=== PATIENT | male | born 1970 | race Caucasian/White ===

== ENCOUNTER 2020-06-30 18:41 | Outpatient (REF) | payer BC, SELFPAY ==
--- NOTE | 2020-06-30 | MR_ITS ---
EXAMINATION: MR KNEE WITHOUT CONTRAST, RIGHT CLINICAL INFORMATION: Right knee pain COMPARISON: Radiographs 05/15/2020 TECHNIQUE: MRI of the knee without contrast was performed using routine sequences on a high-field scanner. FINDINGS: MENISCI: Medial Meniscus: Undersurface tearing of the posterior horn with an oblique component extending to the meniscal periphery. Lateral Meniscus: Minimal inner margin fraying of the meniscal body. LIGAMENTS: Cruciate: Intact Collateral: Intact. Medial gastrocnemius tendinopathy. EXTENSOR MECHANISM: Intact ARTICULAR CARTILAGE/BONE: Patellofemoral Compartment: Mild cartilage thinning and surface irregularity of the central trochlea and medial patellar facet Medial Compartment: Prominent osteophyte of the posterior tibia projecting posterolaterally. Lateral Compartment: Normal. JOINT FLUID AND BURSAE: Moderate joint effusion. Trace Ryan's cyst. IMPRESSION: Undersurface tearing of the posterior horn of the medial meniscus. Minimal inner margin fraying of the lateral meniscus body. Mild patellofemoral and medial compartment osteoarthritis with a moderate joint effusion.
== END 2020-06-30 18:42 | disposition home or self-care (01) ==
LOC: HO.MRI 18:41
PROVIDERS: PCP Internal Medicine; Visit Provider Orthopaedic Surgery
DX: M23.8X1 Other internal derangements of right knee (principal)
CPT/HCPCS: 73721

== ENCOUNTER → 2020-07-14 10:15 | Outpatient (BNVA) | payer BC, SELFPAY | PROVIDERS: PCP Internal Medicine; Referring Provider Internal Medicine; Visit Provider Orthopaedic Surgery | DX: Z76.89 Persons encountering health services in other specified circumstances (principal) ==

== ENCOUNTER 2020-07-20 06:53 | Day surgery (SDC) | payer BC, SELFPAY ==
--- NOTE | 2020-07-19 13:29 | P.CONAN_ITS ---
Documented by User: Mihaela Sue 07/19/20 13:30 HPI - Anesthesia Eval Consult details Narrative: 49yo M for Knee Arthroscopy [facility] Past Medical History Medical History No significant past medical history Surgical History Surgical History H/O lateral meniscus repair of left knee H/O lateral meniscus repair of right knee H/O lumbar discectomy History of arthroscopy of both shoulders History of laparoscopic cholecystectomy Social History Social History Smoking Status: Never smoker Second Hand Smoke Exposure: No Use of substances other than those prescribed or required for medical reasons: No Advance Directives: No Advance Directives Information Provided: No (unknown) Advance Directives on File: No Current occupational status: employed Current occupation: [employer] Allergies Allergy/AdvReac Type Severity Reaction Status Date / Time No Known Allergies Allergy Verified 06/30/20 07:11 [No Known Allergies*] Exam Exam Date and Time: July 19, 2020 1329 Assessment and Plan Assessment Anesthesia Assessment: Chart Reviewed Documented by User: Shiraz Justin MD 07/20/20 09:28 [facility] Past Medical History Medical History No significant past medical history Surgical History Surgical History H/O lateral meniscus repair of left knee H/O lateral meniscus repair of right knee H/O lumbar discectomy History of arthroscopy of both shoulders History of laparoscopic cholecystectomy Social History Social History Smoking Status: Never smoker Second Hand Smoke Exposure: No Use of substances other than those prescribed or required for medical reasons: No Advance Directives: No Advance Directives Information Provided: No (unknown) Advance Directives on File: No Current occupational status: employed 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[facility] Allergies Allergy/AdvReac Type Severity Reaction Status Date / Time No Known Allergies Allergy Verified 06/30/20 07:11 [No Known Allergies*] Exam Airway Mallampati Class: III TM Dist: >3cm Neck ROM: Full Loose/Missing/Broken Teeth: No Heart: rrr Lungs: nl Other: ao Assessment and Plan Assessment Anesthesia Assessment: Anesthesia Plan Discussed and Chart Reviewed Final Anesthetic Review NPO: Yes ASA Class: II Final Preanesthetic Review: No Changes in Pt Med Stat, Meds/Allgs Chart Reviewed, Consent Obtained/Reviewed and Anes Risks/Benef Reviewed Patient Risk: Intermediate Procedure Risk: Low Anesthetic Plan Anesthetic Plan: GA Disposition: Standard PACU
[2020-07-20] VITALS (13 sets, daily range): BP systolic 112–139; BP diastolic 68–82; PULSE 76–87; RESP 16–24; TEMP 36.1–36.7; O2SAT 94–98; BMI 36.5
[2020-07-20] MEDS: Lactated Ringers 1,000 ML 100 ML IVCONT (07:27)
--- NOTE | 2020-07-20 07:41 | MHC.SHP ---
Pre-Procedural Eval Section A The patient is an INPATIENT: No Changes since office visit: No Cold of Flu in the past 2 weeks, No New Medical Problems, No Changes in Medication and No Patient answered all questions The History & Physical has been completed within 30 days and I have reviewed it.: Yes Section B Chief Complaint: Tear of Medial Meniscus Allergies: Allergies Allergy/AdvReac Type Severity Reaction Status Date / Time No Known Allergies Allergy Verified 06/30/20 07:11 [No Known Allergies*] Plan Patient has been examined and remains a candidate for the planned procedure
[2020-07-20] MEDS: HYDROmorphone HCl 0.5 MG/0.5 ML SYRINGE 0.25 MG IVPUSH ×3 (10:29→10:47)
--- NOTE | 2020-07-20 10:29 | PM.PRCOR ---
Brief Operative Note Date of procedure: 07/20/20 Pre-op diagnosis: medial meniscal tear right knee Post-op diagnosis: same ( with chondral injury anterior compartment right knee) Procedure: arthroscopic surgery right knee Anesthesia: GLMA Surgeon: María Michaels Estimated blood loss (mL): 0 Pathology: none sent Condition: stable Disposition: PACU
[2020-07-20] MEDS: Acetaminophen 325 MG TABLET 650 MG PO (11:10)
[2020-07-20] MEDS: oxyCODONE HCl Immed Release 5 MG TABLET PO (11:10)
--- NOTE | 2020-07-20 15:39 | OP_ITS ---
SURGEON: María Michaels MD PREOPERATIVE DIAGNOSIS: Medial meniscal tear, right knee. POSTOPERATIVE DIAGNOSIS: PROCEDURE PERFORMED: ESTIMATED BLOOD LOSS: COMPLICATIONS: ANESTHESIA: ASSISTANTS: SPECIMENS: POSTOPERATIVE DIAGNOSES: 1. Medial meniscal tear, right knee, complex. 2. Grade 3 injury, patella, right knee. PROCEDURES PERFORMED: 1. Partial medial meniscectomy, right knee. 2. Debridement of anterior compartment, right knee. CLINICAL NOTE: This gentleman has had ongoing problem pain and discomfort involving his knee. He had failed nonoperative management. Subsequent investigations confirmed complex tear of posterior horn of medial meniscus and therefore after explaining the risks, benefits, and alternatives and answering all his questions, it was mutually agreed upon to carry out the following procedure. MOTION: Full range of motion. STABILITY: Cruciate and collateral ligaments intact. DESCRIPTION OF PROCEDURE: PREPARATION: GA, standard technique, tourniquet to 300 mmHg for 12 minutes. SURGICAL TIME-OUT: The patient was identified, procedure confirmed, site confirmed. Medical analogy and history were reviewed. Preoperative antibiotics were given. Standard DVT prophylaxis was in place. All other items were discussed and agreed upon. INCISION: Superolateral, inferolateral, inferomedial, and stab incisions. SYNOVIUM: Normal. SYNOVIAL FLUID: Clear. MEDIAL COMPARTMENT: There was complex tear of the posterior horn of medial meniscus. This was resected using a combination of handheld cutters and power shaver to stable meniscus. There was some grade 3 injury with loose articular cartilage on the weightbearing surface of the medial femoral condyle. This was debrided as well. The tibial articular surface had grade 2 softening. INTERCONDYLAR NOTCH: ACL visualized, palpated intact. PCL palpated intact. LATERAL COMPARTMENT: Lateral meniscus, tibial and femoral articular surfaces, popliteus tendon all stable and intact. ANTERIOR COMPARTMENT: Medial and lateral gutters clear. Suprapatellar pouch clear. Patella demonstrated grade 3 injury of the midzone as well as the medial facet, which was debrided using power shaver. There was grade 2 softening of the femoral sulcus. CLOSURE: 30 mL of 0.75% Marcaine with epinephrine mixed 50:50 with normal saline was injected into the knee. Steri-Strips and sterile dressing then applied. RECOMMENDATIONS: 1. Restore motion strength. 2. Resume activity as tolerated. 3. Discharge today with no prescription as he just had tramadol ordered yesterday. 4. Follow up in the office in 10 days' time. MD ZOE Jerry/TASHA / [phone]
== END 2020-07-20 23:59 | disposition home or self-care (01) ==
PROVIDERS: PCP Internal Medicine; Visit Provider Orthopaedic Surgery
PROC: (CPT 29870; principal; 2020-07-20 08:30)
DX: S83.231A Complex tear of medial meniscus, current injury, right knee, initial encounter (principal); M22.41 Chondromalacia patellae, right knee; M25.461 Effusion, right knee
CPT/HCPCS: 29881; J0171; J1170; J2250; J2405; J3010

== ENCOUNTER → 2020-08-08 12:53 | Outpatient (BNVA) | payer BC, SELFPAY | PROVIDERS: PCP Internal Medicine; Referring Provider Internal Medicine; Visit Provider Physician Assistant | DX: Z76.89 Persons encountering health services in other specified circumstances (principal) ==

== ENCOUNTER 2020-08-21 06:00 | Emergency (ER) | payer BC, SELFPAY ==
[2020-08-21 06:02] VITALS: BP 154/96; PULSE 100; RESP 16; TEMP 36.6; O2SAT 96; BMI 36.5
--- NOTE | 2020-08-21 06:17 | ED.MEDCLEAR ---
HPI - Medical Clearance General Chief complaint: Medical Clearance Stated complaint: HBP Time Seen by Provider: 08/21/20 06:15 History of Present Illness HPI Narrative: patient is a 49-year-old male presents today no after noticing his blood pressure being high. Patient has no history of diabetes, hypertension, mi, family history of [place]. No significant past medical history in the past. No fever no chills. No coughing or congestion or upper respiratory symptoms. Patient was working had blood pressure checked noted to be elevated sent to the emergency department for further evaluation. Related Information Previous Rx's Medication Instructions Recorded acetaminophen 300 mg-codeine 30 mg 1 tab PO Q12H PRN 7 Days #21 tab 08/08/20 tablet celecoxib 200 mg capsule 200 mg PO BID 30 Days #60 cap 08/08/20 Allergies Allergy/AdvReac Type Severity Reaction Status Date / Time No Known Allergies Allergy Verified 08/13/20 17:19 [No Known Allergies*] Review of Systems Review of Systems: Constitutional: No Weight loss, No Fever, No Chills, No Night Sweats, No Fatigue, No Malaise ENT/Mouth: No Hearing loss, No Ear Pain, No Nasal Congestion, No Sinus Pain, No Hoarseness, No sore throat, No Rhinorrhea, No Swallowing Difficulty Eyes: No Eye Pain, No Swelling, No Redness, No Foreign Body, No Discharge, No Vision Changes Cardiovascular: No Chest Pain, No SOB, No Dyspnea on Exertion, No Orthopnea, No Edema, No Palpitations Respiratory: No Cough, No Sputum, No Wheezing, No Smoke Exposure, No Dyspnea Gastrointestinal: No Nausea, No Vomiting, No Diarrhea, No Constipation, No abdominal Pain, No Hematochezia, No Melena Genitourinary: no irregular bleeding, No Dysuria, No Urinary Frequency, No Hematuria, No Urinary Incontinence, No Urgency, No Flank Pain, No Urinary Flow Changes, No Hesitancy Musculoskeletal: No joint pain, No Myalgias, No Joint Swelling Skin: No Skin Lesions, No rash Neuro: No Weakness, No Numbness, No Paresthesias, No Loss of Consciousness, No Dizziness, No Headache Psych: No Anxiety/Panic, No Depression, No SI/HI/AH/VH, No Social Issues, Heme/Lymph: No Bruising, No Bleeding,No Lymphadenopathy Endocrine: No Polyuria, No Polydipsia, No Temperature Intolerance [facility] Past Medical History Attestation statement: The following information was validated with the patient. 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 Oriented X3. No acute distress. Eyes: Pupils equal, round and reactive to light. ENT: Pharynx normal. Neck: Normal inspection. Neck supple. No lymph nodes noted. No crepitus CVS: Normal heart rate and rhythm. Pulses normal. Normal S1 and S2 Respiratory: No respiratory distress. Breath sounds normal. No Wheezing. No rales Abdomen: Soft and nontender. No rigidity. No distention. good BS x4 Skin: Skin warm and dry. Normal skin color. Normal skin turgor. Extremities: No lower extremity edema. Neurovascular intact to all extremities. No Lacerations. No Rash Neuro: Oriented X 3. No motor deficit. No sensory deficit. Moving all extermities. No slurred speech MDM - Medical Clearance MDM Narrative Medical decision making narrative: patient's blood pressure on recheck was 150/90. Discussed with patient the need to have blood pressure recheck on an outpatient basis. Patient in no distress. Neurologically intact. Asymptomatic. Will discharge patient home close follow-up outpatient basis. Discharge Plan Discharge Clinical Impression: Hypertension Patient Disposition: Home, Self-Care Instructions: Hypertension (ED) Prescriptions: No Action celecoxib [Celebrex] 200 mg capsule 200 mg PO BID 30 Days Qty: 60 RF: 0 acetaminophen-codeine 300-30 mg tablet 1 tab PO Q12H PRN (Reason: pain) 7 Days Qty: 21 RF: 0 Referrals: Randolph Herring MD [Primary Care Provider] - 2 days Stand Alone Forms: Work/School Release
[2020-08-21 06:23] LABS: Glucose, Whole Blood 317 mg/dL (60-115)
--- NOTE | 2020-08-21 06:30 | ECG_ITS ---
Test Reason : HYPERTENSION Blood Pressure : / mmHG Vent. Rate : 098 BPM Atrial Rate : 098 BPM P-R Int : 136 ms QRS Dur : 074 ms QT Int : 352 ms P-R-T Axes : 061 -03 080 degrees QTc Int : 449 ms Normal sinus rhythm Normal ECG When compared with ECG of 21-AUG-2020 06:38, No significant change was found Referred By: Kellie Kong Electronically Signed By:MERT SPARKS
--- NOTE | 2020-08-21 06:30 | ED.MEDCLEAR ---
HPI - Medical Clearance General Chief complaint: Medical Clearance Stated complaint: HBP Time Seen by Provider: 08/21/20 06:15 Related Information Previous Rx's Medication Instructions Recorded acetaminophen 300 mg-codeine 30 mg 1 tab PO Q12H PRN 7 Days #21 tab 08/08/20 tablet celecoxib 200 mg capsule 200 mg PO BID 30 Days #60 cap 08/08/20 Allergies Allergy/AdvReac Type Severity Reaction Status Date / Time No Known Allergies Allergy Verified 08/13/20 17:19 [No Known Allergies*] [facility] Past Medical History Medical History No significant past medical history Surgical History H/O lateral meniscus repair of left knee H/O lateral meniscus repair of right knee H/O lumbar discectomy History of arthroscopy of both shoulders History of laparoscopic cholecystectomy Social History Social History Smoking Status: Never smoker Second Hand Smoke Exposure: No Advance Directives: No Advance Directives Information Provided: No Current occupational status: employed 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 It was over 300. Will check electrolytes. We will monitor carefully. Patient stated may be having some dizziness. Will get an EKG as well. The dizziness can be explained by having the high sugar. Will check beta hydroxybutyrate to rule out the possibility of diabetic ketoacidosis. Will monitor carefully. Lab Data Labs: Lab Results 08/21/20 Range/Units 06:18 POC Glucose 317 H (60-115) mg/dL Discharge Plan Discharge Clinical Impression: Hypertension, Diabetes Patient Disposition: Home, Self-Care Instructions: Type 2 Diabetes in Adults: New Diagnosis (ED), Hypertension (ED), Diabetic Hyperglycemia (ED) Prescriptions: No Action celecoxib [Celebrex] 200 mg capsule 200 mg PO BID 30 Days Qty: 60 RF: 0 acetaminophen-codeine 300-30 mg tablet 1 tab PO Q12H PRN (Reason: pain) 7 Days Qty: 21 RF: 0 Referrals: Randolph Herring MD [Primary Care Provider] - 2 days Stand Alone Forms: Work/School Release
--- NOTE | 2020-08-21 06:42 | ED.MEDCLEAR ---
HPI - Medical Clearance General Chief complaint: Medical Clearance Stated complaint: HBP Time Seen by Provider: 08/21/20 06:15 Related Information Previous Rx's Medication Instructions Recorded acetaminophen 300 mg-codeine 30 mg 1 tab PO Q12H PRN 7 Days #21 tab 08/08/20 tablet celecoxib 200 mg capsule 200 mg PO BID 30 Days #60 cap 08/08/20 Allergies Allergy/AdvReac Type Severity Reaction Status Date / Time No Known Allergies Allergy Verified 08/13/20 17:19 [No Known Allergies*] [facility] Past Medical History Medical History No significant past medical history Surgical History H/O lateral meniscus repair of left knee H/O lateral meniscus repair of right knee H/O lumbar discectomy History of arthroscopy of both shoulders History of laparoscopic cholecystectomy Social History Social History Smoking Status: Never smoker Second Hand Smoke Exposure: No Advance Directives: No Advance Directives Information Provided: No Current occupational status: employed 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 Discharge Plan Discharge Clinical Impression: Hypertension, Diabetes Patient Disposition: Home, Self-Care Instructions: Type 2 Diabetes in Adults: New Diagnosis (ED), Hypertension (ED), Diabetic Hyperglycemia (ED) Prescriptions: No Action celecoxib [Celebrex] 200 mg capsule 200 mg PO BID 30 Days Qty: 60 RF: 0 acetaminophen-codeine 300-30 mg tablet 1 tab PO Q12H PRN (Reason: pain) 7 Days Qty: 21 RF: 0 Referrals: Randolph Herring MD [Primary Care Provider] - 2 days Stand Alone Forms: Work/School Release
[2020-08-21] MEDS: 0.9 % Sodium Chloride 1,000 ML 999 ML IVCONT (06:45)
[2020-08-21 06:51] LABS: MANUAL DIFF FLAG NO
[2020-08-21 06:52] LABS: Basophils Percent Auto 0.4 % (0-2); Eosinophils Absolute Auto 0.1 X10*3/uL (0.0-0.4); Eosinophils Percent Auto 1.1 % (0-4); Hematocrit 47.3 % (42-52); Imm Gran Abs Auto 0.03 X10*3/uL (0.00-0.03); Imm Gran Pct Auto 0.4 % (0.0-0.4); Lymphocytes Absolute Auto 1.2 X10*3/uL (1.2-4.9); Lymphocytes Percent Auto 16.4 % (20-40); Mean Corpuscular HGB Conc 33.8 g/dl (31.0-36.0); Mean Corpuscular Hemoglobin 29.6 pg (27.0-33.0); Mean Corpuscular Volume 87.6 fL (80-98); Mean Platelet Volume 9.2 fL (9.4-12.4); Monocytes Absolute Auto 0.8 X10*3/uL (0.1-1.2); Monocytes Percent Auto 10.5 % (2-11); Neutrophils Absolute Auto 5.2 X10*3/uL (2.0-8.3); Neutrophils Percent Auto 71.2 % (45-73); Platelet Count 295 X10*3/uL (160-400); Red Cell Distribution Width 12.4 % (11.0-16.0); White Blood Count 7.3 X10*3/uL (4.8-10.8)
[2020-08-21 07:34] VITALS: BP 147/97; PULSE 84; RESP 16; O2SAT 100
[2020-08-21 07:34] LABS: Anion Gap 17 (12-20); Blood Urea Nitrogen 13 mg/dL (9-16); Calcium 9.6 mg/dL (8.4-10.2); Carbon Dioxide 24 mmol/L (22-29); Chloride 99 mmol/L (96-108); Creatinine Clr Calc Pharmacy 86.6; Estimated Glomerular Filt Rate > 60; Glucose Random 300 mg/dL (60-115); Potassium 3.7 mmol/l (3.3-5.1); Sodium 136 mmol/L (135-145)
--- NOTE | 2020-08-21 07:36 | PC.NURSE ---
report taken from catherine cota pt lying in stretcher, resting w nad. awaiting lab results of blood work. iv fluids infusing. wctm.
[2020-08-27 03:52] LABS: Beta-Hydroxybutyrate 0.11 mmol/L
== END 2020-08-21 08:07 | disposition home or self-care (01) ==
LOC: HO.ED 06:21
PROVIDERS: Emergency Provider Emergency Medicine Emergency Medical Services; PCP Internal Medicine
DX: E11.65 Type 2 diabetes mellitus with hyperglycemia (principal); I10 Essential (primary) hypertension
CPT/HCPCS: 36415; 80048; 82010; 82947; 85025; 93005; 96360; 99284

== ENCOUNTER 2020-08-28 12:54 | Outpatient (REF) | payer BC, SELFPAY ==
[2020-08-28 14:38] LABS: Basophils Percent Auto 0.3 % (0-2); Eosinophils Percent Auto 0.7 % (0-4); Hematocrit 44.7 % (42-52); Hemoglobin 14.8 g/dl (14.0-18.0); Imm Gran Abs Auto 0.03 X10*3/uL (0.00-0.03); Imm Gran Pct Auto 0.5 % (0.0-0.4); Lymphocytes Absolute Auto 1.6 X10*3/uL (1.2-4.9); Lymphocytes Percent Auto 26.2 % (20-40); Mean Corpuscular HGB Conc 33.1 g/dl (31.0-36.0); Mean Corpuscular Hemoglobin 29.1 pg (27.0-33.0); Mean Corpuscular Volume 87.8 fL (80-98); Mean Platelet Volume 9.6 fL (9.4-12.4); Monocytes Absolute Auto 0.6 X10*3/uL (0.1-1.2); Monocytes Percent Auto 10.2 % (2-11); Neutrophils Absolute Auto 3.8 X10*3/uL (2.0-8.3); Neutrophils Percent Auto 62.1 % (45-73); Platelet Count 279 X10*3/uL (160-400); Red Blood Count 5.09 X10*6/uL (4.60-5.80); Red Cell Distribution Width 12.6 % (11.0-16.0); White Blood Count 6.1 X10*3/uL (4.8-10.8)
[2020-08-28 14:39] LABS: MANUAL DIFF FLAG NO
[2020-08-28 15:08] LABS: Estimated Average Glucose 151 mg/dL; Hemoglobin A1c % 6.9 %
[2020-08-28 15:17] LABS: Alanine Aminotransferase 99 U/L (0-40); Albumin Level 4.4 g/dL (3.5-5.0); Alkaline Phosphatase 92 U/L (39-117); Anion Gap 15 (12-20); Aspartate Amino Transferase 68 U/L (5-37); Bilirubin Total 0.5 mg/dL (0.0-1.0); Blood Urea Nitrogen 12 mg/dL (9-16); Calcium 8.4 mg/dL (8.4-10.2); Carbon Dioxide 24 mmol/L (22-29); Chloride 105 mmol/L (96-108); Estimated Glomerular Filt Rate > 60; Glucose Random 135 mg/dL (60-115); Sodium 140 mmol/L (135-145)
[2020-08-28 15:27] LABS: Erythrocyte Sedimentation Rate 57 MM/HR (0-15)
== END 2020-08-28 12:55 | disposition home or self-care (01) ==
LOC: HO.LAB 12:54
PROVIDERS: Visit Provider Internal Medicine
DX: R73.9 Hyperglycemia, unspecified (principal); M25.561 Pain in right knee; M25.461 Effusion, right knee; L81.9 Disorder of pigmentation, unspecified; I10 Essential (primary) hypertension
CPT/HCPCS: 36415; 80053; 83036; 85025; 85652

== ENCOUNTER 2020-09-22 10:06 | Emergency (ER) | payer BC, SELFPAY ==
[2020-09-22 10:15] VITALS: BP 147/96; PULSE 100; RESP 18; TEMP 37.3; O2SAT 95; BMI 36.5
--- NOTE | 2020-09-22 10:55 | US_ITS ---
EXAMINATION: US VENOUS ULTRASOUND WITH DOPPLER LOWER EXTREMITY, LEFT CLINICAL INFORMATION: Swelling, redness, COVID +. Assess for DVT. COMPARISON: Bilateral leg venous ultrasound with Doppler 03/28/2012 TECHNIQUE: Ultrasound of the deep veins is performed from the hip to the calf with compression sonography and color and pulse Doppler assessment. Spectral analysis with color-flow imaging is performed. FINDINGS: There is normal venous compression and respiratory variation and augmented flow. The visualized common femoral vein, superficial femoral vein, profunda femoral vein, popliteal vein, and the trifurcation region shows no evidence of deep venous thrombosis. No popliteal fossa cyst. Additional imaging in area of soft tissue redness medial calf shows no fluid collection/abscess. US/US venous duplex LE LT IMPRESSION: 1. No DVT demonstrated in the left lower extremity. 2. No soft tissue fluid collection/abscess. No popliteal fossa cyst demonstrated.
--- NOTE | 2020-09-22 11:00 | ED.EXTPRO ---
HPI - Extremity Problem General Chief complaint: Extremity Problem Stated complaint: leg pain - covid + Time Seen by Provider: 09/22/20 10:46 Source: patient Mode of arrival: ambulatory Limitations: no limitations History of Present Illness HPI Narrative: 49-year-old male with a past medical history of hypertension here with left leg pain, swelling, redness. Patient tells me he has been sick with COVID for the last 3-4 days with fevers and cough. He noticed last night that the posterior left knee was painful. This morning when he woke up he noticed it was swollen and red. He has had fevers which he thought was secondary to his COVID infection. No shortness of breath or chest pain. MD Complaint: extremity pain and extremity swelling Onset (ago): hour(s) Pain Consistency: constant Location: left Quality: aching Radiation: none Relieving factors: immobilization Exacerbating factors: palpation Associated symptoms: denies other symptoms Context: recent illness Related Data Home Medications Medication Instructions Recorded Confirmed celecoxib 200 mg capsule 200 mg PO BID PRN cap 08/26/20 Previous Rx's Medication Instructions Recorded tramadol 50 mg tablet 50 mg PO TID PRN 30 Days #90 tab 09/13/20 doxycycline monohydrate 100 mg PO BID #21 cap 09/22/20 Allergies Allergy/AdvReac Type Severity Reaction Status Date / Time No Known Allergies Allergy Verified 08/13/20 17:19 [No Known Allergies*] Review of Systems Review of Systems: Yes all other systems are reviewed and are negative Constitutional: Constitutional: Reports no additional constitutional complaints, Denies body ache(s), Denies chills, Denies fever(s), Denies headache(s) and Denies weakness Eyes: Eyes: Reports no additional eye complaints and Denies change in vision ENT: Reports system reviewed and no additional complaints, except as documented, Denies dizziness, Denies headache(s), Denies nasal congestion, Denies nasal discharge and Denies neck pain Cardiovascular: Cardiovascular: Reports no additional cardiovascular complaints, Denies chest pain, Denies leg edema and Denies dyspnea Respiratory: Respiratory: Reports no additional respiratory complaints, Denies cough and Denies dyspnea Gastrointestinal: Gastrointestinal: Reports no additional gastrointestinal complaints, Denies abdominal pain, Denies diarrhea, Denies nausea and Denies vomiting Genitourinary: Genitourinary: Denies urinary incontinence Musculoskeletal: Musculoskeletal: Reports no additional musculoskeletal complaints, Denies back pain, Reports arthralgias, Reports joint swelling, Denies neck pain, Denies numbness and Denies tingling Integumentary/Breasts: Skin/Breast: Reports system reviewed and no additional complaints, except as docu and Reports rash Neurologic: Reports system reviewed and no additional complaints, except as documented, Denies Abnormal speech present, Denies dizziness, Denies headache(s), Denies numbness, Denies tingling and Denies weakness PMFSH Past Medical History Attestation statement: The following information was validated with the patient. Source: old records reviewed and nursing notes reviewed Medical History Benign essential hypertension Hyperglycemia Obesity (BMI 30-39.9) Surgical History H/O lateral meniscus repair of left knee H/O lateral meniscus repair of right knee H/O lumbar discectomy History of arthroscopy of both shoulders History of laparoscopic cholecystectomy Family History Family History Other Family history non-contributory Social History Social History Alcohol intake: never Smoking Status: Never smoker Second Hand Smoke Exposure: No Use of substances other than those prescribed or required for medical reasons: No Advance Directives: No Advance Directives Information Provided: No Current occupational status: employed 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[employer] [facility] Physical Exam Vital Signs: Vital Signs: Last Vital Signs Temp 98.5 F 09/22/20 14:28 Pulse 88 09/22/20 14:28 Resp 18 09/22/20 14:28 BP 151/82 H 09/22/20 14:28 Pulse Ox 96 09/22/20 14:28 Body Mass Index 36.5 Const: General: cooperative, healthy appearing, comfortable and no acute distress Orientation/consciousness: patient oriented x3 Limitations: no limitations HENMT: Head: Yes normal to inspection Ears: hearing grossly normal bilaterally General nose exam: Normal external nose present Face and sinus: Yes normal facial exam Mouth: Normal oral and palatal mucosa present Throat: Yes posterior oropharynx normal Eyes: General: appearance normal, both eyes and all related structures Pupils: Equal, round and reactive pupils present Neck: Neck: Yes normal visual inspection Chest: Chest palpation & inspection: normal inspection of the chest Resp: Effort & Inspection: normal respiratory effort Auscultation: clear to auscultation bilaterally Cardio: Rate: regular rate Rhythm: regular rhythm Peripheral pulses: Peripheral pulses 2+ throughout GI: Inspection: Yes normal to inspection Palpation (GI): Soft to palpation and nontender Auscultation: normal bowel sounds Back/Spine/Pelvis: Thoracic/Lumbar Spine: thoracic and lumbar spine normal to inspection Skin: General skin exam: no rashes or lesions noted Neuro: General: patient oriented x3, no focal motor deficits and normal sensation to monofilament Cranial nerves: Yes Equal, round and reactive pupils present Cognition (Neuro): normal cognition Speech: No Abnormal speech present Gait exam (Neuro): Normal gait present Motor exam (neuro): 5/5 motor strength present throughout Extrem: Other: To the posterior left knee there is redness, swelling, tenderness. The patient is able to flex and extend the knee although does have some pain with this. He is able. Neurovascularly intact distally. General: Yes normal to inspection Course Course Course Narrative: 49-year-old male here with left posterior knee swelling, pain, redness times 24 hours. Diagnosed with COVID-19 infection a few days ago and has had fevers and cough with this. Will check labs, US to r/o DVT. Labs show mild leukocytosis. This is from his known viral infection of COVID-19. Low-grade fever here secondary to viral infection. Elevated INR and PT secondary to viral infection. Ultrasound is negative for DVT. Exam is more consistent with a cellulitis. Low concern for septic joint with full range of motion of the affected knee. Blood cultures and lactic acid sent. At this time concern for infection, cellulitis. Patient given a dose of antibiotics. Discharged home with 10 day course of doxycycline. Area was marked the skin marker. Reviewed worrisome signs and symptoms and when to return to the emergency department. Comfortable discharge home. MDM - Extremity (Nontraumatic) Medical Records Attestation: I reviewed the patient's medical records. Lab Data Attestation: I reviewed the patient's lab results. Result diagrams: 09/22/20 12:21 09/22/20 12:22 Labs: Lab Results 09/22/20 09/22/20 09/22/20 Range/Units 12:21 12:21 12:22 WBC 18.0 H (4.8-10.8) X10*3/uL RBC 4.93 (4.60-5.80) X10*6/uL Hgb 14.7 (14.0-18.0) g/dl Hct 43.3 (42-52) % MCV 87.8 (80-98) fL MCH 29.8 (27.0-33.0) pg MCHC 33.9 (31.0-36.0) g/dl RDW 12.5 (11.0-16.0) % Plt Count 297 (160-400) X10*3/uL MPV 9.1 L (9.4-12.4) fL Immature Gran % (Auto) 0.4 (0.0-0.4) % Neut % (Auto) 84.1 H (45-73) % Lymph % (Auto) 7.4 L (20-40) % [place] % (Auto) 7.4 (2-11) % Eos % (Auto) 0.4 (0-4) % Baso % (Auto) 0.3 (0-2) % Lymph # (Auto) 1.3 (1.2-4.9) X10*3/uL [place] # (Auto) 1.3 H (0.1-1.2) X10*3/uL Eos # (Auto) 0.1 (0.0-0.4) X10*3/uL Baso # (Auto) 0.1 (0.0-0.2) X10*3/uL Abs Immat Gran (auto) 0.08 H (0.00-0.03) X10*3/uL Absolute Neuts (auto) 15.1 H (2.0-8.3) X10*3/uL Absolute Nucleated RBC 0.000 (0.0-0.012) X10*3/uL Nucleated RBC % (auto) 0.0 (0.0-0.2) /100WBC PT 14.6 H (10.8-13.0) SEC INR 1.2 H (0.9-1.1) Sodium 137 (135-145) mmol/L Potassium 4.2 (3.3-5.1) mmol/l Chloride 103 (96-108) mmol/L Carbon Dioxide 25 (22-29) mmol/L Anion Gap 13 (12-20) BUN 12 (9-16) mg/dL Creatinine 0.98 (0.5-1.4) mg/dL Estim Creat Clear Calc 107.8 Estimated GFR > 60 Random Glucose 154 H (60-115) mg/dL Lactic Acid (0.5-2.0) mmol/L Calcium 9.1 D (8.4-10.2) mg/dL Total Bilirubin 0.9 (0.0-1.0) mg/dL Direct Bilirubin 0.4 (0.0-0.5) mg/dL AST 15 D (5-37) U/L ALT 29 (0-40) U/L Alkaline Phosphatase 89 (39-117) U/L Total Protein 7.7 (6.5-8.0) g/dL Albumin 4.2 (3.5-5.0) g/dL 09/22/20 Range/Units 14:20 WBC (4.8-10.8) X10*3/uL RBC (4.60-5.80) X10*6/uL Hgb (14.0-18.0) g/dl Hct (42-52) % MCV (80-98) fL MCH (27.0-33.0) pg MCHC (31.0-36.0) g/dl RDW (11.0-16.0) % Plt Count (160-400) X10*3/uL MPV (9.4-12.4) fL Immature Gran % (Auto) (0.0-0.4) % Neut % (Auto) (45-73) % Lymph % (Auto) (20-40) % [place] % (Auto) (2-11) % Eos % (Auto) (0-4) % Baso % (Auto) (0-2) % Lymph # (Auto) (1.2-4.9) X10*3/uL [place] # (Auto) (0.1-1.2) X10*3/uL Eos # (Auto) (0.0-0.4) X10*3/uL Baso # (Auto) (0.0-0.2) X10*3/uL Abs Immat Gran (auto) (0.00-0.03) X10*3/uL Absolute Neuts (auto) (2.0-8.3) X10*3/uL Absolute Nucleated RBC (0.0-0.012) X10*3/uL Nucleated RBC % (auto) (0.0-0.2) /100WBC PT (10.8-13.0) SEC INR (0.9-1.1) Sodium (135-145) mmol/L Potassium (3.3-5.1) mmol/l Chloride (96-108) mmol/L Carbon Dioxide (22-29) mmol/L Anion Gap (12-20) BUN (9-16) mg/dL Creatinine (0.5-1.4) mg/dL Estim Creat Clear Calc Estimated GFR Random Glucose (60-115) mg/dL Lactic Acid 1.8 (0.5-2.0) mmol/L Calcium (8.4-10.2) mg/dL Total Bilirubin (0.0-1.0) mg/dL Direct Bilirubin (0.0-0.5) mg/dL AST (5-37) U/L ALT (0-40) U/L Alkaline Phosphatase (39-117) U/L Total Protein (6.5-8.0) g/dL Albumin (3.5-5.0) g/dL Imaging Data Venous US: Attestation: I personally reviewed and interpreted this imaging study as follows: Radiologist's impression: EXAMINATION: US VENOUS ULTRASOUND WITH DOPPLER LOWER EXTREMITY, LEFT CLINICAL INFORMATION: Swelling, redness, COVID +. Assess for DVT. COMPARISON: Bilateral leg venous ultrasound with Doppler 03/28/2012 TECHNIQUE: Ultrasound of the deep veins is performed from the hip to the calf with compression sonography and color and pulse Doppler assessment. Spectral analysis with color-flow imaging is performed. FINDINGS: There is normal venous compression and respiratory variation and augmented flow. The visualized common femoral vein, superficial femoral vein, profunda femoral vein, popliteal vein, and the trifurcation region shows no evidence of deep venous thrombosis. No popliteal fossa cyst. Additional imaging in area of soft tissue redness medial calf shows no fluid collection/abscess. US/US venous duplex LE LT IMPRESSION: 1. No DVT demonstrated in the left lower extremity. 2. No soft tissue fluid collection/abscess. No popliteal fossa cyst demonstrated. Discharge Plan Discharge Clinical Impression: Cellulitis Qualifiers: Site of cellulitis: extremity Site of cellulitis of extremity: lower extremity Laterality: left Qualified Code(s): L03.116 - Cellulitis of left lower limb Patient Disposition: Home, Self-Care Instructions: Cellulitis (ED) Additional Instructions: We have marked the area with a skin marker. Look at this site every day. If you notice redness spreading outside the lines, difficulty bending or extending the knee you need to return to the emergency department Start your antibiotics tonight Prescriptions: New doxycycline monohydrate 100 mg capsule 100 mg PO BID Qty: 21 RF: 0 No Action tramadol 50 mg tablet 50 mg PO TID PRN (Reason: pain) 30 Days Qty: 90 RF: 0 celecoxib [Celebrex] 200 mg capsule 200 mg PO BID PRN (Reason: pain) RF: 0 Referrals: Randolph Herring MD [Primary Care Provider] - 2 days Interventions: ED Discharge Assessment Last Done: 09/22/20 14:29 Discharge Date/Time: 09/22/20 14:39
[2020-09-22 12:15] VITALS: BP 156/86; PULSE 87; RESP 18; TEMP 36.7; O2SAT 96
--- NOTE | 2020-09-22 12:18 | PC.NURSE ---
patient a&ox3, c/o left leg pain posterior knee area, area is red/warm to touch, patient states while he is laying down he has no pain but when he attempts to ambulate the pain is 8/10, vitals stable, labs being drawn pt awaits ultrasound, will continue to monitor.
[2020-09-22 12:30] LABS: Basophils Absolute Auto 0.1 X10*3/uL (0.0-0.2); Basophils Percent Auto 0.3 % (0-2); Eosinophils Absolute Auto 0.1 X10*3/uL (0.0-0.4); Eosinophils Percent Auto 0.4 % (0-4); Hematocrit 43.3 % (42-52); Hemoglobin 14.7 g/dl (14.0-18.0); Imm Gran Abs Auto 0.08 X10*3/uL (0.00-0.03); Imm Gran Pct Auto 0.4 % (0.0-0.4); Lymphocytes Absolute Auto 1.3 X10*3/uL (1.2-4.9); Lymphocytes Percent Auto 7.4 % (20-40); MANUAL DIFF FLAG NO; Mean Corpuscular HGB Conc 33.9 g/dl (31.0-36.0); Mean Corpuscular Hemoglobin 29.8 pg (27.0-33.0); Mean Corpuscular Volume 87.8 fL (80-98); Mean Platelet Volume 9.1 fL (9.4-12.4); Monocytes Absolute Auto 1.3 X10*3/uL (0.1-1.2); Monocytes Percent Auto 7.4 % (2-11); Neutrophils Absolute Auto 15.1 X10*3/uL (2.0-8.3); Neutrophils Percent Auto 84.1 % (45-73); Platelet Count 297 X10*3/uL (160-400); Red Blood Count 4.93 X10*6/uL (4.60-5.80); Red Cell Distribution Width 12.5 % (11.0-16.0)
[2020-09-22 12:38] LABS: INTERNATIONAL NORM RATIO 1.2 (0.9-1.1); Prothrombin Time 14.6 SEC (10.8-13.0)
[2020-09-22 13:11] LABS: Alanine Aminotransferase 29 U/L (0-40); Albumin Level 4.2 g/dL (3.5-5.0); Alkaline Phosphatase 89 U/L (39-117); Anion Gap 13 (12-20); Aspartate Amino Transferase 15 U/L (5-37); Bilirubin Direct 0.4 mg/dL (0.0-0.5); Bilirubin Total 0.9 mg/dL (0.0-1.0); Blood Urea Nitrogen 12 mg/dL (9-16); Calcium 9.1 mg/dL (8.4-10.2); Carbon Dioxide 25 mmol/L (22-29); Chloride 103 mmol/L (96-108); Creatinine Clr Calc Pharmacy 107.8; Estimated Glomerular Filt Rate > 60; Glucose Random 154 mg/dL (60-115); Potassium 4.2 mmol/l (3.3-5.1); Sodium 137 mmol/L (135-145); Total Protein 7.7 g/dL (6.5-8.0)
--- NOTE | 2020-09-22 14:24 | PC.NURSE ---
patient medicated per order, additional labs drawn, pt leg outlined and discharge instructions have been given
[2020-09-22 14:28] VITALS: BP 151/82; PULSE 88; RESP 18; TEMP 36.9; O2SAT 96
[2020-09-22 14:47] LABS: Lactic Acid 1.8 mmol/L (0.5-2.0)
== END 2020-09-22 14:39 | disposition home or self-care (01) ==
PROVIDERS: Nurse Practitioner Family; Emergency Provider Emergency Medicine; PCP Internal Medicine
DX: L03.116 Cellulitis of left lower limb (principal); M79.605 Pain in left leg; R60.0 Localized edema; R50.9 Fever, unspecified
CPT/HCPCS: 36415; 80048; 80076; 83605; 85025; 85610; 87040; 93971; 99284

== ENCOUNTER 2021-03-11 16:09 | Emergency (ER) | payer BC, SELFPAY ==
--- NOTE | ~2021-03-11 | CT_ITS ---
EXAMINATION: CT ABDOMEN AND PELVIS WITHOUT CONTRAST CLINICAL INFORMATION: Right flank pain COMPARISON: 09/14/2013 TECHNIQUE: Multidetector volumetric imaging was performed from the superior aspect of the liver through the pubic symphysis. Sagittal and coronal reformatted images were obtained on the technologist's workstation. This CT examination was performed using dose optimization techniques as appropriate, variously including the following: *Automated exposure control *Adjustment of mA and/or kV according to patient size (this includes techniques or standardized protocols for targeted exams where dose is matched to indication/reason for exam; i.e. extremities or head) *Use of iterative reconstruction technique DLP: 837 mGy-cm FINDINGS: LUNG BASES: The visualized lung bases are unremarkable. LIVER, GALLBLADDER, AND BILIARY TREE: The liver is normal in size, shape, and attenuation. No focal hepatic lesion or biliary ductal dilatation is present. Status post cholecystectomy. PANCREAS: Unremarkable. SPLEEN: Unremarkable. ADRENAL GLANDS: Unremarkable. KIDNEYS AND URETERS: 5 mm left mid renal calculus. No right renal calculus. No hydronephrosis or solid mass. No hydroureter BLADDER: No calculus or mass. GASTROINTESTINAL TRACT: Stomach and small bowel are nondilated. Normal appendix. No evidence of colitis or diverticulitis. ABDOMINAL WALL: Fat-containing bilateral inguinal hernias. Fat-containing umbilical hernia. LYMPH NODES: Normal. VASCULAR: No aneurysm. PELVIC VISCERA: The prostate and seminal vesicles are unremarkable. OSSEOUS STRUCTURES: Degenerative changes of the lumbar spine. CT/CT abdomen pelvis wo con IMPRESSION: 5 mm nonobstructing left mid renal calculus. No acute CT findings.
[2021-03-11 16:20] VITALS: BP 148/90; PULSE 80; RESP 16; TEMP 36.7; O2SAT 99; BMI 34.2
[2021-03-11 17:02] LABS: MANUAL DIFF FLAG NO
[2021-03-11 17:05] LABS: Basophils Percent Auto 0.3 % (0-2); Eosinophils Percent Auto 0.1 % (0-4); Hematocrit 44.8 % (42-52); Hemoglobin 15.8 g/dl (14.0-18.0); Imm Gran Abs Auto 0.07 X10*3/uL (0.00-0.03); Imm Gran Pct Auto 0.4 % (0.0-0.4); Lymphocytes Absolute Auto 2.6 X10*3/uL (1.2-4.9); Lymphocytes Percent Auto 16.1 % (20-40); Mean Corpuscular HGB Conc 35.3 g/dl (31.0-36.0); Mean Corpuscular Hemoglobin 29.6 pg (27.0-33.0); Mean Corpuscular Volume 84.1 fL (80-98); Mean Platelet Volume 9.1 fL (9.4-12.4); Monocytes Percent Auto 5.9 % (2-11); Neutrophils Absolute Auto 12.3 X10*3/uL (2.0-8.3); Neutrophils Percent Auto 77.2 % (45-73); Platelet Count 376 X10*3/uL (160-400); Red Blood Count 5.33 X10*6/uL (4.60-5.80)
[2021-03-11 17:06] LABS: Glucose Urine UA NEG (NEG); Leukocyte Esterase Urine NEG (NEG); Nitrite Urine NEG (NEG); Specific Gravity - Urine 1.015 (1.005-1.025); Urine Blood 2+ (NEG); Urine Ketones NEG (NEG); Urine Protein NEG (NEG-TRACE)
[2021-03-11 17:07] LABS: Appearance Urine HAZY; Color Urine YELLOW
[2021-03-11 17:14] LABS: Amorphous Sediment Urine 2+ /LPF; WBC Urine 0-2 /HPF (0-4)
[2021-03-11 17:30] LABS: Anion Gap 13 (12-20); Blood Urea Nitrogen 9 mg/dL (9-16); Calcium 10.3 mg/dL (8.4-10.2); Carbon Dioxide 22 mmol/L (22-29); Chloride 110 mmol/L (96-108); Creatinine Clr Calc Pharmacy 102.2; Estimated Glomerular Filt Rate > 60; Glucose Random 113 mg/dL (60-115); Potassium 3.7 mmol/L (3.3-5.1); Sodium 141 mmol/L (135-145)
[2021-03-11 17:52] VITALS: BP 139/88; PULSE 72; RESP 21; O2SAT 99
--- NOTE | 2021-03-11 17:55 | ED_ITS ---
HPI - Dizziness General Chief Complaint: Dizziness Stated Complaint: dizzy, abdominal pain Time Seen by Provider: 03/11/21 17:55 Source: patient Mode of arrival: ambulatory Limitations: no limitations History of Present Illness HPI Narrative: patient with history of hypertension otherwise no significant medical history been feeling down for last 3 days with diffuse abdominal pain with diarrhea and nausea metallic taste no fever or chills says does not feel good multiple complaints with dizziness weakness body aches already been vaccinated with COVID no other family members sick Related Data Previous Rx's Medication Instructions Recorded oxycodone 5 mg tablet 5 mg PO Q8H PRN 5 Days #15 tab 01/12/21 tizanidine 4 mg tablet 4 mg PO TID PRN 10 Days #30 tab 01/12/21 tramadol 50 mg tablet 50 mg PO QID PRN 30 Days #120 tab 03/01/21 ciprofloxacin HCl [Cipro] 500 mg PO BID #14 tab 03/11/21 dicyclomine 20 mg PO QID PRN #20 tab 03/11/21 metronidazole [Flagyl] 500 mg PO TID #21 tab 03/11/21 Allergies Allergy/AdvReac Type Severity Reaction Status Date / Time No Known Allergies Allergy Verified 01/13/21 19:39 [No Known Allergies*] Review of Systems Review of Systems: Yes all other systems are reviewed and are negative PMFSH Past Medical History Medical History Benign essential hypertension Colon cancer screening Cyst of perianal area Degenerative joint disease of right knee Hyperglycemia Lumbar sprain Obesity (BMI 30-39.9) Surgical History H/O lateral meniscus repair of left knee H/O lateral meniscus repair of right knee H/O lumbar discectomy History of arthroscopy of both shoulders History of laparoscopic cholecystectomy History of meniscectomy of right knee (~07/20/20) History of right knee surgery Family History Family History Other Family history non-contributory Social History Social History Alcohol intake: current Alcohol intake frequency: a few times a month Patient Tobacco Use Status: Never used Tobacco Second Hand Smoke Exposure: No Use of substances other than those prescribed or required for medical reasons: No Advance Directives: No Advance Directives Information Provided: No Current occupational status: employed 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 Oriented X3. No acute distress. Eyes: PERRLA, No Nystagmus ENT: Pharynx normal. Oral Mucosa moist Neck: Normal inspection. Neck supple. CVS: Normal heart rate and rhythm. Pulses normal. Respiratory: No respiratory distress. Equal air entry bilateral, no wheezing/rales/rhonchi Abdomen: Soft and mild upper abdominal tenderness, Bowel sounds are present, no mass palpable, no CVA tenderness Skin: Skin warm and dry. Normal skin color. Normal skin turgor. Extremities: No lower extremity edema. No calf tenderness Neuro: Oriented X 3. No motor deficit. No sensory deficit. MDM - Dizziness MDM Narrative Medical decision making narrative: patient with diarrhea with diffuse abdominal pain CT scan negative for any acute pathology except for nonobstructive left kidney stone patient has leukocytosis had [employer] food few days ago may be the cause of infection possible colitis will discharge him home on Levaquin and Flagyl Lab Data Attestation: I reviewed the patient's lab results. Result diagrams: 03/11/21 16:55 03/11/21 16:55 Labs: Lab Results 03/11/21 03/11/21 03/11/21 Range/Units 16:55 16:55 16:55 WBC 16.0 H (4.8-10.8) X10*3/uL RBC 5.33 (4.60-5.80) X10*6/uL Hgb 15.8 (14.0-18.0) g/dl Hct 44.8 (42-52) % MCV 84.1 (80-98) fL MCH 29.6 (27.0-33.0) pg MCHC 35.3 (31.0-36.0) g/dl RDW 12.0 (11.0-16.0) % Plt Count 376 D (160-400) X10*3/uL MPV 9.1 L (9.4-12.4) fL Immature Gran % (Auto) 0.4 (0.0-0.4) % Neut % (Auto) 77.2 H (45-73) % Lymph % (Auto) 16.1 L (20-40) % [place] % (Auto) 5.9 (2-11) % Eos % (Auto) 0.1 (0-4) % Baso % (Auto) 0.3 (0-2) % Lymph # (Auto) 2.6 (1.2-4.9) X10*3/uL [place] # (Auto) 1.0 (0.1-1.2) X10*3/uL Eos # (Auto) 0.0 (0.0-0.4) X10*3/uL Baso # (Auto) 0.0 (0.0-0.2) X10*3/uL Abs Immat Gran (auto) 0.07 H (0.00-0.03) X10*3/uL Absolute Neuts (auto) 12.3 H (2.0-8.3) X10*3/uL Absolute Nucleated RBC 0.000 (0.0-0.012) X10*3/uL Nucleated RBC % (auto) 0.0 (0.0-0.2) /100WBC Sodium 141 (135-145) mmol/L Potassium 3.7 (3.3-5.1) mmol/L Chloride 110 H (96-108) mmol/L Carbon Dioxide 22 (22-29) mmol/L Anion Gap 13 (12-20) BUN 9 (9-16) mg/dL Creatinine 0.99 (0.5-1.4) mg/dL Estim Creat Clear Calc 102.2 Estimated GFR > 60 Random Glucose 113 (60-115) mg/dL Calcium 10.3 H D (8.4-10.2) mg/dL Total Bilirubin 0.4 (0.0-1.0) mg/dL Direct Bilirubin 0.2 (0.0-0.5) mg/dL AST 17 (5-37) U/L ALT 21 (0-40) U/L Alkaline Phosphatase 95 (39-117) U/L Total Protein 8.0 (6.5-8.0) g/dL Albumin 4.5 (3.5-5.0) g/dL Lipase 75 (8-78) U/L Urine Color YELLOW Urine Appearance HAZY Urine pH 7.0 (5.0-8.0) Ur Specific [place] 1.015 (1.005-1.025) Urine Protein NEG (NEG-TRACE) MG/DL Urine Glucose (UA) NEG (NEG) MG/DL Urine Ketones NEG (NEG) MG/DL Urine Blood 2+ H (NEG) Urine Nitrite NEG (NEG) Ur Leukocyte Esterase NEG (NEG) Urine RBC 5-9 H (0) /HPF Urine WBC 0-2 (0-4) /HPF Ur Squamous Epith Cells NONE /LPF Amorphous Sediment 2+ /LPF Urine Bacteria NONE /LPF Discharge Plan Discharge Clinical Impression: Gastroenteritis Patient Disposition: Home, Self-Care Instructions: Gastroenteritis (ED) Additional Instructions: drink plenty of fluids take antibiotic as advised for possible infectious colitis report to your PCP /ED if high fevers/ increased abdominal pain Prescriptions: New ciprofloxacin HCl [Cipro] 500 mg tablet 500 mg PO BID Qty: 14 RF: 0 metronidazole [Flagyl] 500 mg tablet 500 mg PO TID Qty: 21 RF: 0 dicyclomine 20 mg tablet 20 mg PO QID PRN (Reason: abdominal pain) Qty: 20 RF: 0 No Action tramadol 50 mg tablet 50 mg PO QID PRN (Reason: pain) 30 Days Qty: 120 RF: 0 tizanidine 4 mg tablet 4 mg PO TID PRN (Reason: muscle spasms) 10 Days Qty: 30 RF: 1 oxycodone 5 mg tablet 5 mg PO Q8H PRN (Reason: pain) 5 Days Qty: 15 RF: 0 Stand Alone Forms: Work/School Release Interventions: ED Discharge Assessment Last Done: 03/11/21 21:40 Discharge Date/Time: 03/11/21 21:42
[2021-03-11 18:39] LABS: Alanine Aminotransferase 21 U/L (0-40); Albumin Level 4.5 g/dL (3.5-5.0); Alkaline Phosphatase 95 U/L (39-117); Aspartate Amino Transferase 17 U/L (5-37); Bilirubin Direct 0.2 mg/dL (0.0-0.5); Bilirubin Total 0.4 mg/dL (0.0-1.0); Lipase 75 U/L (8-78)
[2021-03-11] MEDS: 0.9 % Sodium Chloride 1,000 ML 999 ML IVCONT (18:42)
[2021-03-11] MEDS: ondansetron HCL 4 MG/2 ML VIAL IVPUSH (18:46)
[2021-03-11] MEDS: Famotidine/PF 20 MG/2 ML VIAL IVPUSH (19:55)
[2021-03-11] MEDS: Magnesium Hydrox/Alum Hydrox 30 ML ORAL.SUSP PO (19:55)
[2021-03-11 20:36] VITALS: BP 141/77; PULSE 64; RESP 14; TEMP 36.6; O2SAT 98
[2021-03-11] MEDS: metroNIDAZOLE 500 MG TABLET PO (20:54)
[2021-03-11] MEDS: Dicyclomine HCl 10 MG CAPSULE 20 MG PO (20:54)
[2021-03-11] MEDS: levoFLOXacin 500 MG TABLET PO (20:54)
== END 2021-03-11 21:42 | disposition home or self-care (01) ==
PROVIDERS: Emergency Provider Internal Medicine; PCP Internal Medicine
DX: K52.9 Noninfective gastroenteritis and colitis, unspecified (principal); R42 Dizziness and giddiness; I10 Essential (primary) hypertension
CPT/HCPCS: 36415; 74176; 80048; 80076; 81001; 83690; 85025; 96361; 96374; 96375; 99284; J2405

== ENCOUNTER 2021-06-06 07:04 | Outpatient (REF) | payer BC, SELFPAY | END 2021-06-06 07:05 | disposition home or self-care (01) | LOC: HO.HOSX 07:04 | PROVIDERS: Visit Provider Physician Assistant | DX: Z13.89 Encounter for screening for other disorder (principal) ==

== ENCOUNTER → 2021-06-15 14:49 | Outpatient (BNVA) | payer OTHER, SELFPAY | PROVIDERS: PCP Internal Medicine; Visit Provider Internal Medicine | DX: Z13.89 Encounter for screening for other disorder (principal) | CPT/HCPCS: 99202 ==

== ENCOUNTER → 2021-06-18 08:15 | Outpatient (BNVA) | payer OTHER, SELFPAY | PROVIDERS: PCP Internal Medicine; Visit Provider Internal Medicine | DX: Z13.89 Encounter for screening for other disorder (principal) | CPT/HCPCS: 99213 ==

== ENCOUNTER 2021-06-22 07:25 | Outpatient (REF) | payer OTHER, SELFPAY | END 2021-06-22 07:26 | disposition home or self-care (01) | LOC: HO.HOSX 07:25 | PROVIDERS: Visit Provider Physician Assistant | DX: Z13.89 Encounter for screening for other disorder (principal) ==

== ENCOUNTER → 2021-06-26 13:04 | Outpatient (BNVA) | payer OTHER, SELFPAY | PROVIDERS: PCP Internal Medicine; Visit Provider Internal Medicine | DX: Z13.89 Encounter for screening for other disorder (principal) | CPT/HCPCS: 99213 ==

== ENCOUNTER → 2021-07-02 10:28 | Outpatient (BNVA) | payer OTHER, SELFPAY | PROVIDERS: PCP Internal Medicine; Visit Provider Internal Medicine | DX: Z13.89 Encounter for screening for other disorder (principal) | CPT/HCPCS: 99213 ==

== ENCOUNTER 2021-07-03 09:00 | Outpatient (RCR) | payer OTHER, SELFPAY ==
--- NOTE | 2021-06-21 10:41 | MHC.PT.EP ---
[facility] [place] Office [employer] Office [place] Office [address] [place] [address] [phone] F: [phone] F: [phone] F: [phone] F: [phone] Physical Therapy Plan of Care Date of Evaluation: Date of Surgery: Diagnosis: low back pain Assessment: The patient arrived reporting low back pain. He had reduced ROM, strength, and he had reduced functional mobility such as inability to bend, squat, twist, carry load without pain. He is a good candidate for skilled PT in to address these impairments. I will do body mechanics training for work related lifting to help reduce future injury. Today he responded well to extension based exercises using the Casi approach. Frequency and Duration: The patient will be seen 2x/week x 4 weeks. Short Term Goals: 1.Pt to able to demonstrate proper sitting posture with the use of a lumbar roll to decrease aggravating factors. 2.Pt to be able to demonstrate proper posture for common leisure activities such as phone/tablet use. 3.For the patient to demonstrate proper upright sitting posture with use of the lumbar roll to improve compliance and carryover. Geography Faculty Member Goals: 4 weeks - 1.The patient to demonstrate proper lifting mechanics for household chore activities to show improved functional mobility. 2.The patient to report no leg or hip pain in order to show centralization of pain and reduction of lumbar derangement 3. Pt to be able to demonstrate self management of lumbar pain by demonstration of HEP. Treatment Plan: Modalities to reduce pain, spasms and effusion. Manual therapy to restore motion and function. Therapeutic exercise to improve strength and flexibility. Neuromuscular re-education for posture and balance. Therapeutic activities to return to functional activities of daily living. Electronically signed by: Joya Wiley PT DPT Please sign and return to therapist. Thank you for your referral.
== END 2021-07-12 13:00 | disposition home or self-care (01) ==
LOC: HO.PT 09:00
PROVIDERS: PCP Internal Medicine; Visit Provider Internal Medicine
DX: M54.50 Low back pain, unspecified (principal)
CPT/HCPCS: 97110; 97112; 97140; 97162

== ENCOUNTER → 2021-07-06 07:59 | Outpatient (BNVA) | payer OTHER, SELFPAY | PROVIDERS: PCP Internal Medicine; Visit Provider Internal Medicine | DX: Z13.89 Encounter for screening for other disorder (principal) | CPT/HCPCS: 36415; 82565; 84520; 99213 ==

== ENCOUNTER 2021-07-09 08:10 | Outpatient (REF) | payer OTHER, SELFPAY ==
--- NOTE | ~2021-07-09 | MR_ITS ---
EXAMINATION: MR LUMBAR SPINE WITHOUT AND WITH CONTRAST CLINICAL INFORMATION: Low back pain radiating into the lower extremities. COMPARISON: Lumbar spine radiographs 11/28/2017. TECHNIQUE: Multiplanar MR imaging of the lumbar spine was performed without and with contrast. A total of 10 mL Gadavist was utilized for this examination. FINDINGS: Alignment is normal. Vertebral body heights are preserved. No acute bone marrow signal changes. There is disc desiccation at multiple levels without substantial loss of intervertebral disc height. The tip of the conus medullaris is located at the level of L1. No mass effect on the conus. Visualized distal cord signal intensity is normal. At L1-L2 the annular contour is normal. No canal or neuroforaminal compromise. At L2-L3 there is an asymmetrically bulging disc to the right. No canal stenosis. No mass effect on the traversing or foraminal nerve roots. At L3-L4 there is a slightly bulging disc. No canal stenosis. No mass effect on the traversing or foraminal nerve roots. At L4-L5 there is a shallow right far lateral protrusion superimposed upon a slightly bulging disc causing mild mass effect on the extraforaminal segment of the right L4 nerve root. Bilateral facet degenerative change. No canal stenosis. At L5-S1 the annular contour is normal. Bilateral facet degenerative change. No canal stenosis. No mass effect on the traversing or foraminal nerve roots. Limited visualization of the retroperitoneal anatomy reveals no abnormal finding. Psoas and paraspinal muscle groups are symmetric. MR/MR lumbar spine wo/w con IMPRESSION: There is a shallow right far lateral protrusion at L4-L5 that causes mild mass effect on the extraforaminal segment of the right L4 nerve root. Otherwise no substantial mass effect the traversing or foraminal nerve roots within the lumbar spine. No canal stenosis.
== END 2021-07-09 08:11 | disposition home or self-care (01) ==
LOC: HO.MRI 08:10
PROVIDERS: Visit Provider Internal Medicine
DX: M54.50 Low back pain, unspecified (principal)
CPT/HCPCS: 72158; A9585

== ENCOUNTER → 2021-07-11 10:11 | Outpatient (BNVA) | payer OTHER, SELFPAY | PROVIDERS: PCP Internal Medicine; Visit Provider Physician Assistant Medical | DX: Z13.89 Encounter for screening for other disorder (principal) | CPT/HCPCS: 99213 ==

== ENCOUNTER → 2021-07-13 09:32 | Outpatient (BNVA) | payer OTHER, SELFPAY | PROVIDERS: PCP Internal Medicine; Visit Provider Internal Medicine | DX: Z13.89 Encounter for screening for other disorder (principal) | CPT/HCPCS: 99213 ==

== ENCOUNTER → 2021-07-16 08:41 | Outpatient (BNVA) | payer OTHER, SELFPAY | PROVIDERS: PCP Internal Medicine; Visit Provider Internal Medicine | DX: Z13.89 Encounter for screening for other disorder (principal) | CPT/HCPCS: 99213 ==

== ENCOUNTER → 2021-07-30 08:24 | Outpatient (BNVA) | payer OTHER, SELFPAY | PROVIDERS: PCP Internal Medicine; Visit Provider Internal Medicine | DX: Z13.79 Encounter for other screening for genetic and chromosomal anomalies (principal) | CPT/HCPCS: 99213 ==

== ENCOUNTER 2022-03-26 18:21 | Outpatient (REF) | payer BC, SELFPAY ==
[2022-03-31 14:28] LABS: Codeine, Ur NEGATIVE; Hydrocodone, Ur NEGATIVE; Hydromorphone, Ur NEGATIVE; Morphine, Ur NEGATIVE; Norhydrocodone, Ur NEGATIVE; Noroxycodone, Ur NEGATIVE; Oxycodone, Ur NEGATIVE; Oxymorphone, Ur NEGATIVE
== END 2022-03-26 18:22 | disposition home or self-care (01) ==
LOC: HO.LNP 18:21
PROVIDERS: Visit Provider Internal Medicine
DX: M51.36 Other intervertebral disc degeneration, lumbar region (principal); M17.11 Unilateral primary osteoarthritis, right knee; Z51.89 Encounter for other specified aftercare; Z51.81 Encounter for therapeutic drug level monitoring
CPT/HCPCS: 80364; 80365

== ENCOUNTER 2022-06-05 21:52 | Emergency (ER) | payer BC, SELFPAY ==
--- NOTE | 2022-06-05 22:11 | ED.UPPEXIN ---
HPI - Extremity Injury (Upper) General Stated Complaint: left shoulder work injury Time Seen by Provider: 06/05/22 22:07 History of Present Illness HPI narrative: 51-year-old male presents today with having left shoulder pain. Worse with movement. 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 Complaining of pain worse with elevating the arm greater than 45 degrees. Related Data Home Medications Medication Instructions Recorded Confirmed amoxicillin 500 mg capsule 500 mg PO TID 05/30/22 Previous Rx's Medication Instructions Recorded tramadol 50 mg tablet See Rx Instructions .Route 05/22/22 .COMPLEX pain 30 days #180 tabs peg 3350-electrolytes 236 240 ml PO Q10M 1 day #4,000 mL 05/30/22 gram-22.74 gram-6.74 gram-5.86 gram solution (Golytely) Allergies Allergy/AdvReac Type Severity Reaction Status Date / Time No Known Allergies Allergy Verified 05/30/22 09:24 [No Known Allergies*] Review of Systems Review of Systems: No fever no chills no chest pain or shortness of breath Yes all other systems are reviewed and are negative PMFSH Past Medical History Attestation statement: The following information was validated with the patient. Medical History Benign essential hypertension Cyst of perianal area Degenerative joint disease of right knee Hyperglycemia Left knee pain Lumbar degenerative disc disease Obesity (BMI 30-39.9) Surgical History H/O lateral meniscus repair of left knee H/O lateral meniscus repair of right knee H/O lumbar discectomy History of arthroscopy of both shoulders History of laparoscopic cholecystectomy History of meniscectomy of right knee (~07/20/20) History of right knee surgery Family History Family History Maternal Grandfather Bone cancer Other Family history non-contributory Social History Social History Housing: House Alcohol intake: current Alcohol intake frequency: holidays/special occasions only Patient Tobacco Use Status: Former Tobacco user e-Cigarette/Vaping Use: Never Used Second Hand Smoke Exposure: Yes Advance Directives: No Advance Directives Information Provided: No service: No Current occupational status: employed 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 Oriented X3. No acute distress. Eyes: Pupils equal, round and reactive to light. ENT: Pharynx normal. Neck: Normal inspection. Neck supple. No lymph nodes noted. No crepitus CVS: Normal heart rate and rhythm. Pulses normal. Normal S1 and S2 Respiratory: No respiratory distress. Breath sounds normal. No Wheezing. No rales Abdomen: Soft and nontender. No rigidity. No distention. good BS x4 Skin: Skin warm and dry. Normal skin color. Normal skin turgor. Extremities: No lower extremity edema. Neurovascular intact to all extremities. No Lacerations. No Rash. Pain on movement of the left shoulder. Pain on movement of the shoulder greater than 45 degrees. Pain on internal rotation of the shoulder. Neuro: Oriented X 3. No motor deficit. No sensory deficit. Moving all extermities. No slurred speech MDM - Extremity Injury (Upper) MDM Narrative Medical decision making narrative: Positive shoulder pain worse with abduction of the shoulder greater than 45 degrees worse with internal rotation. More distally neurovascularly intact. Pulse 2 +at radial movement of the fingers intact. Will have patient follow-up with were connection. Currently in stable condition. Discharge Plan Discharge Clinical Impression: Shoulder sprain Patient Disposition: Home, Self-Care Instructions: Shoulder Sprain (ED) Prescriptions: No Action tramadol 50 mg tablet See Rx Instructions .ROUTE .COMPLEX 30 Days Qty: 180 0RF Rx Instructions: 1 to 2 tablets 3 times a day as needed for increased pain over the lower back; amoxicillin 500 mg capsule 500 mg PO TID peg 3350-electrolytes [Golytely] 236-22.74-6.74 -5.86 gram recon soln 240 ml PO Q10M 1 Days Qty: 4000 0RF Rx Instructions: until fecal effluent is clear; do not exceed a total volume of 2,000 mL Referrals: [facility] [Provider Group] - 06/06/22 Stand Alone Forms: Work/School Release
[2022-06-05 22:29] VITALS: BP 159/94; PULSE 91; RESP 16; TEMP 36.1; O2SAT 96; BMI 37.2
--- NOTE | 2022-06-05 22:51 | PC.NURSE ---
PT EVALUATED BY PROVIDER. PLAN IS FOR DC HOME. PT AWAKE, ALERT AND ORIENTED X 3. SKIN WARM AND DRY. RESP UNLABORED. DENIES N/V C/O LEFT SHOULDER PAIN, WORSE WITH MOVEMENT. 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 +[facility]
== END 2022-06-05 22:58 | disposition home or self-care (01) ==
PROVIDERS: Emergency Provider Emergency Medicine Emergency Medical Services; PCP Internal Medicine
DX: S43.402A Unspecified sprain of left shoulder joint, initial encounter (principal); X50.0XXA Overexertion from strenuous movement or load, initial encounter; I10 Essential (primary) hypertension; Y93.F2 Activity, caregiving, lifting; Y92.230 Patient room in hospital as the place of occurrence of the external cause; Y99.0 Civilian activity done for income or pay; Z87.891 Personal history of nicotine dependence
CPT/HCPCS: 99282

== ENCOUNTER → 2022-06-06 11:06 | Outpatient (BNVA) | payer OTHER, SELFPAY | PROVIDERS: PCP Internal Medicine; Visit Provider Physician Assistant | DX: Z13.89 Encounter for screening for other disorder (principal) | CPT/HCPCS: 99203 ==

== ENCOUNTER 2022-06-08 13:53 | Emergency (ER) | payer OTHER, SELFPAY ==
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
[2022-06-08] MEDS: Morphine Sulfate 4 MG/ML CARTRIDGE IM (14:02)
[2022-06-08] MEDS: Ondansetron ODT 4 MG TAB.RAPDIS TRANSLINGU (14:02)
[2022-06-08] MEDS: Tetracaine HCl/PF 0.5% Oph Sol 4 ML DROPS 2 DROP EYE-BOTH (14:02)
[2022-06-08 14:03] VITALS: BP 185/111; PULSE 89; RESP 20; TEMP 36.8; O2SAT 95; BMI 43.4
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
[2022-06-08] MEDS: Fluorescein Sodium STRIP 1 STRIP EYE-BOTH (14:16)
[2022-06-08] MEDS: oxyCODONE HCl Immed Release 5 MG TABLET PO ×2 (14:22→16:07)
[2022-06-08] MEDS: Erythromycin Base 0.5% Oph Oin 1 GM TUBE 1 CM EYE-LEFT (14:22)
[2022-06-08] MEDS: Post Exposure Medication Kit 1 KIT PO (14:24)
--- NOTE | 2022-06-08 14:25 | PC.NURSE ---
patient was medicated per order
--- NOTE | 2022-06-08 14:43 | PC.NURSE ---
pt in ct scan
[2022-06-08 15:33] LABS: MANUAL DIFF FLAG NO
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
[2022-06-08 15:36] LABS: Basophils Absolute Auto 0.1 X10*3/uL (0.0-0.2); Basophils Percent Auto 0.5 % (0-2); Eosinophils Absolute Auto 0.1 X10*3/uL (0.0-0.4); Hematocrit 44.4 % (42.0-52.0); Hemoglobin 15.2 g/dl (14.0-18.0); Imm Gran Abs Auto 0.05 X10*3/uL (0.00-0.03); Imm Gran Pct Auto 0.4 % (0.0-0.4); Lymphocytes Absolute Auto 2.1 X10*3/uL (1.2-4.9); Lymphocytes Percent Auto 16.8 % (20-40); Mean Corpuscular HGB Conc 34.2 g/dl (31.0-36.0); Mean Corpuscular Hemoglobin 29.2 pg (27.0-33.0); Mean Corpuscular Volume 85.2 fL (80.0-98.0); Mean Platelet Volume 9.2 fL (9.4-12.4); Monocytes Absolute Auto 0.9 X10*3/uL (0.1-1.2); Neutrophils Absolute Auto 9.3 x10*3/uL (2.0-8.3); Neutrophils Percent Auto 74.3 % (45-73); Platelet Count 332 X10*3/uL (160-400); Red Blood Count 5.21 X10*6/uL (4.60-5.80); Red Cell Distribution Width 11.9 % (11.0-16.0); White Blood Count 12.5 X10*3/uL (4.8-10.8)
[2022-06-08 15:57] LABS: Alanine Aminotransferase 33 U/L (0-40); Albumin Level 4.3 g/dL (3.5-5.0); Alkaline Phosphatase 99 U/L (39-117); Anion Gap 18 (12-20); Aspartate Amino Transferase 21 U/L (5-37); Bilirubin Direct 0.2 mg/dL (0.0-0.5); Bilirubin Total 0.4 mg/dL (0.0-1.0); Blood Urea Nitrogen 14 mg/dL (9-16); Calcium 9.9 mg/dL (8.4-10.2); Carbon Dioxide 22 mmol/L (22-29); Chloride 103 mmol/L (96-108); Estimated Glomerular Filt Rate > 60; Glucose Random 179 mg/dL (60-115); Lipase 61 U/L (8-78); Potassium 4.3 mmol/L (3.3-5.1); Sodium 139 mmol/L (135-145); Total Protein 7.8 g/dL (6.5-8.0)
[2022-06-08 16:00] VITALS: BP 185/108; PULSE 89; RESP 20; TEMP 36.7; O2SAT 96
[2022-06-10 04:45] LABS: HBS Num1 0.12 mIU/mL (0-7.99); HBc Num1 0.09 S/CO (0.00-0.79); HBsAGNum1 0.21 S/CO (0.00-0.99); HIV AB/AG Nonreactive (Nonreactive); HIV Num 1 0.09 S/CO (0.00-0.99); Hepatitis B Core Antibody Nonreactive (Nonreactive); Hepatitis B Surface Antigen Negative (Negative); ~HepC Num1 0.13 S/CO (0.00-0.79); ~Hepatitis B Surface Antibody NONREACTIVE (Nonreactive); ~Hepatitis C Antibody Nonreactive (Nonreactive)
== END 2022-06-08 17:03 | disposition home or self-care (01) ==
PROVIDERS: Physician Assistant Medical; Emergency Provider Emergency Medicine
DX: S09.90XA Unspecified injury of head, initial encounter (principal); S01.112A Laceration without foreign body of left eyelid and periocular area, initial encounter; S01.511A Laceration without foreign body of lip, initial encounter; S05.02XA Injury of conjunctiva and corneal abrasion without foreign body, left eye, initial encounter; S43.402A Unspecified sprain of left shoulder joint, initial encounter; S73.102A Unspecified sprain of left hip, initial encounter; S83.92XA Sprain of unspecified site of left knee, initial encounter; S13.9XXA Sprain of joints and ligaments of unspecified parts of neck, initial encounter; Y04.2XXA Assault by strike against or bumped into by another person, initial encounter; Y93.F9 Activity, other caregiving; Y92.230 Patient room in hospital as the place of occurrence of the external cause; Y99.0 Civilian activity done for income or pay; Z77.21 Contact with and (suspected) exposure to potentially hazardous body fluids
CPT/HCPCS: 36415; 70450; 70486; 72125; 73030; 73502; 73564; 80048; 80076; 83690; 85025; 86704; 86706; 86803; 87340; 87389; 96372; 99284; J2270

== ENCOUNTER → 2022-06-10 12:36 | Outpatient (BNVA) | payer OTHER, SELFPAY | PROVIDERS: Visit Provider Physician Assistant Medical | DX: Z13.89 Encounter for screening for other disorder (principal) | CPT/HCPCS: 99203 ==

== ENCOUNTER → 2022-06-13 13:10 | Outpatient (BNVA) | payer OTHER, SELFPAY | PROVIDERS: Visit Provider Internal Medicine | DX: Z13.89 Encounter for screening for other disorder (principal) | CPT/HCPCS: 99213 ==

== ENCOUNTER → 2022-06-20 13:00 | Outpatient (BNVA) | payer OTHER, SELFPAY | PROVIDERS: Visit Provider Internal Medicine | DX: Z13.89 Encounter for screening for other disorder (principal) | CPT/HCPCS: 99213 ==

== ENCOUNTER 2022-07-01 12:00 | Outpatient (RCR) | payer OTHER, SELFPAY ==
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
--- NOTE | 2022-08-13 08:54 | MHC.PT.DC ---
[facility] [place] Office [place] Office [place] Office [address] [phone] F: [phone] F: [phone] F: [phone] F: [phone] Physical Therapy Discharge Report Diagnosis: L shoulder contusion Date of Surgery: NA Date of Evaluation: 06/18/22 Date of Discharge: 08/13/22 Treatments to Date: 3 Cancellations to Date: 0 No Shows to Date: Discharge Status: Patient Elected to Stop Physician Discontinued Tx Discharge Summary: Isaiah was put on hold due to persistent pain. He was suppose to return to PT after a MRI however he has not attended PT in over a month. He is therefore being d/c from PT. Electronically signed by: Deneen Cooper, PT DPT Please sign and return to therapist. Thank you for your referral.
== END 2022-08-13 08:54 | disposition home or self-care (01) ==
LOC: HO.PT 12:00
PROVIDERS: Visit Provider Internal Medicine
DX: S40.012D Contusion of left shoulder, subsequent encounter (principal)
CPT/HCPCS: 97014; 97110; 97112; 97140; 97161

== ENCOUNTER → 2022-07-01 13:18 | Outpatient (BNVA) | payer OTHER, SELFPAY | PROVIDERS: Visit Provider Internal Medicine | DX: Z13.89 Encounter for screening for other disorder (principal) | CPT/HCPCS: 99213 ==

== ENCOUNTER 2022-07-02 07:28 | Outpatient (REF) | payer BC, SELFPAY ==
[2022-07-02 07:44] LABS: MANUAL DIFF FLAG NO
[2022-07-02 07:50] LABS: Basophils Absolute Auto 0.1 X10*3/uL (0.0-0.2); Basophils Percent Auto 0.6 % (0-2); Eosinophils Absolute Auto 0.2 X10*3/uL (0.0-0.4); Eosinophils Percent Auto 1.7 % (0-4); Hematocrit 42.8 % (42.0-52.0); Imm Gran Abs Auto 0.04 X10*3/uL (0.00-0.03); Imm Gran Pct Auto 0.3 % (0.0-0.4); Lymphocytes Absolute Auto 3.2 X10*3/uL (1.2-4.9); Mean Corpuscular Hemoglobin 30.2 pg (27.0-33.0); Mean Corpuscular Volume 86.1 fL (80.0-98.0); Mean Platelet Volume 9.5 fL (9.4-12.4); Monocytes Absolute Auto 0.9 X10*3/uL (0.1-1.2); Monocytes Percent Auto 7.7 % (2-11); Neutrophils Absolute Auto 7.8 x10*3/uL (2.0-8.3); Neutrophils Percent Auto 63.7 % (45-73); Platelet Count 323 X10*3/uL (160-400); Red Blood Count 4.97 X10*6/uL (4.60-5.80); Red Cell Distribution Width 11.9 % (11.0-16.0); White Blood Count 12.3 X10*3/uL (4.8-10.8)
[2022-07-02 08:14] LABS: Alanine Aminotransferase 38 U/L (0-40); Albumin Level 4.4 g/dL (3.5-5.0); Alkaline Phosphatase 105 U/L (39-117); Anion Gap 15 (12-20); Aspartate Amino Transferase 19 U/L (5-37); Bilirubin Total 0.4 mg/dL (0.0-1.0); Blood Urea Nitrogen 12 mg/dL (9-16); Calcium 9.4 mg/dL (8.4-10.2); Carbon Dioxide 25 mmol/L (22-29); Chloride 102 mmol/L (96-108); Cholesterol 157 mg/dL; Estimated Glomerular Filt Rate > 60; Glucose Fasting 271 mg/dL (60-99); HDL Cholesterol 38 mg/dL; LDL Cholesterol Calculated 81 mg/dl; Potassium 4.1 mmol/L (3.3-5.1); Sodium 138 mmol/L (135-145); Total Protein 7.7 g/dL (6.5-8.0); Triglycerides 190 mg/dL
[2022-07-02 08:35] LABS: Prostate Specific Antigen 0.46 ng/mL (<0.05-4.0); TSH reflex Free T4 3.68 uIU/mL (0.32-4.0)
[2022-07-02 08:45] LABS: Folate 8.9 ng/mL (> or = 4.0); Vitamin B12 540 pg/mL (200-900)
== END 2022-07-02 07:29 | disposition home or self-care (01) ==
LOC: HO.LAB 07:28
PROVIDERS: Nurse Practitioner; PCP Internal Medicine; Visit Provider Nurse Practitioner Family
DX: Z01.818 Encounter for other preprocedural examination (principal); I10 Essential (primary) hypertension; Z13.29 Encounter for screening for other suspected endocrine disorder; Z12.5 Encounter for screening for malignant neoplasm of prostate
CPT/HCPCS: 36415; 80053; 80061; 82306; 82607; 82746; 84153; 84443; 85025

== ENCOUNTER 2022-07-12 12:14 | Outpatient (REF) | payer OTHER, SELFPAY ==
--- NOTE | ~2022-07-12 | MR_ITS ---
EXAMINATION: MRI LEFT SHOULDER WITHOUT CONTRAST CLINICAL INFORMATION: Left shoulder pain COMPARISON: None. TECHNIQUE: MRI of the shoulder without contrast is performed on a 1.5 Michelle high-field scanner. FINDINGS: ROTATOR CUFF: Intact. Fatty replacement of the teres minor muscle is a nonspecific finding. BICEPS: Normal. CORACOACROMIAL ARCH: The undersurface of the acromion is post acromioplasty with no subacromial spur. Resection of the distal clavicle. LABRUM/CAPSULE: Normal. GLENOHUMERAL JOINT/MARROW: No joint effusion or focal articular cartilage defect. ADDITIONAL FINDINGS: None. MR/MR shoulder LT wo con IMPRESSION: No rotator cuff tear. Postsurgical changes of subacromial decompression as described.
== END 2022-07-12 12:15 | disposition home or self-care (01) ==
LOC: HO.MRI 12:14
PROVIDERS: Visit Provider Internal Medicine
DX: M25.512 Pain in left shoulder (principal); R20.2 Paresthesia of skin
CPT/HCPCS: 73221

== ENCOUNTER → 2022-07-18 13:21 | Outpatient (BNVA) | payer OTHER, SELFPAY | PROVIDERS: PCP Internal Medicine; Visit Provider Internal Medicine | DX: Z13.89 Encounter for screening for other disorder (principal) | CPT/HCPCS: 99213 ==

== ENCOUNTER → 2022-07-25 12:50 | Outpatient (BNVA) | payer OTHER, SELFPAY | PROVIDERS: PCP Internal Medicine; Visit Provider Internal Medicine | DX: Z13.89 Encounter for screening for other disorder (principal) | CPT/HCPCS: 99213 ==

== ENCOUNTER → 2022-08-23 08:36 | Outpatient (BNVA) | payer BC, SELFPAY | PROVIDERS: PCP Internal Medicine; Visit Provider Physician Assistant | DX: M75.22 Bicipital tendinitis, left shoulder (principal) | CPT/HCPCS: 20610; J1040 ==

== ENCOUNTER 2022-09-16 14:12 | Outpatient (REF) | payer BC, SELFPAY ==
[2022-09-16 15:00] LABS: Influenza A PCR NEGATIVE (Negative); Influenza B PCR NEGATIVE (Negative); Resp Syncy Virus RNA Qual PCR NEGATIVE (Negative); SARS COV2 PCR INHOUSE NEGATIVE (Negative)
== END 2022-09-16 14:13 | disposition home or self-care (01) ==
LOC: HO.LAB 14:12
PROVIDERS: PCP Internal Medicine; Visit Provider Physician Assistant Medical
DX: Z20.822 Contact with and (suspected) exposure to COVID-19 (principal); R68.89 Other general symptoms and signs
CPT/HCPCS: 0241U

== ENCOUNTER 2022-11-08 08:34 | Day surgery (SDC) | payer BC, SELFPAY ==
[2022-11-08 09:06] VITALS: BMI 37.0
--- NOTE | 2022-11-08 09:12 | HO.ANESPROP2 ---
HPI - Anesthesia Eval Consult details Narrative: 52 yr old obese hypertensive patient for colon screen PMFSH Active Problems Active Problems: All Active Problems (Updated 08/23/22 @ 08:59 by Viviana Adams) Biceps tendinitis of left shoulder (Acute) Diabetes mellitus (Acute) Low vitamin D level (Acute) Pre-op examination (Acute) Screening for hypothyroidism (Acute) Screening for prostate cancer (Acute) Encounter for patient compliance monitoring in drug treatment program (Acute) Arthropathy of lumbar facet joint (Acute) Trochanteric bursitis, left hip (Acute) Otitis externa (Acute) Frontal sinusitis (Acute) Lumbar degenerative disc disease (Acute) Left knee pain (Acute) Lumbar sprain (Acute) Cyst of perianal area (Acute) Degenerative joint disease of right knee (Acute) Colon cancer screening (Acute) Annual physical exam (Acute) Obesity (BMI 30-39.9) (Acute) Hyperglycemia (Acute) Benign essential hypertension (Acute) Locking of right knee (Acute) Tear of medial meniscus of right knee (Acute) Past Medical History Medical History Benign essential hypertension Cyst of perianal area Degenerative joint disease of right knee Diabetes mellitus Left knee pain Lumbar degenerative disc disease Obesity (BMI 30-39.9) Family History Family History Maternal Grandfather Bone cancer Other Family history non-contributory Family history of problems with anesthesia: No Surgical History Surgical History H/O lateral meniscus repair of left knee H/O lateral meniscus repair of right knee H/O lumbar discectomy History of arthroscopy of both shoulders History of laparoscopic cholecystectomy History of meniscectomy of right knee (~07/20/20) History of right knee surgery History of Problems with Anesthesia: No Social History Social History Housing: House Alcohol intake: never Patient Tobacco Use Status: Former Tobacco user Years Smoked: 5 e-Cigarette/Vaping Use: Never Used Second Hand Smoke Exposure: Yes Use of substances other than those prescribed or required for medical reasons: No Are you DNR?: No Advance Directives: No Advance Directives Information Provided: Yes service: No Current occupational status: employed 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 - [employer] Current occupational exposures/hazards: No Cognitive needs: No Hearing needs: No Vision needs: No Meds Allergies Allergy/AdvReac Type Severity Reaction Status Date / Time No Known Allergies Allergy Verified 10/30/22 10:29 [No Known Allergies*] Exam Exam Date and Time: November 08, 2022 0912 Height,Weight and Vital Signs: Height 5 ft 7 in Weight 107.501 kg Airway Mallampati Class: III TM Dist: >3cm Neck ROM: Full Heart: rrr Lungs: cta Assessment and Plan Assessment Anesthesia Assessment: Anesthesia Plan Discussed and Chart Reviewed Final Anesthetic Review Family History of Problems with Anesthesia: No History of Problems with Anesthesia: No NPO: Yes ASA Class: II Final Preanesthetic Review: No Changes in Pt Med Stat, Meds/Allgs Chart Reviewed, Consent Obtained/Reviewed and Anes Risks/Benef Reviewed Patient Risk: Low Procedure Risk: Low Anesthetic Plan Anesthetic Plan: MAC: Disposition: Standard PACU
[2022-11-08 09:23] VITALS: BP 134/84; PULSE 75; RESP 14; TEMP 35.9; O2SAT 96
--- NOTE | 2022-11-08 09:36 | MHC.SHP ---
Pre-Procedural Eval Section A Date of Service: 11/08/22 The patient is an INPATIENT: No The History & Physical has been completed within 30 days and I have reviewed it.: No Section B Chief Complaint: Encounter for screening for malignant neoplasm of Details of Present Illness: screening Relevant Family History (Specify if Yes): No Relevant Social History: Tobacco Use (former smoker) Present Medications: see Short Stay Collaborative assessment Medical History: Significant History (Benign essential hypertension Cyst of perianal area Degenerative joint disease of right knee Hyperglycemia Left knee pain Lumbar degenerative disc disease Obesity (BMI 30-39.9)) History of Previous Operations: Relevant previous surgery/procedure and date(s) (H/O lateral meniscus repair of left knee H/O lateral meniscus repair of right knee H/O lumbar discectomy History of arthroscopy of both shoulders History of laparoscopic cholecystectomy History of meniscectomy of right knee (~07/20/20) History of right knee surgery) Allergies: Allergies Allergy/AdvReac Type Severity Reaction Status Date / Time No Known Allergies Allergy Verified 10/30/22 10:29 [No Known Allergies*] Review of Systems Sugical H&P ROS: Negative: Constitution, Cardiovascular, Respiratory and Gastrointestinal Exam Surgical H&P Exam: Normal: Heart, Normal: Lungs, Normal: Extremities and Normal: Abdomen Plan Diagnosis/Plan: Unchanged I have reviewed the history and physical and performed a pertinent physical examination on my patient. No changes have occurred unless specified. Time Spent With Patient Time: Total time managing care of this patient today ____ minutes.
--- NOTE | 2022-11-08 09:42 | P.BOP_ITS ---
Brief Operative Note Date of Service: 11/08/22 Pre-op diagnosis: Colon cancer screening Post-op diagnosis: other (Colon polyp, diverticulosis, hemorrhoids) Procedure: COLONOSCOPY TILL CECUM WITH SNARE POLYPECTOMY Surgeon: Roby Xavier MD Anesthesia: MAC Was an Powder Worker Tnt used for this Procedure?: Yes Powder Worker Tnt: Yasmani Valles Estimated blood loss (mL): 0 Pathology: other (A. Rectal polyp) Condition: stable Disposition: PACU
--- NOTE | 2022-11-08 09:43 | W.PM.OPN ---
Operative Note Operative Note Date of Service: 11/08/22 Narrative: Pre-op diagnosis: Colon cancer screening Post-op diagnosis:?other (Colon polyp, diverticulosis, hemorrhoids) Surgeon: Roby Xavier MD Anesthesia:?MAC COLONOSCOPY TILL CECUM WITH SNARE POLYPECTOMY Consent: Indications for the procedure and potential complications of bleeding, perforation, reaction to medications and missed diagnosis were discussed with the patient and informed consent was obtained. Instrument: Olympus PCF H 190 L variable stiffness pediatric colonoscope Monitoring: Vital signs and clinical assessment, intermittent blood pressure monitoring, continuous EKG monitoring, Pulse oximetry and Carbon Dioxide monitoring were done throughout the procedure. Colon withdrawl time was 15 minutes. Procedure: The patient was placed in the left lateral decubitis position and pre-procedure medications were administered. After a digital rectal examination of the ano-rectum, the video colonoscope was inserted into the rectum and advanced through the colon to the cecum. The colonoscope was slowly withdrawn in a retrograde panoramic fashion and the colon mucosa was carefully examined including a retroflexed view of the rectum. Findings and interventions are described below. Procedure Difficulty: Without difficulty Findings: Terminal Ileum: Not evaluated Cecum: Normal Ascending Colon: Normal Transverse Colon: Normal Descending Colon: Normal Sigmoid Colon: Moderate diverticulosis Rectum: A 15 to 18 mm sessile polyp at 5 - 6 cms - removed with a hot snare Ano-rectum: Normal Colon preparation: Good after copious irrigation Impression and Post Procedure Diagnosis: Colonoscopy Findings: One medium sized polyp removed Moderate diverticulosis seen in the sigmoid colon Plan: Await pathology results Patient has an appointment on 11/22/22 in the GI Clinic with Lisa Kirby NP. Repeat Colonoscopy interval based on path results - in 3 years if polyps are adenomatous and 10 years if polyps are hyperplastic. Above findings were reviewed with the patient and colon polyps and diverticulosis handouts were given in the discharge area
[2022-11-08 10:23] VITALS: BP 121/76; PULSE 83; RESP 18; TEMP 36.2; O2SAT 98
[2022-11-08 10:38] VITALS: BP 138/88; PULSE 69; RESP 18; TEMP 37.1; O2SAT 97
== END 2022-11-08 10:57 | disposition home or self-care (01) ==
PROVIDERS: PCP Internal Medicine; Visit Provider Internal Medicine Gastroenterology
PROC: 0DJD8ZZ Inspection of Lower Intestinal Tract, Via Natural or Artificial Opening Endoscopic (ICD-10-PCS; CPT 45378; principal; 2022-11-08 10:10)
DX: Z12.11 Encounter for screening for malignant neoplasm of colon (principal); D12.8 Benign neoplasm of rectum; K57.30 Diverticulosis of large intestine without perforation or abscess without bleeding; K64.8 Other hemorrhoids; I10 Essential (primary) hypertension; E66.9 Obesity, unspecified; R73.9 Hyperglycemia, unspecified; Z68.38 Body mass index [BMI] 38.0-38.9, adult; Z90.49 Acquired absence of other specified parts of digestive tract; Z87.891 Personal history of nicotine dependence
CPT/HCPCS: 45385; 88305

== ENCOUNTER → 2022-12-13 15:08 | Outpatient (BNVA) | payer BC, SELFPAY | PROVIDERS: PCP Internal Medicine; Visit Provider Nurse Practitioner | DX: Z13.89 Encounter for screening for other disorder (principal) ==

== ENCOUNTER 2023-02-13 08:18 | Outpatient (REF) | payer BC, SELFPAY ==
[2023-02-13 08:31] LABS: MANUAL DIFF FLAG NO
[2023-02-13 09:54] LABS: Basophils Absolute Auto 0.1 X10*3/uL (0.0-0.2); Basophils Percent Auto 0.7 % (0-2); Eosinophils Absolute Auto 0.2 X10*3/uL (0.0-0.4); Eosinophils Percent Auto 1.5 % (0-4); Hematocrit 44.8 % (42.0-52.0); Imm Gran Abs Auto 0.03 X10*3/uL (0.00-0.03); Imm Gran Pct Auto 0.3 % (0.0-0.4); Lymphocytes Absolute Auto 3.2 X10*3/uL (1.2-4.9); Lymphocytes Percent Auto 28.1 % (20-40); Mean Corpuscular HGB Conc 33.5 g/dl (31.0-36.0); Mean Corpuscular Hemoglobin 29.4 pg (27.0-33.0); Mean Corpuscular Volume 87.8 fL (80.0-98.0); Mean Platelet Volume 9.8 fL (9.4-12.4); Monocytes Absolute Auto 0.8 X10*3/uL (0.1-1.2); Monocytes Percent Auto 7.4 % (2-11); Platelet Count 395 X10*3/uL (160-400); Red Cell Distribution Width 12.6 % (11.0-16.0); White Blood Count 11.3 X10*3/uL (4.8-10.8)
[2023-02-13 10:09] LABS: Estimated Average Glucose 157 mg/dL; Hemoglobin A1c % 7.1 %
[2023-02-13 10:53] LABS: Alanine Aminotransferase 25 U/L (0-40); Albumin Level 4.3 g/dL (3.5-5.0); Alkaline Phosphatase 82 U/L (39-117); Anion Gap 13 (12-20); Aspartate Amino Transferase 16 U/L (5-37); Bilirubin Total 0.8 mg/dL (0.0-1.0); Blood Urea Nitrogen 10 mg/dL (9-16); Calcium 9.9 mg/dL (8.4-10.2); Carbon Dioxide 26 mmol/L (22-29); Chloride 107 mmol/L (96-108); Cholesterol 141 mg/dL; Estimated Glomerular Filt Rate > 60; Glucose Fasting 149 mg/dL (60-99); HDL Cholesterol 36 mg/dL; LDL Cholesterol Calculated 80 mg/dl; Potassium 4.5 mmol/L (3.3-5.1); Sodium 141 mmol/L (135-145); Total Protein 7.6 g/dL (6.5-8.0); Triglycerides 127 mg/dL
[2023-02-13 10:54] LABS: TSH reflex Free T4 4.16 uIU/mL (0.32-4.0); Vitamin D 25-OH Total 27.5 ng/mL (>30)
[2023-02-13 12:33] LABS: Free T4 (Free Thyroxine) 1.02 ng/dL (0.71-1.85)
== END 2023-02-13 08:19 | disposition home or self-care (01) ==
LOC: HO.LAB 08:18
PROVIDERS: PCP Internal Medicine; Visit Provider Internal Medicine
DX: E78.00 Pure hypercholesterolemia, unspecified (principal); I10 Essential (primary) hypertension; E11.9 Type 2 diabetes mellitus without complications; E55.9 Vitamin D deficiency, unspecified; R30.0 Dysuria
CPT/HCPCS: 36415; 80053; 80061; 82306; 83036; 84439; 84443; 85025

== ENCOUNTER 2023-04-10 10:13 | Outpatient (AMB) | payer BC, SELFPAY ==
[2023-04-10 10:18] VITALS: BP 112/78; PULSE 78; O2SAT 98; BMI 37.6
--- NOTE | 2023-04-10 10:18 | A.OFFPC_ITS ---
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 Required: No Accompanied by: Self / Same As Patient Allergies No Known Allergies [No Known Allergies*] Allergy (Verified 04/10/23 10:55) Medication List - Last Reconciled 04/10/23 by Randolph Herring MD acetaminophen (Tylenol Extra Strength) 1,000 mg (2 x 500 mg) PO QID PRN cholecalciferol (vitamin D3) 25 mcg PO DAILY lisinopril 5 mg PO DAILY tramadol 1 to 2 tablets 3 times a day as needed for increased pain over the lower back; 30 days Tobacco use date assessed: 04/10/23 Dental Screening Dental Screen Date: 04/10/23 Did you have a dental visit in the last 12 months?: Yes Did you have a dental problem in the last 6 months where you did not have access to dental care?: No Was dental information given to patient?: Patient has dentist HPI Annual Exam HPI Details Patient comes in today for his annual physical examination States that he feels okay Still has chronic left knee pain and low back pain but states that these have been adequately controlled on his current Rx; will need his Tramadol Rx refilled today He denies any headaches or dizziness Denies any chest pains, no SOB No nausea/vomiting, no abdominal pain No change in bowel habits noted Denies any acute urinary symptoms Was not able to get his previously ordered labs done yet - states that he will try to get them done MAXI; did have some labs done a couple of months ago Had his screening colonoscopy last done by Dr. Xavier in October 2022 - (+) tubular adenoma and he has been advised that he will need repeat colonoscopy in 3 years [facility] Medical History Benign essential hypertension Cyst of perianal area Degenerative joint disease of right knee Diabetes mellitus Left knee pain Lumbar degenerative disc disease Obesity (BMI 30-39.9) Vitamin D deficiency Surgical History H/O colonoscopy (~11/08/22) H/O lateral meniscus repair of left knee H/O lateral meniscus repair of right knee H/O lumbar discectomy History of arthroscopy of both shoulders History of laparoscopic cholecystectomy History of meniscectomy of right knee (~07/20/20) History of right knee surgery Family History Maternal Grandfather Bone cancer Other Family history non-contributory Social History Housing: House Alcohol intake: never Patient Tobacco Use Status: Former Tobacco user Years Smoked: 5 e-Cigarette/Vaping Use: Never Used Second Hand Smoke Exposure: Yes service: No Current occupational status: employed 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 1. Little interest or pleasure in doing things: not at all 2. Feeling down, depressed, or hopeless: not at all 3. Trouble falling or staying asleep, or sleeping too much: not at all 4. Feeling tired or having little energy: not at all 5. Poor appetite or overeating: not at all 6. Feeling bad about yourself - or that you are a failure or have let yourself or your family down: not at all 7. Trouble concentrating on things, such as reading the newspaper or watching television: not at all 8. Moving or speaking so slowly that other people could have noticed. Or the opposite - being so fidgety or restless that you have been moving around a lot more than usual: not at all 9. Thoughts that you would be better off or of hurting yourself in some way: not at all Total score: 0 Depression Screening Interpretation: Negative 82124 - PHQ-9 Billing: Yes Source: Developed by Drs. Yasmani Hair, Tere Bundy, Yves Dietz and colleagues, with an educational leonora from [employer]. Thrive Questionnaire Date Thrive assessed: 04/10/23 I am a: Patient What is your living situation today?: I have a steady place to live Within the past 12 months, did the food you bought not last and you didn't have the money to get more?: Never true Within the past 12 months, did you worry whether your food would run out before you got money to buy more?: Never true Do you have trouble paying for medicines?: No Do you have trouble getting transportation to medical appointments?: No Do you have trouble paying your heating and electricity bill?: No Do you have trouble taking care of your child, family member or friend?: No Do you have trouble with day-to-day activities such as bathing, preparing meals, shopping, managing finances, etc.?: No Are you currently unemployed and looking for a job?: No Are you interested in more education?: No Currently or been in a relationship where the following occur: no concerns reported AUDIT C Alcohol Use Questionnaire (AUDIT-C) 1. How often do you have a drink containing alcohol?: Never 3. How often do you have six or more drinks on one occasion?: Never Total Score: 0 Score Reviewed/Action Taken: Yes KIANNA-7 AMB Questionnaire KIANNA-7 Date KIANNA - 7 assessed: 04/10/23 Feeling nervous, anxious, or on edge: 0 = Not at all Not being able to stop or control worryin = Not at all Worrying too much about different things: 0 = Not at all Trouble relaxin = Not at all Being so restless that it is hard to sit still: 0 = Not at all Becoming easily annoyed or irritable: 0 = Not at all Feeling afraid as if something awful might happen: 0 = Not at all Total KIANNA-7 score (0-4 normal; 5-9 mild; 10-14 moderate; 15-21 severe): 0 Source: Developed by Drs. Yasmani Hair, Tere Bundy, Yves Dietz and colleagues, with an educational leonora from [employer]. Review of Systems Const Denies chills, Denies fatigue, Denies fever(s), Denies headache(s), Denies malaise and Denies weakness Eyes Denies blurry vision, Denies change in vision, Denies irritation and Denies itchy eyes ENT Denies dysphagia, Denies dizziness, Denies otalgia, Denies headache(s), Denies neck pain, Denies odynophagia and Denies sore throat Card Denies chest pain, Denies rapid heart rate, Denies irregular heart rhythm, Denies palpitations and Denies dyspnea Resp Denies chest congestion, Denies cough, Denies dyspnea and Denies wheezing GI Denies abdominal pain, Denies bloating, Denies constipation, Denies dysphagia, Denies heartburn, Denies diarrhea, Denies nausea, Denies odynophagia and Denies vomiting Denies hematuria, Denies difficulty urinating, Denies dysuria, Denies urinary frequency and Denies urinary urgency Musc Reports back pain (over the lower back - chronic), Reports arthralgias (left knee and hip - chronic), Denies joint swelling, Denies muscle weakness and Denies neck pain Skin/Breast Denies change in pigmentation, Denies lesions, Denies rash and Denies unusual bruising Neuro Denies dizziness, Denies headache(s), Denies paresthesias and Denies weakness Endo Denies fatigue and Denies palpitations Aller/Immun Denies itchy eyes and Denies wheezing Physical exam (Primary Care) Vital Signs: Last Vital Signs Pulse 78 04/10/23 10:18 BP 112/78 04/10/23 10:18 Pulse Ox 98 04/10/23 10:18 Oxygen Delivery Method Room Air 04/10/23 10:18 BMI result Body Mass Index 37.6 Tobacco/Smoking Status: Tobacco use Status Tobacco use date assessed 04/10/23 04/10/23 10:24 Patient Tobacco Use Status Former Tobacco user 04/10/23 10:24 e-Cigarette/Vaping Use Never Used 04/10/23 10:24 PHQ-9: PHQ-9 Score PHQ-9: Total score 0 04/13/23 20:42 Depression Screening Interpretation: Negative Thrive Assessment: Date of Thrive Assessment Date Thrive assessed 04/10/23 04/10/23 10:24 Currently or been in a relationship where the following occur: no concerns reported Const General: no acute distress and alert Orientation/consciousness: patient oriented x3 HENMT Head: Yes normocephalic and Yes atraumatic Ears: TM's normal bilaterally and EAC's normal General nose exam: No nasal discharge present Face and sinus: Yes normal facial exam and Yes sinuses nontender Teeth and gingiva: dentition normal Throat: Yes posterior oropharynx normal and Yes tonsils normal (no TP congestion noted) Eyes Eyelids: Yes eyelids normal Conjunctivae: conjunctivae normal Pupils: Equal, round and reactive pupils present EOM: EOMs intact bilaterally Neck Neck: Yes no lymphadenopathy and Yes supple Thyroid: Thyroid normal Resp Auscultation: clear to auscultation bilaterally, no rales and no wheezes Cardio Rate: regular rate Rhythm: regular rhythm Heart sounds: no murmurs GI Palpation (GI): Soft to palpation, nontender and No hepatosplenomegaly present Auscultation: normal bowel sounds General: Yes no CVA tenderness Back/Spine/Pelvis Back: no CVA tenderness Thoracic/Lumbar Spine: paraspinal muscle tenderness bilaterally in the upper lumbar, in the mid lumbar and in the lower lumbar and lumbar spinal tenderness Skin Lesions: no lesions Rashes: no rashes Neuro General: patient oriented x3, moves all extremities, no focal motor deficits and CN's II-XI intact bilaterally Cranial nerves: Yes Equal, round and reactive pupils present Cognition (Neuro): normal cognition Gait exam (Neuro): Normal gait present Extrem General: Yes no clubbing, cyanosis or edema Right lower extremity: knee Details: tenderness, normal ROM and crepitus; no swelling Left lower extremity: knee Details: tenderness and normal ROM; no swelling Results Reviewed Results Reviewed: Laboratory Tests 02/13/23 02/13/23 02/13/23 08:30 08:30 08:30 WBC 11.3 H Hgb 15.0 Hct 44.8 Plt Count 395 Sodium 141 Potassium 4.5 Creatinine 1.00 Estimated GFR > 60 Fasting Glucose 149 H Hemoglobin A1c % 7.1 Calcium 9.9 AST 16 ALT 25 Triglycerides 127 Cholesterol 141 LDL Cholesterol, Calc 80 HDL Cholesterol 36 25-OH Vitamin D Total 27.5 TSH 4.16 H Free T4 1.02 Assessment and Plan Assessment & Plan (1) Annual physical exam: Code(s): Z00.00 - Encounter for general adult medical examination without abnormal findings Plan: Check labs Also went over with patient briefly the results of his most recent labs done a couple of months ago, per request Patient just had his screening colonoscopy done earlier this year in October 2022 and will be due for repeat colonoscopy in 3 years (2025) (2) Diabetes mellitus: Code(s): E11.9 - Type 2 diabetes mellitus without complications Qualifiers: Diabetes mellitus complication status: with hyperglycemia Diabetes mellitus usp insulin use: without usp use Diabetes mellitus type: type 2 Qualified Code(s): E11.65 - Type 2 diabetes mellitus with hyperglycemia Plan: In-office HgbA1c done today is at 7.3%; was previously at 9.4% a few months ago - goal is <7.0% but ideally <6.5% if he does not want to be on any Rx for his diabetes Reinforced diabetic diet Patient was started on Metformin 500 mg BID at his last visit but he DID NOT TAKE the Rx and would like to continue trying diet modification for now As he has been able to lose a lot of weight and got his HgbA1c to drop at least 2% in the past few months, will continue with diet modification for now Will have him recheck labs in 3 months for follow-up (3) Benign essential hypertension: Code(s): I10 - Essential (primary) hypertension Plan: Reinforced low sodium diet - goal is systolic BP of 120 mm or less Continue Lisinopril 5 mg QD BP has improved a lot from his last visit with both Rx and his recent weight loss Patient instructed to continue monitoring his blood pressure regularly (4) Lumbar degenerative disc disease: Code(s): M51.36 - Other intervertebral disc degeneration, lumbar region Plan: Reinforced activity and weight-lifting restrictions Follow up with pain management as scheduled MRI of the lumbar spine done back in June 2021 revealed (+) multilevel disc degeneration/facet arthritis. There is a shallow right far lateral protrusion at L4-L5 that causes mild mass effect on the extraforaminal segment of the right L4 nerve root. Otherwise no substantial mass effect the traversing or foraminal nerve roots within the lumbar spine. No canal stenosis seen Continue Tramadol 50 mg 1 to 2 tablets TID PRN for pain - Rx refilled but reminded they are not due until later this week (5) Degenerative joint disease of right knee: Comment: S/P partial medial meniscectomy and debridement of anterior compartment on 07/20/2020 Code(s): M17.11 - Unilateral primary osteoarthritis, right knee Qualifiers: Osteoarthritis type: post-traumatic Qualified Code(s): M17.31 - Unilateral post-traumatic osteoarthritis, right knee Plan: Follow up with orthopedics as scheduled Continue Tramadol PRN Has reportedly been recommended to get arthroplasty but patient feels that he is still too young for the procedure and would like to hold off for now (6) Obesity (BMI 30-39.9): Code(s): E66.9 - Obesity, unspecified Plan: Reinforced diet/exercise as tolerated/lose weight Plan Follow up in 3 months Medications: Refilled tramadol 1 to 2 tablets 3 times a day as needed for increased pain over the lower back; 30 days 180 tabs 0RF pain M17.31 - Unilateral post-traumatic osteoarthritis, right knee Coding Level of Care Code Est Pt Prev Care 40-64y([id number]) Diagnoses Annual physical exam Z00.00 Diabetes mellitus E11.65 Diabetes mellitus complication status: with hyperglycemia Diabetes mellitus usp insulin use: without terminologist use Diabetes mellitus type: type 2 Benign essential hypertension I10 Lumbar degenerative disc disease M51.36 Degenerative joint disease of right knee M17.31 Osteoarthritis type: post-traumatic Obesity (BMI 30-39.9) E66.9
== END 2023-04-10 11:03 | disposition home or self-care (01) ==
PROVIDERS: PCP Internal Medicine; Visit Provider Internal Medicine
DX: Z00.00 Encounter for general adult medical examination without abnormal findings (principal); E11.65 Type 2 diabetes mellitus with hyperglycemia; I10 Essential (primary) hypertension; M51.36 Other intervertebral disc degeneration, lumbar region; M17.31 Unilateral post-traumatic osteoarthritis, right knee; E66.9 Obesity, unspecified
CPT/HCPCS: 99396

== ENCOUNTER → 2023-04-11 13:56 | Outpatient (BNVA) | payer OTHER, SELFPAY | PROVIDERS: PCP Internal Medicine; Visit Provider Physician Assistant | DX: Z13.89 Encounter for screening for other disorder (principal) | CPT/HCPCS: 99203 ==

== ENCOUNTER 2023-10-01 15:58 | Emergency (ER) | payer BC, SELFPAY ==
--- NOTE | ~2023-10-01 | CT_ITS ---
EXAMINATION: CT HEAD WITHOUT CONTRAST CLINICAL INFORMATION: Headache COMPARISON: None available. TECHNIQUE: Contiguous axial imaging was performed from the skull base to vertex without intravenous administration of contrast. This CT examination was performed using dose optimization techniques as appropriate, variously including the following: *Automated exposure control *Adjustment of mA and/or kV according to patient size (this includes techniques or standardized protocols for targeted exams where dose is matched to indication/reason for exam; i.e. extremities or head) *Use of iterative reconstruction technique DLP: 855 mGy-cm FINDINGS: There is no acute intra-axial, extra-axial bleed, masses or midline shift. There is no acute infarction evolution. There is no edema. The zheng to white matter differentiation is maintained normal. The lateral ventricles are symmetrical in size and configuration without enlargement. No abnormality seen in the posterior fossa. Bone windows reveal no calvarial abnormality. There is complete opacification of right maxillary and minimal mucoperiosteal thickening left maxillary sinus. Rest of the paranasal sinuses are well-aerated. The mastoid air cells are clear. CT/CT head/brain wo IV con IMPRESSION: 1. No acute intracranial process seen. 2. Chronic bilateral maxillary sinus inflammatory changes.
[2023-10-01 16:40] VITALS: BP 138/87; PULSE 77; RESP 16; TEMP 37.1; O2SAT 96; BMI 37.4
--- NOTE | 2023-10-01 16:41 | ED.GENADULT ---
HPI - General Adult General Chief complaint: Headache Stated complaint: pain in back of head, throbbing Time Seen by Provider: 10/01/23 17:15 Source: patient Mode of arrival: ambulatory Limitations: no limitations History of Present Illness HPI narrative: Patient diabetic otherwise healthy noticed burning and pain on the right side of the neck spreading to scalp area no fever patient does shave himself has history of cellulitis in the lower extremities in the past no fever no chills Related Data Previous Rx's Medication Instructions Recorded acetaminophen 500 mg tablet 1,000 mg (2 x 500 mg) PO QID PRN 06/08/22 (Tylenol Extra Strength) fever or pain #14 tabs cholecalciferol (vitamin D3) 25 25 mcg PO DAILY #90 tabs 10/14/22 mcg (1,000 unit) tablet tramadol 50 mg tablet See Rx Instructions .Route 07/28/23 .COMPLEX pain 30 days #180 tabs lisinopril 5 mg tablet 5 mg PO DAILY #90 tabs 08/04/23 cephalexin 500 mg capsule 500 mg PO QID 10 days #40 caps 10/01/23 doxycycline hyclate 100 mg tablet 100 mg PO BID #20 tabs 10/01/23 ibuprofen 600 mg tablet 600 mg PO Q6H PRN fever or pain 10/01/23 #30 tabs Allergies Allergy/AdvReac Type Severity Reaction Status Date / Time No Known Allergies Allergy Verified 10/01/23 16:42 [No Known Allergies*] Review of Systems Review of Systems: Yes all other systems are reviewed and are negative PMFSH Past Medical History Onset Date is defined in the Problem List Problems that require an onset date and time if occurred within 24 hrs of arrival to the ED Aortic Dissection and Rupture; Neurologic impairment; Cardiopulmonary Arrest; Endotracheal Intubation; Insertion or Replacement of Mechanical Circulatory Assist Device Medical History Vitamin D deficiency Diabetes mellitus Lumbar degenerative disc disease Left knee pain Cyst of perianal area Degenerative joint disease of right knee Obesity (BMI 30-39.9) Benign essential hypertension Surgical History H/O colonoscopy (~11/08/22) History of meniscectomy of right knee (~07/20/20) History of right knee surgery H/O lateral meniscus repair of right knee H/O lateral meniscus repair of left knee H/O lumbar discectomy History of arthroscopy of both shoulders History of laparoscopic cholecystectomy Family History Family History Maternal Grandfather Bone cancer Other Family history non-contributory Social History Social History Housing: House Alcohol intake: never Patient Tobacco Use Status: Former Tobacco user Years Smoked: 5 e-Cigarette/Vaping Use: Never Used Second Hand Smoke Exposure: Yes Advance Directives: No Advance Directives Information Provided: No service: No Current occupational status: employed 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 Oriented X3. No acute distress. ENT: Pharynx normal. Oral Mucosa moist EARS :normal Neck: Normal inspection. Neck supple. Erythema of the skin on the right side of the occipital area with local tenderness small pustule was seen no vesicles were seen CVS: Normal heart rate and rhythm. Pulses normal. Respiratory: No respiratory distress. Equal air entry bilateral, Abdomen: Soft and nontender. Bowel sounds are present, Skin: Cellulitic change right lower occipital area Neuro: Oriented X 3. Course Course Course Narrative: RME:?52 yo male here w/ intermittent right posterior headache x3 days. comes and goes, now the throbbing is lasting longer. has been taking ibuprofen at home without relief. no hx of migraines/ headaches. denies vision or hearing changes. perrla. exam nonfocal plan for basic labs, ct Full HPI, ROS and PE to be performed by the primary ED provider. Medical Decision Making Medical Decision Making MDM Narrative: Patient with small scalp cellulitic area right posterior scalp spreading to the other side nontoxic look no vesicles were seen, will discharge patient home on oral antibiotic doxycycline cephalexin CT scan of the head was ordered by triage provider which was negative Differential Diagnosis Differential Diagnoses: The differential diagnosis associated with the presentation includes Cellulitis/shingles Lab Data [facility] Lab Attestation statement: I reviewed the patient's lab results. 10/01/23 17:04 10/01/23 17:04 Labs: Lab Results 10/01/23 Range/Units 17:04 WBC 13.5 H (4.8-10.8) X10*3/uL RBC 4.99 (4.60-5.80) X10*6/uL Hgb 14.6 (14.0-18.0) g/dl Hct 43.4 (42.0-52.0) % MCV 87.0 (80.0-98.0) fL MCH 29.3 (27.0-33.0) pg MCHC 33.6 (31.0-36.0) g/dl RDW 11.8 (11.0-16.0) % Plt Count 316 (160-400) X10*3/uL MPV 9.2 L (9.4-12.4) fL Immature Gran % (Auto) 0.4 (0.0-0.4) % Neut % (Auto) 68.0 (45-73) % Lymph % (Auto) 21.3 (20-40) % Butler % (Auto) 7.5 (2-11) % Eos % (Auto) 2.1 (0-4) % Baso % (Auto) 0.7 (0-2) % Lymph # (Auto) 2.9 (1.2-4.9) X10*3/uL Butler # (Auto) 1.0 (0.1-1.2) X10*3/uL Eos # (Auto) 0.3 (0.0-0.4) X10*3/uL Baso # (Auto) 0.1 (0.0-0.2) X10*3/uL Abs Immat Gran (auto) 0.05 H (0.00-0.03) X10*3/uL Absolute Neuts (auto) 9.2 H (2.0-8.3) x10*3/uL Absolute Nucleated RBC 0.000 (0.0-0.012) X10*3/uL Nucleated RBC % (auto) 0.0 (0.0-0.2) /100WBC Sodium 137 (135-145) mmol/L Potassium 4.4 (3.3-5.1) mmol/L Chloride 102 (96-108) mmol/L Carbon Dioxide 26 (22-29) mmol/L Anion Gap 13 (12-20) BUN 11 (9-16) mg/dL Creatinine 1.06 (0.5-1.4) mg/dL Estim Creat Clear Calc 94.6 Estimated GFR > 60 Random Glucose 207 H (60-115) mg/dL Calcium 9.7 (8.4-10.2) mg/dL Magnesium 1.9 (1.6-2.6) mg/dL Independent Interpretation I performed an independent interpretation of an: CT Scan Radiology Impression Discussion of test interpretation with radiology: I have reviewed the radiologist's reading. Discharge Plan Discharge Clinical Impression: Cellulitis of head or scalp Patient Disposition: Home, Self-Care Instructions: Cellulitis (ED) Additional Instructions: Take antibiotic as prescribed Ibuprofen for pain Follow with PCP if not better Report to ER if you notice any blisters like lesion Prescriptions: New cephalexin 500 mg capsule 500 mg PO QID 10 Days Qty: 40 0RF ibuprofen 600 mg tablet 600 mg PO Q6H PRN (Reason: fever or pain) Qty: 30 0RF doxycycline hyclate 100 mg tablet 100 mg PO BID Qty: 20 0RF No Action cholecalciferol (vitamin D3) 25 mcg (1,000 unit) tablet 25 mcg PO DAILY Qty: 90 3RF tramadol 50 mg tablet See Rx Instructions .ROUTE .COMPLEX 30 Days Qty: 180 0RF Rx Instructions: 1 to 2 tablets 3 times a day as needed for increased pain over the lower back; lisinopril 5 mg tablet 5 mg PO DAILY Qty: 90 1RF acetaminophen [Tylenol Extra Strength] 500 mg tablet 1,000 mg PO QID PRN (Reason: fever or pain) Qty: 14 0RF Stand Alone Forms: Work/School Release
[2023-10-01 17:08] LABS: MANUAL DIFF FLAG NO
[2023-10-01 17:12] LABS: Basophils Absolute Auto 0.1 X10*3/uL (0.0-0.2); Basophils Percent Auto 0.7 % (0-2); Eosinophils Absolute Auto 0.3 X10*3/uL (0.0-0.4); Eosinophils Percent Auto 2.1 % (0-4); Hematocrit 43.4 % (42.0-52.0); Hemoglobin 14.6 g/dl (14.0-18.0); Imm Gran Abs Auto 0.05 X10*3/uL (0.00-0.03); Imm Gran Pct Auto 0.4 % (0.0-0.4); Lymphocytes Absolute Auto 2.9 X10*3/uL (1.2-4.9); Lymphocytes Percent Auto 21.3 % (20-40); Mean Corpuscular HGB Conc 33.6 g/dl (31.0-36.0); Mean Corpuscular Hemoglobin 29.3 pg (27.0-33.0); Mean Platelet Volume 9.2 fL (9.4-12.4); Monocytes Percent Auto 7.5 % (2-11); Neutrophils Absolute Auto 9.2 x10*3/uL (2.0-8.3); Platelet Count 316 X10*3/uL (160-400); Red Blood Count 4.99 X10*6/uL (4.60-5.80); Red Cell Distribution Width 11.8 % (11.0-16.0); White Blood Count 13.5 X10*3/uL (4.8-10.8)
[2023-10-01 17:22] LABS: Anion Gap 13 (12-20); Blood Urea Nitrogen 11 mg/dL (9-16); Calcium 9.7 mg/dL (8.4-10.2); Carbon Dioxide 26 mmol/L (22-29); Chloride 102 mmol/L (96-108); Creatinine Clr Calc Pharmacy 94.6; Estimated Glomerular Filt Rate > 60; Glucose Random 207 mg/dL (60-115); Magnesium 1.9 mg/dL (1.6-2.6); Potassium 4.4 mmol/L (3.3-5.1); Sodium 137 mmol/L (135-145)
[2023-10-01] MEDS: Ibuprofen 600 MG TABLET PO (17:56)
[2023-10-01] MEDS: cephALEXin 500 MG CAPSULE PO (17:57)
[2023-10-01] MEDS: Doxycycline Monohydrate 100 MG CAPSULE PO (17:57)
== END 2023-10-01 18:05 | disposition home or self-care (01) ==
PROVIDERS: Physician Assistant Medical; Emergency Provider Internal Medicine; PCP Internal Medicine
DX: L03.811 Cellulitis of head [any part, except face] (principal); E11.9 Type 2 diabetes mellitus without complications; I10 Essential (primary) hypertension; Z79.899 Other long term (current) drug therapy
CPT/HCPCS: 36415; 70450; 80048; 83735; 85025; 99283; 99284

== ENCOUNTER 2023-12-15 15:31 | Outpatient (AMB) | payer BC, SELFPAY ==
--- NOTE | 2023-12-15 15:33 | MHC.PC.OV ---
Vital Signs 12/15/23 15:40 Height 5 ft 7 in Weight 248 lb BMI 38.8 BP 110/78 Blood Pressure Location Lt brachial Position Sitting Pulse 64 Pulse Source Pulse Oximeter Pulse Oximetry (%) 97 Oxygen Delivery Method Room Air Intake Visit Reasons: pain in both hands Intake Note: Dr. Herring pt here for bilateral hand pain and a rash/dark halle around the left side of the neck. Station Installer Required: No Accompanied by: Self / Same As Patient Allergies No Known Allergies [No Known Allergies*] Allergy (Verified 12/15/23 15:54) Medication List - Last Reconciled 12/15/23 by Anshu George PA-C acetaminophen (Tylenol Extra Strength) 1,000 mg (2 x 500 mg) PO QID PRN cephalexin 500 mg PO QID 10 days cholecalciferol (vitamin D3) 25 mcg PO DAILY doxycycline hyclate 100 mg PO BID ibuprofen 600 mg PO Q6H PRN lisinopril 5 mg PO DAILY tramadol 1 to 2 tablets 3 times a day as needed for increased pain over the lower back; 30 days Tobacco use date assessed: 12/15/23 Dental Screening Dental Screen Date: 12/15/23 Did you have a dental visit in the last 12 months?: Yes Did you have a dental problem in the last 6 months where you did not have access to dental care?: No Was dental information given to patient?: Patient has dentist HPI pain in both hands HPI Details Patient is a 53 year male here today for problem visit. This is the 1st time meeting this 53-year-old male with a past medical history significant for obesity, hypertension, type 2 diabetes. He reports over the last several weeks having bilateral hand swelling worse in the mornings. He reports throughout the day his hand swelling and pain gets better. Has been using osteo Bi-Flex which has been helpful. He also does report having left thumb catching and believes this could be trigger thumb. He does report having a family history of arthritis in hands. He otherwise denies any particular numbness or tingling in his palms. He has an occupation that he does not overuse his hands. Type 2 diabetes: Patient does understand his fasting blood sugar was elevated in his A1c is in diabetic range. He is not interested in starting antihyperglycemic medication at this time and will like to work extensively on lifestyle and dietary modifications. [facility] Medical History Vitamin D deficiency Diabetes mellitus Lumbar degenerative disc disease Left knee pain Cyst of perianal area Degenerative joint disease of right knee Obesity (BMI 30-39.9) Benign essential hypertension Surgical History H/O colonoscopy (~11/08/22) History of meniscectomy of right knee (~07/20/20) History of right knee surgery H/O lateral meniscus repair of right knee H/O lateral meniscus repair of left knee H/O lumbar discectomy History of arthroscopy of both shoulders History of laparoscopic cholecystectomy Family History Maternal Grandfather Bone cancer Other Family history non-contributory Social History Housing: House Alcohol intake: never Patient Tobacco Use Status: Former Tobacco user Years Smoked: 5 e-Cigarette/Vaping Use: Never Used Second Hand Smoke Exposure: Yes service: No Current occupational status: employed Current [place] [employer] [place] - [employer] Current occupational exposures/hazards: No Cognitive needs: No Hearing needs: No Vision needs: No Questionnaire PHQ-9 Over the last 2 weeks, how often have you been bothered by any of the following problems? 1. Little interest or pleasure in doing things: not at all 2. Feeling down, depressed, or hopeless: not at all 3. Trouble falling or staying asleep, or sleeping too much: not at all 4. Feeling tired or having little energy: not at all 5. Poor appetite or overeating: not at all 6. Feeling bad about yourself - or that you are a failure or have let yourself or your family down: not at all 7. Trouble concentrating on things, such as reading the newspaper or watching television: not at all 8. Moving or speaking so slowly that other people could have noticed. Or the opposite - being so fidgety or restless that you have been moving around a lot more than usual: not at all 9. Thoughts that you would be better off or of hurting yourself in some way: not at all Total score: 0 Depression Screening Interpretation: Negative Depression Screening Done: Yes 46876 - PHQ-9 Billing: Yes Source: Developed by Drs. Yasmani Hair, Tere Bundy, Yves Dietz and colleagues, with an educational leonora from [employer]. Thrive Questionnaire Date Thrive assessed: 12/15/23 I am a: Patient What is your living situation today?: I have a steady place to live Within the past 12 months, did the food you bought not last and you didn't have the money to get more?: Never true Within the past 12 months, did you worry whether your food would run out before you got money to buy more?: Never true Do you have trouble paying for medicines?: No Do you have trouble getting transportation to medical appointments?: No Do you have trouble paying your heating and electricity bill?: No Do you have trouble taking care of your child, family member or friend?: No Do you have trouble with day-to-day activities such as bathing, preparing meals, shopping, managing finances, etc.?: No Are you currently unemployed and looking for a job?: No Are you interested in more education?: No Please select the resources that you would like help with: None Currently or been in a relationship where the following occur: no concerns reported THRIVE Score: 0 AUDIT C Alcohol Use Questionnaire (AUDIT-C) 1. How often do you have a drink containing alcohol?: Never 3. How often do you have six or more drinks on one occasion?: Never Total Score: 0 Score Reviewed/Action Taken: Yes KIANNA-7 AMB Questionnaire KIANNA-7 Date KIANNA - 7 assessed: 12/15/23 Feeling nervous, anxious, or on edge: 0 = Not at all Not being able to stop or control worryin = Not at all Worrying too much about different things: 0 = Not at all Trouble relaxin = Not at all Being so restless that it is hard to sit still: 0 = Not at all Becoming easily annoyed or irritable: 0 = Not at all Feeling afraid as if something awful might happen: 0 = Not at all Total KIANNA-7 score (0-4 normal; 5-9 mild; 10-14 moderate; 15-21 severe): 0 Source: Developed by Tere Coyne B.W. Gregor, Yves Dietz and colleagues, with an educational leonora from [employer]. KIANNA-7 Assessment Billing KIANNA-7 Assessment Tool: KIANNA-7 Assessment 25564 Review of Systems Const Denies headache(s) Eyes Denies loss of vision ENT Denies vertigo, Denies dizziness, Denies headache(s) and Denies sore throat Card Denies chest pain, Denies leg edema and Denies lightheadedness Resp Denies cough, Denies hemoptysis and Denies wheezing GI Denies abdominal pain, Denies melena, Denies constipation, Denies diarrhea and Denies vomiting Denies dysuria, Denies urinary frequency and Denies urinary urgency Musc Denies arthralgias, Denies joint swelling, Denies numbness and Denies tingling Neuro Denies Abnormal speech present, Denies behavioral changes, Denies vertigo, Denies dizziness, Denies headache(s), Denies loss of vision, Denies memory loss, Denies numbness and Denies tingling Psych Denies anxiety, Denies behavioral changes, Denies depression, Denies memory loss and Denies panic attacks Francisco/Lymph Denies easy bleeding and Denies easy bruising Aller/Immun Denies wheezing Physical exam (Primary Care) Vital Signs: Last Vital Signs Pulse 64 12/15/23 15:40 BP 110/78 12/15/23 15:40 Pulse Ox 97 12/15/23 15:40 Oxygen Delivery Method Room Air 12/15/23 15:40 BMI result Body Mass Index 38.8 Tobacco/Smoking Status: Tobacco use Status Tobacco use date assessed 12/15/23 12/15/23 15:44 Patient Tobacco Use Status Former Tobacco user 12/15/23 15:33 e-Cigarette/Vaping Use Never Used 12/15/23 15:33 PHQ-9: PHQ-9 Score PHQ-9: Total score 0 12/15/23 16:14 Depression Screening Interpretation: Negative Thrive Assessment: Date of Thrive Assessment Date Thrive assessed 12/15/23 12/15/23 15:44 Currently or been in a relationship where the following occur: no concerns reported Const General: healthy appearing, no acute distress, alert and awake Nutritional Appearance: well nourished Orientation/consciousness: oriented to person, oriented to place and oriented to time HENMT Ears: TM's normal bilaterally General nose exam: Normal nasal mucous membranes and turbinates present Eyes Conjunctivae: conjunctivae normal Sclerae: sclerae normal Pupils: Equal, round and reactive pupils present Neck Neck: Yes no lymphadenopathy and Yes no JVD Thyroid: Thyroid normal Carotids: no bruits Resp Effort & Inspection: normal respiratory effort and not tachypneic Auscultation: no crackles, no rales, no rhonchi and no wheezes Cardio Rate: regular rate Rhythm: regular rhythm Heart sounds: no murmurs and normal S1 and S2 GI Palpation (GI): Soft to palpation, nontender, no hepatomegaly and no splenomegaly Auscultation: normal bowel sounds Skin General skin exam: no rashes or lesions noted and dry skin Neuro General: oriented to person, oriented to place and oriented to time Cranial nerves: Yes Equal, round and reactive pupils present Speech: No Abnormal speech present Gait exam (Neuro): Normal gait present Motor exam (neuro): no tremor noted Extrem Other: BILATERAL HANDS AND WRISTS: NEGATIVE PRAYERS TEST, NEGATIVE PHALEN'S TEST, 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 Right upper extremity: full ROM Left upper extremity: full ROM Right lower extremity: full ROM; no edema Left lower extremity: full ROM; no edema Psych Mental Status: mental status grossly normal Speech and movement: Normal speech and movement present Affect: normal affect Attitude: cooperative Thought process: Normal thought process present Results AMB Hemoglobin A1c AMB Hemoglobin A1c 7.9 % Last Edit by TAVO Lu on 12/15/23 16:16 Results Reviewed Results Reviewed: Laboratory Last Values Hgb A1c (Clinic) 7.9 % (4.0-6.0) H 12/15/23 16:15 Assessment and Plan Assessment & Plan (1) Bilateral hand pain: Code(s): M79.641 - Pain in right hand; M79.642 - Pain in left hand Plan: Differential diagnosis: Osteoarthritis versus inflammatory arthritis. will send for bilateral hand x-rays to evaluate for signs of inflammatory arthritis. Will send for baseline rheumatology testing. Will supply patient with meloxicam to use once a day as needed for hand pain. (2) Skin lesion of neck: Code(s): L98.9 - Disorder of the skin and subcutaneous tissue, unspecified Plan: Has a keratotic lesion over left posterior aspect of his neck. Appears to be a seborrheic keratosis and advised patient on watching for evolution of the skin lesion. Will consider dermatology referral. (3) Trigger thumb, left thumb: Code(s): M65.312 - Trigger thumb, left thumb Plan: Patient does report signs symptoms consistent with trigger thumb. Will refer to orthopedics for possible cortisone injection been (4) Diabetes mellitus: Code(s): E11.9 - Type 2 diabetes mellitus without complications Qualifiers: Diabetes mellitus type: type 2 Diabetes mellitus penitentiary insulin use: without penitentiary use Diabetes mellitus complication status: with hyperglycemia Qualified Code(s): E11.65 - Type 2 diabetes mellitus with hyperglycemia Plan: Patient's type 2 diabetes suboptimally controlled. Today's A1c is above 7. He is not interested in starting metformin at this time as he is concerned about side effects. He would like to work on lifestyle and dietary modifications. Advised to consider seeing a hand stone polisher as well. Goal A1c is to be below 7.0 Orders: Orders AMB Hemoglobin A1c 12/15/23 E11.9 - Type 2 diabetes mellitus without complications XR hand LT 2V 12/15/23 M79.641 - Pain in right hand, M79.642 - Pain in left hand Cyclic Citrullinated Peptide 12/15/23 M79.641 - Pain in right hand, M79.642 - Pain in left hand XR hand RT 2V 12/15/23 M79.641 - Pain in right hand, M79.642 - Pain in left hand KIRILL Reflex Titer and Pattern 12/15/23 M79.641 - Pain in right hand, M79.642 - Pain in left hand Rheumatoid Factor 12/15/23 M79.641 - Pain in right hand, M79.642 - Pain in left hand Erythrocyte Sedimentation Rate Today M79.641 - Pain in right hand, M79.642 - Pain in left hand CRP High Sensitivity Today M79.641 - Pain in right hand, M79.642 - Pain in left hand Referrals Orthopedics Referral M65.312 - Trigger thumb, left thumb Medications: New meloxicam 15 mg PO DAILY 30 days 30 tabs 0RF M79.641 - Pain in right hand, M79.642 - Pain in left hand Coding Level of Care Code Est Pt Level 4 (74298) Diagnoses Bilateral hand pain M79.641; M79.642 Skin lesion of neck L98.9 Trigger thumb, left thumb M65.312 Type 2 diabetes mellitus with hyperglycemia, without long-term current use of insulin E11.65 Diabetes mellitus type: type 2 Diabetes mellitus master technician insulin use: without penitentiary use Diabetes mellitus complication status: with hyperglycemia Additional Codes KIANNA-7 Assessment Billing - KIANNA-7 Assessment Tool: KIANNA-7 Assessment 08462 ([id number])
[2023-12-15 15:40] VITALS: BP 110/78; PULSE 64; O2SAT 97; BMI 38.8
== END 2023-12-15 16:31 | disposition home or self-care (01) ==
PROVIDERS: PCP Internal Medicine; Visit Provider Physician Assistant
DX: E11.9 Type 2 diabetes mellitus without complications (principal)
CPT/HCPCS: 83036; 99214

== ENCOUNTER 2024-01-08 12:29 | Outpatient (REF) | payer BC, SELFPAY ==
--- NOTE | ~2024-01-08 | XR_ITS ---
EXAMINATION: XR BILATERAL HANDS CLINICAL INFORMATION: Pain in right hand. Pain in left hand, trigger thumb. COMPARISON: Right wrist 11/02/2019. TECHNIQUE: 3 views of each hand. FINDINGS: LEFT HAND: Moderate degenerative changes in the first carpometacarpal joint with joint space narrowing and hypertrophic change. Radiopaque marker placed indicating area of concern as indicated by the patient along the radial aspect of the wrist. Moderate degenerative changes in the first metacarpophalangeal joint. No displaced fracture appreciated. RIGHT HAND: Moderate degenerative changes in the first carpometacarpal joint with joint space narrowing and hypertrophic change. Moderate degenerative changes in the first metacarpophalangeal joint. No displaced fracture appreciated. XR/XR hand LT 2V IMPRESSION: Moderate degenerative changes in the bilateral first carpometacarpal and metacarpophalangeal joints. No displaced fracture. Recommend follow up imaging in 10-14 days if fracture is suspected.
--- NOTE | ~2024-01-08 | XR_ITS ---
EXAMINATION: XR BILATERAL HANDS CLINICAL INFORMATION: Pain in right hand. Pain in left hand, trigger thumb. COMPARISON: Right wrist 11/02/2019. TECHNIQUE: 3 views of each hand. FINDINGS: LEFT HAND: Moderate degenerative changes in the first carpometacarpal joint with joint space narrowing and hypertrophic change. Radiopaque marker placed indicating area of concern as indicated by the patient along the radial aspect of the wrist. Moderate degenerative changes in the first metacarpophalangeal joint. No displaced fracture appreciated. RIGHT HAND: Moderate degenerative changes in the first carpometacarpal joint with joint space narrowing and hypertrophic change. Moderate degenerative changes in the first metacarpophalangeal joint. No displaced fracture appreciated. XR/XR hand RT 2V IMPRESSION: Moderate degenerative changes in the bilateral first carpometacarpal and metacarpophalangeal joints. No displaced fracture. Recommend follow up imaging in 10-14 days if fracture is suspected.
== END 2024-01-08 12:30 | disposition home or self-care (01) ==
LOC: HO.XRAY 12:29
PROVIDERS: PCP Internal Medicine; Visit Provider Physician Assistant
DX: M79.641 Pain in right hand (principal); M79.642 Pain in left hand
CPT/HCPCS: 73120

== ENCOUNTER 2024-01-09 12:15 | Outpatient (AMB) | payer BC, SELFPAY ==
--- NOTE | 2024-01-09 12:26 | MHC.OFFVIS ---
Vital Signs 01/09/24 12:34 Height 5 ft 7 in Weight 248 lb BMI 38.8 Handedness Ambidextrous Intake Visit Reasons: New prob- LT trigger thumb Intake Note: Isaiah is a 53 year old male who presents today for a evaluation of his left trigger thumb. X rays of both hands. No hx of previous treatment. Patient reports having trigger finger for a couple months. He states that its been getting worse at night. He finds relief when wearing his thumb brace. Patient is having pain in both of his hands and her feels some tightness. Pain is equal in both hands. Allergies No Known Allergies [No Known Allergies*] Allergy (Verified 01/09/24 12:37) HPI HPI New prob- LT trigger thumb : Details: 53 yo male presents to the office today for left thumb pain. He states the thumb has been locking and catching for about 4 months. He has pain at night and it is stiff in the morning with waking up. He does use a brace at night. He is also c/o left shoulder pain, he has had an injection in the past , 08/2022 with good relief. He has pain with reaching and repetitive motion. [facility] Medical History Vitamin D deficiency Diabetes mellitus Lumbar degenerative disc disease Left knee pain Cyst of perianal area Degenerative joint disease of right knee Obesity (BMI 30-39.9) Benign essential hypertension Surgical History H/O colonoscopy (~11/08/22) History of meniscectomy of right knee (~07/20/20) History of right knee surgery H/O lateral meniscus repair of right knee H/O lateral meniscus repair of left knee H/O lumbar discectomy History of arthroscopy of both shoulders History of laparoscopic cholecystectomy Family History Maternal Grandfather Bone cancer Other Family history non-contributory Social History Housing: House Alcohol intake: never Patient Tobacco Use Status: Former Tobacco user Years Smoked: 5 e-Cigarette/Vaping Use: Never Used Second Hand Smoke Exposure: Yes service: No Current occupational status: employed 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 NVI. Left shoulder normal to inspection. Tenderness over the bicipital groove and along deltoid region of the shoulder. FF to 175, ER to 90, IR to S1. 5/5 RTC strength, negative cordova, cross body abduction. NVI. Office Procedures Joint Injection/Drain Joint Injection/Drain Primary Site: left shoulder Prep: site was prepped using aseptic technique, ethochloride spray was applied and injection warnings given Injected: 80 mg of, DepoMedrol, with 8 mL of, 1% plain lidocaine and in the subcromial space Approach Used: posterolateral Procedure: The patient tolerated the procedure well and there was some relief with the local anesthesia Coding 24486 - Glenohumeral/Tronchanteric Bursa/Intraarticular Procedure code (CPT) selection complete Assessment & Plan Assessment & Plan (1) Trigger thumb, left thumb: Code(s): M65.312 - Trigger thumb, left thumb Category: Medical (2) Biceps tendinitis of left shoulder: Code(s): M75.22 - Bicipital tendinitis, left shoulder Category: Medical Plan We discussed options today, which include steroid injection. The patient did consent to move forward with the injection of the left shoulder, which was tolerated well.? He was given a rx for celebrex to the pharmacy . He will continue with the thumb spica brace for the thumb and if he decides on an injection, he will contact me, but does understand the injection will delay any plan for trigger release type surgery for 3 months.If symptoms persist over the next 6-8 weeks, they will contact our office, otherwise, prn Medications: New celecoxib (Celebrex) 200 mg PO BID 60 caps 3RF 30 days Coding Level of Care Code Est Pt Level 3 (58715) Diagnoses Trigger thumb, left thumb M65.312 Biceps tendinitis of left shoulder M75.22 CPT Codes Coding - Joint 7: 34644 - Glenohumeral/Tronchanteric Bursa/Intraarticular ([id number])
[2024-01-09 12:34] VITALS: BMI 38.8
== END 2024-01-09 13:26 | disposition home or self-care (01) ==
PROVIDERS: PCP Internal Medicine; Visit Provider Physician Assistant
DX: M65.312 Trigger thumb, left thumb (principal); M75.22 Bicipital tendinitis, left shoulder
CPT/HCPCS: 20610; 99214

== ENCOUNTER → 2024-01-09 12:15 | Outpatient (BNVA) | payer BC, SELFPAY | PROVIDERS: PCP Internal Medicine; Visit Provider Physician Assistant | DX: M75.22 Bicipital tendinitis, left shoulder (principal); M65.312 Trigger thumb, left thumb | CPT/HCPCS: 20610; J1010 ==

== ENCOUNTER 2024-02-12 18:29 | Emergency (ER) | payer BC, SELFPAY ==
--- NOTE | ~2024-02-12 | XR_ITS ---
EXAMINATION: XR HAND, LEFT CLINICAL INFORMATION: Traumatic thumb pain. COMPARISON: None available. TECHNIQUE: PA, lateral, and oblique views of the left hand. FINDINGS: No fracture. Alignment is anatomic. Joint spaces are maintained. No erosions or soft tissue calcifications. XR/XR hand LT 2V IMPRESSION: No fracture or dislocation.
[2024-02-12 19:23] VITALS: BP 131/86; PULSE 71; RESP 16; TEMP 36.1; O2SAT 96; BMI 36.5
--- NOTE | 2024-02-12 19:57 | ED.EXTPRO ---
HPI - Extremity Problem General Chief complaint: Extremity Injury, Upper Stated complaint: thumb pain work inj Related Data Previous Rx's ?Medication ?Instructions ?Recorded acetaminophen 500 mg tablet 1,000 mg (2 x 500 mg) PO QID PRN 06/08/22 (Tylenol Extra Strength) fever or pain #14 tabs ibuprofen 600 mg tablet 600 mg PO Q6H PRN fever or pain 10/01/23 #30 tabs cholecalciferol (vitamin D3) 25 25 mcg PO DAILY #90 tabs 11/30/23 mcg (1,000 unit) tablet lisinopril 5 mg tablet 5 mg PO DAILY #90 tabs 02/12/24 Allergies Allergy/AdvReac Type Severity Reaction Status Date / Time No Known Allergies Allergy Verified 03/06/24 12:52 [No Known Allergies*] [facility] Past Medical History Medical History Vitamin D deficiency Diabetes mellitus Lumbar degenerative disc disease Left knee pain Cyst of perianal area Degenerative joint disease of right knee Obesity (BMI 30-39.9) Benign essential hypertension Surgical History H/O colonoscopy (~11/08/22) History of meniscectomy of right knee (~07/20/20) History of right knee surgery H/O lateral meniscus repair of right knee H/O lateral meniscus repair of left knee H/O lumbar discectomy History of arthroscopy of both shoulders History of laparoscopic cholecystectomy Family History Family History Maternal Grandfather Bone cancer Other Family history non-contributory Social History Social History Housing: House Alcohol intake: never Patient Tobacco Use Status: Former Tobacco user Years Smoked: 5 e-Cigarette/Vaping Use: Never Used Second Hand Smoke Exposure: Yes service: No Current occupational status: employed 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 States he thinks it may be dislocated. Admits to pain, denies numbness, tingling, weakness, fever, chills Appearance: Alert.? Oriented X3.? No acute cardiopulmonary distress distress.? Head: Normocephalic, atraumatic, no step-offs or deformities CVS: Pulses normal.? Respiratory: No respiratory distress.? Abdomen: Soft and nontender.? Skin: ? Normal skin color. Extremities: Discomofrt with ROM of left thumb. 5/5 strength to bilateral upper and lower extremities Neuro: Oriented X 3.? No motor deficit.? No sensory deficit. Discharge Plan Discharge Clinical Impression: Eloped from emergency department Patient Disposition: Left W/O Completing Treatment Prescriptions: No Action cholecalciferol (vitamin D3) 25 mcg (1,000 unit) tablet 25 mcg PO DAILY Qty: 90 3RF lisinopril 5 mg tablet 5 mg PO DAILY Qty: 90 1RF acetaminophen [Tylenol Extra Strength] 500 mg tablet 1,000 mg PO QID PRN (Reason: fever or pain) Qty: 14 0RF ibuprofen 600 mg tablet 600 mg PO Q6H PRN (Reason: fever or pain) Qty: 30 0RF Discharge Date/Time: 02/13/24 00:23
== END 2024-02-13 00:23 | disposition left against medical advice (07) ==
PROVIDERS: Emergency Provider Emergency Medicine; PCP Internal Medicine
DX: S69.92XA Unspecified injury of left wrist, hand and finger(s), initial encounter (principal); X58.XXXA Exposure to other specified factors, initial encounter; Y93.9 Activity, unspecified; Y92.9 Unspecified place or not applicable; Y99.9 Unspecified external cause status
CPT/HCPCS: 73120; 99281; 99283

== ENCOUNTER 2024-02-13 09:51 | Outpatient (AMB) | payer BC, SELFPAY ==
[2024-02-13 10:12] VITALS: BP 120/70; PULSE 75; TEMP 36.3; O2SAT 97; BMI 36.2
--- NOTE | 2024-02-13 10:12 | MHC.OFFWIV ---
Intake Vital Signs 02/13/24 10:12 Height 5 ft 8 in Weight 238 lb BMI 36.2 BP 120/70 Blood Pressure Location Lt brachial Position Sitting Pulse 75 Pulse Source Pulse Oximeter Temp 97.4 F Temp Source Temporal Artery Scan Pulse Oximetry (%) 97 Oxygen Delivery Method Room Air Intake Visit Reasons: left thumb injury Intake Note: pt is here today for thumb injury started yesterday Patient Tobacco Use Status: Former Tobacco user Allergies No Known Allergies [No Known Allergies*] Allergy (Verified 02/13/24 10:16) Do you need a note to return to daycare/school/sports/work: Yes HPI HPI Comments History of Present Illness Details 53 y/o male patient who presents to walk in clinic with c/o left thumb injury from work. Pt was seen at [facility] room this morning, but left without being seen. Xray done in the ED and No fracture seen. Pt asking for work note for today. [facility] Medical History Vitamin D deficiency Diabetes mellitus Lumbar degenerative disc disease Left knee pain Cyst of perianal area Degenerative joint disease of right knee Obesity (BMI 30-39.9) Benign essential hypertension Surgical History H/O colonoscopy (~11/08/22) History of meniscectomy of right knee (~07/20/20) History of right knee surgery H/O lateral meniscus repair of right knee H/O lateral meniscus repair of left knee H/O lumbar discectomy History of arthroscopy of both shoulders History of laparoscopic cholecystectomy Family History Maternal Grandfather Bone cancer Other Family history non-contributory Social History Housing: House Alcohol intake: never Patient Tobacco Use Status: Former Tobacco user Years Smoked: 5 e-Cigarette/Vaping Use: Never Used Second Hand Smoke Exposure: Yes service: No Current occupational status: employed 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 - [employer] Current occupational exposures/hazards: No Cognitive needs: No Hearing needs: No Vision needs: No Review of Systems Const All systems reviewed & are unremarkable except as noted in HPI and below Physical Exam Vital Signs: Last Vital Signs Temp 97.4 F 02/13/24 10:12 Pulse 75 02/13/24 10:12 BP 120/70 02/13/24 10:12 Pulse Ox 97 02/13/24 10:12 Oxygen Delivery Method Room Air 02/13/24 10:12 BMI result Body Mass Index 36.2 Const General: comfortable Nutritional Appearance: obese Orientation/consciousness: patient oriented x3 Neuro General: patient oriented x3, gait normal and moves all extremities Extrem Left upper extremity: normal to inspection, full ROM and hand Details: normal to inspection, normal capillary refill, tenderness Location: of the dorsal hand and of the thumb Location: at the MCP joint and normal ROM of fingers Psych Speech and movement: Normal speech and movement present Assessment & Plan Assessment & Plan (1) Injury of thumb, left: Code(s): S69.92XA - Unspecified injury of left wrist, hand and finger(s), initial encounter Qualifiers: Encounter type: initial encounter Qualified Code(s): S69.92XA - Unspecified injury of left wrist, hand and finger(s), initial encounter Plan: - Xray negative for Fx - Continue taking Ibuprofen for pain relief. - IceHot Coding Level of Care Code Est Pt Level 3 (49520) Diagnoses Injury of left thumb, initial encounter S69.92XA Encounter type: initial encounter Time Spent (min) 15
== END 2024-02-13 12:45 | disposition home or self-care (01) ==
PROVIDERS: PCP Internal Medicine; Visit Provider Nurse Practitioner Family
DX: S69.92XA Unspecified injury of left wrist, hand and finger(s), initial encounter (principal); Z04.2 Encounter for examination and observation following work accident
CPT/HCPCS: 99213

== ENCOUNTER 2024-03-06 12:50 | Outpatient (AMB) | payer BC, SELFPAY ==
[2024-03-06 12:51] VITALS: BP 116/70; PULSE 77; TEMP 36.8; O2SAT 96; BMI 37.1
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
== END 2024-03-06 13:25 | disposition home or self-care (01) ==
PROVIDERS: PCP Internal Medicine; Visit Provider Physician Assistant
DX: S69.92XA Unspecified injury of left wrist, hand and finger(s), initial encounter (principal)
CPT/HCPCS: 99214

== ENCOUNTER 2024-03-06 13:14 | Outpatient (REF) | payer OTHER, BC, SELFPAY ==
--- NOTE | ~2024-03-06 | XR_ITS ---
EXAMINATION: XR FINGER, LEFT CLINICAL INFORMATION: Unspecified injury COMPARISON: Left hand x-ray 02/12/2024 and 01/08/2024 TECHNIQUE: Three views of the left thumb. FINDINGS: Bone alignment is normal. No acute fracture or dislocation. There is a well-corticated ossification projecting over the volar IP joint of the thumb. This may be related to old trauma. Joint spaces and soft tissues are otherwise normal. XR/XR finger LT min 2V IMPRESSION: No acute fracture or dislocation.
== END 2024-03-06 13:15 | disposition home or self-care (01) ==
LOC: HO.HMGCX 13:14
PROVIDERS: Visit Provider Physician Assistant
DX: S69.92XA Unspecified injury of left wrist, hand and finger(s), initial encounter (principal)
CPT/HCPCS: 73140

== ENCOUNTER 2024-03-19 20:06 | Emergency (ER) | payer BC, SELFPAY ==
--- NOTE | ~2024-03-19 | US_ITS ---
EXAMINATION: US SCROTUM CLINICAL INFORMATION: Left testicular pain.. COMPARISON: None available. TECHNIQUE: A sonogram of the scrotum was performed assessing zheng-scale appearance and color Doppler flow. Spectral Doppler analysis of the arterial and venous flow were performed in the testes bilaterally. FINDINGS: RIGHT: Right testicle measures 4.2 x 2.7 x 2.8 cm, volume 17 mL. No focal testicular parenchymal lesions are visualized. Spectral Doppler analysis of the arterial and venous flow is normal in the right testis. Right epididymal head is normal in size. 3 mm cyst at the head of the right epididymis. No right hydrocele or varicocele is seen. Right epididymal Doppler flow is normal. LEFT: Left testicle measures 4 x 2.4 x 2.6 cm, volume 13 mL. No focal testicular parenchymal lesions are visualized. Spectral Doppler analysis of the arterial and venous flow is normal in the left testis. Left epididymal head is normal in size. 2 mm cyst at the head of the left epididymis. No left hydrocele or varicocele is seen. Left epididymal Doppler flow is normal. US/US scrotum doppler IMPRESSION: Normal ultrasound of the scrotum.
--- NOTE | ~2024-03-19 | US_ITS ---
EXAMINATION: US SCROTUM CLINICAL INFORMATION: Left testicular pain.. COMPARISON: None available. TECHNIQUE: A sonogram of the scrotum was performed assessing zheng-scale appearance and color Doppler flow. Spectral Doppler analysis of the arterial and venous flow were performed in the testes bilaterally. FINDINGS: RIGHT: Right testicle measures 4.2 x 2.7 x 2.8 cm, volume 17 mL. No focal testicular parenchymal lesions are visualized. Spectral Doppler analysis of the arterial and venous flow is normal in the right testis. Right epididymal head is normal in size. 3 mm cyst at the head of the right epididymis. No right hydrocele or varicocele is seen. Right epididymal Doppler flow is normal. LEFT: Left testicle measures 4 x 2.4 x 2.6 cm, volume 13 mL. No focal testicular parenchymal lesions are visualized. Spectral Doppler analysis of the arterial and venous flow is normal in the left testis. Left epididymal head is normal in size. 2 mm cyst at the head of the left epididymis. No left hydrocele or varicocele is seen. Left epididymal Doppler flow is normal. US/US scrotum IMPRESSION: Normal ultrasound of the scrotum.
--- NOTE | ~2024-03-19 | CT_ITS ---
EXAMINATION: CT ABDOMEN AND PELVIS WITHOUT CONTRAST CLINICAL INFORMATION: left sided abd and flank pian. COMPARISON: 03/11/2021. TECHNIQUE: Multidetector volumetric imaging was performed from the superior aspect of the liver through the pubic symphysis without contrast per renal stone protocol. Sagittal and coronal reformatted images were obtained on the technologist workstation. This CT examination was performed using dose optimization techniques as appropriate, variously including the following: *Automated exposure control *Adjustment of mA and/or kV according to patient size (this includes techniques or standardized protocols for targeted exams where dose is matched to indication/reason for exam; i.e. extremities or head) *Use of iterative reconstruction technique DLP: 1010 mGy-cm. FINDINGS: LUNG BASES: The visualized lung bases are unremarkable. LIVER, GALLBLADDER, BILIARY TREE: The non-contrast liver is normal in size, shape, and attenuation. No focal hepatic lesion or biliary ductal dilatation is present. The gallbladder surgically absent PANCREAS: Unremarkable. SPLEEN: Unremarkable. ADRENAL GLANDS: Unremarkable. KIDNEYS AND URETERS: Mild left-sided hydronephrosis and hydroureter with perinephric stranding. The left ureter is dilated up to the level of a 4 mm calcification in the proximal left ureter at the level of L4. Contralateral right kidney unremarkable BLADDER: Decompressed GASTROINTESTINAL TRACT: Scattered colonic diverticulosis but no colonic wall thickening or pericolonic inflammatory change to suggest diverticulitis. Appendix unremarkable. ABDOMINAL WALL: Tiny fat-containing umbilical hernia LYMPHOVASCULAR STRUCTURES: No lymphadenopathy. The aorta is unremarkable.. PELVIC VISCERA: Unremarkable. OSSEUS STRUCTURES: Unremarkable. CT/CT abdomen pelvis wo IV con IMPRESSION: Left-sided hydronephrosis and hydroureter extending up to the level of a 4 mm calcification in the proximal left ureter at the level of L4.
[2024-03-19 20:10] VITALS: BP 157/91; PULSE 77; RESP 20; TEMP 36.4; O2SAT 94; BMI 35.7
--- NOTE | 2024-03-19 20:14 | ED.GENADULT ---
HPI - General Adult General Chief complaint: Back Pain/Injury Stated complaint: Lower L abd pain and back pain Time Seen by Provider: 03/19/24 23:32 Source: patient Mode of arrival: ambulatory Limitations: no limitations History of Present Illness ED Provider: DR. De La Garza HPI narrative: 53-year-old male came in for evaluation left flank pain started since early this morning and progressively getting worse throughout the day, pain is sharp localized to the left flank pain and radiates down to the left lower quadrant abdominal area going to the left groin and left testicle never had this pain before, patient noticed a dark urine. No fever, no chills. Related Data Previous Rx's ?Medication ?Instructions ?Recorded acetaminophen 500 mg tablet 1,000 mg (2 x 500 mg) PO QID PRN 06/08/22 (Tylenol Extra Strength) fever or pain #14 tabs ibuprofen 600 mg tablet 600 mg PO Q6H PRN fever or pain 10/01/23 #30 tabs cholecalciferol (vitamin D3) 25 25 mcg PO DAILY #90 tabs 11/30/23 mcg (1,000 unit) tablet lisinopril 5 mg tablet 5 mg PO DAILY #90 tabs 02/12/24 ibuprofen 800 mg tablet 800 mg PO Q8H PRN pain #14 tabs 03/20/24 levofloxacin 750 mg tablet 750 mg PO DAILY #7 tabs 03/20/24 oxycodone 5 mg tablet 5 mg PO Q8H PRN pain #5 tabs 03/20/24 prednisone 10 mg tablet 10 mg PO BID #10 tabs 03/20/24 tamsulosin 0.4 mg capsule (Flomax) 0.4 mg PO DAILY #6 caps 03/20/24 Allergies Allergy/AdvReac Type Severity Reaction Status Date / Time No Known Allergies Allergy Verified 03/19/24 20:15 [No Known Allergies*] Review of Systems Review of Systems: All other systems are reviewed and are negative Constitutional: Reports as per HPI and Reports no additional constitutional complaints Eyes: Reports as per HPI and Reports no additional eye complaints Reports system reviewed and no additional complaints, except as documented Cardiovascular: Reports as per HPI and Reports no additional cardiovascular complaints Respiratory: Reports as per HPI and Reports no additional respiratory complaints Gastrointestinal: Reports as per HPI and Reports no additional gastrointestinal complaints Genitourinary: Reports no additional female genitourinary complaints Musculoskeletal: Reports no additional musculoskeletal complaints Skin/Breast: Reports system reviewed and no additional complaints, except as docu Psychiatric: Reports no additional psychiatric complaints Endocrine: Reports no additional endocrine complaints Hematologic/Lymphatic: Reports no additional hematologic/lymphatic complaints Allergic/Immunologic: Reports no additional allergic/immunologic complaints Reports system reviewed and no additional complaints, except as documented and Reports Abnormal speech present [facility] Past Medical History Medical History Vitamin D deficiency Diabetes mellitus Lumbar degenerative disc disease Left knee pain Cyst of perianal area Degenerative joint disease of right knee Obesity (BMI 30-39.9) Benign essential hypertension Surgical History H/O colonoscopy (~11/08/22) History of meniscectomy of right knee (~07/20/20) History of right knee surgery H/O lateral meniscus repair of right knee H/O lateral meniscus repair of left knee H/O lumbar discectomy History of arthroscopy of both shoulders History of laparoscopic cholecystectomy Family History Family History Maternal Grandfather Bone cancer Other Family history non-contributory Social History Social History Housing: House Alcohol intake: never Patient Tobacco Use Status: Former Tobacco user Years Smoked: 5 Smoked in Last 30 Days: No e-Cigarette/Vaping Use: Never Used Second Hand Smoke Exposure: Yes Use of substances other than those prescribed or required for medical reasons: No Advance Directives: No Advance Directives Information Provided: Yes Do you have a plan to hurt others: No Plan service: No Current occupational status: employed 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 - [employer] Current occupational exposures/hazards: No Cognitive needs: No Hearing needs: No Vision needs: No Physical Exam ED Vital Signs: Vital Signs - 24 hr 03/19/24 20:10 03/19/24 23:23 03/20/24 00:40 Temperature 97.6 F 98.3 F Pulse Rate 77 68 90 Respiratory Rate 20 20 16 Blood Pressure 157/91 H 135/82 120/69 Pulse Oximetry 94 98 96 Oxygen Delivery Method Room Air Room Air Room Air 03/20/24 01:17 Temperature 98.3 F Pulse Rate 90 Respiratory Rate 16 Blood Pressure 120/69 Pulse Oximetry Oxygen Delivery Method BMI result Body Mass Index 35.7 Vital signs have been reviewed and appear to be correct. Blood pressure elevated. Heart rate normal. Respiratory rate normal. Temperature normal. Oxygen saturation normal. Appearance: Alert. Oriented X3. No acute distress. Head: Normal external exam. Normocephalic. Atraumatic. No Soler signs noted. No raccoon eyes noted Eyes: PERRLA. EOMI. Conjunctiva and sclera normal. Eyelids normal. ENT: TM's Normal. Pharynx normal. Uvula midline. Moist mucous membranes. No trismus noted. No drooling noted. No muffled voice noted. Neck: Normal inspection. Neck supple. FROM. No adenopathy. Thyroid Normal. No meningeal signs. No neck mass noted. CVS: Normal heart rate and rhythm. Heart sound normal. No murmurs noted. Pulses normal throughout. Respiratory: No respiratory distress. Painless inspiration. Breath sounds normal. No wheezes/rales/rhonchi noted. Chest nontender. No accessory muscle usage noted or decreased air movement noted. Abdomen: Soft and nontender. Bowel sounds normal in all 4 quadrants. No distention noted. No organomegaly noted. No visible injury noted. Back: Left CVA tenderness. Full range of motion noted. : No scrotal swelling or tenderness, cremasteric reflex is intact bilaterally. Skin: Skin warm and dry. Normal skin color. Normal skin turgor. No rashes/lesions/lacerations noted. Extremities: No lower extremity edema. Extremities exhibit normal range of motion. Extremities nontender. Neuro: Oriented X 3. Cranial nerve exam: II-XII are grossly intact No motor deficit. No sensory deficit. Reflexes normal. Course Course Course Narrative: This is an RME done by FABIÁN Echevarria: Additional HPI, ROS, PE not included below will be deferred to primary provider. 53 year old male hx of dm, obesity presents w/ left sided flank pain, lower quadrant pain and testicular pain that started at around noon and has been worsening since. No numbness, tingling, urinary/bowel incontinence/retention, saddle anesthesias. Plan- labs, ua, imaging Appearance: Alert.? Oriented X3.? No acute cardiopulmonary distress distress.? Head: Normocephalic, atraumatic, no step-offs or deformities Neck: Normal inspection.? Neck supple.? CVS: Pulses normal.? Respiratory: No respiratory distress.? Abdomen: Soft and nontender.? Skin: ? Normal skin color. Extremities: 5/5 strength to bilateral upper and lower extremities Back: No midline tenderness, no C-spine tenderness, full range of motion, + left sided flank pain Neuro: Oriented X 3.? No motor deficit.? No sensory deficit. Reevaluation(s) Reevaluation #1: Left flank pain due to 4 mm stone in the proximal left ureter with hydronephrosis and hydroureter. Feels better after morphine, Toradol, and IV fluid hydration. Normal exam, unremarkable scrotal ultrasound. No symptoms for UTI however UA reveals small leuko esterase and 6-10 WBCs will start the patient on prophylactic levofloxacin. Follow-up with Dr. Gallegos as an outpatient. Time: 00:59 Medications Administered Discontinued Medications Generic Name Dose Route Start Last Admin Trade Name Freq PRN Reason Stop Dose Admin Sodium Chloride 1,000 mls @ 999 mls/hr 03/19/24 23:32 03/20/24 00:16 Ns IV 03/20/24 00:32 999 mls/hr .Q1H1M ONE Administration Ketorolac Tromethamine 30 mg 03/19/24 23:32 03/20/24 00:16 Ketorolac Tromethamine 30 Mg/Ml Vial IVPUSH 03/19/24 23:33 30 mg ONCE ONE Administration Levofloxacin 750 mg 03/20/24 01:02 03/20/24 01:16 Levofloxacin 750 Mg Tablet PO 03/20/24 01:03 750 mg ONCE ONE Administration Morphine Sulfate 2 mg 03/19/24 23:32 03/20/24 00:16 Morphine Sulfate 2 Mg/Ml Cartridge IVPUSH 03/19/24 23:33 2 mg ONCE ONE Administration Protocol Medical Decision Making Differential Diagnosis Differential Diagnoses: The differential diagnosis associated with the presentation includes (Pyelonephritis, obstructing kidney stone, colitis, diverticulitis, pancreatitis, testicular torsion, electrolyte derangement, severe anemia, UTI.) Admission/Observation Consideration of admission/observation: Escalation of care including admission/observation considered Lab Data MDM Lab Attestation statement: I reviewed the patient's lab results. 03/19/24 20:19 03/19/24 20:19 Labs: Lab Results 03/19/24 03/20/24 Range/Units 20:19 00:31 WBC 13.2 H (4.8-10.8) X10*3/uL RBC 4.75 (4.60-5.80) X10*6/uL Hgb 14.2 (14.0-18.0) g/dl Hct 40.7 L (42.0-52.0) % MCV 85.7 (80.0-98.0) fL MCH 29.9 (27.0-33.0) pg MCHC 34.9 (31.0-36.0) g/dl RDW 11.9 (11.0-16.0) % Plt Count 339 (160-400) X10*3/uL MPV 9.1 L (9.4-12.4) fL Immature Gran % (Auto) 0.3 (0.0-0.4) % Neut % (Auto) 67.2 (45-73) % Lymph % (Auto) 21.8 (20-40) % [place] % (Auto) 8.1 (2-11) % Eos % (Auto) 2.1 (0-4) % Baso % (Auto) 0.5 (0-2) % Lymph # (Auto) 2.9 (1.2-4.9) X10*3/uL [place] # (Auto) 1.1 (0.1-1.2) X10*3/uL Eos # (Auto) 0.3 (0.0-0.4) X10*3/uL Baso # (Auto) 0.1 (0.0-0.2) X10*3/uL Abs Immat Gran (auto) 0.04 H (0.00-0.03) X10*3/uL Absolute Neuts (auto) 8.8 H (2.0-8.3) x10*3/uL Absolute Nucleated RBC 0.000 (0.0-0.012) X10*3/uL Nucleated RBC % (auto) 0.0 (0.0-0.2) /100WBC Sodium 145 (135-145) mmol/L Potassium 4.5 (3.3-5.1) mmol/L Chloride 111 H (96-108) mmol/L Carbon Dioxide 23 (22-29) mmol/L Anion Gap 16 (12-20) BUN 12 (9-16) mg/dL Creatinine 1.07 (0.5-1.4) mg/dL Estim Creat Clear Calc 93.4 Estimated GFR > 60 Random Glucose 169 H (60-115) mg/dL Calcium 10.1 (8.4-10.2) mg/dL Total Bilirubin 0.4 (0.0-1.0) mg/dL AST 22 (5-37) U/L ALT 27 (0-40) U/L Alkaline Phosphatase 82 (39-117) U/L Total Protein 7.8 (6.5-8.0) g/dL Albumin 4.3 (3.5-5.0) g/dL Lipase 24 (8-78) U/L Urine Color Dark Yellow Urine Appearance Turbid Urine pH >= 9.0 (5.0-9.0) Ur Specific [place] >= 1.030 H (1.005-1.025) Urine Protein 100 (2+) H (Neg-Trace) mg/dL Urine Glucose (UA) Negative (Negative) mg/dL Urine Ketones 40 (Negative) mg/dL Urine Blood Large (3+) H (Negative) Urine Nitrite Negative (Negative) Ur Leukocyte Esterase Small (1+) H (Negative) Urine RBC >20 H (0-2) /HPF Urine WBC 6-10 H (0-5) /HPF Ur Squamous Epith Cells 0-2 (0-2) /HPF Urine Bacteria None Seen (None Seen) Hyaline Casts 0-2 (0-2) /LPF Independent Interpretation I performed an independent interpretation of an: Ultrasound (Scrotal ultrasound: Normal ultrasound of the scrotum) and CT Scan (Abdomen pelvis:Left-sided hydronephrosis and hydroureter extending up to the level of a 4 mm calcification in the proximal left ureter at the level of L4.) Radiology Impression Discussion of test interpretation with radiology: I have reviewed the radiologist's reading. Discharge Plan Discharge Clinical Impression: Renal colic on left side, Calculus of left ureter, Acute UTI Patient Disposition: Home, Self-Care Instructions: Renal Colic (ED) Prescriptions: New ibuprofen 800 mg tablet 800 mg PO Q8H PRN (Reason: pain) Qty: 14 0RF oxycodone 5 mg tablet 5 mg PO Q8H PRN (Reason: pain) Qty: 5 0RF Rx Instructions: Partial Fill upon patient request. levofloxacin 750 mg tablet 750 mg PO DAILY Qty: 7 0RF prednisone 10 mg tablet 10 mg PO BID Qty: 10 0RF tamsulosin [Flomax] 0.4 mg capsule 0.4 mg PO DAILY Qty: 6 0RF No Action cholecalciferol (vitamin D3) 25 mcg (1,000 unit) tablet 25 mcg PO DAILY Qty: 90 3RF lisinopril 5 mg tablet 5 mg PO DAILY Qty: 90 1RF acetaminophen [Tylenol Extra Strength] 500 mg tablet 1,000 mg PO QID PRN (Reason: fever or pain) Qty: 14 0RF ibuprofen 600 mg tablet 600 mg PO Q6H PRN (Reason: fever or pain) Qty: 30 0RF Referrals: Randolph Herring MD [Primary Care Provider] - Anatoly Gallegos MD [Physician] - Print Language: Japanese
[2024-03-19 20:23] LABS: MANUAL DIFF FLAG NO
[2024-03-19 20:26] LABS: Basophils Absolute Auto 0.1 X10*3/uL (0.0-0.2); Basophils Percent Auto 0.5 % (0-2); Eosinophils Absolute Auto 0.3 X10*3/uL (0.0-0.4); Eosinophils Percent Auto 2.1 % (0-4); Hematocrit 40.7 % (42.0-52.0); Hemoglobin 14.2 g/dl (14.0-18.0); Imm Gran Abs Auto 0.04 X10*3/uL (0.00-0.03); Imm Gran Pct Auto 0.3 % (0.0-0.4); Lymphocytes Absolute Auto 2.9 X10*3/uL (1.2-4.9); Lymphocytes Percent Auto 21.8 % (20-40); Mean Corpuscular HGB Conc 34.9 g/dl (31.0-36.0); Mean Corpuscular Hemoglobin 29.9 pg (27.0-33.0); Mean Corpuscular Volume 85.7 fL (80.0-98.0); Mean Platelet Volume 9.1 fL (9.4-12.4); Monocytes Absolute Auto 1.1 X10*3/uL (0.1-1.2); Monocytes Percent Auto 8.1 % (2-11); Neutrophils Absolute Auto 8.8 x10*3/uL (2.0-8.3); Neutrophils Percent Auto 67.2 % (45-73); Platelet Count 339 X10*3/uL (160-400); Red Blood Count 4.75 X10*6/uL (4.60-5.80); Red Cell Distribution Width 11.9 % (11.0-16.0); White Blood Count 13.2 X10*3/uL (4.8-10.8)
[2024-03-19 20:39] LABS: Alanine Aminotransferase 27 U/L (0-40); Albumin Level 4.3 g/dL (3.5-5.0); Alkaline Phosphatase 82 U/L (39-117); Anion Gap 16 (12-20); Aspartate Amino Transferase 22 U/L (5-37); Bilirubin Total 0.4 mg/dL (0.0-1.0); Blood Urea Nitrogen 12 mg/dL (9-16); Calcium 10.1 mg/dL (8.4-10.2); Carbon Dioxide 23 mmol/L (22-29); Chloride 111 mmol/L (96-108); Creatinine Clr Calc Pharmacy 93.4; Estimated Glomerular Filt Rate > 60; Glucose Random 169 mg/dL (60-115); Potassium 4.5 mmol/L (3.3-5.1); Sodium 145 mmol/L (135-145); Total Protein 7.8 g/dL (6.5-8.0)
[2024-03-19 20:58] LABS: Lipase 24 U/L (8-78)
[2024-03-19 23:23] VITALS: BP 135/82; PULSE 68; RESP 20; O2SAT 98
[2024-03-20] MEDS: Morphine Sulfate 2 MG/ML CARTRIDGE IVPUSH (00:16)
[2024-03-20] MEDS: 0.9 % Sodium Chloride 1,000 ML 999 ML IV (00:16)
[2024-03-20] MEDS: Ketorolac Tromethamine 30 MG/ML VIAL IVPUSH (00:16)
[2024-03-20 00:40] VITALS: BP 120/69; PULSE 90; RESP 16; TEMP 36.8; O2SAT 96
[2024-03-20 00:43] LABS: Appearance Urine Turbid; Color Urine Dark Yellow; Glucose Urine UA Negative (Negative); Leukocyte Esterase Urine Small (1+) (Negative); Nitrite Urine Negative (Negative); PH >= 9.0 (5.0-9.0); Specific Gravity - Urine >= 1.030 (1.005-1.025); UMIC TRIGGER UACC YES; Urine Blood Large (3+) (Negative); Urine Ketones 40 mg/dL (Negative); Urine Protein 100 (2+) mg/dL (Neg-Trace)
[2024-03-20 00:45] LABS: Bacteria Urine None Seen (None Seen); Hyaline Casts Urine 0-2 /LPF (0-2); RBC Urine >20 /HPF (0-2); Squamous Epithelial Cell Urine 0-2 /HPF (0-2); UACC Culture Trigger YES
[2024-03-20] MEDS: levoFLOXacin 750 MG TABLET PO (01:16)
[2024-03-20 01:17] VITALS: BP 120/69; PULSE 90; RESP 16; TEMP 36.8
[2024-03-20 01:18] VITALS: BP 120/69; PULSE 90; RESP 16
[2024-03-20 02:10] VITALS: BP 120/69; PULSE 90; RESP 16; TEMP 36.8; O2SAT 96
== END 2024-03-20 02:11 | disposition home or self-care (01) ==
PROVIDERS: Physician Assistant; Emergency Provider Emergency Medicine; PCP Internal Medicine
DX: N13.2 Hydronephrosis with renal and ureteral calculous obstruction (principal); N39.0 Urinary tract infection, site not specified; M54.50 Low back pain, unspecified; N50.812 Left testicular pain
CPT/HCPCS: 36415; 74176; 76870; 80053; 81001; 83690; 85025; 87086; 93975; 96361; 96374; 96375; 99284; 99285; J1885; J2270

== ENCOUNTER 2024-04-20 16:14 | Outpatient (AMB) | payer BC, SELFPAY ==
[2024-04-20 16:27] VITALS: BP 138/86; PULSE 77; O2SAT 98; BMI 36.6
--- NOTE | 2024-04-20 16:27 | A.OFFPC_ITS ---
Vital Signs 04/20/24 16:27 Height 5 ft 7 in Weight 233 lb 8 oz BMI 36.6 BP 138/86 Blood Pressure Location Lt brachial Position Sitting Pulse 77 Pulse Source Pulse Oximeter Pulse Oximetry (%) 98 Oxygen Delivery Method Room Air Intake Visit Reasons: office visit right shoulder Intake Note: Patient is here for hospital discharge follow up. Patient was discharged from [facility] for Right shoulder pain stiffness septic arthritis on 04/16/24. 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 Accompanied by: Self / Same As Patient Allergies No Known Allergies [No Known Allergies*] Allergy (Verified 04/20/24 16:49) Medication List - Last Reconciled 04/21/24 by Randolph Herring MD acetaminophen (Tylenol Extra Strength) 1,000 mg (2 x 500 mg) PO QID PRN ceftriaxone 2 grams IV Q24H cholecalciferol (vitamin D3) 25 mcg PO DAILY lisinopril 5 mg PO DAILY tramadol 1 to 2 tablets 3 times a day as needed for increased pain over the lower back; Tobacco use date assessed: 12/15/23 Dental Screening Dental Screen Date: 12/15/23 HPI office visit right shoulder HPI Details Patient comes in today for his F follow up visit He reportedly presented to the ER at [facility] early last week while he was on vacation [place] [facility] with increasing right shoulder pain and fever He was [place] an [place] [id number] [place] admission Orthopedics was consulted and arthrocentesis was done in the ED, with purulent drainage obtained from the right shoulder The total neutrophil count was noted to be over 100,000 Patient was subsequently started on broad-spectrum antibiotics with ceftriaxone and vancomycin Blood cultures ultimately showed no growth Infectious disease was consulted and they recommended IV ceftriaxone 2 g for 4 weeks total and to follow-up with infectious disease a few weeks after his discharge from the hospital Patient was discharged from [facility] on 04/16/2024 and he has since been receiving IV ceftriaxone through his PICC line on the left arm He has so far received about 4 doses of the antibiotics already as of today Still has right shoulder pain but states that it has improved significantly from last week States that he currently feels okay and has not had any fever or chills lately He denies any headaches or dizziness Denies any chest pains, no shortness of breath No nausea/vomiting, no abdominal pain No change in bowel habits noted [facility] Medical History Vitamin D deficiency Diabetes mellitus Lumbar degenerative disc disease Left knee pain Cyst of perianal area Degenerative joint disease of right knee Obesity (BMI 30-39.9) Benign essential hypertension Surgical History H/O colonoscopy (~11/08/22) History of meniscectomy of right knee (~07/20/20) History of right knee surgery H/O lateral meniscus repair of right knee H/O lateral meniscus repair of left knee H/O lumbar discectomy History of arthroscopy of both shoulders History of laparoscopic cholecystectomy Family History Maternal Grandfather Bone cancer Other Family history non-contributory Social History Housing: House Alcohol intake: never Patient Tobacco Use Status: Former Tobacco user Years Smoked: 5 e-Cigarette/Vaping Use: Never Used Second Hand Smoke Exposure: Yes service: No Current occupational status: employed 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 Yasmani Hair, Tere Bundy, Yves Dietz and colleagues, with an educational leonora from [employer]. Review of Systems Const Denies chills, Denies fatigue, Denies fever(s) and Denies headache(s) ENT Denies dysphagia, Denies dizziness, Denies otalgia, Denies headache(s), Denies neck pain, Denies odynophagia, Denies sinus pain and Denies sore throat Card Denies chest pain, Denies palpitations and Denies dyspnea Resp Denies cough and Denies dyspnea GI Denies abdominal pain, Denies constipation, Denies dysphagia, Denies heartburn, Denies diarrhea, Denies nausea, Denies odynophagia and Denies vomiting Denies dysuria, Denies nocturia and Denies urinary frequency Musc Reports back pain (over the lower back), Reports arthralgias (both knees (chronic), worse in the right knee; right shoulder pain lately ) and Denies neck pain Skin/Breast Denies rash Neuro Denies dizziness and Denies headache(s) Endo Denies fatigue and Denies palpitations Physical exam (Primary Care) Vital Signs: Last Vital Signs Pulse 77 04/20/24 16:27 BP 138/86 04/20/24 16:27 Pulse Ox 98 04/20/24 16:27 Oxygen Delivery Method Room Air 04/20/24 16:27 BMI result Body Mass Index 36.6 Tobacco/Smoking Status: Tobacco use Status Tobacco use date assessed 12/15/23 04/20/24 16:31 Patient Tobacco Use Status Former Tobacco user 04/20/24 16:31 e-Cigarette/Vaping Use Never Used 04/20/24 16:31 Thrive Assessment: Date of Thrive Assessment Date Thrive assessed 12/15/23 04/20/24 16:31 Const General: no acute distress and alert HENMT Throat: Yes posterior oropharynx normal and Yes tonsils normal (no TP congestion noted) Neck Neck: Yes no lymphadenopathy and Yes supple Thyroid: Thyroid normal Resp Auscultation: clear to auscultation bilaterally, no rales and no wheezes Cardio Rate: regular rate Rhythm: regular rhythm Heart sounds: no murmurs GI Palpation (GI): Soft to palpation and nontender Auscultation: normal bowel sounds General: Yes no CVA tenderness Back/Spine/Pelvis Back: no CVA tenderness Thoracic/Lumbar Spine: paraspinal muscle tenderness bilaterally in the upper lumbar, in the mid lumbar and in the lower lumbar and lumbar spinal tenderness Skin Rashes: no rashes Extrem Other: (+) PICC line on the left arm presently General: Yes no clubbing, cyanosis or edema Right upper extremity: shoulder/upper arm Details: tenderness Location: of the A-C joint; no swelling Right lower extremity: knee Details: tenderness, normal ROM and crepitus; no swelling Left lower extremity: knee Details: tenderness and normal ROM; no swelling Results AMB Hemoglobin A1c AMB Hemoglobin A1c 6.8 % Last Edit by TAVO Lu on 04/20/24 16:59 Results Reviewed Results Reviewed: Laboratory Last Values Hgb A1c (Clinic) 6.8 % (4.0-6.0) H 04/20/24 16:45 Assessment and Plan Assessment & Plan (1) Septic arthritis of shoulder, right: Code(s): M00.9 - Pyogenic arthritis, unspecified Qualifiers: Septic arthritis organism: due to unspecified organism Qualified Code(s): M00.9 - Pyogenic arthritis, unspecified Plan: Continue IV Ceftriaxone 2 gm QD - per infectious disease, will need a total of 28 days of IV Abx Tx Will send patient for repeat x-rays of the right shoulder in 3 weeks for follow up Will also refer him to infectious disease for follow up and further recommendations (2) Diabetes mellitus: Code(s): E11.9 - Type 2 diabetes mellitus without complications Qualifiers: Diabetes mellitus type: type 2 Diabetes mellitus custodial insulin use: without superintendent 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 Diabetes mellitus complication status: with hyperglycemia Qualified Code(s): E11.65 - Type 2 diabetes mellitus with hyperglycemia Plan: In-office HgbA1c done today is at 6.8%; was previously at 7.1% a few months ago in December 2023 - goal is <7.0% but ideally <6.5% if he does not want to be on any Rx for his diabetes Reinforced diabetic diet Patient was previously started on Metformin 500 mg BID last year but he DID NOT TAKE the Rx and would like to continue trying diet modification for now Will recheck these when he returns in 3 months for his annual physical examination (3) Benign essential hypertension: Code(s): I10 - Essential (primary) hypertension Plan: Reinforced low sodium diet - goal is systolic BP of 120 mm or less Continue Lisinopril 5 mg QD Patient is reminded to continue monitoring his blood pressure regularly (4) Lumbar degenerative disc disease: Code(s): M51.36 - Other intervertebral disc degeneration, lumbar region Plan: Reinforced activity and weight-lifting restrictions Follow up with pain management as scheduled MRI of the lumbar spine done back in June 2021 revealed (+) multilevel disc degeneration/facet arthritis. There is a shallow right far lateral protrusion at L4-L5 that causes mild mass effect on the extraforaminal segment of the right L4 nerve root. Otherwise no substantial mass effect the traversing or foraminal nerve roots within the lumbar spine. No canal stenosis seen Continue Tramadol 50 mg 1 to 2 tablets TID PRN for pain - Rx refilled but reminded they are not due until next week (5) Degenerative joint disease of right knee: Comment: S/P partial medial meniscectomy and debridement of anterior compartment on 07/20/2020 Code(s): M17.11 - Unilateral primary osteoarthritis, right knee Qualifiers: Osteoarthritis type: post-traumatic Qualified Code(s): M17.31 - Unilateral post-traumatic osteoarthritis, right knee Plan: Follow up with orthopedics as scheduled Continue Tramadol PRN He has reportedly been recommended to get arthroplasty but patient feels that he is still too young for the procedure and would like to hold off for now (6) Obesity (BMI 30-39.9): Code(s): E66.9 - Obesity, unspecified Plan: Reinforced diet/exercise as tolerated/lose weight Plan To return as scheduled in July 2024 for his annual physical examination Orders: Orders AMB Hemoglobin A1c 04/20/24 E11.65 - Type 2 diabetes mellitus with hyperglycemia XR shoulder RT min 2V 05/11/24 M00.9 - Pyogenic arthritis, unspecified Referrals Infectious Disease Referral M00.9 - Pyogenic arthritis, unspecified Coding Level of Care Code TCM Mod MDM <= 7 Days Diagnoses Pyogenic arthritis of right shoulder region, due to unspecified organism M00.9 Septic arthritis organism: due to unspecified organism Type 2 diabetes mellitus with hyperglycemia, without long-term current use of insulin E11.65 Diabetes mellitus type: type 2 Diabetes mellitus custodial insulin use: without superintendent 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
== END 2024-04-20 17:07 | disposition home or self-care (01) ==
PROVIDERS: PCP Internal Medicine; Visit Provider Internal Medicine
DX: E11.65 Type 2 diabetes mellitus with hyperglycemia (principal)
CPT/HCPCS: 83036; 99214

== ENCOUNTER 2024-04-26 14:04 | Outpatient (AMB) | payer BC, SELFPAY ==
--- NOTE | 2024-04-26 14:33 | MHC.OFFVIS ---
Vital Signs 04/26/24 14:37 Height 5 ft 7 in Weight 234 lb BMI 36.6 Pulse 91 Pulse Source Pulse Oximeter Temp 98.5 F Temp Source Oral Pulse Oximetry (%) 99 Oxygen Delivery Method Room Air Intake Visit Reasons: reff deshaun/Pyogenic arthritis Allergies No Known Allergies [No Known Allergies*] Allergy (Verified 05/04/24 11:03) HPI HPI reff deshaun/Pyogenic arthritis: Details: He has had left shoulder discomfort He has seen Orthopedics in spring and is getting evaluation. He has no changes in discomfort and is not getting antibiotics at this time. [facility] Medical History Vitamin D deficiency Diabetes mellitus Lumbar degenerative disc disease Left knee pain Cyst of perianal area Degenerative joint disease of right knee Obesity (BMI 30-39.9) Benign essential hypertension Surgical History H/O colonoscopy (~11/08/22) History of meniscectomy of right knee (~07/20/20) History of right knee surgery H/O lateral meniscus repair of right knee H/O lateral meniscus repair of left knee H/O lumbar discectomy History of arthroscopy of both shoulders History of laparoscopic cholecystectomy Family History Maternal Grandfather Bone cancer Other Family history non-contributory Social History Housing: House Alcohol intake: never Patient Tobacco Use Status: Former Tobacco user Years Smoked: 5 e-Cigarette/Vaping Use: Never Used Second Hand Smoke Exposure: Yes service: No Current occupational status: employed 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 - [employer] Current occupational exposures/hazards: No Cognitive needs: No Hearing needs: No Vision needs: No Review of Systems Const All systems reviewed & are unremarkable except as noted in HPI and below Physical Exam Vital Signs: Last Vital Signs Temp 98.5 F 04/26/24 14:37 Pulse 91 04/26/24 14:37 Pulse Ox 99 04/26/24 14:37 Oxygen Delivery Method Room Air 04/26/24 14:37 BMI result Body Mass Index 36.6 Const General: cooperative HEENT Head: Yes normal to inspection Face and sinus: Yes normal facial exam Mouth: Normal oral and palatal mucosa present Teeth and gingiva: dentition normal Eyes General: appearance normal, both eyes and all related structures Pupils: Equal, round and reactive pupils present Resp Effort & Inspection: normal respiratory effort Cardio Rate: regular rate Rhythm: regular rhythm GI Palpation (GI): Soft to palpation and nontender General: Yes no CVA tenderness Back/Spine/Pelvis Back: no CVA tenderness Skin General skin exam: no rashes or lesions noted Neuro General: moves all extremities Cranial nerves: Yes Equal, round and reactive pupils present Extrem General: Yes normal to inspection Psych Appearance: grossly normal Assessment & Plan Assessment & Plan (1) Septic arthritis of shoulder, right: Comment: He doesnt have positive culture seen at this time and symptoms stable. Code(s): M00.9 - Pyogenic arthritis, unspecified Category: Medical Qualifiers: Septic arthritis organism: due to unspecified organism Qualified Code(s): M00.9 - Pyogenic arthritis, unspecified Plan Resee patient as needed ?residential antibiotics He feels stable today and not getting antibiotics. Coding Level of Care Code Est Pt Level 3 (78270) Diagnoses Pyogenic arthritis of right shoulder region, due to unspecified organism M00.9 Septic arthritis organism: due to unspecified organism
[2024-04-26 14:37] VITALS: PULSE 91; TEMP 36.9; O2SAT 99; BMI 36.6
== END 2024-04-26 15:51 | disposition home or self-care (01) ==
PROVIDERS: PCP Internal Medicine; Visit Provider Internal Medicine
DX: M00.9 Pyogenic arthritis, unspecified (principal)
CPT/HCPCS: 99213

== ENCOUNTER → 2024-04-26 14:04 | Outpatient (BNVA) | payer BC, SELFPAY | PROVIDERS: PCP Internal Medicine; Visit Provider Internal Medicine ==

== ENCOUNTER 2024-05-04 10:34 | Emergency (ER) | payer BC, SELFPAY ==
[2024-05-04] VITALS (10 sets, daily range): BP systolic 109–135; BP diastolic 58–83; PULSE 68–80; RESP 16–20; TEMP 36.7–37.2; O2SAT 96–99; BMI 34.2
--- NOTE | ~2024-05-04 | CT_ITS ---
EXAMINATION: CT ABDOMEN AND PELVIS WITH CONTRAST CLINICAL INFORMATION: Abdominal pain COMPARISON: CT abdomen and pelvis 03/19/2024 TECHNIQUE: Multidetector volumetric images were obtained from the superior aspect of the liver through the pubic symphysis following administration 85 mL of Omnipaque 350 intravenous contrast. Sagittal and coronal reformatted images were obtained on the technologist's workstation. Oral contrast: No This CT examination was performed using dose optimization techniques as appropriate, variously including the following: *Automated exposure control *Adjustment of mA and/or kV according to patient size (this includes techniques or standardized protocols for targeted exams where dose is matched to indication/reason for exam; i.e. extremities or head) *Use of iterative reconstruction technique DLP: 762 mGy-cm FINDINGS: LUNG BASES: Unremarkable. LIVER AND BILIARY TREE: Prominent central intrahepatic bile ducts without overt dilation. Otherwise unremarkable. GALLBLADDER: Status post cholecystectomy. PANCREAS: Unremarkable. SPLEEN: Borderline splenomegaly with spleen spanning 12.7 cm in craniocaudal dimension. ADRENAL GLANDS: Redemonstrated 1.3 cm left adrenal nodule, previously characterized as a lipid rich adenoma for which no dedicated follow-up imaging is required. KIDNEYS AND URETERS: Unremarkable. GASTROINTESTINAL TRACT: Unremarkable. Normal appendix. VASCULAR: Unremarkable LYMPH NODES: No lymphadenopathy. PERITONEUM: No ascites. BLADDER: Unremarkable. PELVIC VISCERA: Unremarkable. ABDOMINAL AND PELVIC WALL: Tiny fat-containing umbilical hernia. Small fat-containing bilateral inguinal hernias. OSSEOUS STRUCTURES: Unremarkable. CT/CT abdomen pelvis w IV con IMPRESSION: 1. No acute abnormality of the abdomen or pelvis. 2. Borderline splenomegaly. Electronically signed by: Ayo Shepherd MD 05/04/2024 04:53 PM EDT
--- NOTE | 2024-05-04 11:06 | ED_ITS ---
HPI - General Adult General Chief complaint: Abdominal Pain Stated complaint: Post-op infection? Time Seen by Provider: 05/04/24 14:56 Source: patient and RN notes reviewed Mode of arrival: ambulatory Limitations: no limitations History of Present Illness ED Provider: Nora Zuniga PA-C HPI narrative: This is a 53-year-old male, with a history of septic arthritis on IV ceftriaxone and diabetes, who presents to the emergency department with complaints of watery diarrhea x1 week associated nausea and abdominal pain. He states that his pain worsened yesterday. He states that he has been taking Toradol for his pain which has provided him with any relief. Patient states that he was seen at a hospital at [facility], and was diagnosed with septic arthritis in his right shoulder which he has been taking IV ceftriaxone for. He denies any fevers, chills, chest pain, shortness of breath, vomiting, urinary symptoms. He states that his diarrhea is watery and light brown in color. Denies any bloody or black stool. He states that he had a cholecystectomy, otherwise denies any other surgeries. MD complaint: Abdominal pain, diarrhea Onset (ago): week(s) Radiation: non-radiation Quality: aching Pain Consistency: constant Relieving factors: none Exacerbating factors: none Associated symptoms: denies other symptoms Treatments prior to arrival: none Related Data Home Medications ?Medication ?Instructions ?Recorded ?Confirmed ceftriaxone 2 gram intravenous 2 g IV Q24H 04/21/24 04/21/24 solution Previous Rx's ?Medication ?Instructions ?Recorded acetaminophen 500 mg tablet 1,000 mg (2 x 500 mg) PO QID PRN 06/08/22 (Tylenol Extra Strength) fever or pain #14 tabs cholecalciferol (vitamin D3) 25 25 mcg PO DAILY #90 tabs 11/30/23 mcg (1,000 unit) tablet lisinopril 5 mg tablet 5 mg PO DAILY #90 tabs 02/12/24 tramadol 50 mg tablet See Rx Instructions .Route 04/23/24 .COMPLEX pain #90 tabs Allergies Allergy/AdvReac Type Severity Reaction Status Date / Time No Known Allergies Allergy Verified 05/04/24 11:03 [No Known Allergies*] Review of Systems 2 Review of Systems: Yes all other systems are reviewed and are negative Constitutional: Constitutional: Reports as per [facility] Past Medical History Medical History Vitamin D deficiency Diabetes mellitus Lumbar degenerative disc disease Left knee pain Cyst of perianal area Degenerative joint disease of right knee Obesity (BMI 30-39.9) Benign essential hypertension Surgical History H/O colonoscopy (~11/08/22) History of meniscectomy of right knee (~07/20/20) History of right knee surgery H/O lateral meniscus repair of right knee H/O lateral meniscus repair of left knee H/O lumbar discectomy History of arthroscopy of both shoulders History of laparoscopic cholecystectomy Family History Family History Maternal Grandfather Bone cancer Other Family history non-contributory Social History Social History Housing: House Alcohol intake: never Patient Tobacco Use Status: Former Tobacco user Years Smoked: 5 Smoked in Last 30 Days: No e-Cigarette/Vaping Use: Never Used Second Hand Smoke Exposure: Yes Advance Directives: No service: No Current occupational status: employed 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 - [employer] Current occupational exposures/hazards: No Cognitive needs: No Hearing needs: No Vision needs: No Physical Exam ED Vital Signs: Vital Signs - 24 hr 05/04/24 10:58 05/04/24 14:30 05/04/24 15:13 Temperature 98.3 F 98.7 F 98.0 F Pulse Rate 70 69 80 Respiratory Rate 16 16 16 Blood Pressure 130/83 135/75 123/67 Pulse Oximetry 98 99 98 Oxygen Delivery Method Room Air Room Air Room Air 05/04/24 15:18 05/04/24 16:16 05/04/24 16:29 Temperature 98.9 F Pulse Rate 68 Respiratory Rate 20 16 20 Blood Pressure 129/83 Pulse Oximetry 98 Oxygen Delivery Method Room Air 05/04/24 17:25 05/04/24 18:33 05/04/24 20:20 Temperature 98.4 F 98.8 F Pulse Rate 73 75 Respiratory Rate 18 16 16 Blood Pressure 124/62 109/58 L Pulse Oximetry 98 96 Oxygen Delivery Method Room Air Room Air BMI result Body Mass Index 34.2 Const General: cooperative, comfortable and no acute distress Orientation/consciousness: patient oriented x3 Limitations: no limitations HENMT Head: Yes normal to inspection, Yes normocephalic and Yes atraumatic Ears: hearing grossly normal bilaterally General nose exam: Normal external nose present Face and sinus: Yes normal facial exam Mouth: Normal oral and palatal mucosa present, oropharynx normal and moist mucous membranes Throat: Yes posterior oropharynx normal Eyes General: appearance normal, both eyes and all related structures Eyelids: Yes eyelids normal Conjunctivae: conjunctivae normal Sclerae: sclerae normal Pupils: Equal, round and reactive pupils present EOM: EOMs intact bilaterally Neck Neck: Yes normal visual inspection, Yes full ROM and Yes no lymphadenopathy Lymphatic: no lymphadenopathy noted Chest Chest palpation & inspection: normal inspection of the chest Resp Effort & Inspection: normal respiratory effort and able to speak in complete sentences Auscultation: clear to auscultation bilaterally, no crackles, no rales, no rhonchi and no wheezes Cardio Rate: regular rate Rhythm: regular rhythm Heart sounds: S1 normal heart sound present and S2 normal heart sound present GI Other: Abdomen is soft, with diffuse tenderness throughout without any point tenderness. Inspection: Yes normal to inspection Skin General skin exam: no rashes or lesions noted Trauma: no lacerations or abrasions Wounds: no wounds Neuro General: patient oriented x3 and moves all extremities Cranial nerves: Yes Equal, round and reactive pupils present Extrem General: Yes normal to inspection Right upper extremity: normal to inspection Left upper extremity: normal to inspection Right lower extremity: normal to inspection Left lower extremity: normal to inspection Course Course Course Narrative: RME, this is a rapid medical exam performed by Isaac Walter please refer to primary provider for complete H&P- 53-year-old male presents for evaluation of generalized abdominal pain with watery diarrhea for the last week. Patient is currently being treated for septic shoulder with ceftriaxone 2 g IV Q 24 hours. He does report a remote history of C diff and believes this is the same. He also endorses general malaise. On exam, he is nontoxic appearing but appears quite uncomfortable. Vitals are stable. Plan for labs including stool studies. Reevaluation(s) Reevaluation #1: Labs returned, patient has slight leukocytosis at 13.6, liver transaminases within normal limits. Urine unremarkable, stool viruses negative. EKG normal sinus rhythm, troponin still pending. Time: 17:28 Reevaluation #2: Sign-out given to my colleague, Carrol Echevarria PA-C pending troponin; Time: 18:18 Reevaluation #3: Patient reports pain-free, troponin negative. Patient feels well enough to go home. Educated patient on diagnosis and treatment plan, answered all question, patient verbalizes understanding. At this time patient will be discharged home, advised to return with new or worsening symptoms. Educated on worrisome signs and symptoms and when to return. At this time I feel comfortable discharge home. Time: 20:47 Medications Administered Discontinued Medications Generic Name Dose Route Start Last Admin Trade Name Freq PRN Reason Stop Dose Admin Fentanyl 50 mcg 05/04/24 20:12 05/04/24 20:24 Fentanyl Citrate/Pf 100 Mcg/2 Ml Vial IVPUSH 05/04/24 20:13 50 mcg ONCE ONE Administration Protocol Hydromorphone HCl 1 mg 05/04/24 16:04 05/04/24 16:29 Hydromorphone Hcl 1 Mg/Ml Syringe IVPUSH 05/04/24 16:05 1 mg ONCE ONE Administration Protocol Sodium Chloride 1,000 mls @ 999 mls/hr 05/04/24 15:02 05/04/24 17:12 Ns IV 05/04/24 16:02 Infused .Q1H1M ONE Infusion Iohexol 100 ml 05/04/24 15:52 05/04/24 15:52 Iohexol 350 Mg/Ml 100 Ml Infus..Btl IV 05/04/24 15:53 85 ml ONCE ONE Administration Morphine Sulfate 4 mg 05/04/24 15:02 05/04/24 15:18 Morphine Sulfate 4 Mg/Ml Cartridge IVPUSH 05/04/24 15:03 4 mg ONCE ONE Administration Protocol Morphine Sulfate 4 mg 05/04/24 17:16 05/04/24 17:25 Morphine Sulfate 4 Mg/Ml Cartridge IVPUSH 05/04/24 17:17 4 mg ONCE ONE Administration Protocol Ondansetron HCl 4 mg 05/04/24 15:02 05/04/24 15:18 Ondansetron Hcl 4 Mg/2 Ml Vial IVPUSH 05/04/24 15:03 4 mg ONCE ONE Administration Medical Decision Making Medical Decision Making MDM Narrative: This is a 53-year-old male, with a history of diabetes, and septic arthritis of the right shoulder currently on IV ceftriaxone, who presents to the emergency department with complaints of abdominal pain, diarrhea, and nausea. On arrival, vital signs within normal limits. He is speaking in full sentences, under no acute distress. Generalized abdominal pain throughout, without any point tenderness. Plan: Labs, stool culture, UA, CT abdomen and pelvis, IV fluids, IV antiemetics, and IV pain Differential Diagnosis Differential Diagnoses: The differential diagnosis associated with the presentation includes Colitis, diverticulitis, diverticulosis, C diff, gastroenteritis, gastritis Admission/Observation Consideration of admission/observation: Escalation of care including admission/observation considered Lab Data MDM Lab Attestation statement: I reviewed the patient's lab results. Leukocytosis noted with a WBC of 13.6, with left shift, chemistry with hyperglycemia at 197, lactic acid 1.7, liver transaminases within normal limits. Urine does not appear to be infected. C diff negative. 05/04/24 11:22 05/04/24 11:22 Labs: Lab Results 05/04/24 05/04/24 Range/Units 11:22 15:00 WBC 13.6 H (4.8-10.8) X10*3/uL RBC 5.54 (4.60-5.80) X10*6/uL Hgb 16.2 (14.0-18.0) g/dl Hct 47.0 (42.0-52.0) % MCV 84.8 (80.0-98.0) fL MCH 29.2 (27.0-33.0) pg MCHC 34.5 (31.0-36.0) g/dl RDW 12.0 (11.0-16.0) % Plt Count 408 H (160-400) X10*3/uL MPV 9.3 L (9.4-12.4) fL Immature Gran % (Auto) 0.4 (0.0-0.4) % Neut % (Auto) 75.1 H (45-73) % Lymph % (Auto) 16.1 L (20-40) % [place] % (Auto) 7.0 (2-11) % Eos % (Auto) 0.9 (0-4) % Baso % (Auto) 0.5 (0-2) % Lymph # (Auto) 2.2 (1.2-4.9) X10*3/uL [place] # (Auto) 1.0 (0.1-1.2) X10*3/uL Eos # (Auto) 0.1 (0.0-0.4) X10*3/uL Baso # (Auto) 0.1 (0.0-0.2) X10*3/uL Abs Immat Gran (auto) 0.05 H (0.00-0.03) X10*3/uL Absolute Neuts (auto) 10.2 H (2.0-8.3) x10*3/uL Absolute Nucleated RBC 0.000 (0.0-0.012) X10*3/uL Nucleated RBC % (auto) 0.0 (0.0-0.2) /100WBC Sodium 138 (135-145) mmol/L Potassium 3.7 (3.3-5.1) mmol/L Chloride 108 (96-108) mmol/L Carbon Dioxide 15 L (22-29) mmol/L Anion Gap 19 (12-20) BUN 12 (9-16) mg/dL Creatinine 0.94 (0.5-1.4) mg/dL Estim Creat Clear Calc 103.9 Estimated GFR > 60 Random Glucose 197 H (60-115) mg/dL Lactic Acid 1.7 (0.5-2.0) mmol/L Calcium 10.5 H (8.4-10.2) mg/dL Total Bilirubin 0.9 (0.0-1.0) mg/dL AST 16 (5-37) U/L ALT 18 (0-40) U/L Alkaline Phosphatase 96 (39-117) U/L Troponin I High Sens < 2.7 (<3.5-35.0) ng/L Total Protein 8.3 H (6.5-8.0) g/dL Albumin 4.5 (3.5-5.0) g/dL Lipase 51 (8-78) U/L Urine Color Dark Yellow Urine Appearance Clear Urine pH 6.0 (5.0-9.0) Ur Specific [place] >= 1.030 H (1.005-1.025) Urine Protein 30 (1+) H (Neg-Trace) mg/dL Urine Glucose (UA) Negative (Negative) mg/dL Urine Ketones 40 (Negative) mg/dL Urine Blood Negative (Negative) Urine Nitrite Negative (Negative) Ur Leukocyte Esterase Negative (Negative) Urine RBC 0-2 (0-2) /HPF Urine WBC 0-5 (0-5) /HPF Ur Squamous Epith Cells 0-2 (0-2) /HPF Urine Bacteria None Seen (None Seen) Hyaline Casts 0-2 (0-2) /LPF Stl C. cayetanensis PCR Not Detected (Not Detect.) Stool Rotavirus A PCR Not Detected (Not Detect.) Stl Adenov F 40/41 PCR Not Detected (Not Detect.) Stool Astrovirus (PCR) Not Detected (Not Detect.) Stool Campylobacter PCR Not Detected (Not Detect.) Stool Cryptosporidium PCR Not Detected (Not Detect.) Stl Sh Tox Pr E STEC PCR Not Detected (Not Detect.) Stool E coli O157 PCR Not applicable (Not Detect.) Stl Enterotoxigenic E PCR Not Detected (Not Detect.) Stool EPEC (PCR) Not Detected (Not Detect.) Stool EAEC (PCR) Not Detected (Not Detect.) Stl E. histolytica PCR Not Detected (Not Detect.) Stool Giardia Lamblia PCR Not Detected (Not Detect.) Stl P. shigelloides PCR Not Detected (Not Detect.) Stool Salmonella PCR Not Detected (Not Detect.) Stool Sapovirus (PCR) Not Detected (Not Detect.) Stl Shigella/EIEC PCR Not Detected (Not Detect.) St Y.enterocolitica PCR Not Detected (Not Detect.) Stool Vibrio (PCR) Not Detected (Not Detect.) Stl Vibrio cholerae PCR Not Detected (Not Detect.) Stl Norovirus GI/GII PCR Not Detected (Not Detect.) C. difficile Tox B Gene NEGATIVE (Negative) Independent Interpretation I performed an independent interpretation of an: EKG Interpretation: EKG normal sinus rhythm at a ventricular rate of 68 beats per minute, MI interval 140, no ST elevation or depression. Radiology Impression Discussion of test interpretation with radiology: I have reviewed the radiologist's reading. Radiologist Impression: FINDINGS: LUNG BASES: Unremarkable. LIVER AND BILIARY TREE: Prominent central intrahepatic bile ducts without overt dilation. Otherwise unremarkable. GALLBLADDER: Status post cholecystectomy. PANCREAS: Unremarkable. SPLEEN: Borderline splenomegaly with spleen spanning 12.7 cm in craniocaudal dimension. ADRENAL GLANDS: Redemonstrated 1.3 cm left adrenal nodule, previously characterized as a lipid rich adenoma for which no dedicated follow-up imaging is required. KIDNEYS AND URETERS: Unremarkable. GASTROINTESTINAL TRACT: Unremarkable. Normal appendix. VASCULAR: Unremarkable LYMPH NODES: No lymphadenopathy. PERITONEUM: No ascites. BLADDER: Unremarkable. PELVIC VISCERA: Unremarkable. ABDOMINAL AND PELVIC WALL: Tiny fat-containing umbilical hernia. Small fat- containing bilateral inguinal hernias. OSSEOUS STRUCTURES: Unremarkable. IMPRESSION: 1. No acute abnormality of the abdomen or pelvis. 2. Borderline splenomegaly. Electronically signed by: Ayo Shepherd MD 05/04/2024 04:53 PM EDT RP Discharge Plan Discharge Clinical Impression: Abdominal pain, Nausea & vomiting Patient Disposition: Home, Self-Care Instructions: Abdominal Pain (ED) Additional Instructions: Your workup today was reassuring. Your CT scan was normal today. Please drink plenty of fluids get plenty of rest. You tested negative for C diff. If any new or worsening symptoms occur including but not limited to chest pain, shortness breast, worsening abdominal pain, vomiting, please return for re- evaluation. Prescriptions: No Action cholecalciferol (vitamin D3) 25 mcg (1,000 unit) tablet 25 mcg PO DAILY Qty: 90 3RF lisinopril 5 mg tablet 5 mg PO DAILY Qty: 90 1RF tramadol 50 mg tablet See Rx Instructions .ROUTE .COMPLEX Qty: 90 0RF Rx Instructions: 1 to 2 tablets 3 times a day as needed for increased pain over the lower back; acetaminophen [Tylenol Extra Strength] 500 mg tablet 1,000 mg PO QID PRN (Reason: fever or pain) Qty: 14 0RF ceftriaxone 2 gram recon soln 2 g IV Q24H Rx Instructions: via PICC line on left arm x 28 days Referrals: Randolph Herring MD [Primary Care Provider] - 2 days Print Language: Singaporean
[2024-05-04 11:27] LABS: MANUAL DIFF FLAG NO
[2024-05-04 11:34] LABS: Basophils Absolute Auto 0.1 X10*3/uL (0.0-0.2); Basophils Percent Auto 0.5 % (0-2); Eosinophils Absolute Auto 0.1 X10*3/uL (0.0-0.4); Eosinophils Percent Auto 0.9 % (0-4); Hemoglobin 16.2 g/dl (14.0-18.0); Imm Gran Abs Auto 0.05 X10*3/uL (0.00-0.03); Imm Gran Pct Auto 0.4 % (0.0-0.4); Lymphocytes Absolute Auto 2.2 X10*3/uL (1.2-4.9); Lymphocytes Percent Auto 16.1 % (20-40); Mean Corpuscular HGB Conc 34.5 g/dl (31.0-36.0); Mean Corpuscular Hemoglobin 29.2 pg (27.0-33.0); Mean Corpuscular Volume 84.8 fL (80.0-98.0); Mean Platelet Volume 9.3 fL (9.4-12.4); Neutrophils Absolute Auto 10.2 x10*3/uL (2.0-8.3); Neutrophils Percent Auto 75.1 % (45-73); Platelet Count 408 X10*3/uL (160-400); Red Blood Count 5.54 X10*6/uL (4.60-5.80); White Blood Count 13.6 X10*3/uL (4.8-10.8)
[2024-05-04 11:40] LABS: Lactic Acid 1.7 mmol/L (0.5-2.0)
[2024-05-04 11:46] LABS: Alanine Aminotransferase 18 U/L (0-40); Albumin Level 4.5 g/dL (3.5-5.0); Alkaline Phosphatase 96 U/L (39-117); Anion Gap 19 (12-20); Aspartate Amino Transferase 16 U/L (5-37); Bilirubin Total 0.9 mg/dL (0.0-1.0); Blood Urea Nitrogen 12 mg/dL (9-16); Calcium 10.5 mg/dL (8.4-10.2); Carbon Dioxide 15 mmol/L (22-29); Chloride 108 mmol/L (96-108); Creatinine Clr Calc Pharmacy 103.9; Estimated Glomerular Filt Rate > 60; Glucose Random 197 mg/dL (60-115); Lipase 51 U/L (8-78); Potassium 3.7 mmol/L (3.3-5.1); Sodium 138 mmol/L (135-145); Total Protein 8.3 g/dL (6.5-8.0)
[2024-05-04 12:54] LABS: CDiff Gene PCR NEGATIVE (Negative)
[2024-05-04 15:07] LABS: Appearance Urine Clear; Color Urine Dark Yellow; Glucose Urine UA Negative (Negative); Leukocyte Esterase Urine Negative (Negative); Nitrite Urine Negative (Negative); Specific Gravity - Urine >= 1.030 (1.005-1.025); UMIC TRIGGER UACC YES; Urine Blood Negative (Negative); Urine Ketones 40 mg/dL (Negative); Urine Protein 30 (1+) mg/dL (Neg-Trace)
[2024-05-04 15:12] LABS: Bacteria Urine None Seen (None Seen); Hyaline Casts Urine 0-2 /LPF (0-2); RBC Urine 0-2 /HPF (0-2); Squamous Epithelial Cell Urine 0-2 /HPF (0-2); WBC Urine 0-5 /HPF (0-5)
[2024-05-04] MEDS: ondansetron HCL 4 MG/2 ML VIAL IVPUSH (15:18)
[2024-05-04] MEDS: Morphine Sulfate 4 MG/ML CARTRIDGE IVPUSH ×2 (15:18→17:25)
[2024-05-04] MEDS: 0.9 % Sodium Chloride 1,000 ML 999 ML IV (15:18)
--- NOTE | 2024-05-04 15:24 | MHC.EDTECH ---
This pct assumed care of Patient at 1500 ,vitals taken and 2nd sets of blood culture drawn and sent to lab,Patient daughter at bedside .
--- NOTE | 2024-05-04 15:46 | PC.NURSE ---
Pt presents to ED from home, reports generalized ABD pain, nausea and watery-diarrhea for past couple of days. Has PICC line in left arm, daily ABX for right shoulder sepsis. Pain is generalized, 6/10, pt appears uncomfortable. Alert and oriented, breathing even and unlabored, skin clammy.
[2024-05-04] MEDS: iohexoL 350 MG/ML 100 ML INFUS..BTL IV (15:52)
[2024-05-04 16:14] LABS: Adenovirus F 40/41 Not Detected (Not Detect.); Astrovirus Not Detected (Not Detect.); Campylobacter Not Detected (Not Detect.); Cryptosporidium Not Detected (Not Detect.); Cyclospora cayetanensis Not Detected (Not Detect.); E. coli EAEC Not Detected (Not Detect.); E. coli EPEC Not Detected (Not Detect.); E. coli ETEC Not Detected (Not Detect.); E. coli STEC Not Detected (Not Detect.); Entamoeba histolytica Not Detected (Not Detect.); Giardia lamblia Not Detected (Not Detect.); Norovirus GI/GII Not Detected (Not Detect.); Plesiomonas shigelloides Not Detected (Not Detect.); Rotavirus A Not Detected (Not Detect.); Salmonella Not Detected (Not Detect.); Sapovirus Not Detected (Not Detect.); Shigella sp./EIEC Not Detected (Not Detect.); Vibrio Not Detected (Not Detect.); Vibrio Cholerae Not Detected (Not Detect.); Yersinia enterocolitica Not Detected (Not Detect.)
[2024-05-04] MEDS: HYDROmorphone HCl 1 MG/ML SYRINGE IVPUSH (16:29)
--- NOTE | 2024-05-04 17:06 | ECG_ITS ---
Test Reason : ABD PAIN Blood Pressure : / mmHG Vent. Rate : 068 BPM Atrial Rate : 068 BPM P-R Int : 140 ms QRS Dur : 074 ms QT Int : 396 ms P-R-T Axes : 030 -12 025 degrees QTc Int : 421 ms Normal sinus rhythm Normal ECG When compared with ECG of 21-AUG-2020 06:39, Nonspecific T wave abnormality no longer evident in Lateral leads Referred By: Nora Zuniga Electronically Signed By:PORTIA CORBIN
[2024-05-04 18:52] LABS: Troponin-I High Sensitivity < 2.7 ng/L (<3.5-35.0)
[2024-05-04] MEDS: fentaNYL citrate/PF 100 MCG/2 ML VIAL 50 MCG IVPUSH (20:24)
== END 2024-05-04 20:57 | disposition home or self-care (01) ==
PROVIDERS: Physician Assistant; Physician Assistant Medical; Emergency Provider Emergency Medicine; PCP Internal Medicine
DX: R10.9 Unspecified abdominal pain (principal); R11.2 Nausea with vomiting, unspecified; R19.7 Diarrhea, unspecified; R10.2 Pelvic and perineal pain; Z11.52 Encounter for screening for COVID-19; Z87.891 Personal history of nicotine dependence; Z79.899 Other long term (current) drug therapy
CPT/HCPCS: 36415; 74177; 80053; 81001; 83605; 83690; 84484; 85025; 87040; 87493; 87507; 93005; 96361; 96374; 96375; 96376; 99285; J1170; J2270; J2405; J3010; Q9967

== ENCOUNTER 2024-05-19 07:49 | Outpatient (AMB) | payer BC, SELFPAY ==
--- NOTE | 2024-05-19 08:06 | MHC.PC.OV ---
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 Allergies No Known Allergies [No Known Allergies*] Allergy (Verified 05/19/24 08:07) Medication List - Last Reconciled 05/19/24 by Melissa Mcnulty PA-C acetaminophen (Tylenol Extra Strength) 1,000 mg (2 x 500 mg) PO QID PRN ceftriaxone 2 grams IV Q24H cholecalciferol (vitamin D3) 25 mcg PO DAILY lisinopril 5 mg PO DAILY tramadol 1 to 2 tablets 3 times a day as needed for increased pain over the lower back; Tobacco use date assessed: 12/15/23 Dental Screening Dental Screen Date: 12/15/23 HPI Clearance to return to work HPI Details 53-year-old male with past medical history of hypertension, degenerative disc disease, diabetes mellitus, and history of septic arthritis of right shoulder last seen by Dr. Herring coming in for were clearance.? In review of the notes, patient was seen in [facility] 05/14/2024 for complaints of diarrhea.? Workup is reassuring and patient was discharged home with conservative measures. Today he tells us his shoulder is feeling much better and he is no longer having pain but does have some issues with range of motion. His PICC line was removed last Friday by his home nurse without complication. He did have an appointment with Orthopedics a he missed on the 14 of May and tells us today he does not want to go to orthopedics. He is also refusing physical therapy. [facility] Medical History Vitamin D deficiency Diabetes mellitus Lumbar degenerative disc disease Left knee pain Cyst of perianal area Degenerative joint disease of right knee Obesity (BMI 30-39.9) Benign essential hypertension Surgical History H/O colonoscopy (~11/08/22) History of meniscectomy of right knee (~07/20/20) History of right knee surgery H/O lateral meniscus repair of right knee H/O lateral meniscus repair of left knee H/O lumbar discectomy History of arthroscopy of both shoulders History of laparoscopic cholecystectomy Family History Maternal Grandfather Bone cancer Other Family history non-contributory Social History Housing: House Alcohol intake: never Patient Tobacco Use Status: Former Tobacco user Years Smoked: 5 e-Cigarette/Vaping Use: Never Used Second Hand Smoke Exposure: Yes service: No Current occupational status: employed 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 How often do you have a drink containing alcohol?: Never 3. How often do you have six or more drinks on one occasion?: Never Total Score: 0 Score Reviewed/Action Taken: Yes KIANNA-7 AMB Questionnaire KIANNA-7 Date KIANNA - 7 assessed: 12/15/23 Source: Developed by Drs. Yasmani Hair, Tere Bundy, Yves Dietz and colleagues, with an educational leonora from [employer]. Review of Systems Const Denies body aches, Denies chills, Denies fever(s) and Denies poor appetite Eyes Reports no additional complaints ENT Reports no additional complaints Card Denies chest pain and Denies dyspnea Resp Denies dyspnea GI Reports no additional complaints Reports no additional complaints Musc Details: Bilateral knee pain chronic Reports as per HPI and Denies abnormal gait Skin/Breast Details: 3 sutures sites intact from removal of PICC line Neuro Denies abnormal gait Psych Reports no additional complaints Physical exam (Primary Care) Tobacco/Smoking Status: Tobacco use Status Tobacco use date assessed 12/15/23 05/10/24 07:54 Patient Tobacco Use Status Former Tobacco user 05/10/24 07:54 e-Cigarette/Vaping Use Never Used 05/10/24 07:54 Thrive Assessment: Date of Thrive Assessment Date Thrive assessed 12/15/23 05/10/24 07:54 Const General: cooperative, healthy appearing, comfortable and no acute distress Orientation/consciousness: patient oriented x3 HENMT Head: Yes normocephalic Ears: hearing grossly normal bilaterally General nose exam: Normal external nose present Eyes General: appearance normal, both eyes and all related structures Conjunctivae: conjunctivae normal Neck Neck: Yes full ROM and Yes no lymphadenopathy Resp Effort & Inspection: normal respiratory effort Auscultation: clear to auscultation bilaterally, no crackles, no rales, no rhonchi and no wheezes Cardio Rate: regular rate Rhythm: regular rhythm Skin Other: 3 intact suture sites without overlying erythema, warmth, or pain Neuro General: patient oriented x3 Gait exam (Neuro): Normal gait present Extrem Other: No pain to palpation of right upper extremity. Strength, sensation, and pulses intact in bilateral upper extremities General: Yes normal to inspection and No edema Psych Affect: normal affect Attitude: cooperative Insight: Good insight present (Psych) Judgement: Good judgement present (Psych) Assessment and Plan Assessment & Plan (1) Septic arthritis of shoulder, right: Comment: He doesnt have positive culture seen at this time and symptoms stable. Code(s): M00.9 - Pyogenic arthritis, unspecified Qualifiers: Septic arthritis organism: due to unspecified organism Qualified Code(s): M00.9 - Pyogenic arthritis, unspecified Plan: Patient is scheduled to follow up on last time with Infectious Disease today. His symptoms have greatly improved however he does still mention weakness and limited range of motion in the right shoulder. Recommended physical therapy which patient has refused. Also recommend patient follow up with Orthopedics which he also refuses. He did have 3 intact sutures which were removed today without complication. No evidence of infection on exam but did advise patient to monitor the suture sites for redness, warmth, or pain. Patient is okay to return to work but did advise patient not to lift over 50 lb until his shoulder regained strength and range of motion to avoid further injury. He assured me that he does not lift as a part of his job and we will start slow with exercise. Plan This note was constructed using voice recognition software. While every effort has been made to ensure accuracy and termite control representative, still areas may have been included sometimes these areas may affect the content or meeting of the given symptoms. Total time spent caring for the patient today was 20 minutes. This includes time spent before the visit reviewing the chart, time spent during the visit, and time spent after the visit and documentation. Coding Level of Care Code Est Pt Level 4 (80514) Diagnoses Pyogenic arthritis of right shoulder region, due to unspecified organism M00.9 Septic arthritis organism: due to unspecified organism
[2024-05-19 08:07] VITALS: BP 146/90; PULSE 70; O2SAT 98; BMI 34.5
== END 2024-05-19 08:57 | disposition home or self-care (01) ==
PROVIDERS: PCP Internal Medicine
DX: M00.9 Pyogenic arthritis, unspecified (principal)
CPT/HCPCS: 99214

== ENCOUNTER 2024-07-20 16:04 | Outpatient (AMB) | payer BC, SELFPAY ==
[2024-07-20 16:07] VITALS: BP 130/82; PULSE 83; O2SAT 97; BMI 36.4
--- NOTE | 2024-07-20 16:07 | A.OFFPC_ITS ---
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 Accompanied by: Self / Same As Patient Allergies No Known Allergies [No Known Allergies*] Allergy (Verified 07/20/24 16:39) Medication List - Last Reconciled 07/20/24 by Randolph Herring MD acetaminophen (Tylenol Extra Strength) 1,000 mg (2 x 500 mg) PO QID PRN cholecalciferol (vitamin D3) 25 mcg PO DAILY lisinopril 5 mg PO DAILY tramadol 1 to 2 tablets 3 times a day as needed for increased pain over the lower back; 21 days Tobacco use date assessed: 07/20/24 Dental Screening Dental Screen Date: 07/20/24 Did you have a dental visit in the last 12 months?: No Did you have a dental problem in the last 6 months where you did not have access to dental care?: No Was dental information given to patient?: No HPI annual exam HPI Details Patient comes in today for his annual physical examination States that he feels okay He denies any headaches or dizziness Denies any chest pains, no shortness of breath No nausea/vomiting, no abdominal pain No change in bowel habits noted He denies any acute urinary symptoms States that he continues to experience recurrent low back pain and chronic knee pain - notes that his current medications help keep his pain manageable States that his shoulder infection appears to have completely cleared up now as he no longer has any significant symptoms in his shoulder Notes that his range of motion in the shoulder seems to have completely recovered He is up-to-date with his colon cancer screening and will need repeat colonoscopy in 2025 He would also like to get his flu shot today [facility] Medical History Vitamin D deficiency Diabetes mellitus Lumbar degenerative disc disease Left knee pain Cyst of perianal area Degenerative joint disease of right knee Obesity (BMI 30-39.9) Benign essential hypertension Surgical History H/O colonoscopy (~11/08/22) History of meniscectomy of right knee (~07/20/20) History of right knee surgery H/O lateral meniscus repair of right knee H/O lateral meniscus repair of left knee H/O lumbar discectomy History of arthroscopy of both shoulders History of laparoscopic cholecystectomy Family History Maternal Grandfather Bone cancer Other Family history non-contributory Social History Housing: House Alcohol intake: never Patient Tobacco Use Status: Former Tobacco user Years Smoked: 5 e-Cigarette/Vaping Use: Never Used Second Hand Smoke Exposure: Yes service: No Current occupational status: employed 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 1. Little interest or pleasure in doing things: not at all 2. Feeling down, depressed, or hopeless: not at all 3. Trouble falling or staying asleep, or sleeping too much: not at all 4. Feeling tired or having little energy: not at all 5. Poor appetite or overeating: not at all 6. Feeling bad about yourself - or that you are a failure or have let yourself or your family down: not at all 7. Trouble concentrating on things, such as reading the newspaper or watching television: not at all 8. Moving or speaking so slowly that other people could have noticed. Or the opposite - being so fidgety or restless that you have been moving around a lot more than usual: not at all 9. Thoughts that you would be better off or of hurting yourself in some way: not at all Total score: 0 Depression Screening Interpretation: Negative Depression Screening Done: Yes 58936 - PHQ-9 Billing: Yes Source: Developed by Drs. Yasmani Hair, Tere Bundy, Yves Dietz and colleagues, with an educational leonora from [email or web address]. Thrive Questionnaire Date Thrive assessed: 07/20/24 I am a: Patient What is your living situation today?: I have a steady place to live Within the past 12 months, did the food you bought not last and you didn't have the money to get more?: Never true Within the past 12 months, did you worry whether your food would run out before you got money to buy more?: Never true Do you have trouble paying for medicines?: No Do you have trouble getting transportation to medical appointments?: No Do you have trouble paying your heating and electricity bill?: No Do you have trouble taking care of your child, family member or friend?: No Do you have trouble with day-to-day activities such as bathing, preparing meals, shopping, managing finances, etc.?: No Are you currently unemployed and looking for a job?: No Are you interested in more education?: No Please select the resources that you would like help with: None Currently or been in a relationship where the following occur: No concerns reported THRIVE Score: 0 AUDIT C Alcohol Use Questionnaire (AUDIT-C) 1. How often do you have a drink containing alcohol?: Never 3. How often do you have six or more drinks on one occasion?: Never Total Score: 0 Score Reviewed/Action Taken: Yes KIANNA-7 AMB Questionnaire KIANNA-7 Date KIANNA - 7 assessed: 07/20/24 Feeling nervous, anxious, or on edge: 0 = Not at all Not being able to stop or control worryin = Not at all Worrying too much about different things: 0 = Not at all Trouble relaxin = Not at all Being so restless that it is hard to sit still: 0 = Not at all Becoming easily annoyed or irritable: 0 = Not at all Feeling afraid as if something awful might happen: 0 = Not at all Total KIANNA-7 score (0-4 normal; 5-9 mild; 10-14 moderate; 15-21 severe): 0 Source: Developed by Drs. Yasmani Hair, Tere Bundy, Yves Dietz and colleagues, with an educational leonora from [email or web address]. Review of Systems Const Denies chills, Denies fatigue, Denies fever(s), Denies headache(s), Denies malaise and Denies weakness Eyes Denies blurry vision, Denies change in vision, Denies irritation and Denies itchy eyes ENT Denies dysphagia, Denies dizziness, Denies otalgia, Denies headache(s), Denies nasal congestion, Denies neck pain, Denies odynophagia and Denies sore throat Card Denies chest pain, Denies rapid heart rate, Denies irregular heart rhythm, Denies palpitations and Denies dyspnea Resp Denies chest congestion, Denies cough and Denies dyspnea GI Denies abdominal pain, Denies bloating, Denies constipation, Denies dysphagia, Denies heartburn, Denies diarrhea, Denies nausea, Denies odynophagia and Denies vomiting Denies hematuria, Denies difficulty urinating, Denies dysuria, Denies urinary frequency and Denies urinary urgency Musc Reports back pain (over the lower back - chronic), Reports arthralgias (over both knees - chronic), Denies joint swelling, Denies muscle weakness and Denies neck pain Skin/Breast Denies change in pigmentation, Denies lesions, Denies rash and Denies unusual bruising Neuro Denies dizziness, Denies headache(s), Denies paresthesias and Denies weakness Psych Denies anxiety and Denies depression Endo Denies fatigue and Denies palpitations Aller/Immun Denies itchy eyes Physical exam (Primary Care) Vital Signs: Last Vital Signs Pulse 83 07/20/24 16:07 BP 130/82 07/20/24 16:07 Pulse Ox 97 07/20/24 16:07 Oxygen Delivery Method Room Air 07/20/24 16:07 BMI result Body Mass Index 36.4 Tobacco/Smoking Status: Tobacco use Status Tobacco use date assessed 07/20/24 07/20/24 16:15 Patient Tobacco Use Status Former Tobacco user 07/20/24 16:15 e-Cigarette/Vaping Use Never Used 07/20/24 16:15 PHQ-9: PHQ-9 Score PHQ-9: Total score 0 07/20/24 16:37 Depression Screening Interpretation: Negative Thrive Assessment: Date of Thrive Assessment Date Thrive assessed 07/20/24 07/20/24 16:15 Currently or been in a relationship where the following occur: No concerns reported Const General: no acute distress, alert and awake Orientation/consciousness: patient oriented x3 HENMT Head: Yes normocephalic and Yes atraumatic Ears: external ears normal, TM's normal bilaterally and EAC's normal General nose exam: No nasal discharge present Face and sinus: Yes normal facial exam and Yes sinuses nontender Teeth and gingiva: dentition normal Throat: Yes posterior oropharynx normal and Yes tonsils normal (no TP congestion) Eyes Eyelids: Yes eyelids normal Conjunctivae: conjunctivae normal Pupils: Equal, round and reactive pupils present EOM: EOMs intact bilaterally Neck Neck: Yes no lymphadenopathy and Yes supple Thyroid: Thyroid normal Resp Auscultation: clear to auscultation bilaterally, no rales and no wheezes Cardio Rate: regular rate Rhythm: regular rhythm Heart sounds: no murmurs GI Palpation (GI): Soft to palpation, nontender and No hepatosplenomegaly present Auscultation: normal bowel sounds General: Yes no CVA tenderness Back/Spine/Pelvis Back: no CVA tenderness Thoracic/Lumbar Spine: lumbar spinal tenderness Skin Lesions: no lesions Rashes: no rashes Neuro General: patient oriented x3, moves all extremities, no focal motor deficits and CN's II-XI intact bilaterally Cranial nerves: Yes Equal, round and reactive pupils present Cognition (Neuro): normal cognition Gait exam (Neuro): Normal gait present Extrem General: Yes no clubbing, cyanosis or edema Right lower extremity: knee Details: tenderness; no swelling Left lower extremity: knee Details: tenderness; no swelling Office Procedures Flu Questionnaire Does the patient have a severe egg allergy?: No Does the patient have severe life threatening allergies?: No Does the patient have a fever or illness today?: No Has the patient ever had Guillain-Independence Syndrome?: No Has the patient ever had any past reaction to a flu shot?: No Immunizations Fluarix Triv [id number] (PF) 45 mcg (15 mcg x 3)/0.5 mL IM syringe Performing Provider: Randolph Herring MD [facility] Administered by: OLEG Temple on 07/20/24 16:18 Dose Route Admin Location Dispensed Lot Number Expiration Date [facility] It Application Administrator 0.5 mL IM Left Deltoid 0.5 mL [id number] 03/14/25 [id number] [employer] VIS Given Date VIS Provided VIS Publication Date 07/20/24 Single Vaccine 21 Eligibility Eligibility Date Funding Source Not [facility] Eligible 07/20/24 Private Coding Level of Care Code Est Pt Prev Care 40-64y(44060) Diagnoses Annual physical exam Z00.00 Benign essential hypertension I10 Type 2 diabetes mellitus with hyperglycemia, without long-term current use of insulin E11.65 Diabetes mellitus type: type 2 Diabetes mellitus manager long term care insulin use: without manager long term care use Diabetes mellitus complication status: with hyperglycemia Degeneration of intervertebral disc of lumbar region with discogenic back pain M51.360 Disc-related pain type: discogenic back pain only Post-traumatic osteoarthritis of right knee M17.31 Osteoarthritis type: post-traumatic Vitamin D deficiency E55.9 Obesity (BMI 30-39.9) E66.9 Additional Codes PHQ-9 - 51406 - PHQ-9 Billing: Yes ([id number]) Assessment & Plan Assessment & Plan (1) Annual physical exam: Code(s): Z00.00 - Encounter for general adult medical examination without abnormal findings Category: Medical Plan: Check labs He is up-to-date with his colon cancer screening and will be due for repeat colonoscopy in 2025 (2) Benign essential hypertension: Code(s): I10 - Essential (primary) hypertension Category: Medical Plan: Reinforced low sodium diet - goal is systolic BP of 120 mm or less Continue Lisinopril 5 mg QD Patient is reminded to continue monitoring his blood pressure regularly (3) Diabetes mellitus: Code(s): E11.9 - Type 2 diabetes mellitus without complications Category: Medical Qualifiers: Diabetes mellitus type: type 2 Diabetes mellitus manager long term care insulin use: without manager long term care use Diabetes mellitus complication status: with hyperglycemia Qualified Code(s): E11.65 - Type 2 diabetes mellitus with hyperglycemia Plan: His in-office HgbA1c was at 6.8% when it was most recently checked a few months ago in April 2024; was previously at 7.1% back in December 2023 - goal is <7.0% but ideally <6.5% if he does not want to be on any Rx for his diabetes Reinforced diabetic diet Patient was previously started on Metformin 500 mg BID last year but he DID NOT TAKE the Rx and would like to continue trying diet modification for now Will recheck his FBS and HgbA1c with his routine labs MAXI for follow up (4) Lumbar degenerative disc disease: Code(s): M51.36 - Other intervertebral disc degeneration, lumbar region Category: Medical Qualifiers: Disc-related pain type: discogenic back pain only Qualified Code(s): M51.360 - Other intervertebral disc degeneration, lumbar region with discogenic back pain only Plan: Reinforced activity and weight-lifting restrictions MRI of the lumbar spine done back in June 2021 revealed (+) multilevel disc degeneration/facet arthritis. There is a shallow right far lateral protrusion at L4-L5 that causes mild mass effect on the extraforaminal segment of the right L4 nerve root. Otherwise no substantial mass effect the traversing or foraminal nerve roots within the lumbar spine. No canal stenosis seen Continue Tramadol 50 mg 1 to 2 tablets TID PRN for pain Follow up with pain management as scheduled (5) Degenerative joint disease of right knee: Comment: S/P partial medial meniscectomy and debridement of anterior compartment on 07/20/2020 Code(s): M17.11 - Unilateral primary osteoarthritis, right knee Category: Medical Qualifiers: Osteoarthritis type: post-traumatic Qualified Code(s): M17.31 - Unilateral post-traumatic osteoarthritis, right knee Plan: Continue Tramadol PRN He has reportedly been recommended to get arthroplasty but patient feels that he is still too young for the procedure and would like to hold off for now Follow up with orthopedics as scheduled (6) Vitamin D deficiency: Code(s): E55.9 - Vitamin D deficiency, unspecified Category: Medical Plan: Continue Vitamin D3 1000 units QD Will recheck his Vitamin D level for follow up (7) Obesity (BMI 30-39.9): Code(s): E66.9 - Obesity, unspecified Category: Medical Plan: Reinforced diet/exercise as tolerated/lose weight Plan As requested, flu vaccine given to the patient today Follow up in 4 months Orders: Orders Influenza [id number] Immunization 07/20/24 Z23 - Encounter for immunization Complete Blood Count Auto Diff 07/20/24 D64.9 - Anemia, unspecified, Z00.00 - Encounter for general adult medical examination without abnormal findings UA CC w/rflx Micro + Cult 07/20/24 R30.0 - Dysuria, Z00.00 - Encounter for general adult medical examination without abnormal findings Prostate Specific Antigen Scr 07/20/24 Z00.00 - Encounter for general adult medical examination without abnormal findings Comprehensive [place]. Panel Fast 07/20/24 E78.00 - Pure hypercholesterolemia, unspecified, Z00.00 - Encounter for general adult medical examination without abnormal findings TSH reflex Free T4 07/20/24 E78.00 - Pure hypercholesterolemia, unspecified, Z00.00 - Encounter for general adult medical examination without abnormal findings Vitamin D 25-OH Total 07/20/24 E55.9 - Vitamin D deficiency, unspecified, Z00.00 - Encounter for general adult medical examination without abnormal findings Lipid Panel 07/20/24 E78.00 - Pure hypercholesterolemia, unspecified, Z00.00 - Encounter for general adult medical examination without abnormal findings Hemoglobin A1c 07/20/24 R73.9 - Hyperglycemia, unspecified, Z00.00 - Encounter for general adult medical examination without abnormal findings
== END 2024-07-20 16:44 | disposition home or self-care (01) ==
LOC: HO.HMCH 16:05
PROVIDERS: PCP Internal Medicine; Visit Provider Internal Medicine
DX: Z00.00 Encounter for general adult medical examination without abnormal findings (principal); I10 Essential (primary) hypertension; E11.65 Type 2 diabetes mellitus with hyperglycemia; M51.360 Other intervertebral disc degeneration, lumbar region with discogenic back pain only; E66.9 Obesity, unspecified; Z68.36 Body mass index [BMI] 36.0-36.9, adult; M17.31 Unilateral post-traumatic osteoarthritis, right knee; E55.9 Vitamin D deficiency, unspecified

== ENCOUNTER → 2024-07-20 16:04 | Outpatient (BNVA) | payer BC, SELFPAY | PROVIDERS: PCP Internal Medicine; Visit Provider Internal Medicine | DX: Z00.00 Encounter for general adult medical examination without abnormal findings (principal); Z23 Encounter for immunization; I10 Essential (primary) hypertension; E11.65 Type 2 diabetes mellitus with hyperglycemia; M51.360 Other intervertebral disc degeneration, lumbar region with discogenic back pain only; M17.31 Unilateral post-traumatic osteoarthritis, right knee; T14.90XS Injury, unspecified, sequela; E55.9 Vitamin D deficiency, unspecified; E66.9 Obesity, unspecified; Z68.36 Body mass index [BMI] 36.0-36.9, adult; Z79.84 Long term (current) use of oral hypoglycemic drugs; Z79.891 Long term (current) use of opiate analgesic | CPT/HCPCS: 90471; 90656; 96127 ==

== ENCOUNTER 2024-09-28 13:49 | Outpatient (AMB) | payer BC, SELFPAY ==
--- NOTE | 2024-09-28 14:16 | MHC.OFFWIV ---
Intake Vital Signs 09/28/24 14:17 Height 5 ft 8 in Weight 245 lb BMI 37.2 BP 120/74 Blood Pressure Location Rt brachial Position Sitting Pulse 97 Pulse Source Pulse Oximeter Pulse Oximetry (%) 97 Oxygen Delivery Method Room Air Intake Visit Reasons: EP-cough, sob Intake Note: Pt is here today for a walk in visit. Pt c/o cough, sob congestion for over a week now. Patient Tobacco Use Status: Former Tobacco user Allergies No Known Allergies [No Known Allergies*] Allergy (Verified 09/28/24 14:19) HPI HPI Comments History of Present Illness Details This is a 53-year-old male with a past medical history of hypertension presenting for evaluation of cough, shortness for breath and sinus congestion that he has had for over 1 week. Patient denies having any fevers, chills, ear pain or sore throat. Patient has been taking Mucinex only without relief of his symptoms. [facility] Medical History Vitamin D deficiency Diabetes mellitus Lumbar degenerative disc disease Left knee pain Cyst of perianal area Degenerative joint disease of right knee Obesity (BMI 30-39.9) Benign essential hypertension Surgical History H/O colonoscopy (~11/08/22) History of meniscectomy of right knee (~07/20/20) History of right knee surgery H/O lateral meniscus repair of right knee H/O lateral meniscus repair of left knee H/O lumbar discectomy History of arthroscopy of both shoulders History of laparoscopic cholecystectomy Family History Maternal Grandfather Bone cancer Other Family history non-contributory Social History Housing: House Alcohol intake: never Patient Tobacco Use Status: Former Tobacco user Years Smoked: 5 e-Cigarette/Vaping Use: Never Used Second Hand Smoke Exposure: Yes service: No Current occupational status: employed Current [place] [employer] [place] - [employer] Current occupational exposures/hazards: No Cognitive needs: No Hearing needs: No Vision needs: No Review of Systems Const All systems reviewed & are unremarkable except as noted in HPI and below Denies chills, Reports fatigue and Denies fever(s) Eyes Reports no additional complaints ENT Reports no additional complaints, Denies otalgia, Denies facial pain, Reports sinus pain, Reports sinus pressure and Denies sore throat Card Reports no additional complaints Resp Reports no additional complaints GI Reports no additional complaints Reports no additional complaints Musc Reports no additional complaints Skin/Breast Reports system reviewed and no additional complaints, except as documented Neuro Reports no additional complaints Psych Reports no additional complaints Endo Reports no additional complaints and Reports fatigue Francisco/Lymph Reports no additional complaints Aller/Immun Reports no additional complaints Physical Exam Vital Signs: Last Vital Signs Pulse 97 09/28/24 14:17 BP 120/74 09/28/24 14:17 Pulse Ox 97 09/28/24 14:17 Oxygen Delivery Method Room Air 09/28/24 14:17 BMI result Body Mass Index 37.2 Const General: cooperative, healthy appearing, comfortable, no acute distress, well developed, alert, awake and Physically active; No acute distress Orientation/consciousness: patient oriented x3 Limitations: no limitations HEENT Head: Yes normal to inspection Ears: hearing grossly normal bilaterally, external ears normal, TM's normal bilaterally and EAC's normal General nose exam: Normal external nose present Face and sinus: Yes normal facial exam and Yes sinuses nontender Mouth: Normal oral and palatal mucosa present and moist mucous membranes Throat: Yes posterior oropharynx normal (There is no edema or exudates of the posterior oropharynx) and Yes postnasal drainage Eyes General: appearance normal, both eyes and all related structures Neck Lymphatic: no lymphadenopathy noted Resp Effort & Inspection: normal respiratory effort, able to speak in complete sentences, abnormal respiratory pattern, audible wheezes, Actively coughing and no respiratory distress Auscultation: wheezes expiratory wheezes (bilaterally) Cardio Rate: regular rate Rhythm: regular rhythm Skin General skin exam: no rashes or lesions noted Neuro General: patient oriented x3 Psych Appearance: grossly normal Mental Status: mental status grossly normal Insight: Good insight present (Psych) Judgement: Good judgement present (Psych) Results Reviewed Results Reviewed: CXR no acute findings. Assessment & Plan Assessment & Plan (1) Acute upper respiratory infection: Comment: No acute findings noted on chest x-ray. Given this patient's wheezing and consistent cough, patient will be prescribed prednisone and codeine cough syrup. SARS panel is ordered and pending. Code(s): J06.9 - Acute upper respiratory infection, unspecified Plan: Prednisone 40 mg x 4 days; codeine/promethazine cough syrup 5 mL q.6 hours p.r.n. cough. Orders: Orders SARS-CoV2/FLU/RSV Today J06.9 - Acute upper respiratory infection, unspecified XR chest 2V Today R05.9 - Cough, unspecified Medications: New prednisone 40 mg (2 x 20 mg) PO DAILY 8 tabs 0RF promethazine-codeine 6.25-10 mg/5 mL 5 mL PO Q6H PRN 118 mL 0RF cough Coding Level of Care Code Est Pt Level 4 (18301) Diagnoses Acute upper respiratory infection J06.9 Time Spent (min) 30
[2024-09-28 14:17] VITALS: BP 120/74; PULSE 97; O2SAT 97; BMI 37.2
--- OUTSIDE RECORDS SUMMARY | 2024-09-28 16:12 | XMS_ITS | Clinical Summary ---
Author Organization Unknown Care Team Providers Care Cleaner Housekeeping Name Role Phone NEFTALI OAKES, JENNIFER Unavailable Unavailable KIM GRIMALDO, FRANNIE Unavailable Unavailable ARABELLA GARCIA, CIERA Unavailable Unavailable Payers Payer Name Policy Type Policy Number Effective Date Expira tion Date [facility] [id number] Problems Condition Name Condition Details Condition Category Status Onset Date Resolution Date Last Treatment Date Treating Clinician Comments ARTHRITIS DUE TO OTHER BACTERIA, RIGHT SHOULDER Active 09-15 00:00: 00 ESSENTIAL (PRIMARY) HYPERTENSION Active 09-15 00:00: 00 PREDIABETES Active 09-15 00:00: 00 SOLITARY PULMONARY NODULE Active 09-15 00:00: 00 Allergies, Adverse Reactions, Alerts Allergy Name Allergy Type Status Severity Reaction(s) Onset Date Inactive Date Treating Clinician Comments NKA Propensity to adverse reactions Active 2024-04 16:19:0 1 Medications Ordered Medication Name Filled Medication Name Start Date Stop Date Current Medication? Ordering Clinician Indication Dosage Frequency Signature (SIG) Comments Components buprenorphi ne 4 mg-naloxone 1 mg sublingual film 03-17 00:00: 00 Yes [id number] Per instruc tions 1 FILM EVERY DAY NEEDED FOR 32 DAYS Per instructio ns 1 FILM EVERY DAY NEEDED FOR 32 DAYS (route: sublingual ) Med Classific ation: Chemical Dependenc y, Agents to Treat buprenorphi ne 8 mg-naloxone 2 mg sublingual film 03-17 00:00: 00 Yes [id number] Per instruc tions TWICE A DAY Per instructio ns TWICE A DAY (route: sublingual ) Med Classific ation: Chemical Dependenc y, Agents to Treat acetaminoph en 500 mg tablet 04-17 00:00: 00 Yes [id number] 2 tablet EVERY 6 HOURS 2 tablet EVERY 6 HOURS (route: oral) Med Classific ation: Analgesic , Anti-infl ammatory or Antipyret ic ceftriaxone 2 gram solution for injection 04-17 00:00: 00 05-12 23:59 :00 No [id number] 2 g DAILY 2 g DAILY (route: injection) Med Classific ation: Anti-Infe ctive Agents lisinopril 5 mg tablet 04-17 00:00: 00 Yes [id number] 1 tablet DAILY 1 tablet DAILY (route: oral) Med Classific ation: Cardiovas cular Therapy Agents Vitamin D3 125 mcg (5,000 unit) tablet 04-17 00:00: 00 Yes [id number] 1 tablet DAILY 1 tablet DAILY (route: oral) Med Classific ation: Electroly te Balance-N utritiona l Products Voltaren Arthritis Pain 1 % topical gel 04-17 00:00: 00 Yes [id number] 1 inch 4 TIMES DAILY 1 inch 4 TIMES DAILY (route: topical) Med Classific ation: Dermatolo gical Immunizations Ordered Immunization Name Filled Immunization Name Date Status Comments Refusal Reason INFLUENZA, TIV (INACTIVATED) 2023-08-22 00:00:00 COVID-19, COVID-19 2023-05-29 00:00:00 Vital Signs Vital Name Observation Time Observation Value Commen ts Temperature 2024-05-12 19:13:00.000 97 [degF] Temperature 2024-05-07 15:32:00.000 97.6 [degF] Temperature 2024-04-30 11:14:00.000 98.4 [degF] Temperature 2024-04-23 12:38:00.000 97.5 [degF] Temperature 2024-04-20 13:44:00.000 97.9 [degF] Temperature 2024-04-17 12:26:00.000 97.2 [degF] BMI (%) 2024-04-17 12:26:00.000 35 kg/m2 Height 2024-04-17 12:26:00.000 68 [in_us] Pulse 2024-05-12 19:13:00.000 74 /min Pulse 2024-05-07 15:32:00.000 70 /min Pulse 2024-04-30 11:14:00.000 65 /min Pulse 2024-04-23 12:38:00.000 72 /min Pulse 2024-04-20 13:44:00.000 77 /min Pulse 2024-04-17 12:26:00.000 70 /min O2 Saturation (%) 2024-05-12 19:13:00.000 97 % O2 Saturation (%) 2024-05-07 15:32:00.000 97 % O2 Saturation (%) 2024-04-30 11:14:00.000 97 % O2 Saturation (%) 2024-04-23 12:38:00.000 97 % O2 Saturation (%) 2024-04-20 13:44:00.000 98 % O2 Saturation (%) 2024-04-17 12:26:00.000 98 % Respirations 2024-05-12 19:13:00.000 18 /min Respirations 2024-05-07 15:32:00.000 18 /min Respirations 2024-04-30 11:14:00.000 18 /min Respirations 2024-04-23 12:38:00.000 20 /min Respirations 2024-04-20 13:44:00.000 18 /min Respirations 2024-04-17 12:26:00.000 20 /min Weight (lbs) 2024-04-17 12:26:00.000 232 [lb_av] Systolic Blood Pressure 2024-05-12 19:13:00.000 118 mm [Hg] Systolic Blood Pressure 2024-05-07 15:32:00.000 152 mm [Hg] Systolic Blood Pressure 2024-04-30 11:14:00.000 144 mm [Hg] Systolic Blood Pressure 2024-04-23 12:38:00.000 122 mm [Hg] Systolic Blood Pressure 2024-04-20 13:44:00.000 138 mm [Hg] Systolic Blood Pressure 2024-04-17 12:26:00.000 140 mm [Hg] Diastolic Blood Pressure 2024-05-12 19:13:00.000 74 mm [Hg] Diastolic Blood Pressure 2024-05-07 15:32:00.000 74 mm [Hg] Diastolic Blood Pressure 2024-04-30 11:14:00.000 80 mm [Hg] Diastolic Blood Pressure 2024-04-23 12:38:00.000 70 mm [Hg] Diastolic Blood Pressure 2024-04-20 13:44:00.000 64 mm [Hg] Diastolic Blood Pressure 2024-04-17 12:26:00.000 84 mm [Hg] Plan of Treatment Planned Activity Planned Date Details Comments Future Scheduled Test SKILLED NU RSE TO EVALUATE PATIENT, IDENTIFY PRIMARY AND CO-MORBID CONDITIONS CODED PER CODING GUIDELINES, AND DEVELOP PATIENT SPECIFIC PLAN OF CARE THAT INCLUDES PATIENT GOAL FOR HOME HEALTH. [code = SKILLED NURSE TO EVALUATE PATIENT, IDENTIFY PRIMARY AND CO-MORBID CONDITIONS CODED PER CODING GUIDELINES, AND DEVELOP PATIENT SPECIFIC PLAN OF CARE THAT INCLUDES PATIENT GOAL FOR HOME HEALTH.] Future Scheduled Test SKILLED NU RSE TO REVIEW PATIENT MEDICATIONS. INSTRUCT PATIENT/CAREGIVER ON MONITORING OF EFFECTIVENESS, ADVERSE DRUG REACTIONS, SIDE EFFECTS OF ALL MEDICATIONS (PRESCRIPTION/-OTC), AND HOW AND WHEN TO REPORT PROBLEMS. [code = SKILLED NURSE TO REVIEW PATIENT MEDICATIONS. INSTRUCT PATIENT/CAREGIVER ON MONITORING OF EFFECTIVENESS, ADVERSE DRUG REACTIONS, SIDE EFFECTS OF ALL MEDICATIONS (PRESCRIPTION/-OTC), AND HOW AND WHEN TO REPORT PROBLEMS.] Future Scheduled Test SKILLED NU RSE FOR ADMINISTRATION AND TEACHING OF PRESCRIBED INJECTION THERAPY FOR CEFTRIAXONE 2G IVP [code = SKILLED NURSE FOR ADMINISTRATION AND TEACHING OF PRESCRIBED INJECTION THERAPY FOR CEFTRIAXONE 2G IVP] Future Scheduled Test SKILLED NU RSE FOR O/A AND TEACHING OF ENDOCRINE SYSTEM TO IDENTIFY CHANGES ASSOCIATED WITH EXACERBATION OF PRE-DM (DIET CONTROLED) FOR EARLY INTERVENTION OF COMPLICATIONS. [code = SKILLED NURSE FOR O/A AND TEACHING OF ENDOCRINE SYSTEM TO IDENTIFY CHANGES ASSOCIATED WITH EXACERBATION OF PRE-DM (DIET CONTROLED) FOR EARLY INTERVENTION OF COMPLICATIONS.] Future Scheduled Test SKILLED NU RSE TO PROVIDE TEACHING ON SIGNS AND SYMPTOMS AND MANAGEMENT OF HYPERTENSION. [code = SKILLED NURSE TO PROVIDE TEACHING ON SIGNS AND SYMPTOMS AND MANAGEMENT OF HYPERTENSION.] Future Scheduled Test SKILLED NU RSE FOR O/A AND SKILLED TEACHING RELATED TO ALTERED SKIN INTEGRITY, CLOSED SURGICAL WOUND R SHOULDER [code = SKILLED NURSE FOR O/A AND SKILLED TEACHING RELATED TO ALTERED SKIN INTEGRITY, CLOSED SURGICAL WOUND R SHOULDER ] Future Scheduled Test SKILLED NU RSE FOR O/A AND TEACHING ON IV SITE CARE, INFUSION PROCEDURE, SIGNS AND SYMPTOMS OF INFECTION/COMPLICATIONS. SKILLED NURSE TO OBTAIN IV ACCESS TO CENTRAL LINE VIA PICC TO L ARM. SKILLED NURSE OR TRAINED PATIENT/CAREGIVER TO ADMINISTER IV THERAPY OF CEFTRIAXONE OVER 6-10 MINUTES, SALINE 10 ML FLUSH EVERY 34 HOURS. SKILLED NURSE TO CHANGE DRESSING USING STERILE TECHNIQUE WEEKLY AND PRN FOR SOILED OR LOOSE DRESSING. [code = SKILLED NURSE FOR O/A AND TEACHING ON IV SITE CARE, INFUSION PROCEDURE, SIGNS AND SYMPTOMS OF INFECTION/COMPLICATIONS. SKILLED NURSE TO OBTAIN IV ACCESS TO CENTRAL LINE VIA PICC TO L ARM. SKILLED NURSE OR TRAINED PATIENT/CAREGIVER TO ADMINISTER IV THERAPY OF CEFTRIAXONE OVER 6-10 MINUTES, SALINE 10 ML FLUSH EVERY 34 HOURS. SKILLED NURSE TO CHANGE DRESSING USING STERILE TECHNIQUE WEEKLY AND PRN FOR SOILED OR LOOSE DRESSING.] Future Scheduled Test SKILLED NU RSE TO OBTAIN BLOOD SPECIMEN VIA CENTRAL LINE FOR LABS ORDERED C REACTIVE PROTIEN, CBC WITH DIFF, CMP, SED RATE WEEKLY. OBTAIN LAB RESULTS AND REPORT TO PHYSICIAN. [code = SKILLED NURSE TO OBTAIN BLOOD SPECIMEN VIA CENTRAL LINE FOR LABS ORDERED C REACTIVE PROTIEN, CBC WITH DIFF, CMP, SED RATE WEEKLY. OBTAIN LAB RESULTS AND REPORT TO PHYSICIAN.] Future Scheduled Test VIRTUAL SIT FREQUENCY: 1-6 PER WEEK X 3 WEEKS AND 6 PRN VIRTUAL VISITS MAY BE PERFORMED UTILIZING TELECOMMUNICATIONS SYSTEM TO OPTIMIZE SKILLED SERVICES FURNISHED ON THE PLAN OF CARE. SKILLED NURSE TO ESTABLISH SUPPORT MEASURES TO MINIMIZE RISK OF REHOSPITALIZATION, AND INSTRUCT PATIENT/CAREGIVER ON METHODS TO REDUCE AVOIDABLE HOSPITALIZATION. [code = VIRTUAL VISIT FREQUENCY: 1-6 PER WEEK X 3 WEEKS AND 6 PRN VIRTUAL VISITS MAY BE PERFORMED UTILIZING TELECOMMUNICATIONS SYSTEM TO OPTIMIZE SKILLED SERVICES FURNISHED ON THE PLAN OF CARE. SKILLED NURSE TO ESTABLISH SUPPORT MEASURES TO MINIMIZE RISK OF REHOSPITALIZATION, AND INSTRUCT PATIENT/CAREGIVER ON METHODS TO REDUCE AVOIDABLE HOSPITALIZATION.] Future Scheduled Test PATIENT JOYNER S A RISK OF HOSPITALIZATION AND ED USE. SKILLED NURSE TO ESTABLISH SUPPORT MEASURES TO MINIMIZE RISK OF HOSPITALIZATION AND ED USE, AND INSTRUCT PATIENT/CAREGIVER ON METHODS TO REDUCE AVOIDABLE HOSPITALIZATION AND ED USE. [code = PATIENT HAS A RISK OF HOSPITALIZATION AND ED USE. SKILLED NURSE TO ESTABLISH SUPPORT MEASURES TO MINIMIZE RISK OF HOSPITALIZATION AND ED USE, AND INSTRUCT PATIENT/CAREGIVER ON METHODS TO REDUCE AVOIDABLE HOSPITALIZATION AND ED USE.] Future Scheduled Test SKILLED NU RSE TO PROVIDE INSTRUCTION TO PATIENT/CAREGIVER RELATED TO DISCHARGE PLANNING. [code = SKILLED NURSE TO PROVIDE INSTRUCTION TO PATIENT/CAREGIVER RELATED TO DISCHARGE PLANNING.] Future Scheduled Test SKILLED NU RSE TO PERFORM HOME SAFETY AND FALL ASSESSMENT AND PROVIDE INSTRUCTION TO IMPLEMENT HOME SAFETY AND FALL PREVENTION STRATEGIES. [code = SKILLED NURSE TO PERFORM HOME SAFETY AND FALL ASSESSMENT AND PROVIDE INSTRUCTION TO IMPLEMENT HOME SAFETY AND FALL PREVENTION STRATEGIES.] Future Scheduled Test SKILLED NU RSE FOR OBSERVATION AND ASSESSMENT OF PATIENTS PAIN LEVEL AND EFFECTIVENESS OF PAIN MANAGEMENT REGIMEN. SKILLED NURSE TO INSTRUCT PATIENT/CAREGIVER REGARDING PHARMACOLOGIC AND NON-PHARMACOLOGIC PAIN CONTROL MEASURES. SKILLED NURSE TO REPORT TO PHYSICIAN IF PAIN IS UNCONTROLLED WITH CURRENT PAIN MANAGEMENT REGIMEN. [code = SKILLED NURSE FOR OBSERVATION AND ASSESSMENT OF PATIENTS PAIN LEVEL AND EFFECTIVENESS OF PAIN MANAGEMENT REGIMEN. SKILLED NURSE TO INSTRUCT PATIENT/CAREGIVER REGARDING PHARMACOLOGIC AND NON-PHARMACOLOGIC PAIN CONTROL MEASURES. SKILLED NURSE TO REPORT TO PHYSICIAN IF PAIN IS UNCONTROLLED WITH CURRENT PAIN MANAGEMENT REGIMEN.] Future Scheduled Test SKILLED NU RSE TO ASSESS PATIENT'S SKIN INTEGRITY AND INSTRUCT PATIENT/CAREGIVER ON MEASURES TO PREVENT PRESSURE ULCERS. [code = SKILLED NURSE TO ASSESS PATIENT'S SKIN INTEGRITY AND INSTRUCT PATIENT/CAREGIVER ON MEASURES TO PREVENT PRESSURE ULCERS.] Future Scheduled Test SN TO INST RUCT PATIENT/CAREGIVER ON SEPSIS MANAGEMENT UTILIZING THE SEPSIS SPECIALTY PROGRAM. [code = SN TO INSTRUCT PATIENT/CAREGIVER ON SEPSIS MANAGEMENT UTILIZING THE SEPSIS SPECIALTY PROGRAM.] Goal Patient Goal - T O HEAL AND GET BACK TO WORK Goal Provider Goal - A PLAN OF CARE WILL BE ESTABLISHED THAT MEETS PATIENT'S LONG TERM NEEDS AND INCLUDES PATIENT GOAL FOR HOME HEALTH. Goal Provider Goal - PATIENT/CAREGIVER WILL VERBALIZE UNDERSTANDING OF EDUCATION PROVIDED ON MEDICATIONS BY THE END OF THE CERTIFICATION PERIOD. Goal Provider Goal - PATIENT WILL RECEIVE CEFTRIAXONE 2G IVP Q 24 ORDERED. PATIENT/CAREGIVER WILL VERBALIZE/DEMONSTRATE KNOWLEDGE OF INJECTION THERAPY BY THE END OF THE CERTIFICATION PERIOD. Goal Provider Goal - PATIENT/CAREGIVER WILL VERBALIZE SIGNS AND SYMPTOMS OF EXACERBATION OF PRE-DM (DIET CONTROLED) TO REPORT TO NURSE/PHYSICIAN THROUGHOUT THE CERTIFICATION PERIOD. Goal Provider Goal - PATIENT/CAREGIVER WILL VERBALIZE SIGNS AND SYMPTOMS OF HYPERTENSION AND WILL BE ABLE TO DEMONSTRATE ABILITY TO MANAGE EXACERBATION BY END OF THE EPISODE. Goal Provider Goal - PATIENT/CAREGIVER WILL VERBALIZE/DEMONSTRATE UNDERSTANDING OF TEACHING RELATED TO ALTERED SKIN INTEGRITY BY END OF CERTIFICATION PERIOD. Goal Provider Goal - PATIENT WILL VERBALIZE/DEMONSTRATE TOLERANCE TO CENTRAL LINE ACCESS PROCEDURE, IV MEDICATION ADMINISTRATION, AND DRESSING CHANGES ORDERED THROUGH CERTIFICATION PERIOD. Goal Provider Goal - SKILLED NURSE TO PERFORM LAB PROCEDURE AND REPORT RESULTS TO PHYSICIAN. Goal Provider Goal - PATIENT/CAREGIVER WILL UTILIZE VIRTUAL VISITS TO ACHIEVE GOALS OUTLINED ON THE PLAN OF CARE. PATIENT WILL HAVE SUPPORT MEASURES ESTABLISHED TO PREVENT HOSPITALIZATION AND PATIENT/CAREGIVER WILL VERBALIZE/DEMONSTRATE METHODS TO REDUCE AVOIDABLE HOSPITALIZATION THROUGHOUT THE CERTIFICATION PERIOD. Goal Provider Goal - PATIENT WILL HAVE SUPPORT MEASURES ESTABLISHED TO PREVENT HOSPITALIZATION AND ED USE AND PATIENT/CAREGIVER WILL VERBALIZE/DEMONSTRATE METHODS TO REDUCE AVOIDABLE HOSPITALIZATION AND ED USE BY END OF EPISODE. Goal Provider Goal - PATIENT/CAREGIVER WILL VERBALIZE UNDERSTANDING OF DISCHARGE PLANNING INSTRUCTIONS BY DATE OF DISCHARGE. Goal Provider Goal - PATIENT/CAREGIVER WILL VERBALIZE/DEMONSTRATE EFFECTIVE HOME SAFETY AND FALL PREVENTION STRATEGIES THROUGHOUT CERTIFICATION PERIOD. Goal Provider Goal - PATIENT/CAREGIVER WILL DEMONSTRATE UNDERSTANDING OF PHARMACOLOGIC AND NONPHARMACOLOGIC PAIN CONTROL MEASURES AND PATIENT WILL HAVE IMPROVEMENT IN PAIN INTERFERING WITH ACTIVITY EVIDENCED BY PAIN CONTROLLED AT LEVEL OF 7 OR LESS BY END OF CERTIFICATION PERIOD. Goal Provider Goal - PATIENT/CAREGIVER WILL VERBALIZE UNDERSTANDING OF PRESSURE ULCER PREVENTION BY END OF THE EPISODE. Goal Provider Goal - PATIENT/CAREGIVER WILL DEMONSTRATE MANAGEMENT OF SEPSIS A RESULT OF PARTICIPATION IN SEPSIS SPECIALTY PROGRAM. Reason for Visit INDEPENDENT IN THE COMMUNITY Encounters Start Date/Time End Date/Time Encounter Type Admission Type Attending [facility] Care Department Encounter ID Discharge Date Discharge Status Discharge Condition Discharge Reason Percent Goals Met 2024-04-17 00:00:00 2024-05-12 00:00:00 Outpatient NEW ADMISSION CIERA [facility]LL [facility] [id number] 2024-05-12 00:00:00 DISCHARGE TO HOME OR SELF CARE INDEPENDEN T IN THE COMMUNITY GOALS MET ( ONLY) 84.00
--- OUTSIDE RECORDS SUMMARY | 2024-09-28 16:12 | XMS_ITS | Patient Health Record ---
Author Organization [facility] Address [address] [place] [address] Care Team Providers Care Encoding Clerk Name Role Phone Karlee Herring MDh Primary Care Provider Yasmani Golden Unavailable [phone] REASON FOR REFERRAL No Information MEDICATIONS Medication SIG (Take, Route, Fr equency, Duration) Notes Start Date End Date Status traMADol HCl 50 MG 1 tablet as needed O rally 1 PO TID Active tiZANidine HCl Not-T aking Metaxalone 400 MG 1 tablet Orally PRN Active Naproxen 500 MG 1 tablet with food o r milk Orally Once a day prn Active SOCIAL HISTORY Tobacco Use: Social History Observation Description Date Details (start date - stop date) Never Smoker NA - NA Sex Assigned At : Social History Observation Description Sex Assigned At Unknown Tobacco Use/Smoking Question Answer Notes Patient is a nonsmoker Alcohol Screen Question Answer Notes Did you have a drink contain ing alcohol in the past year? Yes How often did you have a dri nk containing alcohol in the past year? Never (0 point) How many drinks did you have on a typical day when you were drinking in the past year? 1 or 2 drinks (0 point) How often did you have 6 or more drinks on one occasion in the past year? Never (0 point) Points 0 Interpretation Negative PROBLEMS Problem Type ICD Code Onset Dates Problem Status W/U Status Risk SNOMED Code Notes Problem Encounter for screening for malignant neoplasm of colon (Z12.11) Active confirmed [id number] Problem Preprocedural examination (Z01.818) Active confirmed [id number] PLAN OF TREATMENT Future Test Test Name Order Date COLONOSCOPY 03/09/2020 Insurance Providers Payer Name Payer Address Payer Phone Subscriber Number Group Number Insured Name Patient Relationship to Insured Coverage Start Date Coverage End Date [facility] [place] [employer] [place] [address] [place] [address] [id number] XANDER WEBER Self - patient is the insured MEDICAL (GENERAL) HISTORY Medical History History ICD Code Denies [place],DM,CVA,Lung disease,renal dise ase Chronic back pain Surgical History Surgery Date(Month/Year) Lower back Bilateral knees Bilateral shoulders [facility]Y
== END 2024-09-28 15:27 | disposition home or self-care (01) ==
PROVIDERS: PCP Internal Medicine; Visit Provider Physician Assistant
DX: J06.9 Acute upper respiratory infection, unspecified (principal)

== ENCOUNTER 2024-09-28 13:49 | Outpatient (REF) | payer BC, SELFPAY ==
--- NOTE | ~2024-09-28 | XR_ITS ---
EXAMINATION: XR CHEST CLINICAL INFORMATION: R05.9 - Cough, unspecified COMPARISON: None available. TECHNIQUE: 2 views of the chest were obtained. FINDINGS: No significant abnormality is noted involving the heart, lungs, mediastinum, bony thorax or soft tissues. XR/XR chest 2V IMPRESSION: Unremarkable chest examination. Electronically signed by: Willem Lin MD 09/28/2024 03:05 PM [facility]
--- OUTSIDE RECORDS SUMMARY | 2024-09-28 17:14 | XMS_ITS | Clinical Summary ---
Author Organization Unknown Care Team Providers Care Operating Table Assembler Name Role Phone NEFTALI OAKES, JENNIFER Unavailable Unavailable KIM GRIMALDO, FRANNIE Unavailable Unavailable ARABELLA GARCIA, CIERA Unavailable Unavailable Payers Payer Name Policy Type Policy Number Effective Date Expira tion Date [facility] [id number] Problems Condition Name Condition Details Condition Category [...] mg sublingual film 03-17 00:00: 00 Yes [id number] Per instruc tions 1 FILM EVERY DAY NEEDED FOR 32 DAYS Per instructio ns 1 FILM EVERY DAY NEEDED FOR 32 DAYS (route: sublingual ) Med Classific ation: Chemical Dependenc y, Agents to Treat buprenorphi ne 8 mg-naloxone 2 mg sublingual film 03-17 00:00: 00 Yes [id number] Per instruc tions TWICE A DAY Per instructio ns TWICE A DAY (route: sublingual ) Med Classific ation: Chemical Dependenc y, Agents to Treat acetaminoph en 500 mg tablet 04-17 00:00: 00 Yes [id number] 2 tablet EVERY 6 HOURS 2 tablet EVERY 6 HOURS (route: oral) Med Classific ation: Analgesic , Anti-infl ammatory or Antipyret ic ceftriaxone 2 gram solution for injection 04-17 00:00: 00 05-12 23:59 :00 No [id number] 2 g DAILY 2 g DAILY (route: injection) Med Classific ation: Anti-Infe ctive Agents lisinopril 5 mg tablet 04-17 00:00: 00 Yes [id number] 1 tablet DAILY 1 tablet DAILY (route: oral) Med Classific ation: Cardiovas cular Therapy Agents Vitamin D3 125 mcg (5,000 unit) tablet 04-17 00:00: 00 Yes [id number] 1 tablet DAILY 1 tablet DAILY (route: oral) Med Classific ation: Electroly te Balance-N utritiona l Products Voltaren Arthritis Pain 1 % topical gel 04-17 00:00: 00 Yes [id number] 1 inch 4 TIMES DAILY 1 inch [...] CARE WILL BE ESTABLISHED THAT MEETS PATIENT'S NURSING HOME NEEDS AND INCLUDES PATIENT GOAL FOR HOME [...] End Date/Time Encounter Type Admission Type Attending [facility] Care Department Encounter ID Discharge Date Discharge Status Discharge Condition Discharge Reason Percent Goals Met 2024-04-17 00:00:00 2024-05-12 00:00:00 Outpatient NEW ADMISSION [facility] [id number] 2024-05-12 00:00:00 DISCHARGE TO HOME OR SELF CARE INDEPENDEN T IN THE COMMUNITY GOALS MET ( ONLY) 84.00
--- OUTSIDE RECORDS SUMMARY | 2024-09-28 17:14 | XMS_ITS | Clinical Summary ---
Author Organization Unknown Care Team Providers Care Sand Miller Name Role Phone NEFTALI OAKES, JENNIFER Unavailable Unavailable KIM GRIMALDO, FRANNIE Unavailable Unavailable ARABELLA GARCIA, CIERA Unavailable Unavailable Payers Payer Name Policy Type Policy Number Effective Date Expira tion Date [facility] [id number] Problems Condition Name Condition Details Condition Category [...] mg sublingual film 03-17 00:00: 00 Yes [id number] Per instruc tions 1 FILM EVERY DAY NEEDED FOR 32 DAYS Per instructio ns 1 FILM EVERY DAY NEEDED FOR 32 DAYS (route: sublingual ) Med Classific ation: Chemical Dependenc y, Agents to Treat buprenorphi ne 8 mg-naloxone 2 mg sublingual film 03-17 00:00: 00 Yes [id number] Per instruc tions TWICE A DAY Per instructio ns TWICE A DAY (route: sublingual ) Med Classific ation: Chemical Dependenc y, Agents to Treat acetaminoph en 500 mg tablet 04-17 00:00: 00 Yes [id number] 2 tablet EVERY 6 HOURS 2 tablet EVERY 6 HOURS (route: oral) Med Classific ation: Analgesic , Anti-infl ammatory or Antipyret ic ceftriaxone 2 gram solution for injection 04-17 00:00: 00 05-12 23:59 :00 No [id number] 2 g DAILY 2 g DAILY (route: injection) Med Classific ation: Anti-Infe ctive Agents lisinopril 5 mg tablet 04-17 00:00: 00 Yes [id number] 1 tablet DAILY 1 tablet DAILY (route: oral) Med Classific ation: Cardiovas cular Therapy Agents Vitamin D3 125 mcg (5,000 unit) tablet 04-17 00:00: 00 Yes [id number] 1 tablet DAILY 1 tablet DAILY (route: oral) Med Classific ation: Electroly te Balance-N utritiona l Products Voltaren Arthritis Pain 1 % topical gel 04-17 00:00: 00 Yes [id number] 1 inch 4 TIMES DAILY 1 inch [...] CARE WILL BE ESTABLISHED THAT MEETS PATIENT'S [facility] NEEDS AND INCLUDES PATIENT GOAL FOR HOME [...] Date/Time Encounter Type Admission Type Attending [facility] Care Department Encounter ID Discharge Date Discharge Status Discharge Condition Discharge Reason Percent Goals Met 2024-04-17 00:00:00 2024-05-12 00:00:00 Outpatient NEW ADMISSION CIERA BELL [facility] [id number] 2024-05-12 00:00:00 DISCHARGE TO HOME OR SELF CARE INDEPENDEN T IN THE COMMUNITY GOALS MET ( ONLY) 84.00
[2024-09-28 17:57] LABS: Influenza A PCR NEGATIVE (Negative); Influenza B PCR NEGATIVE (Negative); Resp Syncy Virus RNA Qual PCR NEGATIVE (Negative); SARS COV2 PCR INHOUSE NEGATIVE (Negative)
== END 2024-09-28 13:50 | disposition home or self-care (01) ==
LOC: HO.HMGCX 13:49
PROVIDERS: PCP Internal Medicine; Visit Provider Physician Assistant
DX: R05.9 Cough, unspecified (principal); J06.9 Acute upper respiratory infection, unspecified
CPT/HCPCS: 0241U; 71046

== ENCOUNTER → 2024-09-28 14:50 | Outpatient (BNV) | payer BC, SELFPAY | PROVIDERS: PCP Internal Medicine; Visit Provider Radiology Diagnostic Radiology | DX: R05.9 Cough, unspecified (principal) | CPT/HCPCS: 71046 ==

== ENCOUNTER 2024-09-30 09:49 | Outpatient (REF) | payer BC, SELFPAY ==
[2024-09-30 13:52] LABS: Influenza A PCR NEGATIVE (Negative); Influenza B PCR NEGATIVE (Negative); Resp Syncy Virus RNA Qual PCR NEGATIVE (Negative); SARS COV2 PCR INHOUSE NEGATIVE (Negative)
== END 2024-09-30 09:50 | disposition home or self-care (01) ==
LOC: HO.LAB 09:49
PROVIDERS: Physician Assistant; PCP Internal Medicine
DX: J06.9 Acute upper respiratory infection, unspecified (principal); R09.89 Other specified symptoms and signs involving the circulatory and respiratory systems
CPT/HCPCS: 0241U; 94640

== ENCOUNTER 2024-09-30 09:49 | Outpatient (AMB) | payer BC, SELFPAY ==
--- NOTE | 2024-09-30 11:13 | AM.OFFWIN_ITS ---
Intake Vital Signs 09/30/24 11:15 Weight 243 lb BP 108/78 Blood Pressure Location Rt brachial Position Sitting Pulse 104 H Pulse Source Pulse Oximeter Temp 98.3 F Temp Source Oral Pulse Oximetry (%) 97 Oxygen Delivery Method Room Air Intake Visit Reasons: EP-chest congestion, cough, dizziness Intake Note: Patient here for cough, chest congestion and dizziness after coughing which has been present for about 1 week. Patient Tobacco Use Status: Former Tobacco user Allergies No Known Allergies [No Known Allergies*] Allergy (Verified 09/30/24 11:16) Do you need a note to return to daycare/school/sports/work: Yes HPI HPI Comments History of Present Illness Details Patient is a 53-year-old male complaining of productive cough with yellow mucus, chest congestion and dizziness with coughing which has been present for 10 days. -Denies fevers -Denies Sinus pain and ear pain -Little bit of Shortness of breath and w heezing -He denies a history of asthma or COPD. - has flu right now. -He has taken the following medications to try to make himself feel better; Mucinex, tylenol and codeine cough syrup with some relief. -He did not test at home for COVID. -eating and drinking okay -evaluated in this clinic 2 days ago, gi suhas pred 40x5d and cough syrup, CXR negative for acute findings, flu/covid/rsv negative. [facility] Medical History Vitamin D deficiency Diabetes mellitus Lumbar degenerative disc disease Left knee pain Cyst of perianal area Degenerative joint disease of right knee Obesity (BMI 30-39.9) Benign essential hypertension Surgical History H/O colonoscopy (~11/08/22) History of meniscectomy of right knee (~07/20/20) History of right knee surgery H/O lateral meniscus repair of right knee H/O lateral meniscus repair of left knee H/O lumbar discectomy History of arthroscopy of both shoulders History of laparoscopic cholecystectomy Family History Maternal Grandfather Bone cancer Other Family history non-contributory Social History Housing: House Alcohol intake: never Patient Tobacco Use Status: Former Tobacco user Years Smoked: 5 e-Cigarette/Vaping Use: Never Used Second Hand Smoke Exposure: Yes service: No Current occupational status: employed Current occupation: [employer] [place] [employer] - [employer] Current occupational exposures/hazards: No Cognitive needs: No Hearing needs: No Vision needs: No Review of Systems Const All systems reviewed & are unremarkable except as noted in HPI and below Physical Exam Vital Signs: Last Vital Signs Temp 98.3 F 09/30/24 11:15 Pulse 104 H 09/30/24 11:15 BP 108/78 09/30/24 11:15 Pulse Ox 97 09/30/24 11:15 Oxygen Delivery Method Room Air 09/30/24 11:15 Const General: cooperative, healthy appearing, comfortable and no acute distress Orientation/consciousness: patient oriented x3 Limitations: no limitations HEENT Head: Yes normal to inspection Ears: hearing grossly normal bilaterally, external ears normal and TM's normal bilaterally General nose exam: Normal external nose present, Normal nares present and No nasal discharge present Face and sinus: Yes normal facial exam and Yes sinuses nontender Mouth: Normal oral and palatal mucosa present and moist mucous membranes Throat: Yes tonsils normal, Yes uvula midline and Yes posterior oropharynx abnormal (Erythema) Eyes General: appearance normal, both eyes and all related structures Neck Neck: Yes normal visual inspection Resp Effort & Inspection: normal respiratory effort, able to speak in complete sentences, Actively coughing, no respiratory distress, not tachypneic, no tripod positioning and no use of accessory muscles Auscultation: clear to auscultation bilaterally Cardio Rate: regular rate Rhythm: regular rhythm Heart sounds: normal S1 and S2 Skin General skin exam: no rashes or lesions noted Neuro General: patient oriented x3 Extrem General: Yes normal to inspection and Yes no clubbing, cyanosis or edema Office Procedures Nebulizer Treatment Nebulizer Treatment [id number]/MDI RX initial, or Nebulizer Subsequent Treatment Office Meds ipratropium 0.5 mg-albuterol 3 mg (2.5 mg base)/3 mL nebulization soln Performing Provider: Frances Lo PA-C Performing Location: [employer] [facility] Administered by: Frances Lo PA-C on 09/30/24 12:04 Dose Route Admin Location Dispensed Lot Number Expiration Date NDC 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 No indication to repeat the chest x-ray, however I did repeat a flu COVID and RSV testing as his is flu positive so he likely is as well. Patient is recommended to continue the prednisone burst he was prescribed him use here, as well as the codeine cough syrup. If he experiences worsening of symptoms, he should go to the emergency department. Work note given for the next 2 days. Orders: Orders SARS-CoV2/FLU/RSV Today R09.89 - Other specified symptoms and signs involving the circulatory and respiratory systems AMB Nebulizer Treatment Today J06.9 - Acute upper respiratory infection, unspecified Medications: New ipratropium-albuterol 0.5 mg-3 mg(2.5 mg base)/3 mL 3 mL inhalation ONCE 3 mL 0RF coughing J06.9 - Acute upper respiratory infection, unspecified albuterol sulfate 90 mcg/actuation 2 puffs inhalation Q6H PRN 8.5 grams 0RF shortness of breath or wheezing or cough Coding Level of Care Code Est Pt Level 4 (85800) Diagnoses Acute upper respiratory infection J06.9 CPT Codes Nebulizer Treatment - Nebulizer Treatment, initial or subsequent: 94631- Nebulizer/MDI RX initial, or Nebulizer Subsequent Treatment ([id number])
[2024-09-30 11:15] VITALS: BP 108/78; PULSE 104; TEMP 36.8; O2SAT 97
--- OUTSIDE RECORDS SUMMARY | 2024-09-30 11:18 | XMS_ITS | Clinical Summary ---
Author Organization Unknown Care Team Providers Care Melter Clerk Name Role Phone NEFTALI OAKES, JENNIFER Unavailable Unavailable KIM GRIMALDO, FRANNIE Unavailable Unavailable ARABELLA GARCIA, CIERA Unavailable Unavailable Payers Payer Name Policy Type Policy Number Effective Date Expira tion Date [facility] [id number] Problems Condition Name Condition Details Condition Category [...] mg sublingual film 03-17 00:00: 00 Yes [id number] Per instruc tions 1 FILM EVERY DAY NEEDED FOR 32 DAYS Per instructio ns 1 FILM EVERY DAY NEEDED FOR 32 DAYS (route: sublingual ) Med Classific ation: Chemical Dependenc y, Agents to Treat buprenorphi ne 8 mg-naloxone 2 mg sublingual film 03-17 00:00: 00 Yes [id number] Per instruc tions TWICE A DAY Per instructio ns TWICE A DAY (route: sublingual ) Med Classific ation: Chemical Dependenc y, Agents to Treat acetaminoph en 500 mg tablet 04-17 00:00: 00 Yes [id number] 2 tablet EVERY 6 HOURS 2 tablet EVERY 6 HOURS (route: oral) Med Classific ation: Analgesic , Anti-infl ammatory or Antipyret ic ceftriaxone 2 gram solution for injection 04-17 00:00: 00 05-12 23:59 :00 No [id number] 2 g DAILY 2 g DAILY (route: injection) Med Classific ation: Anti-Infe ctive Agents lisinopril 5 mg tablet 04-17 00:00: 00 Yes [id number] 1 tablet DAILY 1 tablet DAILY (route: oral) Med Classific ation: Cardiovas cular Therapy Agents Vitamin D3 125 mcg (5,000 unit) tablet 04-17 00:00: 00 Yes [id number] 1 tablet DAILY 1 tablet DAILY (route: oral) Med Classific ation: Electroly te Balance-N utritiona l Products Voltaren Arthritis Pain 1 % topical gel 04-17 00:00: 00 Yes [id number] 1 inch 4 TIMES DAILY 1 inch [...] End Date/Time Encounter Type Admission Type Attending [facility] Care Department Encounter ID Discharge Date Discharge Status Discharge Condition Discharge Reason Percent Goals Met 2024-04-17 00:00:00 2024-05-12 00:00:00 Outpatient NEW ADMISSION CIERA BELL [facility] [id number] 2024-05-12 00:00:00 DISCHARGE TO HOME OR SELF CARE INDEPENDEN T IN THE COMMUNITY GOALS MET ( ONLY) 84.00
== END 2024-09-30 12:09 | disposition home or self-care (01) ==
PROVIDERS: PCP Internal Medicine; Visit Provider Physician Assistant
DX: J06.9 Acute upper respiratory infection, unspecified (principal)

== ENCOUNTER 2024-11-25 15:18 | Outpatient (AMB) | payer BC, SELFPAY ==
--- NOTE | 2024-11-25 15:25 | MHC.PC.OV ---
Vital Signs 11/25/24 15:26 Height 5 ft 8 in Weight 243 lb 6 oz BMI 37.0 BP 125/80 Blood Pressure Location Lt brachial Position Sitting Pulse 82 Pulse Source Pulse Oximeter Pulse Oximetry (%) 95 Oxygen Delivery Method Room Air Intake Visit Reasons: 4mth f/u Room Service Food Service Attendant Required: No Accompanied by: Self / Same As Patient Allergies No Known Allergies [No Known Allergies*] Allergy (Verified 11/25/24 15:26) Tobacco use date assessed: 11/25/24 Dental Screening Dental Screen Date: 11/25/24 Did you have a dental visit in the last 12 months?: No Did you have a dental problem in the last 6 months where you did not have access to dental care?: No Was dental information given to patient?: Patient has dentist HPI 4mth f/u HPI Details The patient was not able to get blood work done, a1c 10.8, requested to be started on mounjaro for weight loss, the patient is also a diabetic. [facility] Medical History Vitamin D deficiency Diabetes mellitus Lumbar degenerative disc disease Left knee pain Cyst of perianal area Degenerative joint disease of right knee Obesity (BMI 30-39.9) Benign essential hypertension Surgical History H/O colonoscopy (~11/08/22) History of meniscectomy of right knee (~07/20/20) History of right knee surgery H/O lateral meniscus repair of right knee H/O lateral meniscus repair of left knee H/O lumbar discectomy History of arthroscopy of both shoulders History of laparoscopic cholecystectomy Family History Maternal Grandfather Bone cancer Other Family history non-contributory Social History Housing: House Alcohol intake: never Patient Tobacco Use Status: Former Tobacco user Years Smoked: 5 e-Cigarette/Vaping Use: Never Used Second Hand Smoke Exposure: Yes service: No Current occupational status: employed 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 1. Little interest or pleasure in doing things: not at all 2. Feeling down, depressed, or hopeless: not at all 3. Trouble falling or staying asleep, or sleeping too much: not at all 4. Feeling tired or having little energy: not at all 5. Poor appetite or overeating: not at all 6. Feeling bad about yourself - or that you are a failure or have let yourself or your family down: not at all 7. Trouble concentrating on things, such as reading the newspaper or watching television: not at all 8. Moving or speaking so slowly that other people could have noticed. Or the opposite - being so fidgety or restless that you have been moving around a lot more than usual: not at all 9. Thoughts that you would be better off or of hurting yourself in some way: not at all Total score: 0 Depression Screening Interpretation: Negative Depression Screening Done: Yes 30452 - PHQ-9 Billing: Yes Source: Developed by Drs. Yasmani Hair, Tere Bundy, Yves Dietz and colleagues, with an educational leonora from [employer]. Thrive Questionnaire Date Thrive assessed: 11/25/24 I am a: Patient What is your living situation today?: I have a steady place to live Within the past 12 months, did the food you bought not last and you didn't have the money to get more?: Never true Within the past 12 months, did you worry whether your food would run out before you got money to buy more?: Never true Do you have trouble paying for medicines?: No Do you have trouble getting transportation to medical appointments?: No Do you have trouble paying your heating and electricity bill?: No Do you have trouble taking care of your child, family member or friend?: No Do you have trouble with day-to-day activities such as bathing, preparing meals, shopping, managing finances, etc.?: No Are you currently unemployed and looking for a job?: No Are you interested in more education?: No Please select the resources that you would like help with: None Currently or been in a relationship where the following occur: No concerns reported THRIVE Score: 0 AUDIT C Alcohol Use Questionnaire (AUDIT-C) 1. How often do you have a drink containing alcohol?: Never 3. How often do you have six or more drinks on one occasion?: Never Total Score: 0 Score Reviewed/Action Taken: Yes KIANNA-7 AMB Questionnaire KIANNA-7 Date KIANNA - 7 assessed: 11/25/24 Feeling nervous, anxious, or on edge: 0 = Not at all Not being able to stop or control worryin = Not at all Worrying too much about different things: 0 = Not at all Trouble relaxin = Not at all Being so restless that it is hard to sit still: 0 = Not at all Becoming easily annoyed or irritable: 0 = Not at all Feeling afraid as if something awful might happen: 0 = Not at all Total KIANNA-7 score (0-4 normal; 5-9 mild; 10-14 moderate; 15-21 severe): 0 Source: Developed by Drs. Yasmani Hair, Tere Bundy, Yves Dietz and colleagues, with an educational leonora from [employer]. Physical exam (Primary Care) Vital Signs: Last Vital Signs Pulse 82 11/25/24 15:26 BP 125/80 11/25/24 15:26 Pulse Ox 95 11/25/24 15:26 Oxygen Delivery Method Room Air 11/25/24 15:26 BMI result Body Mass Index 37.0 Tobacco/Smoking Status: Tobacco use Status Tobacco use date assessed 11/25/24 11/25/24 15:30 Patient Tobacco Use Status Former Tobacco user 11/25/24 15:30 e-Cigarette/Vaping Use Never Used 11/25/24 15:30 PHQ-9: PHQ-9 Score PHQ-9: Total score 0 11/25/24 16:09 Depression Screening Interpretation: Negative Thrive Assessment: Date of Thrive Assessment Date Thrive assessed 11/25/24 11/25/24 15:30 Currently or been in a relationship where the following occur: No concerns reported Results AMB Hemoglobin A1c AMB Hemoglobin A1c 10.8 % Last Edit by OLEG Temple on 11/25/24 16:11 Coding Additional Codes PHQ-9 - 57256 - PHQ-9 Billing: Yes ([id number]) Assessment & Plan Assessment & Plan Orders: Orders Complete Blood Count Auto Diff 3 Months E11.65 - Type 2 diabetes mellitus with hyperglycemia, E55.9 - Vitamin D deficiency, unspecified, E66.9 - Obesity, unspecified, I10 - Essential (primary) hypertension, R79.89 - Other specified abnormal findings of blood chemistry Comprehensive [place]. Panel Fast 3 Months E11.65 - Type 2 diabetes mellitus with hyperglycemia, E55.9 - Vitamin D deficiency, unspecified, E66.9 - Obesity, unspecified, I10 - Essential (primary) hypertension, R79.89 - Other specified abnormal findings of blood chemistry Lipid Panel 3 Months E11.65 - Type 2 diabetes mellitus with hyperglycemia, E55.9 - Vitamin D deficiency, unspecified, E66.9 - Obesity, unspecified, I10 - Essential (primary) hypertension, R79.89 - Other specified abnormal findings of blood chemistry Hemoglobin A1c 3 Months E11.65 - Type 2 diabetes mellitus with hyperglycemia, E55.9 - Vitamin D deficiency, unspecified, E66.9 - Obesity, unspecified, I10 - Essential (primary) hypertension, R79.89 - Other specified abnormal findings of blood chemistry Vitamin D 25-OH Total 3 Months E11.65 - Type 2 diabetes mellitus with hyperglycemia, E55.9 - Vitamin D deficiency, unspecified, E66.9 - Obesity, unspecified, I10 - Essential (primary) hypertension, R79.89 - Other specified abnormal findings of blood chemistry UA CC w/rflx Micro + Cult 3 Months E11.65 - Type 2 diabetes mellitus with hyperglycemia, E55.9 - Vitamin D deficiency, unspecified, E66.9 - Obesity, unspecified, I10 - Essential (primary) hypertension, R79.89 - Other specified abnormal findings of blood chemistry TSH reflex Free T4 3 Months E11.65 - Type 2 diabetes mellitus with hyperglycemia, E55.9 - Vitamin D deficiency, unspecified, E66.9 - Obesity, unspecified, I10 - Essential (primary) hypertension, R79.89 - Other specified abnormal findings of blood chemistry Glucose Fasting 3 Months E11.65 - Type 2 diabetes mellitus with hyperglycemia, E55.9 - Vitamin D deficiency, unspecified, E66.9 - Obesity, unspecified, I10 - Essential (primary) hypertension, R79.89 - Other specified abnormal findings of blood chemistry Medications: New tirzepatide (Mounjaro) for 4 weeks 2.5 mg (0.5 mL) subcut QWEEK 2 mL 3RF E11.65 - Type 2 diabetes mellitus with hyperglycemia
[2024-11-25 15:26] VITALS: BP 125/80; PULSE 82; O2SAT 95; BMI 37.0
== END 2024-11-25 16:14 | disposition home or self-care (01) ==
LOC: HO.HMCH 15:19
PROVIDERS: PCP Internal Medicine
DX: Z13.9 Encounter for screening, unspecified (principal)

== ENCOUNTER → 2024-11-25 15:18 | Outpatient (BNVA) | payer BC, SELFPAY | PROVIDERS: PCP Internal Medicine | DX: E55.9 Vitamin D deficiency, unspecified (principal); E11.65 Type 2 diabetes mellitus with hyperglycemia; M51.360 Other intervertebral disc degeneration, lumbar region with discogenic back pain only; M17.31 Unilateral post-traumatic osteoarthritis, right knee; I10 Essential (primary) hypertension; M25.562 Pain in left knee; E66.9 Obesity, unspecified; Z68.37 Body mass index [BMI] 37.0-37.9, adult; Z79.899 Other long term (current) drug therapy | CPT/HCPCS: 83036; 96127 ==

== ENCOUNTER 2024-11-26 15:50 | Emergency (ER) | payer BC, SELFPAY ==
--- NOTE | ~2024-11-26 | XR_ITS ---
EXAMINATION: XR WRIST, RIGHT CLINICAL INFORMATION: pain and swelling COMPARISON: None available. TECHNIQUE: PA, lateral, and oblique views of the right wrist. FINDINGS: The bones and soft tissues are normal. No fracture. Alignment is anatomic with normal joint spaces. No erosions or abnormal soft tissue calcifications. XR/XR wrist RT 2V IMPRESSION: Normal right wrist. Electronically signed by: Michael Walker MD 11/26/2024 04:54 PM EDT
[2024-11-26 16:19] VITALS: BP 119/78; PULSE 88; RESP 18; TEMP 36.7; O2SAT 94; BMI 37.0
--- NOTE | 2024-11-26 16:19 | ED.GENADULT ---
HPI - General Adult General Chief complaint: General Medical Stated complaint: Right hand swollen Time Seen by Provider: 11/26/24 21:36 Source: patient, RN notes reviewed and old records reviewed Mode of arrival: ambulatory History of Present Illness ED Provider: Didi Stallings PA-C HPI narrative: 54-year-old female with a past medical history of diabetes, obesity, HTN, septic arthritis, presenting to the ED complaining of atraumatic right hand pain and swelling since yesterday. Reports pain with ROM. Takes tramadol at home without relief. Denies known injury, trauma, fall, fever, chills, numbness, tingling, weakness, history of gout. Related Data Previous Rx's ?Medication ?Instructions ?Recorded acetaminophen 500 mg tablet 1,000 mg (2 x 500 mg) PO QID PRN 06/08/22 (Tylenol Extra Strength) fever or pain #14 tabs cholecalciferol (vitamin D3) 25 25 mcg PO DAILY #90 tabs 11/30/23 mcg (1,000 unit) tablet lisinopril 5 mg tablet 5 mg PO DAILY #90 tabs 05/20/24 prednisone 20 mg tablet 40 mg (2 x 20 mg) PO DAILY #8 tabs 09/28/24 promethazine 6.25 mg-codeine 10 5 ml PO Q6H PRN cough #118 mL 09/28/24 mg/5 mL syrup albuterol sulfate 90 mcg/actuation 2 puff inhalation Q6H PRN 09/30/24 aerosol inhaler shortness of breath or wheezing or cough #8.5 grams azithromycin 250 mg tablet See Rx Instructions PO .COMPLEX #6 09/30/24 tabs tramadol 50 mg tablet See Rx Instructions .Route 11/16/24 .COMPLEX pain 21 days #135 tabs tirzepatide 2.5 mg/0.5 mL 2.5 mg (0.5 mL) subcut QWEEK #2 mL 11/25/24 subcutaneous pen injector (Mounjaro) acetaminophen 500 mg tablet 500 mg PO Q6H PRN fever or pain 11/26/24 (Tylenol Extra Strength) #14 tabs diclofenac sodium 1 % topical gel 4 g topical QID #100 grams 11/26/24 (Arthritis Pain (diclofenac)) naproxen 500 mg tablet 500 mg PO BID PRN pain 10 days #20 11/26/24 tabs prednisone 20 mg tablet 40 mg (2 x 20 mg) PO DAILY 5 days 11/26/24 #10 tabs Allergies Allergy/AdvReac Type Severity Reaction Status Date / Time No Known Allergies Allergy Verified 11/26/24 16:22 [No Known Allergies*] Review of Systems Review of Systems: Yes all other systems are reviewed and are negative Constitutional: Constitutional: Reports as per [facility] Past Medical History Attestation statement: The following information was validated with the patient. Source: old records reviewed Medical History Vitamin D deficiency Diabetes mellitus Lumbar degenerative disc disease Left knee pain Cyst of perianal area Degenerative joint disease of right knee Obesity (BMI 30-39.9) Benign essential hypertension Surgical History H/O colonoscopy (~11/08/22) History of meniscectomy of right knee (~07/20/20) History of right knee surgery H/O lateral meniscus repair of right knee H/O lateral meniscus repair of left knee H/O lumbar discectomy History of arthroscopy of both shoulders History of laparoscopic cholecystectomy Family History Family History Maternal Grandfather Bone cancer Other Family history non-contributory Social History Social History Housing: House Unable to assess alcohol history related to: Unknown Alcohol intake: never Patient Tobacco Use Status: Former Tobacco user Years Smoked: 5 e-Cigarette/Vaping Use: Never Used Second Hand Smoke Exposure: Yes Use of substances other than those prescribed or required for medical reasons: Unknown Advance Directives: No Advance Directives Information Provided: No Do you have a plan to hurt others: No Plan service: No Current occupational status: employed 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 - [employer] Current occupational exposures/hazards: No Cognitive needs: No Hearing needs: No Vision needs: No Physical Exam ED Vital Signs: Vital Signs - 24 hr 11/26/24 16:19 11/26/24 21:57 11/26/24 22:32 Temperature 98.1 F 0 F L Pulse Rate 88 73 73 Respiratory Rate 18 16 16 Blood Pressure 119/78 140/80 H 140/80 H Pulse Oximetry 94 97 97 Oxygen Delivery Method Room Air Room Air Room Air BMI result Body Mass Index 37.0 Const General: cooperative, healthy appearing and no acute distress Orientation/consciousness: patient oriented x3 Limitations: no limitations HENMT Head: Yes normal to inspection and Yes atraumatic Ears: hearing grossly normal bilaterally General nose exam: Normal external nose present Face and sinus: Yes normal facial exam Eyes General: appearance normal, both eyes and all related structures EOM: EOMs intact bilaterally Neck Neck: Yes normal visual inspection and Yes no meningeal signs Resp Effort & Inspection: normal respiratory effort and no respiratory distress Cardio Rate: regular rate Skin Rashes: no rashes Wounds: no wounds Neuro General: patient oriented x3, tone normal and no meningeal signs Cranial nerves: Yes CN's II-XII intact bilaterally Gait exam (Neuro): Normal gait present Extrem Other: Right hand with mild swelling to volar aspect greatest at 2nd and 3rd MCPs and wrist. No erythema or warmth. No streaking. No fluctuance/induration. ROM intact with discomfort. [id number] opposition intact. No snuffbox tenderness. No pain with axial loading. Neurovascularly intact. Course Course Course Narrative: This is a rapid medical exam performed by Erica Haskins NP: Additional HPI, ROS, PE not included below will be deferred to primary provider. Patient is a 54-year-old male with history of septic arthritis, DM, HTN presenting with complaint of atraumatic right wrist pain for the past few days. Decreased ROM. Denies fevers. States feels similar to septic shoulder. Plan: labs, xray -2137--leukocytosis 12.4. ESR 31. CRP 3.77 -POC 265, no anion gap XR wrist RT 2V IMPRESSION: Normal right wrist. -uric acid level WNL > will treat patient for suspected arthritic flare/ ?possible gout Results discussed with patient including worrisome signs and symptoms and strict return precautions, and when to return to the emergency department. They verbalized understanding and feel safe for discharge at this time. Medications Administered Discontinued Medications Generic Name Dose Route Start Last Admin Trade Name Freq PRN Reason Stop Dose Admin Ibuprofen 600 mg 11/26/24 21:38 11/26/24 21:55 Ibuprofen 600 Mg Tablet PO 11/26/24 21:39 600 mg ONCE ONE Administration Morphine Sulfate 15 mg 11/26/24 21:48 11/26/24 21:56 Morphine Sulfate Immed Release 15 Mg Tablet PO 11/26/24 21:49 15 mg ONCE ONE Administration Prednisone 40 mg 11/26/24 21:48 11/26/24 21:55 Prednisone 20 Mg Tablet PO 11/26/24 21:49 40 mg ONCE ONE Administration Medical Decision Making Medical Decision Making [facility] Narrative: 54-year-old female with a past medical history of diabetes, obesity, HTN, septic arthritis, presenting to the ED complaining of atraumatic right hand pain and swelling since yesterday. On exam vital signs stable, NAD, nontoxic appearing, concern for osteoarthritis vs ? Gout vs fracture. Low suspicion for septic joint at this time or tenosynovitis or abscess or DVT Plan: Labs, x-ray, pain control Please refer to course for remaining clinical decision making, interpretation of labs/imaging results, and discussions with consultants and/or family members. Differential Diagnosis Differential Diagnoses: The differential diagnosis associated with the presentation includes As above Admission/Observation Consideration of admission/observation: Escalation of care including admission/observation considered Lab Data [facility] Lab Attestation statement: I reviewed the patient's lab results. 11/26/24 19:28 11/26/24 19:28 Labs: Lab Results 11/26/24 Range/Units 19:28 WBC 12.4 H (4.8-10.8) X10*3/uL RBC 4.72 (4.60-5.80) X10*6/uL Hgb 14.2 (14.0-18.0) g/dl Hct 40.3 L (42.0-52.0) % MCV 85.4 (80.0-98.0) fL MCH 30.1 (27.0-33.0) pg MCHC 35.2 (31.0-36.0) g/dl RDW 12.4 (11.0-16.0) % Plt Count 335 (160-400) X10*3/uL MPV 9.0 L (9.4-12.4) fL Immature Gran % (Auto) 0.4 (0.0-0.4) % Neut % (Auto) 70.4 (45-73) % Lymph % (Auto) 18.0 L (20-40) % [place] % (Auto) 7.7 (2-11) % Eos % (Auto) 3.0 (0-4) % Baso % (Auto) 0.5 (0-2) % Lymph # (Auto) 2.2 (1.2-4.9) X10*3/uL [place] # (Auto) 1.0 (0.1-1.2) X10*3/uL Eos # (Auto) 0.4 (0.0-0.4) X10*3/uL Baso # (Auto) 0.1 (0.0-0.2) X10*3/uL Abs Immat Gran (auto) 0.05 H (0.00-0.03) X10*3/uL Absolute Neuts (auto) 8.7 H (2.0-8.3) x10*3/uL Absolute Nucleated RBC 0.000 (0.0-0.012) X10*3/uL Nucleated RBC % (auto) 0.0 (0.0-0.2) /100WBC ESR 31 H (0-15) MM/HR Sodium 135 (135-145) mmol/L Potassium 4.4 (3.3-5.1) mmol/L Chloride 103 (96-108) mmol/L Carbon Dioxide 24 (22-29) mmol/L Anion Gap 12 (12-20) BUN 11 (9-16) mg/dL Creatinine 0.83 (0.5-1.4) mg/dL Estim Creat Clear Calc 121.1 Estimated GFR > 60 Random Glucose 265 H (60-115) mg/dL Uric Acid 4.0 (3.4-7.0) mg/dL Calcium 9.1 D (8.4-10.2) mg/dL Total Bilirubin 0.4 (0.0-1.0) mg/dL AST 21 (5-37) U/L ALT 31 (0-40) U/L Alkaline Phosphatase 95 (39-117) U/L C-Reactive Protein 3.77 H (< or = 0.50) mg/dL Total Protein 7.6 (6.5-8.0) g/dL Albumin 3.9 (3.5-5.0) g/dL Independent Interpretation I performed an independent interpretation of an: Plain X-Ray Radiology Impression Discussion of test interpretation with radiology: I have reviewed the radiologist's reading. External Record Review External record reviewed: Inpatient record, Office record, Outpatient record, Prior outpatient labs, Prior outpatient radiology, Primary care record and Outside ED record Tests considered The following testing was considered but not selected: As above Prescription Management I considered prescription management with: Pain Medication Chronic Conditions Patient?s care impacted by: Diabetes and Other Social Determinants Patient?s care significantly limited by Social Determinants of Health including: Other Social Determinant of Health Discharge Plan Discharge Clinical Impression: Hand pain, right Patient Disposition: Home, Self-Care Instructions: Arthralgia (ED) Additional Instructions: Your blood work and x-ray are reassuring Prednisone as a steroid which will help with swelling and pain, please take as prescribed until completion In addition take naproxen, Tylenol, and use diclofenac topical gel as prescribed You were given a dose of morphine in the ED, continue to take tramadol Follow up with her doctor as well as Orthopedics as needed If area turns red, pain is unbearable, you have fever, you are unable to move her hand return to the ED Prescriptions: New prednisone 20 mg tablet 40 mg PO DAILY 5 Days Qty: 10 0RF acetaminophen [Tylenol Extra Strength] 500 mg tablet 500 mg PO Q6H PRN (Reason: fever or pain) Qty: 14 0RF naproxen 500 mg tablet 500 mg PO BID PRN (Reason: pain) 10 Days Qty: 20 0RF diclofenac sodium [Arthritis Pain (diclofenac)] 1 % gel 4 g topical QID Qty: 100 0RF Rx Instructions: apply to single knee, ankle, foot; for foot includes sole/toes/top of foot No Action cholecalciferol (vitamin D3) 25 mcg (1,000 unit) tablet 25 mcg PO DAILY Qty: 90 3RF lisinopril 5 mg tablet 5 mg PO DAILY Qty: 90 1RF azithromycin 250 mg tablet See Rx Instructions PO .COMPLEX Qty: 6 0RF Rx Instructions: For 250 mg dose pack: take 500 mg today (day 1), then 250 mg for 4 days (days 2-5) PO tramadol 50 mg tablet See Rx Instructions .ROUTE .COMPLEX 21 Days Qty: 135 0RF Rx Instructions: 1 to 2 tablets 3 times a day as needed for increased pain over the lower back; acetaminophen [Tylenol Extra Strength] 500 mg tablet 1,000 mg PO QID PRN (Reason: fever or pain) Qty: 14 0RF prednisone 20 mg tablet 40 mg PO DAILY Qty: 8 0RF promethazine-codeine 6.25-10 mg/5 mL syrup 5 ml PO Q6H PRN (Reason: cough) Qty: 118 0RF albuterol sulfate 90 mcg/actuation HFA aerosol inhaler 2 puff inhalation Q6H PRN (Reason: shortness of breath or wheezing or cough) Qty: 8.5 0RF Mounjaro 2.5 mg/0.5 mL pen injector 2.5 mg subcut QWEEK Qty: 2 3RF Rx Instructions: for 4 weeks Referrals: [facility] [Provider Group] - 5 days Randolph Herring MD [Primary Care Provider] - 2 days Stand Alone Forms: Work/School Release Interventions: ED Discharge Assessment Last Done: 11/26/24 22:32 Discharge Date/Time: 11/26/24 22:32 Print Language: Spanish
[2024-11-26 19:39] LABS: MANUAL DIFF FLAG NO
[2024-11-26 19:41] LABS: Basophils Absolute Auto 0.1 X10*3/uL (0.0-0.2); Basophils Percent Auto 0.5 % (0-2); Eosinophils Absolute Auto 0.4 X10*3/uL (0.0-0.4); Hematocrit 40.3 % (42.0-52.0); Hemoglobin 14.2 g/dl (14.0-18.0); Imm Gran Abs Auto 0.05 X10*3/uL (0.00-0.03); Imm Gran Pct Auto 0.4 % (0.0-0.4); Lymphocytes Absolute Auto 2.2 X10*3/uL (1.2-4.9); Mean Corpuscular HGB Conc 35.2 g/dl (31.0-36.0); Mean Corpuscular Hemoglobin 30.1 pg (27.0-33.0); Mean Corpuscular Volume 85.4 fL (80.0-98.0); Monocytes Percent Auto 7.7 % (2-11); Neutrophils Absolute Auto 8.7 x10*3/uL (2.0-8.3); Neutrophils Percent Auto 70.4 % (45-73); Platelet Count 335 X10*3/uL (160-400); Red Blood Count 4.72 X10*6/uL (4.60-5.80); Red Cell Distribution Width 12.4 % (11.0-16.0); White Blood Count 12.4 X10*3/uL (4.8-10.8)
[2024-11-26 19:57] LABS: Alanine Aminotransferase 31 U/L (0-40); Albumin Level 3.9 g/dL (3.5-5.0); Alkaline Phosphatase 95 U/L (39-117); Anion Gap 12 (12-20); Aspartate Amino Transferase 21 U/L (5-37); Bilirubin Total 0.4 mg/dL (0.0-1.0); Blood Urea Nitrogen 11 mg/dL (9-16); C Reactive Protein 3.77 mg/dL (< or = 0.50); Calcium 9.1 mg/dL (8.4-10.2); Carbon Dioxide 24 mmol/L (22-29); Chloride 103 mmol/L (96-108); Creatinine Clr Calc Pharmacy 121.1; Estimated Glomerular Filt Rate > 60; Glucose Random 265 mg/dL (60-115); Potassium 4.4 mmol/L (3.3-5.1); Sodium 135 mmol/L (135-145); Total Protein 7.6 g/dL (6.5-8.0)
[2024-11-26 20:19] LABS: Erythrocyte Sedimentation Rate 31 MM/HR (0-15)
[2024-11-26] MEDS: Ibuprofen 600 MG TABLET PO (21:55)
[2024-11-26] MEDS: predniSONE 20 MG TABLET 40 MG PO (21:55)
[2024-11-26] MEDS: Morphine Sulfate Immed Release 15 MG TABLET PO (21:56)
[2024-11-26 21:57] VITALS: BP 140/80; PULSE 73; RESP 16; O2SAT 97
[2024-11-26 22:32] VITALS: BP 140/80; PULSE 73; RESP 16; TEMP -17.7; TEMP 0; O2SAT 97
== END 2024-11-26 22:32 | disposition home or self-care (01) ==
PROVIDERS: Physician Assistant; Registered Nurse Emergency; Emergency Provider Emergency Medicine; PCP Internal Medicine
DX: M79.641 Pain in right hand (principal); M25.531 Pain in right wrist; M79.89 Other specified soft tissue disorders; Z79.899 Other long term (current) drug therapy; Z87.891 Personal history of nicotine dependence
CPT/HCPCS: 36415; 73100; 80053; 84550; 85025; 85652; 86140; 99283; 99284

== ENCOUNTER → 2024-11-26 16:20 | Outpatient (BNV) | payer BC, SELFPAY | PROVIDERS: PCP Internal Medicine; Visit Provider Radiology Diagnostic Radiology | DX: M25.531 Pain in right wrist (principal); R22.31 Localized swelling, mass and lump, right upper limb | CPT/HCPCS: 73100 ==

== ENCOUNTER 2025-02-01 22:52 | Emergency (ER) | payer BC, SELFPAY ==
--- NOTE | ~2025-02-01 | XR_ITS ---
CLINICAL HISTORY: pain, unknown injury 4 view left knee Comparison: CR/SR - XR KNEE LT 4V - 06/08/22 14:52 EDT Findings: Osteopenia. No acute fracture. Mild tricompartmental joint space narrowing. Probable small joint effusion. No radiopaque foreign body. Anterior soft tissue swelling. IMPRESSION: No acute fracture. This document has been electronically signed by: Vignesh Lopez MD on 02/01/2025 23:39:01
--- NOTE | ~2025-02-01 | US_ITS ---
CLINICAL HISTORY: r o dvt Venous duplex ultrasound left lower extremity Comparison: None Findings: The visualized deep veins are fully compressible with normal Doppler color flow and spectral tracings. Left popliteal fossa fluid collection measuring 1.7 x 0.5 x 1.4 cm, consistent with Ryan's cyst. Incidental left groin nodes mildly prominent measuring 0.9 cm in 3 cm, with normal morphology. IMPRESSION: Negative for left lower extremity deep vein thrombosis. Small Ryan's cyst. This document has been electronically signed by: Vignesh Lopez MD on 02/01/2025 23:59:09
[2025-02-01 22:54] VITALS: BP 131/83; PULSE 102; RESP 18; TEMP 37.2; O2SAT 99; BMI 34.5
[2025-02-01 23:55] LABS: Basophils Absolute Auto 0.1 X10*3/uL (0.0-0.2); Basophils Percent Auto 0.6 % (0-2); Eosinophils Absolute Auto 0.3 X10*3/uL (0.0-0.4); Hematocrit 42.5 % (42.0-52.0); Hemoglobin 14.3 g/dl (14.0-18.0); Imm Gran Abs Auto 0.04 X10*3/uL (0.00-0.03); Imm Gran Pct Auto 0.3 % (0.0-0.4); Lymphocytes Percent Auto 13.9 % (20-40); MANUAL DIFF FLAG NO; Mean Corpuscular HGB Conc 33.6 g/dl (31.0-36.0); Mean Corpuscular Hemoglobin 29.2 pg (27.0-33.0); Mean Corpuscular Volume 86.9 fL (80.0-98.0); Mean Platelet Volume 9.3 fL (9.4-12.4); Monocytes Absolute Auto 1.5 X10*3/uL (0.1-1.2); Monocytes Percent Auto 10.2 % (2-11); Neutrophils Absolute Auto 10.4 x10*3/uL (2.0-8.3); Platelet Count 314 X10*3/uL (160-400); Red Blood Count 4.89 X10*6/uL (4.60-5.80); White Blood Count 14.2 X10*3/uL (4.8-10.8)
[2025-02-02 00:09] LABS: Lactic Acid 1.2 mmol/L (0.5-2.0)
[2025-02-02 00:10] LABS: Alanine Aminotransferase 34 U/L (0-40); Albumin Level 4.2 g/dL (3.5-5.0); Alkaline Phosphatase 99 U/L (39-117); Anion Gap 16 (12-20); Aspartate Amino Transferase 23 U/L (5-37); Blood Urea Nitrogen 12 mg/dL (9-16); Calcium 9.4 mg/dL (8.4-10.2); Carbon Dioxide 25 mmol/L (22-29); Chloride 99 mmol/L (96-108); Creatinine Clr Calc Pharmacy 91.2; Estimated Glomerular Filt Rate > 60; Glucose Random 148 mg/dL (60-115); Potassium 4.5 mmol/L (3.3-5.1); Sodium 135 mmol/L (135-145); Total Protein 7.5 g/dL (6.5-8.0)
--- NOTE | 2025-02-02 01:21 | ED.GENADULT ---
HPI - General Adult General Chief complaint: Extremity Injury, Lower Stated complaint: Left Knee Injury, Swollen Time Seen by Provider: 02/02/25 00:41 Source: patient Mode of arrival: ambulatory Limitations: no limitations History of Present Illness ED Provider: Cynthia Manning NP HPI narrative: Patient is a 54-year-old male who presents emergency department for evaluation of left knee pain. He admits onset pain upon awakening this morning. Said he does state that yesterday he went for a jog/run she does not typically do on frequent occasion. He is complaining of pain diffusely throughout the knee but also swelling to the posterior knee. Denies any redness, warmth, fevers, chills, rashes or lesions. Denies overt precipitating injury. Denies prior history of pain to this knee. No chest pain, shortness of breath, history of VTE/malignancy, lower extremity swelling numbness or tingling Related Data Previous Rx's ?Medication ?Instructions ?Recorded acetaminophen 500 mg tablet 1,000 mg (2 x 500 mg) PO QID PRN 06/08/22 (Tylenol Extra Strength) fever or pain #14 tabs lisinopril 5 mg tablet 5 mg PO DAILY #90 tabs 05/20/24 prednisone 20 mg tablet 40 mg (2 x 20 mg) PO DAILY #8 tabs 09/28/24 promethazine 6.25 mg-codeine 10 5 ml PO Q6H PRN cough #118 mL 09/28/24 mg/5 mL syrup albuterol sulfate 90 mcg/actuation 2 puff inhalation Q6H PRN 09/30/24 aerosol inhaler shortness of breath or wheezing or cough #8.5 grams azithromycin 250 mg tablet See Rx Instructions PO .COMPLEX #6 09/30/24 tabs acetaminophen 500 mg tablet 500 mg PO Q6H PRN fever or pain 11/26/24 (Tylenol Extra Strength) #14 tabs diclofenac sodium 1 % topical gel 4 g topical QID #100 grams 11/26/24 (Arthritis Pain (diclofenac)) naproxen 500 mg tablet 500 mg PO BID PRN pain 10 days #20 11/26/24 tabs prednisone 20 mg tablet 40 mg (2 x 20 mg) PO DAILY 5 days 11/26/24 #10 tabs cholecalciferol (vitamin D3) 25 25 mcg PO DAILY #90 tabs 01/03/25 mcg (1,000 unit) tablet tramadol 50 mg tablet See Rx Instructions .Route 01/28/25 .COMPLEX pain 30 days #180 tabs tirzepatide 5 mg/0.5 mL 5 mg (0.5 mL) subcut QWEEK 4 weeks 01/31/25 subcutaneous pen injector #2 mL naproxen 500 mg tablet 500 mg PO BID PRN pain #14 tabs 02/02/25 Allergies Allergy/AdvReac Type Severity Reaction Status Date / Time No Known Allergies Allergy Verified 02/01/25 22:58 [No Known Allergies*] Review of Systems Review of Systems: Yes all other systems are reviewed and are negative [facility] Past Medical History Attestation statement: The following information was validated with the patient. Source: old records reviewed Medical History Vitamin D deficiency Diabetes mellitus Lumbar degenerative disc disease Left knee pain Cyst of perianal area Degenerative joint disease of right knee Obesity (BMI 30-39.9) Benign essential hypertension Surgical History H/O colonoscopy (~11/08/22) History of meniscectomy of right knee (~07/20/20) History of right knee surgery H/O lateral meniscus repair of right knee H/O lateral meniscus repair of left knee H/O lumbar discectomy History of arthroscopy of both shoulders History of laparoscopic cholecystectomy Family History Family History Maternal Grandfather Bone cancer Other Family history non-contributory Social History Social History Housing: House Unable to assess alcohol history related to: Unknown Alcohol intake: never Patient Tobacco Use Status: Former Tobacco user Years Smoked: 5 e-Cigarette/Vaping Use: Never Used Second Hand Smoke Exposure: Yes Advance Directives: No Do you have a plan to hurt others: No Plan service: No Current occupational status: employed 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 No acute distress.?Normal affect. CVS: Heart sounds normal. Normal heart rate and rhythm.? Pulses normal.?? Respiratory: No respiratory distress.? Lung sounds clear to auscultation bilaterally?? Skin: Skin warm and dry.? Normal skin color.? Extremities: Small effusion to the left knee no overt swelling anteriorly, localized swelling to the posterior knee with tenderness upon palpation. No calf tenderness. No erythema or warmth. No rashes or lesions. 2+ DP/PT pulse. No laxity. No obvious deformity. Neuro: Moves all extremities spontaneously. Sensation intact bilaterally. . Ambulates with antalgic gait. Medical Decision Making Medical Decision Making [facility] Narrative: Patient is a 54-year-old male presents emergency department for evaluation of left knee pain and swelling as per HPI. Onset day following extensive exercise activity that he would not typically performed. Extremities neurovascularly intact distally. There is no signs of septic joint at the time my evaluation lack of redness warmth, no signs of systemic toxicity he is afebrile. There are no rashes or lesions. No overt trauma to suggest acute fracture dislocation. An XR was obtained prior to my assumption of care and show some mild arthritic changes otherwise no acute osseous abnormality. Venous duplex ultrasound of the pain a mother's no evidence of DVT does have a popliteal cyst. His calf is nontender on examination, no evidence of compartment syndrome, do not suspect rupture or leakage of the cyst. We reviewed conservative treatment including rest, ice, elastic bandage for compression, elevation, NSAID use in addition to his tramadol prescribed for chronic arthritic pains. Outpatient follow-up with PCP/Orthopedics. Provided with crutches. Reviewed worrisome signs and symptoms that would warrant re-evaluation emergency department. All questions answered. Differential Diagnosis Differential Diagnoses: The differential diagnosis associated with the presentation includes (See narrative above) Admission/Observation Consideration of admission/observation: Escalation of care including admission/observation considered Lab Data [facility] Lab Attestation statement: I reviewed the patient's lab results. CBC reveals a mild leukocytosis unfortunately 1200 may be inflammatory in nature, no anemia or thrombocytopenia. No electrolyte no AARON. LFTs unremarkable. 02/01/25 23:47 02/01/25 23:47 Labs: Lab Results 02/01/25 Range/Units 23:47 WBC 14.2 H (4.8-10.8) X10*3/uL RBC 4.89 (4.60-5.80) X10*6/uL Hgb 14.3 (14.0-18.0) g/dl Hct 42.5 (42.0-52.0) % MCV 86.9 (80.0-98.0) fL MCH 29.2 (27.0-33.0) pg MCHC 33.6 (31.0-36.0) g/dl RDW 12.0 (11.0-16.0) % Plt Count 314 (160-400) X10*3/uL MPV 9.3 L (9.4-12.4) fL Immature Gran % (Auto) 0.3 (0.0-0.4) % Neut % (Auto) 73.0 (45-73) % Lymph % (Auto) 13.9 L (20-40) % Guthrie % (Auto) 10.2 (2-11) % Eos % (Auto) 2.0 (0-4) % Baso % (Auto) 0.6 (0-2) % Lymph # (Auto) 2.0 (1.2-4.9) X10*3/uL Guthrie # (Auto) 1.5 H (0.1-1.2) X10*3/uL Eos # (Auto) 0.3 (0.0-0.4) X10*3/uL Baso # (Auto) 0.1 (0.0-0.2) X10*3/uL Abs Immat Gran (auto) 0.04 H (0.00-0.03) X10*3/uL Absolute Neuts (auto) 10.4 H (2.0-8.3) x10*3/uL Absolute Nucleated RBC 0.000 (0.0-0.012) X10*3/uL Nucleated RBC % (auto) 0.0 (0.0-0.2) /100WBC Sodium 135 (135-145) mmol/L Potassium 4.5 (3.3-5.1) mmol/L Chloride 99 (96-108) mmol/L Carbon Dioxide 25 (22-29) mmol/L Anion Gap 16 (12-20) BUN 12 (9-16) mg/dL Creatinine 1.03 (0.5-1.4) mg/dL Estim Creat Clear Calc 91.2 Estimated GFR > 60 Random Glucose 148 H (60-115) mg/dL Lactic Acid 1.2 (0.5-2.0) mmol/L Calcium 9.4 (8.4-10.2) mg/dL Total Bilirubin 1.0 (0.0-1.0) mg/dL AST 23 (5-37) U/L ALT 34 (0-40) U/L Alkaline Phosphatase 99 (39-117) U/L Total Protein 7.5 (6.5-8.0) g/dL Albumin 4.2 (3.5-5.0) g/dL Independent Interpretation I performed an independent interpretation of an: Plain X-Ray (See narrative above) Radiology Impression Discussion of test interpretation with radiology: I have reviewed the radiologist's reading. Radiologist Impression: 4 view left knee Comparison: CR/SR - XR KNEE LT 4V - 06/08/22 14:52 EDT Findings: Osteopenia. No acute fracture. Mild tricompartmental joint space narrowing. Probable small joint effusion. No radiopaque foreign body. Anterior soft tissue swelling. IMPRESSION: No acute fracture. Venous duplex ultrasound left lower extremity Comparison: None Findings: The visualized deep veins are fully compressible with normal Doppler color flow and spectral tracings. Left popliteal fossa fluid collection measuring 1.7 x 0.5 x 1.4 cm, consistent with Ryan's cyst. Incidental left groin nodes mildly prominent measuring 0.9 cm in 3 cm, with normal morphology. IMPRESSION: Negative for left lower extremity deep vein thrombosis. Small Ryan's cyst. External Record Review External record reviewed: Outpatient record Chronic Conditions Patient?s care impacted by: Other (see PMFSH section) Discharge Plan Discharge Clinical Impression: Acute knee pain, Popliteal cyst Patient Disposition: Home, Self-Care Instructions: Crutch Instructions (ED), Ryan Cyst (ED), Knee Pain (ED) Additional Instructions: As discussed, imaging today reveals mild arthritic changes in the left knee, fracture dislocation. Ultrasound reveals no evidence of DVT, there is however evidence of a Ryan cyst. Given the onset of pain after running yesterday, it is possible that pain is due to a sprain/strain, in the popliteal cyst was as incidental. However as discussed, popliteal cyst can be very painful as well. For this, it is recommended that you rest over the next few days, apply ice for 10-15 minutes 3-4 times daily, use elastic bandage for compression, elevate the leg above the level of your chest when possible, use crutches as provided to offload the week, a prescription for naproxen has been sent to your pharmacy to use in addition to your tramadol. Do not take additional OTC NSAIDs such as ibuprofen/Advil/Motrin, Aleve or aspirin while taking this medication. You may follow-up with PCP/orthopedist with persistent symptoms. Return with any new or worsening symptoms or concerns. Prescriptions: New naproxen 500 mg tablet 500 mg PO BID PRN (Reason: pain) Qty: 14 0RF No Action lisinopril 5 mg tablet 5 mg PO DAILY Qty: 90 1RF azithromycin 250 mg tablet See Rx Instructions PO .COMPLEX Qty: 6 0RF Rx Instructions: For 250 mg dose pack: take 500 mg today (day 1), then 250 mg for 4 days (days 2-5) PO cholecalciferol (vitamin D3) 25 mcg (1,000 unit) tablet 25 mcg PO DAILY Qty: 90 3RF tramadol 50 mg tablet See Rx Instructions .ROUTE .COMPLEX 30 Days Qty: 180 0RF Rx Instructions: 1 to 2 tablets 3 times a day as needed for increased pain over the lower back; tirzepatide 5 mg/0.5 mL pen injector 5 mg subcut QWEEK 28 Days Qty: 2 1RF acetaminophen [Tylenol Extra Strength] 500 mg tablet 1,000 mg PO QID PRN (Reason: fever or pain) Qty: 14 0RF prednisone 20 mg tablet 40 mg PO DAILY 5 Days Qty: 10 0RF acetaminophen [Tylenol Extra Strength] 500 mg tablet 500 mg PO Q6H PRN (Reason: fever or pain) Qty: 14 0RF naproxen 500 mg tablet 500 mg PO BID PRN (Reason: pain) 10 Days Qty: 20 0RF diclofenac sodium [Arthritis Pain (diclofenac)] 1 % gel 4 g topical QID Qty: 100 0RF Rx Instructions: apply to single knee, ankle, foot; for foot includes sole/toes/top of foot prednisone 20 mg tablet 40 mg PO DAILY Qty: 8 0RF promethazine-codeine 6.25-10 mg/5 mL syrup 5 ml PO Q6H PRN (Reason: cough) Qty: 118 0RF albuterol sulfate 90 mcg/actuation HFA aerosol inhaler 2 puff inhalation Q6H PRN (Reason: shortness of breath or wheezing or cough) Qty: 8.5 0RF Referrals: Randolph Herring MD [Primary Care Provider] - Print Language: [place]
--- NOTE | 2025-02-02 02:05 | PC.NURSE ---
provider into assess pt, louise wrapped applied to left knee, education on crutches, reviewed discharge instructions with pt. pt verbalized understanding, no sign of distress upon discharge.
[2025-02-02 02:07] VITALS: BP 121/73; PULSE 96; RESP 20; TEMP 37.1; O2SAT 95
== END 2025-02-02 02:29 | disposition home or self-care (01) ==
PROVIDERS: Emergency Provider Emergency Medicine; PCP Internal Medicine
DX: M25.562 Pain in left knee (principal); M71.22 Synovial cyst of popliteal space [Baker], left knee; M25.462 Effusion, left knee; M79.89 Other specified soft tissue disorders; E11.8 Type 2 diabetes mellitus with unspecified complications; I10 Essential (primary) hypertension; Z79.899 Other long term (current) drug therapy; Z79.4 Long term (current) use of insulin
CPT/HCPCS: 36415; 73564; 80053; 83605; 85025; 93971; 99284

== ENCOUNTER → 2025-02-01 23:05 | Outpatient (BNV) | payer BC, SELFPAY | PROVIDERS: Visit Provider Radiology Diagnostic Radiology | DX: M71.22 Synovial cyst of popliteal space [Baker], left knee (principal); M25.562 Pain in left knee | CPT/HCPCS: 73564; 93971 ==

== ENCOUNTER 2025-03-15 06:39 | Outpatient (REF) | payer BC, SELFPAY ==
--- NOTE | ~2025-03-15 | XR_ITS ---
EXAMINATION: XR KNEE, LEFT CLINICAL INFORMATION: M25.562 - Pain in left knee COMPARISON: None available. TECHNIQUE: AP standing bilateral knee sunrise view of the left knee. FINDINGS: There is mild medial joint space narrowing. Small marginal osteophyte is present on the medial patella. There is no soft tissue calcification. XR/XR knee LT 2V IMPRESSION: Mild nonspecific medial joint space narrowing. Electronically signed by: Aaron Feliz MD 03/15/2025 03:36 PM EDT
== END 2025-03-15 06:40 | disposition home or self-care (01) ==
LOC: HO.HOSX 06:39
PROVIDERS: Visit Provider Physician Assistant
DX: M25.562 Pain in left knee (principal); Z13.1 Encounter for screening for diabetes mellitus
CPT/HCPCS: 73560; 83036

== ENCOUNTER 2025-03-15 10:32 | Outpatient (AMB) | payer BC, SELFPAY ==
--- NOTE | 2025-03-15 10:55 | MHC.OFFVIS ---
Intake Visit Reasons: ER- Acute LT knee pain, Popliteal cyst Intake Note: Isaiah is a 54 year old male who presents for an ER follow up of left knee pain and swelling. Patient was seen [place] [facility] [place]25 due to waking up with an onset of pain. He mentioned at his viist that the day before he went on a jog/run. X-rays where taken which revealed a ryan cyst, he was referred to orthopedics. Patient reports having this happen twice in the past 2 months. He has no pain or discomfort as of right knee however he is questioning if there is a tear in his knee. He mentions that he has been working out and had lost over 50 pounds. Allergies No Known Allergies (No Known Allergies*) Allergy (Verified 03/15/25 10:56) Medication List - Last Reconciled 03/15/25 by Flora Peng PA-C cholecalciferol (vitamin D3) 25 mcg PO DAILY lisinopril 5 mg PO DAILY tirzepatide 5 mg (0.5 mL) subcut QWEEK 4 weeks tramadol 1 to 2 tablets 3 times a day as needed for increased pain over the lower back; 30 days HPI HPI ER- Acute LT knee pain, Popliteal cyst: Details: 54-year-old gentleman presents to the office today for pain in the left knee that has been ongoing for several months. 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 He also has discomfort with activities such as twisting or pivoting. He develops a sharp shooting pain along the medial aspect of the knee. [facility] Medical History Vitamin D deficiency Diabetes mellitus Lumbar degenerative disc disease Left knee pain Cyst of perianal area Degenerative joint disease of right knee Obesity (BMI 30-39.9) Benign essential hypertension Surgical History H/O colonoscopy (~11/08/22) History of meniscectomy of right knee (~07/20/20) History of right knee surgery H/O lateral meniscus repair of right knee H/O lateral meniscus repair of left knee H/O lumbar discectomy History of arthroscopy of both shoulders History of laparoscopic cholecystectomy Family History Maternal Grandfather Bone cancer Other Family history non-contributory Social History Housing: House Unable to assess alcohol history related to: Unknown Alcohol intake: never Patient Tobacco Use Status: Former Tobacco user Years Smoked: 5 e-Cigarette/Vaping Use: Never Used Second Hand Smoke Exposure: Yes service: No Current occupational status: employed 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 - [employer] Current occupational exposures/hazards: No Cognitive needs: No Hearing needs: No Vision needs: No Review of Systems Const All systems reviewed & are unremarkable except as noted in HPI and below Physical Exam Const General: cooperative and no acute distress Orientation/consciousness: patient oriented x3 Resp Effort & Inspection: normal respiratory effort and able to speak in complete sentences Cardio Peripheral pulses: Peripheral pulses 2+ throughout Neuro General: patient oriented x3 Extrem Other: Left knee is normal to inspection he does have significant tenderness on the medial joint line with a positive Cain's. Range of motion is full with crepitus. Calf is supple and nontender neurovascularly intact. Results Reviewed Results Reviewed: X-rays of the left knee obtained in the office today and reviewed by me show well-preserved joint space with mild medial compartment narrowing. Assessment & Plan Assessment & Plan (1) Internal derangement of left knee: Code(s): M23.92 - Unspecified internal derangement of left knee Category: Medical Plan: We discussed options today and because the patient continues to have limitations with daily activities along with mechanical symptoms an MRI of the left knee has been ordered to further evaluate the integrity of the meniscus. The patient continues to remain active with exercises at home and is also taking anti-inflammatories for discomfort. Once the MRI is obtained I will contact him to discuss the results. Orders: Orders XR knee LT 2V Today M25.562 - Pain in left knee MR knee LT wo con Today M17.12 - Unilateral primary osteoarthritis, left knee Coding Level of Care Code Est Pt Level 3 (65714) Complex EM visit Add On G2211 Diagnoses Internal derangement of left knee M23.92
== END 2025-03-15 11:53 | disposition home or self-care (01) ==
LOC: HO.HOS 10:33
PROVIDERS: PCP Internal Medicine; Visit Provider Physician Assistant
DX: M23.92 Unspecified internal derangement of left knee (principal)
CPT/HCPCS: 99213

== ENCOUNTER → 2025-03-15 10:34 | Outpatient (BNV) | payer BC, SELFPAY | PROVIDERS: Visit Provider Radiology Diagnostic Radiology | DX: M25.562 Pain in left knee (principal) | CPT/HCPCS: 73560 ==

== ENCOUNTER 2025-03-15 16:01 | Outpatient (AMB) | payer BC, SELFPAY ==
[2025-03-15 16:08] VITALS: BP 110/80; PULSE 83; O2SAT 97; BMI 32.9
--- NOTE | 2025-03-15 16:08 | A.OFFPC_ITS ---
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 Required: No Accompanied by: Self / Same As Patient Allergies No Known Allergies (No Known Allergies*) Allergy (Verified 03/15/25 16:55) Medication List - Last Reconciled 03/15/25 by Randolph Herring MD cholecalciferol (vitamin D3) 25 mcg PO DAILY lisinopril 5 mg PO DAILY tirzepatide 5 mg (0.5 mL) subcut QWEEK 4 weeks tramadol 1 to 2 tablets 3 times a day as needed for increased pain over the lower back; 30 days Tobacco use date assessed: 03/15/25 Dental Screening Dental Screen Date: 03/15/25 Did you have a dental visit in the last 12 months?: No Did you have a dental problem in the last 6 months where you did not have access to dental care?: No Was dental information given to patient?: No HPI DM HPI Details aic today 6.0 labs not done yet - no chol since 2022 lost weight since unjaro (x 2 months now)- 243 in Sep 2024 (+) bakers cyst in knee - saw ortho this AM - being sent for MRI [facility] Medical History Vitamin D deficiency Diabetes mellitus Lumbar degenerative disc disease Left knee pain Cyst of perianal area Degenerative joint disease of right knee Obesity (BMI 30-39.9) Benign essential hypertension Surgical History H/O colonoscopy (~11/08/22) History of meniscectomy of right knee (~07/20/20) History of right knee surgery H/O lateral meniscus repair of right knee H/O lateral meniscus repair of left knee H/O lumbar discectomy History of arthroscopy of both shoulders History of laparoscopic cholecystectomy Family History Maternal Grandfather Bone cancer Other Family history non-contributory Social History (Reviewed 03/15/25 @ 16:09 by REINIER Temple Housing: House Unable to assess alcohol history related to: Unknown Alcohol intake: never Patient Tobacco Use Status: Former Tobacco user Years Smoked: 5 e-Cigarette/Vaping Use: Never Used Second Hand Smoke Exposure: Yes service: No Current occupational status: employed 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 1. Little interest or pleasure in doing things: not at all 2. Feeling down, depressed, or hopeless: not at all 3. Trouble falling or staying asleep, or sleeping too much: not at all 4. Feeling tired or having little energy: not at all 5. Poor appetite or overeating: not at all 6. Feeling bad about yourself - or that you are a failure or have let yourself or your family down: not at all 7. Trouble concentrating on things, such as reading the newspaper or watching television: not at all 8. Moving or speaking so slowly that other people could have noticed. Or the opposite - being so fidgety or restless that you have been moving around a lot more than usual: not at all 9. Thoughts that you would be better off or of hurting yourself in some way: not at all Total score: 0 Source: Developed by Drs. Yasmani Hair, Tere Bundy, Yves Dietz and colleagues, with an educational leonora from [employer]. Thrive Questionnaire Date Thrive assessed: 03/15/25 I am a: Patient What is your living situation today?: I have a steady place to live Within the past 12 months, did the food you bought not last and you didn't have the money to get more?: Never true Within the past 12 months, did you worry whether your food would run out before you got money to buy more?: Never true Do you have trouble paying for medicines?: No Do you have trouble getting transportation to medical appointments?: No Do you have trouble paying your heating and electricity bill?: No Do you have trouble taking care of your child, family member or friend?: No Do you have trouble with day-to-day activities such as bathing, preparing meals, shopping, managing finances, etc.?: No Are you currently unemployed and looking for a job?: No Are you interested in more education?: No Please select the resources that you would like help with: None Currently or been in a relationship where the following occur: No concerns reported THRIVE Score: 0 AUDIT C Alcohol Use Questionnaire (AUDIT-C) 1. How often do you have a drink containing alcohol?: Monthly or less 2. How many drinks containing alcohol do you have on a typical day when you are drinking?: 1 or 2 3. How often do you have six or more drinks on one occasion?: Never Total Score: 1 KIANNA-7 AMB Questionnaire KIANNA-7 Date KIANNA - 7 assessed: 03/15/25 Feeling nervous, anxious, or on edge: 0 = Not at all Not being able to stop or control worryin = Not at all Worrying too much about different things: 0 = Not at all Trouble relaxin = Not at all Being so restless that it is hard to sit still: 0 = Not at all Becoming easily annoyed or irritable: 0 = Not at all Feeling afraid as if something awful might happen: 0 = Not at all Total KIANNA-7 score (0-4 normal; 5-9 mild; 10-14 moderate; 15-21 severe): 0 Source: Developed by Drs. Yasmani Hair, Tere Bundy, Yves Dietz and colleagues, with an educational leonora from [employer]. Physical exam (Primary Care) Vital Signs: Last Vital Signs Pulse 83 03/15/25 16:08 BP 110/80 03/15/25 16:08 Pulse Ox 97 03/15/25 16:08 Oxygen Delivery Method Room Air 03/15/25 16:08 BMI result Body Mass Index 32.9 Tobacco/Smoking Status: Tobacco use Status Tobacco use date assessed 03/15/25 03/15/25 16:09 Patient Tobacco Use Status Former Tobacco user 03/15/25 16:09 e-Cigarette/Vaping Use Never Used 03/15/25 16:09 PHQ-9: PHQ-9 Score PHQ-9: Total score 0 03/15/25 16:32 Thrive Assessment: Date of Thrive Assessment Date Thrive assessed 03/15/25 03/15/25 16:09 Currently or been in a relationship where the following occur: No concerns reported Results AMB Hemoglobin A1c AMB Hemoglobin A1c 6.0 % Last Edit by OLEG Temple on 03/15/25 16 :33 Results Reviewed Results Reviewed: Laboratory Last Values Hgb A1c (Clinic) 6.0 % (4.0-6.0) 03/15/25 16:09 Coding Level of Care Code Est Pt Level 4 (70891) Assessment & Plan Assessment & Plan Orders: Orders AMB Hemoglobin A1c Today Z13.9 - Encounter for screening, unspecified
== END 2025-03-15 17:00 | disposition home or self-care (01) ==
LOC: HO.HMCH 16:02
PROVIDERS: PCP Internal Medicine; Visit Provider Internal Medicine
DX: Z13.9 Encounter for screening, unspecified (principal)

== ENCOUNTER 2025-03-21 22:48 | Emergency (ER) | payer BC, SELFPAY ==
--- NOTE | ~2025-03-21 | XR_ITS ---
CLINICAL HISTORY: pain reduced ROM 3 view left wrist Comparison: None provided Findings: Bones intact. No dislocations. No significant loss of joint space, osteophyte, or erosions. No radiopaque foreign body. Mildly diffuse soft tissue swelling. IMPRESSION: 1. No acute findings This document has been electronically signed by: Vignesh Lopez MD on 03/22/2025 01:04:54
[2025-03-21 22:49] VITALS: BP 138/83; PULSE 94; RESP 16; TEMP 37.1; O2SAT 97; BMI 34.3
--- NOTE | 2025-03-21 23:19 | MHC.EDTECH ---
labs drawn, pt unable to give urine sample at this time, pt given urine cup.
[2025-03-21 23:23] LABS: MANUAL DIFF FLAG NO
[2025-03-21 23:24] LABS: Hematocrit 37.2 % (42.0-52.0); Hemoglobin 12.7 g/dl (14.0-18.0); Imm Gran Abs Auto 0.03 X10*3/uL (0.00-0.03); Imm Gran Pct Auto 0.2 % (0.0-0.4); Lymphocytes Absolute Auto 2.5 X10*3/uL (1.2-4.9); Mean Corpuscular HGB Conc 34.1 g/dl (31.0-36.0); Mean Corpuscular Hemoglobin 29.1 pg (27.0-33.0); Mean Corpuscular Volume 85.1 fL (80.0-98.0); NRBC Abs Auto 0.000 X10*3/uL (0.0-0.012); NRBC Pct Auto 0.0 /100WBC (0.0-0.2); Platelet Count 305 X10*3/uL (160-400); Red Blood Count 4.37 X10*6/uL (4.60-5.80); White Blood Count 12.3 X10*3/uL (4.8-10.8)
[2025-03-21 23:38] LABS: Alanine Aminotransferase 16 U/L (0-40); Albumin Level 4.0 g/dL (3.5-5.0); Alkaline Phosphatase 62 U/L (39-117); Anion Gap 12 (12-20); Aspartate Amino Transferase 20 U/L (5-37); Blood Urea Nitrogen 12 mg/dL (9-16); Calcium 8.9 mg/dL (8.4-10.2); Carbon Dioxide 24 mmol/L (22-29); Chloride 106 mmol/L (96-108); Creatinine Clr Calc Pharmacy 86.8; Estimated Glomerular Filt Rate > 60; Potassium 3.9 mmol/L (3.3-5.1); Sodium 138 mmol/L (135-145); Total Protein 6.9 g/dL (6.5-8.0)
[2025-03-21 23:40] LABS: Appearance Urine Clear; Glucose Urine UA Negative (Negative); PH 6.5 (5.0-9.0); Specific Gravity - Urine 1.015 (1.005-1.025); UMIC TRIGGER UACC YES
[2025-03-21 23:53] LABS: Uric Acid 5.3 mg/dL (3.4-7.0)
== END 2025-03-22 02:15 | disposition left against medical advice (07) ==
PROVIDERS: Emergency Provider Emergency Medicine; PCP Internal Medicine
DX: M79.642 Pain in left hand (principal); R50.9 Fever, unspecified; Z53.21 Procedure and treatment not carried out due to patient leaving prior to being seen by health care provider
CPT/HCPCS: 36415; 73110; 80053; 81001; 84550; 85025; 86140; 99281; 99282

== ENCOUNTER → 2025-03-21 23:00 | Outpatient (BNV) | payer BC, SELFPAY | PROVIDERS: Emergency Provider Emergency Medicine; PCP Internal Medicine; Visit Provider Radiology Diagnostic Radiology | DX: M25.532 Pain in left wrist (principal) | CPT/HCPCS: 73110 ==

== ENCOUNTER 2025-03-28 16:27 | Outpatient (REF) | payer BC, SELFPAY ==
--- NOTE | ~2025-03-28 | MR_ITS ---
EXAM: MRI LOWER EXTREMITY JOINT, KNEE, left TECHNIQUE: Multiplanar multisequence MR imaging performed through the left knee without contrast. INDICATION: M17.12 - Unilateral primary osteoarthritis, left knee. Difficulty bending PRIOR: None FINDINGS: Menisci: Lateral Meniscus: There is no evidence of a tear or abnormality. Medial Meniscus: There is intermediate signal in the posterior horn that does not clearly extend to an articular surface. The body is mildly extruded. ACL/PCL: ACL and PCL are intact. Extensor mechanism: There is physiologic volume of joint fluid. There is moderate edema like signal in the superior lateral fat pad of Hoffa. There is no lateralization of the tibial tubercle. There is no patella iveth. MCL/LCL: MCL intact. LCL complex is intact. There is trace edema like signal around IT band adjacent to the lateral femoral condyle. Articular cartilage: Patellofemoral Compartment: There is a 12 mm irregular partial and full-thickness articular cartilage defect with minimal reactive marrow signal in the mid to lower trochlear groove. Lateral Compartment: Articular cartilage is intact. Medial Compartment: Shallow irregular partial thickness articular cartilage loss is present in the central weightbearing region of the medial femoral condyle. Tibial cartilage is intact. Bones/Marrow: There are no marrow replacing lesions. Soft tissues: There is trace fluid in a Ryan's cyst. MR/MR knee LT wo con IMPRESSION: There is an irregular partial and full-thickness articular cartilage defect 12 mm superior to inferior in the central trochlear groove. 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 There is edema like signal in the superior lateral fat pad of Hoffa which can indicate underlying patellar tendon-lateral femoral condyle friction syndrome. No clear anatomic/mechanical etiology was demonstrated. Possible IT band friction syndrome: There is trace edema like signal between the lateral femoral condyle and IT band. Electronically signed by: Aaron Feliz MD 03/28/2025 05:48 PM EDT
== END 2025-03-28 16:28 | disposition home or self-care (01) ==
LOC: HO.MRI 16:27
PROVIDERS: PCP Internal Medicine; Visit Provider Physician Assistant
DX: M17.12 Unilateral primary osteoarthritis, left knee (principal)
CPT/HCPCS: 73721

== ENCOUNTER → 2025-03-28 16:35 | Outpatient (BNV) | payer BC, SELFPAY | PROVIDERS: PCP Internal Medicine; Visit Provider Radiology Diagnostic Radiology | DX: M94.262 Chondromalacia, left knee (principal) | CPT/HCPCS: 73721 ==

== ENCOUNTER 2025-05-12 12:44 | Outpatient (AMB) | payer BC, SELFPAY ==
--- NOTE | 2025-05-12 13:00 | MHC.OFFVIS ---
Vital Signs 05/12/25 13:04 Height 5 ft 7 in Weight 219 lb BMI 34.3 Intake Visit Reasons: OV-MRI Follow up Intake Note: Isaiah is a 54 year old male who presents today for an MRI follow up of his left knee. Patient report having flares every once in a while. States no change in symptoms since his last visit. Allergies No Known Allergies (No Known Allergies*) Allergy (Verified 05/12/25 13:05) HPI HPI OV-MRI Follow up: Details: 54-year-old gentleman returns to the office today for a follow-up left knee pain status post MRI. He states he continues to have some occasional discomfort in the knee where it catches and feels like it is going to give out. [facility] Medical History Vitamin D deficiency Diabetes mellitus Lumbar degenerative disc disease Left knee pain Cyst of perianal area Degenerative joint disease of right knee Obesity (BMI 30-39.9) Benign essential hypertension Surgical History H/O colonoscopy (~11/08/22) History of meniscectomy of right knee (~07/20/20) History of right knee surgery H/O lateral meniscus repair of right knee H/O lateral meniscus repair of left knee H/O lumbar discectomy History of arthroscopy of both shoulders History of laparoscopic cholecystectomy Family History Maternal Grandfather Bone cancer Other Family history non-contributory Social History Housing: House Unable to assess alcohol history related to: Unknown Alcohol intake: never Patient Tobacco Use Status: Former Tobacco user Years Smoked: 5 e-Cigarette/Vaping Use: Never Used Second Hand Smoke Exposure: Yes service: No Current occupational status: employed 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 - [employer] Current occupational exposures/hazards: No Cognitive needs: No Hearing needs: No Vision needs: No Review of Systems Const All systems reviewed & are unremarkable except as noted in HPI and below Physical Exam Vital Signs: BMI result Body Mass Index 34.3 Const General: cooperative and no acute distress Orientation/consciousness: patient oriented x3 Resp Effort & Inspection: normal respiratory effort and able to speak in complete sentences Cardio Peripheral pulses: Peripheral pulses 2+ throughout Neuro General: patient oriented x3 Extrem Other: Left knee is normal to inspection he does have mild tenderness on the medial joint line. Range of motion is full with crepitus. Calf is supple and nontender neurovascularly intact. Results Reviewed Results Reviewed: MR knee LT wo con IMPRESSION: There is an irregular partial and full-thickness articular cartilage defect 12 mm superior to inferior in the central trochlear groove. 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 There is edema like signal in the superior lateral fat pad of Hoffa which can indicate underlying patellar tendon-lateral femoral condyle friction syndrome. No clear anatomic/mechanical etiology was demonstrated. Possible IT band friction syndrome: There is trace edema like signal between the lateral femoral condyle and IT band. Assessment & Plan Assessment & Plan (1) Arthritis of knee, left: Code(s): M17.12 - Unilateral primary osteoarthritis, left knee Category: Medical Plan: MRI was reviewed with the patient and I discussed the extent of the findings which include some arthritic changes and inflammation around the knee. I did recommend a course of physical therapy and a steroid injection to help with his inflammation which she would like to hold off on at this time. I encouraged him to modify activities that cause discomfort to avoid flare-ups. He will use anti-inflammatories as needed. He will see me back if he decides to proceed with an injection otherwise follow up as needed. Coding Level of Care Code Est Pt Level 3 (28441) Complex EM visit Add On G2211 Diagnoses Arthritis of knee, left M17.12
[2025-05-12 13:04] VITALS: BMI 34.3
== END 2025-05-12 13:23 | disposition home or self-care (01) ==
LOC: HO.HOS 12:45
PROVIDERS: PCP Internal Medicine; Visit Provider Physician Assistant
DX: M17.12 Unilateral primary osteoarthritis, left knee (principal)
CPT/HCPCS: 99213

== ENCOUNTER 2025-06-17 15:14 | Inpatient (IN) | payer BC, SELFPAY ==
--- NOTE | ~2025-06-17 | CT_ITS ---
CLINICAL HISTORY: palmar collection, leukocytosis, ?deep space infec CT right hand contrast Comparison: X-ray same date Findings: No acute fracture or dislocation identified. Anterior subcutaneous edema noted. No fluid collection or other soft tissue abnormality. No radiopaque foreign body noted. Impression: Nonspecific subcutaneous edema No acute bony abnormality This document has been electronically signed by: Gil Allen MD on 06/17/2025 19:11:00
--- NOTE | ~2025-06-17 | XR_ITS ---
EXAMINATION: XR HAND, RIGHT CLINICAL INFORMATION: pain and swelling COMPARISON: None available. TECHNIQUE: PA, lateral, and oblique views of the right hand. FINDINGS: The bones and soft tissues are normal. No fracture. Alignment is anatomic. Joint spaces are maintained. No erosions or soft tissue calcifications. XR/XR hand RT min 3V IMPRESSION: Unremarkable right hand. Electronically signed by: Aaron Feliz MD 06/17/2025 04:00 PM EDT
[2025-06-17 15:36] VITALS: BP 163/89; PULSE 98; RESP 16; TEMP 36.2; O2SAT 98; BMI 32.1
--- NOTE | 2025-06-17 15:40 | ED.EXTPRO ---
HPI - Extremity Problem General Chief complaint: Extremity Injury, Upper Stated complaint: right hand injury Time Seen by Provider: 06/17/25 17:38 History of Present Illness ED Provider: Roland Plata MD HPI Narrative: 54-year-old male with a history of osteoarthritis, obesity and prediabetes on Mounjaro, right hand pain progressively worsening with swelling mostly in the palmar aspect proximal to 3rd and 4th digits. Denies digital swelling. Denies any fall or injury or breaks in the skin. Denies any history of prior gout. Some wrist pain but it is mostly focused in the hand. No redness streaking up the arm, rash or other skin changes. No paresthesias or motor deficits. Related Data Home Medications ?Medication ?Instructions ?Recorded ?Confirmed tirzepatide 7.5 mg/0.5 mL 7.5 mg subcut MO 06/17/25 06/17/25 subcutaneous pen injector (Mounjaro) tramadol 50 mg tablet 50 - 100 mg PO TID PRN pain 06/17/25 06/17/25 Previous Rx's ?Medication ?Instructions ?Recorded cholecalciferol (vitamin D3) 25 25 mcg PO DAILY #90 tabs 01/03/25 mcg (1,000 unit) tablet lisinopril 5 mg tablet 5 mg PO DAILY #90 tabs 03/30/25 Allergies Allergy/AdvReac Type Severity Reaction Status Date / Time No Known Allergies (No Known Allergy Verified 06/17/25 15:37 Allergies*) [facility] Past Medical History Medical History Septic arthritis of shoulder Vitamin D deficiency Diabetes mellitus Lumbar degenerative disc disease Left knee pain Cyst of perianal area Degenerative joint disease of right knee Obesity (BMI 30-39.9) Benign essential hypertension Surgical History H/O colonoscopy (~11/08/22) History of meniscectomy of right knee (~07/20/20) History of right knee surgery H/O lateral meniscus repair of right knee H/O lateral meniscus repair of left knee H/O lumbar discectomy History of arthroscopy of both shoulders History of laparoscopic cholecystectomy Family History Family History Maternal Grandfather Bone cancer Other Family history non-contributory Social History Social History Household Members: Spouse and Children Housing: House Do you presently have visiting nurse or other home services: No Alcohol intake: never Patient Tobacco Use Status: Former Tobacco user Years Smoked: 5 Smoked in Last 30 Days: No e-Cigarette/Vaping Use: Never Used Second Hand Smoke Exposure: Yes Use of substances other than those prescribed or required for medical reasons: No Currently Displaying Signs/Symptoms of Drug Intoxication Withdrawal: No Have you been hit, kicked, punched, or otherwise hurt by someone within the past year? 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 Very uncomfortable appearing from pain HEAD/NECK: No visual trauma. EYES: Normal to inspection. No conjunctival erythema. No discharge. ENMT: Hearing grossly normal. External nose normal. RESPIRATORY: Respiratory effort normal. CARDIOVASCULAR: Additional details (Grossly well perfused). SKIN: No jaundice. No rash or streaking MSK: Right hand diffusely moderately swollen perhaps mildly erythematous. Tender diffusely most tender in the mid palm region proximal 2/3 and 4th digit but palpation anywhere causes pain. No obvious indurated skin, breaks in the skin. Severe pain with flexion and extension particularly of digits 3 and 4. No sausage digit. Well-perfused with brisk cap refill to all digits. No obvious focal joint tenderness or swelling of the hand or digits or wrist. Ranging the wrist does not elicit significant tenderness. The compartments of the hand and the forearm are soft NEUROLOGICAL: Alert. Moving all extremities x4. Additional details (No gross motor deficits. Normal tone. ). PSYCHIATRIC: Alert. Appearance appropriate for situation. Vital Signs: Vital Signs: Last Vital Signs Temp 97.7 F 06/18/25 08:00 Pulse 97 06/18/25 08:00 Resp 18 06/18/25 08:00 BP 136/77 06/18/25 08:44 Pulse Ox 96 06/18/25 08:00 O2 Del Method Room Air 06/18/25 08:00 BMI result Body Mass Index 32.1 Course Course Course Narrative: This is a rapid medical exam performed by Erica Haskins NP: Additional HPI, ROS, PE not included below will be deferred to primary provider. Patient is a 54-year-old male presenting to the emergency department with complaint of atraumatic right hand pain and swelling since this morning. States it is severe and throbbing. Plan: X-ray, labs Medications Administered Generic Name Dose Route Start Last Admin Trade Name Freq PRN Reason Stop Dose Admin Enoxaparin Sodium 40 mg 06/18/25 12:00 06/18/25 13:05 Enoxaparin Sodium 40 Mg/0.4 Ml Syringe SUBCUT 40 mg Q24H HILDA Administration Hydromorphone HCl 0.5 mg 06/17/25 20:46 06/17/25 22:57 Hydromorphone Hcl 0.5 Mg/0.5 Ml Syringe IVPUSH 0.5 mg Q4H PRN Administration Pain, Severe (Pain Scale 7-10) Protocol Vancomycin HCl 1,000 mg/ 270 mls @ 270 mls/hr 06/18/25 08:00 06/18/25 08:42 Sodium Chloride IV Infused Q12H HILDA Infusion Ketorolac Tromethamine 15 mg 06/18/25 02:00 06/18/25 05:16 Ketorolac Tromethamine 15 Mg/Ml Vial IVPUSH 06/19/25 01:59 15 mg Q6H PRN Administration Pain, Moderate(Pain Scale 4-6) Lisinopril 5 mg 06/17/25 20:30 06/18/25 08:44 Lisinopril 5 Mg Tablet PO 5 mg DAILY HILDA Administration Protocol Sodium Chloride 3 ml 06/18/25 00:00 06/18/25 07:31 0.9 % Sodium Chloride Flush 3 Ml Syringe IVFLUSH 3 ml QSHIFT HILDA Administration Tramadol HCl 50 mg 06/17/25 20:45 06/18/25 08:47 Tramadol Hcl 50 Mg Tablet PO 50 mg Q6H PRN Administration Pain, Moderate(Pain Scale 4-6) Vitamin D 25 mcg 06/18/25 09:00 06/18/25 08:44 Cholecalciferol (Vitamin D3) 25 Mcg Tablet PO 25 mcg DAILY HILDA Administration Discontinued Medications Generic Name Dose Route Start Last Admin Trade Name Slickq PRN Reason Stop Dose Admin Acetaminophen 975 mg 06/17/25 17:44 06/17/25 17:56 Acetaminophen 325 Mg Tablet PO 06/17/25 17:45 975 mg ONCE ONE Administration Ceftriaxone Sodium 2 gm 06/17/25 17:45 06/17/25 18:12 Ceftriaxone Sodium 2 Gm Vial IVPUSH 06/17/25 17:46 2 gm ONCE ONE Administration Dexamethasone Sodium Phosphate 10 mg 06/17/25 20:01 06/17/25 21:30 Dexamethasone Sod Phosphate 10 Mg/Ml Vial IVPUSH 06/17/25 20:02 10 mg ONCE ONE Administration Gabapentin 300 mg 06/17/25 20:00 06/17/25 21:30 Gabapentin 300 Mg Capsule PO 06/17/25 20:01 300 mg ONCE ONE Administration Hydromorphone HCl 1 mg 06/17/25 18:46 06/17/25 19:37 Hydromorphone Hcl 1 Mg/Ml Syringe IVPUSH 06/17/25 18:47 1 mg ONCE ONE Administration Protocol Vancomycin HCl 2,000 mg in 500 mls @ 250 mls/hr 06/17/25 17:58 06/17/25 22:27 Vancomycin/Ns IV 06/17/25 19:57 Infused ONCE ONE Infusion Ibuprofen 800 mg 06/17/25 17:44 06/17/25 17:57 Ibuprofen 800 Mg Tablet PO 06/17/25 17:45 800 mg ONCE ONE Administration Influenza Virus Vaccine 0.5 ml 06/17/25 23:59 06/18/25 05:10 Flu Vacc [id number](6mo Up)/Pf 0.5 Ml Syringe IM 06/18/25 00:00 0.5 ml .ONCE ONE Administration Iohexol 100 ml 06/17/25 18:24 06/17/25 18:24 Iohexol 350 Mg/Ml 100 Ml Infus..Btl IV 06/17/25 18:25 85 ml ONCE ONE Administration Ketorolac Tromethamine 15 mg 06/17/25 20:01 10/03/25 21:30 Ketorolac Tromethamine 15 Mg/Ml Vial IVPUSH 06/17/25 20:02 15 mg ONCE ONE Administration Morphine Sulfate 15 mg 06/17/25 17:44 06/17/25 17:57 Morphine Sulfate Immed Release 15 Mg Tablet PO 06/17/25 17:45 15 mg ONCE ONE Administration Medical Decision Making Medical Decision Making MDM Narrative: Medical Decision Making: [age] male with prediabetes also obesity osteoarthritis with 24 hours of progressively worsening right hand pain without injury. X-ray negative for fracture. No fever heart rate 98 on arrival Recognition of sepsis by myself approximately 18:05 when I evaluated the patient and determined it was likely he probably has an infection. It was initially felt by triage that this may be musculoskeletal injury or arthritic/arthropathy. At this time I added lactic acid blood cultures and broad-spectrum antibiotics. Patient in significant pain start with oral analgesics may need intravenous opioids. Review of lab work shows significant leukocytosis CRP ESR elevation. Bedside ultrasound of the hand without any distinct tendon sheath collection or hand or wrist joint effusion or collection. Final review of labs reveals no elevated lactate. The patient has never developed hypotension in the ED no severe sepsis criteria met. Increasing demands for analgesia we have escalated to Dilaudid 1 mg IV. The patient will be admitted as there was no deep space collection injury or indication for transfer or discussion with Orthopedics at this time Patient may benefit from nonemergent hand surgery consultation and/or MR imaging Preliminary Favored Differential Diagnosis: Differential felt to be broad but may include deep space hand infection, gout, alternative inflammatory arthritis , Lyme, cellulitis, bony hand fracture, tenosynovitis among additional considered etiologies Testing Interpreted Independently: ?Hand x-ray negative for bony injury or subcutaneous gas Radiology or Lab testing Results Reviewed: ?See below for details Consults: ?Hospitalist Independent Historians/External Chart Reviews: ?See below for details Social Determinants of Health Impacting MDM/Planning: ?See below for details Lab Data MDM Lab Attestation statement: I reviewed the patient's lab results. 06/18/25 05:21 06/18/25 05:21 Labs: Lab Results 06/17/25 06/17/25 Range/Units 15:49 18:09 WBC 20.8 H (4.8-10.8) X10*3/uL RBC 4.47 L (4.60-5.80) X10*6/uL Hgb 12.8 L (14.0-18.0) g/dl Hct 37.5 L (42.0-52.0) % MCV 83.9 (80.0-98.0) fL MCH 28.6 (27.0-33.0) pg MCHC 34.1 (31.0-36.0) g/dl RDW 12.7 (11.0-16.0) % Plt Count 420 H D (160-400) X10*3/uL MPV 8.8 L (9.4-12.4) fL Immature Gran % (Auto) 0.4 (0.0-0.4) % Neut % (Auto) 79.1 H (45-73) % Lymph % (Auto) 10.6 L (20-40) % [place] % (Auto) 7.8 (2-11) % Eos % (Auto) 1.6 (0-4) % Baso % (Auto) 0.5 (0-2) % Lymph # (Auto) 2.2 (1.2-4.9) X10*3/uL [place] # (Auto) 1.6 H (0.1-1.2) X10*3/uL Eos # (Auto) 0.3 (0.0-0.4) X10*3/uL Baso # (Auto) 0.1 (0.0-0.2) X10*3/uL Abs Immat Gran (auto) 0.08 H (0.00-0.03) X10*3/uL Absolute Neuts (auto) 16.4 H (2.0-8.3) x10*3/uL Absolute Nucleated RBC 0.000 (0.0-0.012) X10*3/uL Nucleated RBC % (auto) 0.0 (0.0-0.2) /100WBC Smear Tech's Comments VERIFIED ESR 58 H (0-15) MM/HR Sodium 132 L (135-145) mmol/L Potassium 4.1 (3.3-5.1) mmol/L Chloride 99 (96-108) mmol/L Carbon Dioxide 24 (22-29) mmol/L Anion Gap 13 (12-20) BUN 17 H (9-16) mg/dL Creatinine 1.09 (0.5-1.4) mg/dL Estim Creat Clear Calc 83.2 Estimated GFR > 60 Random Glucose 123 H (60-115) mg/dL Lactic Acid 1.3 (0.5-2.0) mmol/L Uric Acid 5.5 (3.4-7.0) mg/dL Calcium 9.3 (8.4-10.2) mg/dL Total Bilirubin 0.7 (0.0-1.0) mg/dL AST 26 (5-37) U/L ALT 21 (0-40) U/L Alkaline Phosphatase 86 (39-117) U/L C-Reactive Protein 6.67 H (< or = 0.50) mg/dL Total Protein 7.7 (6.5-8.0) g/dL Albumin 4.2 (3.5-5.0) g/dL Radiology Impression Discussion of test interpretation with radiology: I have reviewed the radiologist's reading. Procedures Procedure Narrative Procedure Narrative: EMERGENCY ULTRASOUND INTERPRETATION- Limited Musculoskeletal [This study was ordered, performed, and interpreted by myself. The study reveals: Impression: No clearly visualized deep space infection or collection of the [place], dorsal, digital or wrist structures visualized on ultrasound [Indication: Hand swelling possible hand or deep space musculoskeletal or skin infection Joint Localization for fluid (anechoic): Negative wrist, negative hand and digital joints for effusion Muscle: Tendon: No collection of the sheets of the hand flexor or extensor tendons visualized Bone: Other: Performed by: Roland Plata MD Images were stored ] Discharge Plan Discharge Clinical Impression: Cellulitis of hand, right Patient Disposition: Admitted As Inpatient Interventions: Admission Worksheet (ED) Last Done: 06/17/25 23:08 Discharge Date/Time: 06/18/25 00:02
[2025-06-17 16:01] LABS: Hematocrit 37.5 % (42.0-52.0); Hemoglobin 12.8 g/dl (14.0-18.0); Imm Gran Abs Auto 0.08 X10*3/uL (0.00-0.03); Imm Gran Pct Auto 0.4 % (0.0-0.4); Lymphocytes Absolute Auto 2.2 X10*3/uL (1.2-4.9); MANUAL DIFF FLAG SCAN; Mean Corpuscular HGB Conc 34.1 g/dl (31.0-36.0); Mean Corpuscular Hemoglobin 28.6 pg (27.0-33.0); Mean Corpuscular Volume 83.9 fL (80.0-98.0); NRBC Abs Auto 0.000 X10*3/uL (0.0-0.012); NRBC Pct Auto 0.0 /100WBC (0.0-0.2); Platelet Count 420 X10*3/uL (160-400); Red Blood Count 4.47 X10*6/uL (4.60-5.80); SCAN SMEAR FLAG 1; White Blood Count 20.8 X10*3/uL (4.8-10.8)
[2025-06-17 16:12] LABS: Alanine Aminotransferase 21 U/L (0-40); Albumin Level 4.2 g/dL (3.5-5.0); Alkaline Phosphatase 86 U/L (39-117); Anion Gap 13 (12-20); Aspartate Amino Transferase 26 U/L (5-37); Blood Urea Nitrogen 17 mg/dL (9-16); Calcium 9.3 mg/dL (8.4-10.2); Carbon Dioxide 24 mmol/L (22-29); Chloride 99 mmol/L (96-108); Creatinine Clr Calc Pharmacy 83.2; Estimated Glomerular Filt Rate > 60; Potassium 4.1 mmol/L (3.3-5.1); Sodium 132 mmol/L (135-145); Total Protein 7.7 g/dL (6.5-8.0); Uric Acid 5.5 mg/dL (3.4-7.0)
[2025-06-17] MEDS: Morphine Sulfate Immed Release 15 MG TABLET PO (17:57)
[2025-06-17] MEDS: iohexoL 350 MG/ML 100 ML INFUS..BTL IV (18:24)
[2025-06-17 19:37] VITALS: BP 145/89; RESP 20
--- NOTE | 2025-06-17 19:40 | P.HPHOSP_ITS ---
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 Pt denies any trauma or injury to the hand and denies hx of similar symptoms. Pt denies hx of gout, auto immune diseasea including RA and Lupus. Pt has 3 dogs but denies any animal bites or skin breaks from his dogs. Pt is ambidextrous and writes with Left hand mostly. Pt denies fever, chills, nausea, vomiting, diarrhea, chest pain or shortness of breath at rest or with exertion. One exam, swelling noted from wrist down through middle of hand to fingers. Pt cannot applications support engineer or demonstrate strength. Pt reports pain 6/20 especially from the wrist down through the middle of the hand into the fingers. The hand and wrist are not warm/hot to the touch. There is not rash on affected hand. Brachial, radial and ulnar pulses are palpable and bounding. Cap refill in all fingers on R hand is <2 sec. No axillary lymphadenopathy noted on exam. Work up in ED included Xray and CT hand and only anterior subcutaneous swelling noted. No acute fracture or foreign body found. Pt started on pain control and ABX (VANCO and Ceftriaxone)noting leukocytosis 20K, elevated CRP and ESR. LA normal level. Pt has no fever, BP elevated due to pain likely. Pt presents with symptoms leanign towards tenosynovitis. ICe and elevation implemented in ED as well. Pt received morphine, dilaudid, motrin so far with some improvement in pain control. Review of Systems 2 Review of Systems: Pt denies CP, SOB at rest or with exertion, ABD pain, N/V, rash, fever, chills, lower leg pain. Pt is not having JOYNER or visual changes. Pt denies any stiffness in the neck area. Yes all other systems are reviewed and are negative [facility] Medical History (Updated 06/17/25 @ 20:30 by KATELIN Melendez) Septic arthritis of shoulder Vitamin D deficiency Diabetes mellitus Lumbar degenerative disc disease Left knee pain Cyst of perianal area Degenerative joint disease of right knee Obesity (BMI 30-39.9) Benign essential hypertension Cognitive capacity: A/O X3 Family History Maternal Grandfather Bone cancer Other Family history non-contributory Surgical History H/O colonoscopy (~11/08/22) History of meniscectomy of right knee (~07/20/20) History of right knee surgery H/O lateral meniscus repair of right knee H/O lateral meniscus repair of left knee H/O lumbar discectomy History of arthroscopy of both shoulders History of laparoscopic cholecystectomy Social History Housing: House Alcohol intake: never Patient Tobacco Use Status: Former Tobacco user Years Smoked: 5 e-Cigarette/Vaping Use: Never Used Second Hand Smoke Exposure: Yes Advance Directives: No Advance Directives Information Provided: No service: No Current occupational status: employed 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 - [employer] Current occupational exposures/hazards: No Cognitive needs: No Hearing needs: No Vision needs: No Ebola Risk: Travel/Contact With Anyone From Affected Area/s: No Has Patient Experienced Ebola Symptoms: No Meds Allergies Allergy/AdvReac Type Severity Reaction Status Date / Time No Known Allergies (No Known Allergy Verified 06/17/25 15:37 Allergies*) Active Medications: Current Medications Acetaminophen (Acetaminophen 325 Mg Tablet) 650 mg PO Q6H PRN PRN Reason: Pain, Mild 1-3,fever,headache Calcium Carbonate (Calcium Carbonate 750 Mg Tab.Chew) 750 mg PO Q4H PRN PRN Reason: Heartburn Enoxaparin Sodium (Enoxaparin Sodium 40 Mg/0.4 Ml Syringe) 40 mg SUBCUT Q24H [facility] Vancomycin HCl (Vancomycin/Ns) 2,000 mg in 500 mls @ 250 mls/hr IV ONCE ONE Stop: 06/17/25 19:57 Magnesium Hydroxide (Milk Of Magnesia 30 Ml Oral.Susp) 30 ml PO DAILY PRN PRN Reason: Constipation Melatonin (Melatonin 3 Mg Tablet) 6 mg PO BEDTIME PRN PRN Reason: Insomnia Ondansetron HCl (Ondansetron Hcl 4 Mg/2 Ml Vial) 4 mg IVPUSH Q8H PRN PRN Reason: Nausea and Vomiting Polyethylene Glycol (Polyethylene Glycol 3350 17 Gm Powd.Pack) 17 gm PO DAILY PRN PRN Reason: Constipation Sodium Chloride (0.9 % Sodium Chloride Flush 3 Ml Syringe) [facility] Medications ?Medication ?Instructions ?Recorded ?Confirmed ?Last Taken ?Type tirzepatide 7.5 mg/0.5 mL 7.5 mg subcut MO 06/17/2506/13/25 History subcutaneous pen injector (eRy) tramadol 50 mg tablet 50 - 100 mg PO TID PRN pain 06/17/25 06/17/25 Unknown History Physical Exam 2 Vital Signs and Narrative: Vital Signs: Last Vital Signs Temp 97.1 F 06/17/25 15:36 Pulse 98 06/17/25 15:36 Resp 20 06/17/25 19:37 BP 145/89 H 06/17/25 19:37 Pulse Ox 98 06/17/25 15:36 O2 Del Method Room Air 06/17/25 15:36 BMI result Body Mass Index 32.1 Pt alert and orientated X3, able to provider history and follow commands. Neuro: CN II-XII intact, sensaton intact R hand HEENT: PERRLA, EOM intact, sclera non icteric Cardiac: S1S2 RRR, no murmur, no JVD, no edema BLEs Pulm: Lungs CTA B ABD: sift, NT, no guarding, active bowel sounds MSK: pt unable to applications support engineer or test for strength R hand only EXT: no edema BLE, brachial, radial and ulnar pulses intact R arm, PT DP pulses present +2 Psycn: mood: mildly anxious due to pain, insight and judgement is good Skin: R hand slightly red, no warmth or rash but swelling evident Results Labs 06/17/25 15:49 06/17/25 15:49 Labs: Laboratory Results - last 24 hr 06/17/25 06/17/25 15:49 18:09 MCV 83.9 MCH 28.6 MCHC 34.1 RDW 12.7 Plt Count 420 H D MPV 8.8 L Immature Gran % (Auto) 0.4 Neut % (Auto) 79.1 H Lymph % (Auto) 10.6 L [place] % (Auto) 7.8 Eos % (Auto) 1.6 Baso % (Auto) 0.5 Lymph # (Auto) 2.2 [place] # (Auto) 1.6 H Eos # (Auto) 0.3 Baso # (Auto) 0.1 Abs Immat Gran (auto) 0.08 H Absolute Neuts (auto) 16.4 H Absolute Nucleated RBC 0.000 Nucleated RBC % (auto) 0.0 Smear Tech's Comments VERIFIED ESR 58 H Anion Gap 13 Estim Creat Clear Calc 83.2 Estimated GFR > 60 Random Glucose 123 H Lactic Acid 1.3 Uric Acid 5.5 Calcium 9.3 Total Bilirubin 0.7 AST 26 ALT 21 Alkaline Phosphatase 86 C-Reactive Protein 6.67 H Total Protein 7.7 Albumin 4.2 ECG Prior ECG tracings: not available for review Imaging Radiologist's Impressions: Impressions Hand X-Ray 06/17/25 15:53 IMPRESSION: Unremarkable right hand. Electronically signed by: Aaron Feliz MD 06/17/2025 04:[address] HAND Anterior swelling of right hand Findings: No acute fracture or dislocation identified. Anterior subcutaneous edema noted. No fluid collection or other soft tissue abnormality. No radiopaque foreign body noted. 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 Differnetials include cellulitis, tenosynovitis, inflammatory process. R hand cellulitis with severe pain (suspect tenosynovitis) Orthopedics consulted CT neg for abscess or fluid collection, no foriegn body present MRI ordred for AM KIRILL, uric acid, RF, Tick born panel pending CRP and ESR elevated, Leukocytosis noted 20K no left shift or fever, Lactic acid level WNL ICE and elevation One dose of gabapentin, decadron along with toradol for pain Dilaudid prn, pt wants to avoid narcotics if possible Pt started on Vancomycin and Ceftriaxone in ED BC pending No evdience of sepsis on admission HTN Higher than usual due to pain issues Lisinopril continues as renal fx is stable DMII SSI Pt only using Tirzepatide at home, has lost 65 pounds over 6 months Last Aic 6.0 Diabetic Diet Vitamin D deficiency Continue VIt D supplementation DVT prophylaxis: lovenox held until AM in case ortho needs to inject steroid or do procedure MED REC COMPLETED FULL CODE STATUS Quality Stroke Does the patient have a stroke diagnosis?: No Reason for No Anti-thrombotic by Day Two: Contraindicated VTE Prior VTE?: No VTE Risk Level:: Medical - moderate - high VTE Device Contraindication: N/A - Device Ordered VTE Drug Contraindication: N/A - Med Ordered
--- NOTE | 2025-06-17 19:46 | PHA.MEDREC ---
Addendum entered by Carolina Tovar RPh 06/17/25 19:51: Reviewed by [facility] Original Note: Pharmacy Consult ? Medication Reconciliation Pharmacy has completed the medication reconciliation. Patient was able to name all of his medications. Patient confirmed Mounjaro 7.5 mg every Friday, last dose 06/12/25. Patient had all his morning medications today.
[2025-06-17] MEDS: vancomycin/NS 2,000 MG/500 ML PLAST..BAG 250 MG IV (20:27)
[2025-06-17 21:25] VITALS: BP 131/80; PULSE 93; RESP 16; TEMP 37.3; O2SAT 96
[2025-06-17 21:30] VITALS: BP 131/80
[2025-06-17 21:33] LABS: Magnesium 2.0 mg/dL (1.6-2.6); Uric Acid 5.5 mg/dL (3.4-7.0)
--- NOTE | 2025-06-17 23:13 | HO.NURTONUR ---
Pt arrived c/o R hand swelling and pain starting today, denies trauma. Pt was a sepsis alert, cultures obtained, IV abx completed. Hx HTN, T2DM, R shoulder septic joint. Admitted for cellulitis, PRN pain control, and IVabx. IV dilaudid just administered for /10 pain. Pt aaox4, independent/ambulatory.
[2025-06-17 23:43] VITALS: BMI 32.1
[2025-06-17 23:56] VITALS: BP 134/78; PULSE 85; RESP 18; TEMP 36.5; O2SAT 95
[2025-06-18] MEDS: 0.9 % Sodium Chloride Flush 3 ML SYRINGE IVFLUSH ×4 (00:15→20:01)
[2025-06-18 03:48] VITALS: BP 119/69; PULSE 88; RESP 18; TEMP 36.1; O2SAT 93
[2025-06-18] MEDS: Flu Vacc TS2025-26(6mo up)/PF 0.5 ML SYRINGE IM (05:10)
[2025-06-18 06:17] LABS: Hematocrit 37.1 % (42.0-52.0); Hemoglobin 12.5 g/dl (14.0-18.0); Imm Gran Abs Auto 0.06 X10*3/uL (0.00-0.03); Imm Gran Pct Auto 0.5 % (0.0-0.4); Lymphocytes Absolute Auto 0.7 X10*3/uL (1.2-4.9); MANUAL DIFF FLAG SCAN; Mean Corpuscular HGB Conc 33.7 g/dl (31.0-36.0); Mean Corpuscular Hemoglobin 28.3 pg (27.0-33.0); Mean Corpuscular Volume 84.1 fL (80.0-98.0); NRBC Abs Auto 0.000 X10*3/uL (0.0-0.012); NRBC Pct Auto 0.0 /100WBC (0.0-0.2); Platelet Count 368 X10*3/uL (160-400); Red Blood Count 4.41 X10*6/uL (4.60-5.80); SCAN SMEAR FLAG 1; White Blood Count 11.3 X10*3/uL (4.8-10.8)
[2025-06-18 06:32] LABS: Anion Gap 12 (12-20); Blood Urea Nitrogen 19 mg/dL (9-16); Calcium 9.6 mg/dL (8.4-10.2); Carbon Dioxide 24 mmol/L (22-29); Chloride 103 mmol/L (96-108); Creatinine Clr Calc Pharmacy 99.7; Estimated Glomerular Filt Rate > 60; Potassium 4.1 mmol/L (3.3-5.1); Sodium 135 mmol/L (135-145)
--- NOTE | 2025-06-18 07:44 | P.PNIM_ITS ---
Subjective Subjective Date of Service: 06/18/25 Interval History: cellulitis Review of Systems hand cellulitis/pain seems similar rom somewhat also restricted due to pain. Review of Systems: Yes all other systems are reviewed and are negative Physical Exam 2 Exam: Exam: Appearance: Alert.? Oriented X3.? cvs: rrr, [id number] . res: clear to auscultation ,no rhonchii or wheezing abd: no rebound or guarding ,nt, bs present. ext pulses present , no cyanosis. rom somewhat also restricted due to pain. neuro: axo3 , nonfocal. Vital Signs: Vital Signs: Last Vital Signs Temp 97 F 06/18/25 03:48 Pulse 88 06/18/25 03:48 Resp 18 06/18/25 03:48 BP 119/69 06/18/25 03:48 Pulse Ox 93 06/18/25 03:48 O2 Del Method Room Air 06/18/25 03:48 BMI result Body Mass Index 32.1 Objective Data Active Medications Acetaminophen (Acetaminophen 325 Mg Tablet) 650 mg PO Q6H PRN PRN Reason: Pain, Mild 1-3,fever,headache Calcium Carbonate (Calcium Carbonate 750 Mg Tab.Chew) 750 mg PO Q4H PRN PRN Reason: Heartburn Ceftriaxone Sodium (Ceftriaxone Sodium 1 Gm Vial) 1 gm IVPUSH Q24H [facility] Hydromorphone HCl (Hydromorphone Hcl 0.5 Mg/0.5 Ml Syringe) 0.5 mg IVPUSH Q4H PRN; Protocol PRN Reason: Pain, Severe (Pain Scale 7-10) Last Admin: 06/17/25 22:57 Dose: 0.5 mg Documented By: GEOVANNY Vancomycin HCl 1,000 mg/ (Sodium Chloride) 270 mls @ 270 mls/hr IV Q12H [facility] Last Admin: 06/18/25 07:31 Dose: 270 mls/hr Documented By: RONALD Ketorolac Tromethamine (Ketorolac Tromethamine 15 Mg/Ml Vial) 15 mg IVPUSH Q6H PRN PRN Reason: Pain, Moderate(Pain Scale 4-6) Stop: 06/19/25 01:59 Last Admin: 06/18/25 05:16 Dose: 15 mg Documented By: PAMELA Lisinopril (Lisinopril 5 Mg Tablet) 5 mg PO DAILY [facility]; Protocol Last Admin: 06/17/25 21:30 Dose: 5 mg Documented By: ADELINE-BARBARA Magnesium Hydroxide (Milk Of Magnesia 30 Ml Oral.Susp) 30 ml PO DAILY PRN PRN Reason: Constipation Melatonin (Melatonin 3 Mg Tablet) 6 mg PO BEDTIME PRN PRN Reason: Insomnia Ondansetron HCl (Ondansetron Hcl 4 Mg/2 Ml Vial) 4 mg IVPUSH Q8H PRN PRN Reason: Nausea and Vomiting Pharmacy Consult (Consult Rx Vancomycin Dosing) 1 each MISCELLANE DAILY PRN PRN Reason: Consult order Polyethylene Glycol (Polyethylene Glycol 3350 17 Gm Powd.Pack) 17 gm PO DAILY PRN PRN Reason: Constipation Sodium Chloride (0.9 % Sodium Chloride Flush 3 Ml Syringe) 3 ml IVFLUSH QSHIFT [facility] Last Admin: 06/18/25 07:31 Dose: 3 ml Documented By: RONALD Tramadol HCl (Tramadol Hcl 50 Mg Tablet) 50 mg PO Q6H PRN PRN Reason: Pain, Moderate(Pain Scale 4-6) Last Admin: 06/18/25 00:21 Dose: 50 mg Documented By: PAMELA Vitamin D (Cholecalciferol (Vitamin D3) 25 Mcg Tablet) 25 mcg PO DAILY [facility] Labs 06/18/25 05:21 06/18/25 05:21 Labs: Laboratory Results - last 24 hr 06/17/25 06/17/25 06/17/25 15:49 18:09 21:11 MCV 83.9 MCH 28.6 MCHC 34.1 RDW 12.7 Plt Count 420 H D MPV 8.8 L Immature Gran % (Auto) 0.4 Neut % (Auto) 79.1 H Lymph % (Auto) 10.6 L [place] % (Auto) 7.8 Eos % (Auto) 1.6 Baso % (Auto) 0.5 Lymph # (Auto) 2.2 [place] # (Auto) 1.6 H Eos # (Auto) 0.3 Baso # (Auto) 0.1 Abs Immat Gran (auto) 0.08 H Absolute Neuts (auto) 16.4 H Absolute Nucleated RBC 0.000 Nucleated RBC % (auto) 0.0 Smear Tech's Comments VERIFIED ESR 58 H Anion Gap 13 Estim Creat Clear Calc 83.2 Estimated GFR > 60 Random Glucose 123 H Lactic Acid 1.3 Uric Acid 5.5 5.5 Calcium 9.3 Magnesium 2.0 Total Bilirubin 0.7 AST 26 ALT 21 Alkaline Phosphatase 86 C-Reactive Protein 6.67 H Total Protein 7.7 Albumin 4.2 Rheumatoid Factor 15.4 H 06/18/25 05:21 MCV 84.1 MCH 28.3 MCHC 33.7 RDW 12.6 Plt Count 368 MPV 9.1 L Immature Gran % (Auto) 0.5 H Neut % (Auto) 91.0 H Lymph % (Auto) 6.0 L [place] % (Auto) 2.4 Eos % (Auto) 0.0 Baso % (Auto) 0.1 Lymph # (Auto) 0.7 L [place] # (Auto) 0.3 Eos # (Auto) 0.0 Baso # (Auto) 0.0 Abs Immat Gran (auto) 0.06 H Absolute Neuts (auto) 10.2 H Absolute Nucleated RBC 0.000 Nucleated RBC % (auto) 0.0 Smear Tech's Comments VERIFIED ESR Anion Gap 12 Estim Creat Clear Calc 99.7 Estimated GFR > 60 Random Glucose 201 H Lactic Acid Uric Acid Calcium 9.6 Magnesium Total Bilirubin AST ALT Alkaline Phosphatase C-Reactive Protein Total Protein Albumin Rheumatoid Factor Assessment and Plan (1) Cellulitis of hand, right: Status: Acute Plan 54 yo male with PMH HTN, DMII on tirzepatide (6 months with 65 pound weight loss), OA, [place]ou[place] ), degenerative joint disease, Vit D deficiency presents to the ED today after experiencing new onset R hand swelling and pain with limited mobility of R hand to the point that 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 Differnetials include cellulitis, tenosynovitis, inflammatory process. R hand cellulitis with severe pain (suspect tenosynovitis) Orthopedics consulted CT neg for abscess or fluid collection, no foriegn body present KIRILL, uric acid, RF, Tick born panel pending ,BC pending CRP and ESR elevated, Leukocytosis noted 20K no left shift or fever, Lactic acid level WNL hand cellulitis/pain seems similar. plan: ICE and elevation Dilaudid prn, pt wants to avoid narcotics if possible on Vancomycin and Ceftriaxone . seen by ortho -rec -continue iv antibiotics and moniter HTN continue Lisinopril continues as renal fx is stable . DMII SSI Pt only using Tirzepatide at home, has lost 65 pounds over 6 months Last Aic 6.0 Diabetic Diet Vitamin D deficiency Continue VIt D supplementation DVT prophylaxis: lovenox ongoing need for stay:R hand cellulitis with severe pain -need iv pain meds,antibiotics , hand rom /restricted,ortho followup, moniter vanco trough and moniter renal function /electrolytes. Quality Stroke Does the patient have a stroke diagnosis?: No Reason for No Anti-thrombotic by Day Two: Contraindicated VTE Prior VTE?: No VTE Risk Level:: Medical - moderate - high VTE Device Contraindication: N/A - Device Ordered VTE Drug Contraindication: N/A - Med Ordered
[2025-06-18 08:00] VITALS: BP 136/77; PULSE 97; RESP 18; TEMP 36.5; O2SAT 96
[2025-06-18 08:10] LABS: Glucose, Whole Blood 193 mg/dL (60-115)
[2025-06-18 08:44] VITALS: BP 136/77
--- NOTE | 2025-06-18 10:54 | P.CONOP_ITS ---
History of Present Illness HPI Consult date: 06/18/25 Chief complaint: right hand Cellulitis Narrative: 54 yo male admitted to the medical service for right hand swelling and pain. He was started on iv abx . He denies injury, insect bite, animal bite or any other incident that would have caused this. He states the hand became painful and swollen. He had a similar incident earlier this year when his right shoulder became infected and septic and he had a washout. States he is pre diabetic. Denies ilicit drug use. Review of Systems 2 Review of Systems: Yes all other systems are reviewed and are negative PMFSH Past Medical History Medical History Septic arthritis of shoulder Vitamin D deficiency Diabetes mellitus Lumbar degenerative disc disease Left knee pain Cyst of perianal area Degenerative joint disease of right knee Obesity (BMI 30-39.9) Benign essential hypertension Family History Family History Maternal Grandfather Bone cancer Other Family history non-contributory Surgical History Surgical History H/O colonoscopy (~11/08/22) History of meniscectomy of right knee (~07/20/20) History of right knee surgery H/O lateral meniscus repair of right knee H/O lateral meniscus repair of left knee H/O lumbar discectomy History of arthroscopy of both shoulders History of laparoscopic cholecystectomy Social History Social History Household Members: Spouse and Children Housing: House Do you presently have visiting nurse or other home services: No Alcohol intake: never Patient Tobacco Use Status: Former Tobacco user Years Smoked: 5 Smoked in Last 30 Days: No e-Cigarette/Vaping Use: Never Used Second Hand Smoke Exposure: Yes Use of substances other than those prescribed or required for medical reasons: No Currently Displaying Signs/Symptoms of Drug Intoxication Withdrawal: No Have you been hit, kicked, punched, or otherwise hurt by someone within the past year? 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 - [employer] Current occupational exposures/hazards: No Cognitive needs: No Hearing needs: No Vision needs: No Travel History Ebola Risk: Travel/Contact With Anyone From Affected Area/s: No Has Patient Experienced Ebola Symptoms: No Meds Allergies Allergy/AdvReac Type Severity Reaction Status Date / Time No Known Allergies (No Known Allergy Verified 06/17/25 15:37 Allergies*) Active Medications: Current Medications Acetaminophen (Acetaminophen 325 Mg Tablet) 650 mg PO Q6H PRN PRN Reason: Pain, Mild 1-3,fever,headache Calcium Carbonate (Calcium Carbonate 750 Mg Tab.Chew) 750 mg PO Q4H PRN PRN Reason: Heartburn Ceftriaxone Sodium (Ceftriaxone Sodium 1 Gm Vial) 1 gm IVPUSH Q24H [facility] Hydromorphone HCl (Hydromorphone Hcl 0.5 Mg/0.5 Ml Syringe) 0.5 mg IVPUSH Q4H PRN; Protocol PRN Reason: Pain, Severe (Pain Scale 7-10) Last Admin: 06/17/25 22:57 Dose: 0.5 mg Vancomycin HCl 1,000 mg/ (Sodium Chloride) 270 mls @ 270 mls/hr IV Q12H [facility] Last Infusion: 06/18/25 08:42 Dose: Infused Ketorolac Tromethamine (Ketorolac Tromethamine 15 Mg/Ml Vial) 15 mg IVPUSH Q6H PRN PRN Reason: Pain, Moderate(Pain Scale 4-6) Stop: 06/19/25 01:59 Last Admin: 06/18/25 05:16 Dose: 15 mg Lisinopril (Lisinopril 5 Mg Tablet) 5 mg PO DAILY [facility]; Protocol Last Admin: 06/18/25 08:44 Dose: 5 mg Magnesium Hydroxide (Milk Of Magnesia 30 Ml Oral.Susp) 30 ml PO DAILY PRN PRN Reason: Constipation Melatonin (Melatonin 3 Mg Tablet) 6 mg PO BEDTIME PRN PRN Reason: Insomnia Ondansetron HCl (Ondansetron Hcl 4 Mg/2 Ml Vial) 4 mg IVPUSH Q8H PRN PRN Reason: Nausea and Vomiting Pharmacy Consult (Consult Rx Vancomycin Dosing) 1 each MISCELLANE DAILY PRN PRN Reason: Consult order Polyethylene Glycol (Polyethylene Glycol 3350 17 Gm Powd.Pack) 17 gm PO DAILY PRN PRN Reason: Constipation Sodium Chloride (0.9 % Sodium Chloride Flush 3 Ml Syringe) 3 ml IVFLUSH QSHIFT [facility] Last Admin: 06/18/25 07:31 Dose: 3 ml Tramadol HCl (Tramadol Hcl 50 Mg Tablet) 50 mg PO Q6H PRN PRN Reason: Pain, Moderate(Pain Scale 4-6) Last Admin: 06/18/25 08:47 Dose: 50 mg Vitamin D (Cholecalciferol (Vitamin D3) 25 Mcg Tablet) 25 mcg PO DAILY [facility] Last Admin: 06/18/25 08:44 Dose: 25 mcg Home Medications ?Medication ?Instructions ?Recorded ?Confirmed ?Last Taken ?Type tirzepatide 7.5 mg/0.5 mL 7.5 mg subcut MO 06/17/2506/13/25 History subcutaneous pen injector (Rey) tramadol 50 mg tablet 50 - 100 mg PO TID PRN pain 06/17/25 06/17/25 Unknown History Physical Exam 2 Vital Signs: Vital Signs: Last Vital Signs Temp 97.7 F 06/18/25 08:00 Pulse 97 06/18/25 08:00 Resp 18 06/18/25 08:00 BP 136/77 06/18/25 08:44 Pulse Ox 96 06/18/25 08:00 O2 Del Method Room Air 06/18/25 08:00 BMI result Body Mass Index 32.1 Const: General: cooperative, healthy appearing, comfortable and no acute distress Extrem: Other: Right hand swelling but no redness. He has difficult making a fist. No swelling or abscess formation over the dorsum or volar aspect of the hand. No evidence of flexor tenosynovitis. NVI. Results Labs 06/18/25 05:21 06/18/25 05:21 Labs: Abnormal lab results 06/17/25 06/17/25 06/18/25 Range/Units 15:49 21:11 05:21 WBC 20.8 H 11.3 H (4.8-10.8) X10*3/uL RBC 4.47 L 4.41 L (4.60-5.80) X10*6/uL Hgb 12.8 L 12.5 L (14.0-18.0) g/dl Hct 37.5 L 37.1 L (42.0-52.0) % Plt Count 420 H D (160-400) X10*3/uL MPV 8.8 L 9.1 L (9.4-12.4) fL Immature Gran % (Auto) 0.5 H (0.0-0.4) % Neut % (Auto) 79.1 H 91.0 H (45-73) % Lymph % (Auto) 10.6 L 6.0 L (20-40) % Lymph # (Auto) 0.7 L (1.2-4.9) X10*3/uL [place] # (Auto) 1.6 H (0.1-1.2) X10*3/uL Abs Immat Gran (auto) 0.08 H 0.06 H (0.00-0.03) X10*3/uL Absolute Neuts (auto) 16.4 H 10.2 H (2.0-8.3) x10*3/uL ESR 58 H (0-15) MM/HR Sodium 132 L (135-145) mmol/L BUN 17 H 19 H (9-16) mg/dL POC Glucose (60-115) mg/dL Random Glucose 123 H 201 H (60-115) mg/dL C-Reactive Protein 6.67 H (< or = 0.50) mg/dL Rheumatoid Factor 15.4 H (<15.0) IU/mL 06/18/25 Range/Units 08:05 WBC (4.8-10.8) X10*3/uL RBC (4.60-5.80) X10*6/uL Hgb (14.0-18.0) g/dl Hct (42.0-52.0) % Plt Count (160-400) X10*3/uL MPV (9.4-12.4) fL Immature Gran % (Auto) (0.0-0.4) % Neut % (Auto) (45-73) % Lymph % (Auto) (20-40) % Lymph # (Auto) (1.2-4.9) X10*3/uL [place] # (Auto) (0.1-1.2) X10*3/uL Abs Immat Gran (auto) (0.00-0.03) X10*3/uL Absolute Neuts (auto) (2.0-8.3) x10*3/uL ESR (0-15) MM/HR Sodium (135-145) mmol/L BUN (9-16) mg/dL POC Glucose 193 H (60-115) mg/dL Random Glucose (60-115) mg/dL C-Reactive Protein (< or = 0.50) mg/dL Rheumatoid Factor (<15.0) IU/mL H & H 06/17/25 06/18/25 Range/Units 15:49 05:21 Hgb 12.8 L 12.5 L (14.0-18.0) g/dl Hct 37.5 L 37.1 L (42.0-52.0) % All other labs normal. Assessment and Plan (1) Cellulitis of hand, right: Status: Acute Plan No evidence of abscess or tenosynovitis ROM right hand elevate cont iv abx Procedures Date of Service Date of Service: 06/18/25
[2025-06-18 11:34] LABS: Glucose, Whole Blood 191 mg/dL (60-115)
[2025-06-18 15:22] VITALS: BP 141/66; PULSE 102; RESP 16; TEMP 36.7; O2SAT 96
--- NOTE | 2025-06-18 16:21 | MHC.CM.PN ---
Addendum entered by Rocio Hannah 06/18/25 16:23: CORRECTION: PCP IS JENNIFER LINDSAY Original Note: PT REPORTS HE LIVES WITH HIS AND IS INDEPENDENT WITH CARE HE HAS NO DME OR SERVICES PCP: ERLIN PABLO DCP: HOME VIA PRIVATE TRANSPORT
[2025-06-18 19:20] VITALS: BP 126/67; PULSE 83; RESP 16; TEMP 35.8; O2SAT 96
[2025-06-19 03:34] VITALS: BP 109/63; PULSE 80; RESP 17; TEMP 36.4; O2SAT 95
[2025-06-19 07:00] LABS: Creatinine Clr Calc Pharmacy 88.1; Estimated Glomerular Filt Rate > 60
[2025-06-19 07:37] LABS: Glucose, Whole Blood 139 mg/dL (60-115)
[2025-06-19 07:51] VITALS: BP 123/75; PULSE 79; RESP 18; TEMP 36.3; O2SAT 96
--- NOTE | 2025-06-19 07:56 | P.PNIM_ITS ---
Subjective Subjective Date of Service: 06/19/25 Review of Systems Review of Systems: Yes all other systems are reviewed and are negative Physical Exam 2 Vital Signs: Vital Signs: Last Vital Signs Temp 97.4 F 06/19/25 07:51 Pulse 79 06/19/25 07:51 Resp 18 06/19/25 07:51 BP 123/75 06/19/25 07:51 Pulse Ox 96 06/19/25 07:51 O2 Del Method Room Air 06/19/25 07:51 BMI result Body Mass Index 32.1 Objective Data Active Medications Acetaminophen (Acetaminophen 325 Mg Tablet) 650 mg PO Q6H PRN PRN Reason: Pain, Mild 1-3,fever,headache Calcium Carbonate (Calcium Carbonate 750 Mg Tab.Chew) 750 mg PO Q4H PRN PRN Reason: Heartburn Ceftriaxone Sodium (Ceftriaxone Sodium 1 Gm Vial) 1 gm IVPUSH Q24H [facility] Last Admin: 06/18/25 17:48 Dose: 1 gm Documented By: RONALD Enoxaparin Sodium (Enoxaparin Sodium 40 Mg/0.4 Ml Syringe) 40 mg SUBCUT Q24H [facility] Last Admin: 06/18/25 13:05 Dose: 40 mg Documented By: RONALD Hydromorphone HCl (Hydromorphone Hcl 0.5 Mg/0.5 Ml Syringe) 0.5 mg IVPUSH Q4H PRN; Protocol PRN Reason: Pain, Severe (Pain Scale 7-10) Last Admin: 06/19/25 00:10 Dose: 0.5 mg Documented By: PAMELA Vancomycin HCl 1,250 mg/ (Sodium Chloride) 250 mls @ 166.667 mls/hr IV Q12H [facility] Last Infusion: 06/18/25 21:34 Dose: Infused Documented By: PAMELA Magnesium Hydroxide (Milk Of Magnesia 30 Ml Oral.Susp) 30 ml PO DAILY PRN PRN Reason: Constipation Melatonin (Melatonin 3 Mg Tablet) 6 mg PO BEDTIME PRN PRN Reason: Insomnia Ondansetron HCl (Ondansetron Hcl 4 Mg/2 Ml Vial) 4 mg IVPUSH Q8H PRN PRN Reason: Nausea and Vomiting Pharmacy Consult (Consult Rx Vancomycin Dosing) 1 each MISCELLANE DAILY PRN PRN Reason: Consult order Polyethylene Glycol (Polyethylene Glycol 3350 17 Gm Powd.Pack) 17 gm PO DAILY PRN PRN Reason: Constipation Sodium Chloride (0.9 % Sodium Chloride Flush 3 Ml Syringe) 3 ml IVFLUSH QSHIFT [facility] Last Admin: 06/18/25 20:01 Dose: 3 ml Documented By: PAMELA Tramadol HCl (Tramadol Hcl 50 Mg Tablet) 50 mg PO Q6H PRN PRN Reason: Pain, Moderate(Pain Scale 4-6) Last Admin: 06/18/25 08:47 Dose: 50 mg Documented By: RONALD Vitamin D (Cholecalciferol (Vitamin D3) 25 Mcg Tablet) 25 mcg PO DAILY [facility] Last Admin: 06/18/25 08:44 Dose: 25 mcg Documented By: RONALD Labs 06/18/25 05:21 06/19/25 06:19 Labs: Laboratory Results - last 24 hr 06/18/25 06/18/25 06/18/25 05:21 08:05 11:29 ESR 69 H Hold Purple Top Estim Creat Clear Calc Estimated GFR POC Glucose 193 H 191 H C-Reactive Protein 11.65 H Random Vancomycin 06/18/25 06/19/25 06/19/25 17:54 06:19 07:32 ESR Hold Purple Top SEE NOTE Estim Creat Clear Calc 88.1 Estimated GFR > 60 POC Glucose 139 H C-Reactive Protein Random Vancomycin 11.0 L Microbiology Microbiology Results: Microbiology 06/17/25 18:09 Blood Culture - Preliminary Blood - Venous No growth after 24 hours. 06/17/25 18:09 Blood Culture - Preliminary Blood - Venous No growth after 24 hours. 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 Differnetials include cellulitis, tenosynovitis, inflammatory process. R hand cellulitis with severe pain (suspect tenosynovitis) Orthopedics consulted CT neg for abscess or fluid collection, no foriegn body present KIRILL, uric acid, RF, Tick born panel pending ,BC pending CRP and ESR elevated, Leukocytosis noted 20K no left shift or fever, Lactic acid level WNL hand cellulitis/pain seems similar. plan: ICE and elevation Dilaudid prn, pt wants to avoid narcotics if possible on Vancomycin and Ceftriaxone . seen by ortho -rec -continue iv antibiotics and moniter HTN continue Lisinopril continues as renal fx is stable . DMII SSI Pt only using Tirzepatide at home, has lost 65 pounds over 6 months Last Aic 6.0 Diabetic Diet Vitamin D deficiency Continue VIt D supplementation DVT prophylaxis: lovenox ongoing need for stay:R hand cellulitis with severe pain -need iv pain meds,antibiotics , hand rom /restricted,ortho followup, moniter vanco trough and moniter renal function /electrolytes. Quality Stroke Does the patient have a stroke diagnosis?: No Reason for No Anti-thrombotic by Day Two: Contraindicated VTE Prior VTE?: No VTE Risk Level:: Medical - moderate - high VTE Device Contraindication: N/A - Device Ordered VTE Drug Contraindication: N/A - Med Ordered
[2025-06-19] MEDS: 0.9 % Sodium Chloride Flush 3 ML SYRINGE IVFLUSH (08:10)
[2025-06-19 08:16] LABS: Blood Urea Nitrogen 21 mg/dL (9-16); Calcium 9.0 mg/dL (8.4-10.2)
[2025-06-19 08:27] LABS: Anion Gap 10 (12-20); Carbon Dioxide 29 mmol/L (22-29); Chloride 104 mmol/L (96-108); Potassium 4.3 mmol/L (3.3-5.1); Sodium 139 mmol/L (135-145)
--- NOTE | 2025-06-19 09:23 | PM.PNORT ---
Subjective Subjective Date of Service: 06/19/25 Interval history: Like this stay day 2 right hand swelling No overnight events Redness has resolved and he has good range of motion Physical Exam Vital Signs: Vital Signs: Last Vital Signs Temp 97.4 F 06/19/25 07:51 Pulse 79 06/19/25 07:51 Resp 18 06/19/25 07:51 BP 123/75 06/19/25 07:51 Pulse Ox 96 06/19/25 07:51 O2 Del Method Room Air 06/19/25 07:51 BMI result Body Mass Index 32.1 Const: General: cooperative, healthy appearing, comfortable and no acute distress Extrem: Other: Right hand swelling has improved, no redness. He is able to extend all digits and attempts to make a fist but is lacking approximately 2 cm from 2nd palmar crease. No swelling or abscess formation over the dorsum or volar aspect of the hand. No evidence of flexor tenosynovitis. NVI. Procedures Date of Service Date of Service: 06/19/25 Progress Note: A&P Assessment and plan (1) Cellulitis of hand, right: Status: Acute Assessment and Plan: No surgical intervention warranted Continue range of motion of the hand If symptoms return or worsen upon discharge patient can see us in our office for follow-up or return to the emergency department Time Spent With Patient Time: Total time managing care of this patient today ____ minutes. Quality Stroke Does the patient have a stroke diagnosis?: No Reason for No Anti-thrombotic by Day Two: Contraindicated VTE Prior VTE?: No VTE Risk Level:: Medical - moderate - high VTE Device Contraindication: N/A - Device Ordered VTE Drug Contraindication: N/A - Med Ordered
[2025-06-19 11:08] LABS: Glucose, Whole Blood 105 mg/dL (60-115)
--- NOTE | 2025-06-19 12:06 | PM.DS ---
DS: Providers Provider Date of Service: 06/19/25 Date of admission: 06/17/25 19:31 Date of discharge: 06/19/25 Primary care physician: Randolph Herring MD Consults: 06/17/25 19:59 Consult to Orthopedics Routine Consulting Provider: [facility] Reason for consultation: R hand cellulitis with swelling, decrease mobility xray/CT neg exc ant yara 06/18/25 11:36 Consult to Infectious Diseases Routine Consulting Provider: [facility] Reason for consultation: cellulitis Has provider been notified: No Attending physician on discharge: Jose Sharif Discharging clinician: Jose Sharif DS: Diagnosis Discharge Diagnosis (1) Cellulitis of hand, right: Status: Acute DS: Summary Hospital Course Hospital Course: HPI: 54 yo male with PMH HTN, DMII on tirzepatide (6 months with 65 pound weight loss), OA, [place]ou[place] ), degenerative joint disease, Vit D deficiency presents to the ED today after experiencing new onset R hand swelling and pain with limited mobility of R hand to the point that 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 Pt denies any trauma or injury to the hand and denies hx of similar symptoms. Pt denies hx of gout, auto immune diseasea including RA and Lupus. Pt has 3 dogs but denies any animal bites or skin breaks from his dogs. Pt is ambidextrous and writes with Left hand mostly. Pt denies fever, chills, nausea, vomiting, diarrhea, chest pain or shortness of breath at rest or with exertion. One exam, swelling noted from wrist down through middle of hand to fingers. 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 Pt reports pain 6/20 especially from the wrist down through the middle of the hand into the fingers. The hand and wrist are not warm/hot to the touch. There is not rash on affected hand. Brachial, radial and ulnar pulses are palpable and bounding. Cap refill in all fingers on R hand is <2 sec. No axillary lymphadenopathy noted on exam. Work up in ED included Xray and CT hand and only anterior subcutaneous swelling noted. No acute fracture or foreign body found. Pt started on pain control and ABX (VANCO and Ceftriaxone)noting leukocytosis 20K, elevated CRP and ESR. LA normal level. Pt has no fever, BP elevated due to pain likely. Pt presents with symptoms leanign towards tenosynovitis. ICe and elevation implemented in ED as well. Pt received morphine, dilaudid, motrin so far with some improvement in pain control. Hospital course:Patient was admitted for right extremity cellulitis: Started on IV antibiotics, blood cultures sent. Hand CT: Shows nonspecific subcutaneous edema. ESR and CRP elevated, patient KIRILL, RF, Tick born panel pending Patient seems to be improved significantly with IV antibiotics, leukocytosis improving,Blood culture negative at 24 hours. Discussed with the orthopedics-No evidence of abscess or tenosynovitis, no need for MRI currently. going home with p.o. antibiotics p.o. doxycycline 100 mg p.o. b.i.d. and Augmentin 875 mg p.o. b.i.d. for 10 days. Follow up with orthopedics outpatient-patient already has appointment with Orthopedics the end of this month. Plan: follow up KIRILL, uric acid, RF, Tick born panel pending -patient is aware to follow up out patiently with PCP. Complete antibiotic course as prescribed. Follow up with orthopedics outpatient. Above management discussed with the patient detail length he understand and in agreement with the plan, time spent 45 minute, all question answered. Time Attestation Total time managing care of this patient today: 45 mintues. Discharge Coordination Time (in mins): 45 min Quality: Safe Use of Opioids Does Pt have an Active Cancer Diagnosis on the Problem List?: No Quality: Stroke Does the patient have a stroke diagnosis?: No Physical Exam Exam: Exam: Appearance: Alert.? Oriented X3.? cvs: rrr, [id number] . res: clear to auscultation ,no rhonchii or wheezing abd: no rebound or guarding ,nt, bs present. ext pulses present , no cyanosis. Right hand swelling has improved, no redness. He is able to extend all digits and attempts to make a fist but is lacking approximately 2 cm from 2nd palmar crease. No swelling or abscess formation over the dorsum or volar aspect of the hand. No evidence of flexor tenosynovitis. NVI. neuro: axo3 , nonfocal. Vital Signs: Vital Signs: Last Vital Signs Temp 97.4 F 06/19/25 07:51 Pulse 79 06/19/25 07:51 Resp 18 06/19/25 07:51 BP 123/75 06/19/25 07:51 Pulse Ox 96 06/19/25 07:51 O2 Del Method Room Air 06/19/25 07:51 BMI result Body Mass Index 32.1 DS: Data Data Completed and Pending Labs on day of discharge: Laboratory Results - last 24 hr 06/18/25 06/18/25 06/19/25 05:21 17:54 06:19 ESR 69 H Hold Purple Top SEE NOTE Sodium 139 Potassium 4.3 Chloride 104 Carbon Dioxide 29 Anion Gap 10 L BUN 21 H Creatinine 1.03 Estim Creat Clear Calc 88.1 Estimated GFR > 60 POC Glucose Random Glucose 112 Calcium 9.0 D C-Reactive Protein 11.65 H Random Vancomycin 11.0 L 06/19/25 06/19/25 07:32 11:02 ESR Hold Purple Top Sodium Potassium Chloride Carbon Dioxide Anion Gap BUN Creatinine Estim Creat Clear Calc Estimated GFR POC Glucose 139 H 105 Random Glucose Calcium C-Reactive Protein Random Vancomycin Preliminary micro results at discharge 06/17/25 18:09 Blood Culture - Preliminary Blood - Venous No growth after 24 hours. 06/17/25 18:09 Blood Culture - Preliminary Blood - Venous No growth after 24 hours. Imaging Chest x-ray: Radiologist's impression: ITS Impressions Hand X-Ray 06/17/25 15:53 IMPRESSION: Unremarkable right hand. Discharge Plan Discharge Anticipated Discharge Date/Time: 06/19/25 12:01 Patient Disposition: Home, Self-Care Discharge Diagnosis: Right hand cellulitis. Referrals: Randolph Herring MD [Primary Care Provider, Internal Medicine] - 1 Week Discharge Medications: New doxycycline monohydrate 100 mg Capsule 100 mg PO Q12H Qty: 19 0RF amoxicillin-pot clavulanate 875-125 mg Tablet 1 tab PO Q12H Qty: 19 0RF Continued cholecalciferol (vitamin D3) 25 mcg (1,000 unit) tablet 25 mcg PO DAILY Qty: 90 3RF lisinopril 5 mg tablet 5 mg PO DAILY Qty: 90 1RF tramadol 50 mg tablet 50 - 100 mg PO TID PRN (Reason: pain) Rx Instructions: TAKE 1 TO 2 TABLET THREE TIMES DAILY NEEDED FOR INCREASED PAIN OVER THE LOWER BACK Mounjaro 7.5 mg/0.5 mL pen injector 7.5 mg SUBCUT MO Discharge Orders: Discharge Order (Routine); Ordered 06/19/25 Ordered By: Jose Sharif Diet: Advance to usual diet Activity on Discharge: As tolerated Stand Alone Forms: Patient Portal Discharge page, Work/School Release Print Language: Egyptian Other Ambulatory Orders: Basic Metabolic Panel (Routine) Timeframe: 1 Week Facility: [facility] - Location: Laboratory Ordered By: Jose Sharif C Reactive Protein (Routine) Timeframe: 1 Week Facility: [facility] - Location: Laboratory Ordered By: Jose Sharif Erythrocyte Sedimentation Rate (Routine) Timeframe: 1 Week Facility: [facility] - Location: Laboratory Ordered By: Jose Sharif Care Plan Goals: Patient was admitted for right extremity cellulitis: Started on IV antibiotics, blood cultures sent. Hand CT: Shows nonspecific subcutaneous edema. Patient seems to be improved significantly with IV antibiotics, going home with p.o. antibiotics p.o. doxycycline 100 mg p.o. b.i.d. and Augmentin 875 mg p.o. b.i.d. for 10 days. Follow up with orthopedics outpatient-patient already has appointment with Orthopedics the end of this month. Blood culture negative at 24 hours. Health Concerns: Complete doxycycline 100 mg p.o. b.i.d. and Augmentin 875 mg p.o. b.i.d. for 10 days. Follow up with orthopedics outpatient. patient KIRILL, RF, Tick born panel pending -follow up outpatient with pcp. Plan of Treatment: As above. Assessment: As above.
--- NOTE | 2025-06-19 13:37 | MHC.CM.PN ---
PT CLEARED TO DC HOME TODAY WITH NO SERVICES VIA PRIVATE TRANSPORT
[2025-06-22 00:38] LABS: A. Phagocytphilium DNA,RT-PCR NOT DETECTED (NOT DETECTED); Babesia Microti DNA, RT-PCR NOT DETECTED (NOT DETECTED); Borrelia Miyamotoi,DNA RT-PCR NOT DETECTED (NOT DETECTED); E.Chaffeensis DNA RT-PCR NOT DETECTED (NOT DETECTED); Lyme(Borrelia ssp)DNA RT-PCR NOT DETECTED (NOT DETECTED)
== END 2025-06-19 13:02 | disposition home or self-care (01) | DRG 383 ==
LOC: HO.ED 19:40 → HO.EDOVER 21:39 → HO.S3 22:50
PROVIDERS: Nurse Practitioner Family; Registered Nurse Emergency; Admitting Provider Internal Medicine; Emergency Provider Emergency Medicine; PCP Internal Medicine; Visit Provider Internal Medicine
DX: L03.113 Cellulitis of right upper limb (principal); E11.9 Type 2 diabetes mellitus without complications; I10 Essential (primary) hypertension; Z23 Encounter for immunization; E55.9 Vitamin D deficiency, unspecified; Z87.891 Personal history of nicotine dependence; Z79.899 Other long term (current) drug therapy
CPT/HCPCS: 36415; 73130; 73201; 80048; 80053; 80202; 82565; 82947; 83605; 83735; 84550; 85025; 85652; 86038; 86140; 86431; 87040; 87468; 87469; 87478; 87484; 87798; 90656; 99285; J0696; J1100; J1171; J1650; J1885; J3373; J3374; Q9967

== ENCOUNTER → 2025-06-17 15:42 | Outpatient (BNV) | payer BC, SELFPAY | PROVIDERS: PCP Internal Medicine; Visit Provider Radiology Diagnostic Radiology | DX: L03.113 Cellulitis of right upper limb (principal); M79.641 Pain in right hand; R60.0 Localized edema | CPT/HCPCS: 73130; 73201 ==

== ENCOUNTER → 2025-06-17 19:31 | Outpatient (BNV) | payer BC, SELFPAY | PROVIDERS: Admitting Provider Internal Medicine; Emergency Provider Emergency Medicine; PCP Internal Medicine; Visit Provider Physician Assistant | DX: L03.113 Cellulitis of right upper limb (principal) | CPT/HCPCS: 99232; 99252 ==

== ENCOUNTER → 2025-06-17 19:31 | Outpatient (BNV) | payer BC, SELFPAY | PROVIDERS: Admitting Provider Internal Medicine; Emergency Provider Emergency Medicine; PCP Internal Medicine; Visit Provider Nurse Practitioner Family | DX: L03.113 Cellulitis of right upper limb (principal) | CPT/HCPCS: 99239 ==

== ENCOUNTER 2025-07-12 14:13 | Outpatient (AMB) | payer BC, SELFPAY ==
--- NOTE | 2025-07-12 14:31 | A.OFFVIS_ITS ---
Vital Signs 07/12/25 14:32 Height 5 ft 7 in Weight 205 lb BMI 32.1 Intake Visit Reasons: Newprob-B/L hand pain-possibly tendinitis Intake Note: Isaiah is a 54 year old ambidextrous male who presents today for a New Problem Visit to evaluate Bilateral Hand Pain. Patient reports pain began a couple of years ago. He complains of left had swelling. Patient reports right middle and ring finger numbness and tingling has subsided. He was evaluated by [facility] on 06/17/24 and had Ortho Consult on 06/18/25 for Right Hand Cellulitis. He has completed his antibiotics. He continues taking Tramadol with relief of pain. Denies any finger locking. Denies any previous injuries or surgeries to the hands. Allergies No Known Allergies (No Known Allergies*) Allergy (Verified 07/12/25 14:33) HPI HPI Newprob-B/L hand pain-possibly tendinitis: Details: Isaiah is a 54 year old ambidextrous male who presents today for a New Problem Visit to evaluate Bilateral Hand Pain. Patient reports pain began a couple of years ago. He complains of left had swelling. Patient reports right middle and ring finger numbness and tingling has subsided. He was evaluated by [facility] on 06/17/24 and had Ortho Consult on 06/18/25 for Right Hand Cellulitis. He has completed his antibiotics. He continues taking Tramadol with relief of pain. Denies any finger locking. Denies any previous injuries or surgeries to the hands. [facility] Medical History (Updated 07/12/25 @ 17:48 by FABIÁN Tam) Septic arthritis of shoulder Vitamin D deficiency Diabetes mellitus Lumbar degenerative disc disease Left knee pain Cyst of perianal area Degenerative joint disease of right knee Obesity (BMI 30-39.9) Benign essential hypertension Surgical History H/O colonoscopy (~11/08/22) History of meniscectomy of right knee (~07/20/20) History of right knee surgery H/O lateral meniscus repair of right knee H/O lateral meniscus repair of left knee H/O lumbar discectomy History of arthroscopy of both shoulders History of laparoscopic cholecystectomy Family History Maternal Grandfather Bone cancer Other Family history non-contributory Social History (Updated 07/12/25 @ 14:34 by OLEG Hastings) Household Members: Spouse and Children Housing: House Do you presently have visiting nurse or other home services: No Alcohol intake: current Alcohol intake frequency: holidays/special occasions only Patient Tobacco Use Status: Former Tobacco user Years Smoked: 5 e-Cigarette/Vaping Use: Never Used Second Hand Smoke Exposure: Yes service: No Current occupational status: employed 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 Neuro: Normal sensation of the tips of all digits of the bilateral hand at this time Vascular: Cap refill brisk Pain: Tenderness to palpation over bilateral ulnar styloid No tenderness to palpation throughout bilateral hands ROM: Patient is able to make a closed fist and extend all digits of bilateral hands fully Skin: No lacerations or abrasions. General: No ecchymosis, erythema, or evidence of infection. Psych: Appears grossly normal Affect normal Attitude cooperative Assessment & Plan Assessment & Plan (1) Extensor carpi ulnaris tendinitis: Code(s): M77.8 - Other enthesopathies, not elsewhere classified Category: Medical Plan Bilateral ECU tendinitis Patient is educated about this condition Patient is educated about the typical treatment course At this time, patient is provided with bilateral wrist splints to wear when his wrist is particularly bothering him Patient is offered a referral to occupational therapy, but declines, stating ?it is not anything I can do at home Patient is educated that if he does not continue to experience improvement, he should call our office for reassessment Patient understands this and is amenable to this plan Follow-up as needed Coding Level of Care Code New Pt Level 3 (50813) Diagnoses Extensor carpi ulnaris tendinitis M77.8
[2025-07-12 14:32] VITALS: BMI 32.1
--- OUTSIDE RECORDS SUMMARY | 2025-07-12 18:35 | XMS_ITS | Patient Health Record ---
Author Organization [facility] Address [address] [place] [address] Care Team Providers Care Coremaker Bench Name Role Phone Ken Herring MDneth Primary Care Provider Yasmani Golden Unavailable [phone] Reason For Referral No Information Medications Medication SIG (Take, Route, Fr equency, Duration) Notes Start Date End Date Status traMADol HCl 50 MG 1 tablet as needed O rally 1 PO TID Active tiZANidine HCl Not-T aking Metaxalone 400 MG 1 tablet Orally PRN Active Naproxen 500 MG 1 tablet with food o r milk Orally Once a day prn Active Social History Tobacco Use: Social History Observation Description Date Details (start date - stop date) Never Smoker NA - NA Tobacco Use/Smoking Question Answer Notes Patient is [...] Never (0 point) Points 0 Interpretation Negative Section Notes: Nonsmoker; no sig alcohol Problems Problem Type SNOMED Code ICD Code Onset Dates Problem Status W/U Status Risk Notes Problem Screening for malignant neoplasm of colon (508585824) Encounter for screening for malignant neoplasm of colon (Z12.11) Active confirmed Problem Preprocedural examination (013881698939513) Preprocedural examination (Z01.818) Active confirmed Plan Of Treatment Future Test Test Name Order Date COLONOSCOPY 03/09/2020 Insurance Providers Payer Name Payer Address Payer Phone Subscriber Number Group Number Insured Name Patient Relationship to Insured Coverage Start Date Coverage End Date [facility] PROF[employer]AL CLAIMS [address] [place] [address] [id number] XANDER WEBER Self - patient is the insured Medical (General) History Medical History History ICD Code Denies HI,DM,CVA,Lung disease,renal dise ase Chronic back pain Surgical History Surgery Date(Month/Year) Lower back Bilateral knees Bilateral shoulders [facility]
== END 2025-07-12 15:00 | disposition home or self-care (01) ==
LOC: HO.HOS 14:14
PROVIDERS: PCP Internal Medicine
DX: M77.8 Other enthesopathies, not elsewhere classified (principal)
CPT/HCPCS: 99213

== ENCOUNTER 2025-07-14 02:02 | Emergency (ER) | payer BC, SELFPAY ==
[2025-07-14 02:04] VITALS: BP 153/86; PULSE 83; RESP 20; TEMP 36.3; O2SAT 99; BMI 30.3
--- OUTSIDE RECORDS SUMMARY | 2025-07-14 02:29 | XMS_ITS | Patient Health Record ---
Author Organization [facility] Address [address] [place] [address] Care Team Providers Care Pricer Bagger Name Role Phone Ken Herring MDneth Primary Care Provider Yasmani Golden Unavailable [phone] Reason For Referral No Information Medications Medication [...] Problem Screening for malignant neoplasm of colon (125858591) Encounter for screening for malignant neoplasm of colon (Z12.11) Active confirmed Problem Preprocedural examination (317487973750928) Preprocedural examination (Z01.818) Active confirmed Plan Of Treatment Future Test Test Name Order Date COLONOSCOPY 03/09/2020 Insurance Providers Payer Name Payer Address Payer Phone Subscriber Number Group Number Insured Name Patient Relationship to Insured Coverage Start Date Coverage End Date [facility] PROFESSIONAL CLAIMS [address] [place] [address] [id number] XANDER WEBER Self - patient is the insured Medical (General) History Medical History History ICD Code Denies GA,DM,CVA,Lung disease,renal dise ase Chronic back pain Surgical History Surgery Date(Month/Year) Lower back Bilateral knees Bilateral shoulders [facility]Y
[2025-07-14 02:30] LABS: MANUAL DIFF FLAG NO
[2025-07-14 02:31] LABS: Hematocrit 38.3 % (42.0-52.0); Hemoglobin 12.7 g/dl (14.0-18.0); Imm Gran Abs Auto 0.03 X10*3/uL (0.00-0.03); Imm Gran Pct Auto 0.3 % (0.0-0.4); Lymphocytes Absolute Auto 3.0 X10*3/uL (1.2-4.9); Mean Corpuscular HGB Conc 33.2 g/dl (31.0-36.0); Mean Corpuscular Hemoglobin 28.9 pg (27.0-33.0); Mean Corpuscular Volume 87.0 fL (80.0-98.0); NRBC Abs Auto 0.000 X10*3/uL (0.0-0.012); NRBC Pct Auto 0.0 /100WBC (0.0-0.2); Platelet Count 291 X10*3/uL (160-400); Red Blood Count 4.40 X10*6/uL (4.60-5.80); White Blood Count 10.6 X10*3/uL (4.8-10.8)
[2025-07-14 02:44] LABS: Alanine Aminotransferase 33 U/L (0-40); Albumin Level 3.9 g/dL (3.5-5.0); Alkaline Phosphatase 87 U/L (39-117); Anion Gap 14 (12-20); Aspartate Amino Transferase 37 U/L (5-37); Blood Urea Nitrogen 18 mg/dL (9-16); Calcium 9.6 mg/dL (8.4-10.2); Carbon Dioxide 24 mmol/L (22-29); Chloride 106 mmol/L (96-108); Creatinine Clr Calc Pharmacy 87.5; Estimated Glomerular Filt Rate > 60; Potassium 3.9 mmol/L (3.3-5.1); Sodium 140 mmol/L (135-145); Total Protein 7.1 g/dL (6.5-8.0)
--- NOTE | 2025-07-14 03:58 | ED_ITS ---
HPI - Extremity Problem General Chief complaint: Extremity Problem Stated complaint: right hand injury Time Seen by Provider: 07/14/25 03:26 Source: patient Mode of arrival: ambulatory Limitations: no limitations History of Present Illness ED Provider: Dr. Lynne Pedersen HPI Narrative: Patient comes to the emergency room complaining of a right hand swelling and pain. Patient states that he has had the same issues in the past. About a month ago he was admitted for possible hand cellulitis. This time, patient does not have any fever or chills, no erythema, used a bit of swelling and hand pain. Patient states that he went to see Orthopedics today, they discussed with the patient that he may need thorough workup for rheumatoid arthritis. Patient denies any obvious trauma Related Data Previous Rx's ?Medication ?Instructions ?Recorded cholecalciferol (vitamin D3) 25 25 mcg PO DAILY #90 ta bs 01/03/25 mcg (1,000 unit) tablet lisinopril 5 mg tablet 5 mg PO DAILY #90 tabs 03/30 tirzepatide 7.5 mg/0.5 mL 7.5 mg (0.5 mL) subcut MO 4 weeks 07/11/25 subcutaneous pen injector #2 mL (Mounniraliro) tramadol 50 mg tablet 50 - 100 mg (1 - 2 x 50 mg) PO TID 07/13/25 PRN pain 30 days #180 tabs amoxicillin 500 mg-potassium 1 tab PO BID #20 tabs clavulanate 125 mg tablet (Augmentin) doxycycline hyclate 100 mg tablet 100 mg PO BID #20 ta bs 07/14/25 ketorolac 10 mg tablet 10 mg PO Q8H PRN pain #12 ta bs 07/14/25 prednisone 10 mg tablet 10 mg PO DAILY #5 tabs 07/14 Allergies Allergy/AdvReac Type Severity Reaction Status Date / Time No Known Allergies (No Known Allergy Verified 07/14/25 02:06 Allergies*) Review of Systems 2 Review of Systems: Constitutional : No Weight loss, No Fever, No Chills, No Night Sweats, No Fatigue, No Malaise ENT/Mouth : No Hearing loss, No Ear Pain, No Nasal Congestion, No Sinus Pain, No Hoarseness, No sore throat, No Rhinorrhea, No Swallowing Difficulty Eyes: No Eye Pain, No Swelling, No Redness, No Foreign Body, No Discharge, No Vision Changes Cardiovascular : No Chest Pain, No SOB, No Dyspnea on Exertion, No Orthopnea, No Edema, No Palpitations Respiratory : No Cough, No Sputum, No Wheezing, No Smoke Exposure, No Dyspnea Gastrointestinal : No Nausea, No Vomiting, No Diarrhea, No Constipation, No abdominal Pain, No Hematochezia, No Melena Genitourinary : no irregular bleeding, No Dysuria, No Urinary Frequency, No Hematuria, No Urinary Incontinence, No Urgency, No Flank Pain, No Urinary Flow Changes, No Hesitancy Musculoskeletal : Complaining of hand pain and swelling on the right side. Skin : No Skin Lesions, No rash Neuro : No Weakness, No Numbness, No Paresthesias, No Loss of Consciousness, No Dizziness, No Headache Psych : No Anxiety/Panic, No Depression, No SI/HI/AH/VH, No Social Issues, Heme/Lymph: No Bruising, No Bleeding,No Lymphadenopathy Endocrine : No Polyuria, No Polydipsia, No Temperature Intolerance [facility] Past Medical History Medical History Septic arthritis of shoulder Vitamin D deficiency Diabetes mellitus Lumbar degenerative disc disease Left knee pain Cyst of perianal area Degenerative joint disease of right knee Obesity (BMI 30-39.9) Benign essential hypertension Surgical History H/O colonoscopy (~11/08/22) History of meniscectomy of right knee (~07/20/20) History of right knee surgery H/O lateral meniscus repair of right knee H/O lateral meniscus repair of left knee H/O lumbar discectomy History of arthroscopy of both shoulders History of laparoscopic cholecystectomy Family History Family History Maternal Grandfather Bone cancer Other Family history non-contributory Social History Social History (Updated 07/12/25 @ 14:34 by OLEG Hastings) Household Members: Spouse and Children Housing: House Do you presently have visiting nurse or other home services: No Alcohol intake: current Alcohol intake frequency: does not drink Patient Tobacco Use Status: Former Tobacco user Years Smoked: 5 Smoked in Last 30 Days: No e-Cigarette/Vaping Use: Never Used Second Hand Smoke Exposure: Yes Use of substances other than those prescribed or required for medical reasons: No Advance Directives: Yes Advance Directives Information Provided: Yes Advance Directives on File: No service: No Current occupational status: employed 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 Oriented X3. No acute distress. Eyes: Pupils equal, round and reactive to light. ENT: Pharynx normal. Neck: Normal inspection. Neck supple. No lymph nodes noted. No crepitus CVS: Normal heart rate and rhythm. Pulses normal. Normal S1 and S2 Respiratory: No respiratory distress. Breath sounds normal. No Wheezing. No rales Abdomen: Soft and nontender. No rigidity. No distention. Skin: Skin warm and dry. Normal skin color. Normal skin turgor. Extremities: No lower extremity edema. Patient's right hand is questionably a bit swollen, no erythema. Patient is able to open and close all fingers but hurts doing so. Patient states that his thumb is completely asymptomatic. Patient denies numbness and tingling, no additional warmth to touch. Neuro: Oriented X 3. No motor deficit. No sensory deficit. Moving all extremities. No slurred speech. CN 2 through 12 grossly intact Psych: calm, cooperative, normal affect Vital Signs: Vital Signs: Last Vital Signs Temp 97.4 F 07/14/25 02:04 Pulse 83 07/14/25 02:04 Resp 20 07/14/25 02:04 BP 153/86 H 07/14/25 02:04 Pulse Ox 99 07/14/25 02:04 O2 Del Method Room Air 07/14/25 02:04 BMI result Body Mass Index 30.3 Course Course Course Narrative: I reviewed patient's medical record. Two days ago he went to see Orthopedics. Seems that patient has been complaining of hand pain and swelling for couple of years intermittently. In his previous visit, patient was admitted, treated for cellulitis. CT scan of the head was done, only showed some tissue swelling without evidence of tenosynovitis Medications Administered Discontinued Medications Generic Name Dose Route Start Last Admin Trade Name Freq PRN Reason Stop Dose Admin Colchicine 1.2 mg 07/14/25 03:35 07/14/25 03:58 Colchicine 0.6 Mg Tablet PO 10/30/25 03:36 1.2 mg ONCE ONE Administration Ketorolac Tromethamine 30 mg 07/14/25 03:35 07/14/25 03:50 Ketorolac Tromethamine 30 Mg/Ml Vial IVPUSH 07/14/25 03:36 30 mg ONCE ONE Administration Medical Decision Making Medical Decision Making [facility] Narrative: Patient's white blood cell count is within normal limits. Patient does not have any fever, very mild swelling , no erythema, no additional warmth, patient able to flex and extend fingers with pain but able to do so. As mentioned above, he has was seen by Orthopedics earlier today and was recommended that he needs a thorough workup from rheumatology. Patient was given ketorolac IV in the emergency room, a dose of prednisone, colchicine, p.o. antibiotics including Augmentin and doxycycline. I reviewed patient's records from his previous discharge, he was sent home with Augmentin and doxycycline and work well for him. I discussed with the patient that at this time, there are no clear signs of cellulitis. However, if he has increased pain, redness, swelling, or any worsening symptoms, he needs to return to the emergency room. Patient agrees with plan. Differential Diagnosis Differential Diagnoses: The differential diagnosis associated with the presentation includes (Cellulitis, rheumatoid arthritis, gout) Lab Data [facility] Lab Attestation statement: I reviewed the patient's lab results. 07/14/25 02:25 07/14/25 02:25 Labs: Lab Results 07/14/25 Range/Units 02:25 WBC 10.6 (4.8-10.8) X10*3/uL RBC 4.40 L (4.60-5.80) X10*6/uL Hgb 12.7 L (14.0-18.0) g/dl Hct 38.3 L (42.0-52.0) % MCV 87.0 (80.0-98.0) fL MCH 28.9 (27.0-33.0) pg MCHC 33.2 (31.0-36.0) g/dl RDW 13.2 (11.0-16.0) % Plt Count 291 (160-400) X10*3/uL MPV 9.0 L (9.4-12.4) fL Immature Gran % (Auto) 0.3 (0.0-0.4) % Neut % (Auto) 58.9 (45-73) % Lymph % (Auto) 27.9 (20-40) % Camp % (Auto) 9.0 (2-11) % Eos % (Auto) 3.0 (0-4) % Baso % (Auto) 0.9 (0-2) % Lymph # (Auto) 3.0 (1.2-4.9) X10*3/uL Camp # (Auto) 1.0 (0.1-1.2) X10*3/uL Eos # (Auto) 0.3 (0.0-0.4) X10*3/uL Baso # (Auto) 0.1 (0.0-0.2) X10*3/uL Abs Immat Gran (auto) 0.03 (0.00-0.03) X10*3/uL Absolute Neuts (auto) 6.3 (2.0-8.3) x10*3/uL Absolute Nucleated RBC 0.000 (0.0-0.012) X10*3/uL Nucleated RBC % (auto) 0.0 (0.0-0.2) /100WBC Sodium 140 (135-145) mmol/L Potassium 3.9 (3.3-5.1) mmol/L Chloride 106 (96-108) mmol/L Carbon Dioxide 24 (22-29) mmol/L Anion Gap 14 (12-20) BUN 18 H (9-16) mg/dL Creatinine 1.04 (0.5-1.4) mg/dL Estim Creat Clear Calc 87.5 Estimated GFR > 60 Random Glucose 121 H (60-115) mg/dL Calcium 9.6 D (8.4-10.2) mg/dL Total Bilirubin 0.2 (0.0-1.0) mg/dL AST 37 (5-37) U/L ALT 33 (0-40) U/L Alkaline Phosphatase 87 (39-117) U/L Total Protein 7.1 (6.5-8.0) g/dL Albumin 3.9 (3.5-5.0) g/dL Discharge Plan Discharge Clinical Impression: Cellulitis of hand Patient Disposition: Home, Self-Care Instructions: Cellulitis (ED) Additional Instructions: Please follow-up with your primary care physician tomorrow. If you have any worsening or new symptoms, please return to the emergency room or call 911 Prescriptions: New doxycycline hyclate 100 mg tablet 100 mg PO BID Qty: 20 0RF prednisone 10 mg tablet 10 mg PO DAILY Qty: 5 0RF ketorolac 10 mg tablet 10 mg PO Q8H PRN (Reason: pain) Qty: 12 0RF Rx Instructions: maximum total duration of 5 days from all oral, intranasal, or parenteral formulations amoxicillin-pot clavulanate [Augmentin] 500-125 mg tablet 1 tab PO BID Qty: 20 0RF No Action cholecalciferol (vitamin D3) 25 mcg (1,000 unit) tablet 25 mcg PO DAILY Qty: 90 3RF lisinopril 5 mg tablet 5 mg PO DAILY Qty: 90 1RF Mounjaro 7.5 mg/0.5 mL pen injector 7.5 mg SUBCUT MO 28 Days Qty: 2 0RF tramadol 50 mg tablet 50 - 100 mg PO TID PRN (Reason: pain) 30 Days Qty: 180 0RF Rx Instructions: TAKE 1 TO 2 TABLET THREE TIMES DAILY NEEDED FOR INCREASED LOWER BACK PAIN Print Language: Vietnamese
[2025-07-14 04:00] VITALS: BP 148/82; PULSE 75; RESP 16; TEMP 36.6; O2SAT 99
[2025-07-14 04:27] VITALS: BP 148/82; PULSE 75; RESP 16; TEMP 36.6; O2SAT 99
== END 2025-07-14 04:30 | disposition home or self-care (01) ==
PROVIDERS: Emergency Provider Emergency Medicine; PCP Internal Medicine
DX: L03.113 Cellulitis of right upper limb (principal); M79.641 Pain in right hand; Z87.891 Personal history of nicotine dependence; Z79.899 Other long term (current) drug therapy
CPT/HCPCS: 36415; 80053; 85025; 96374; 99284; J1885

== ENCOUNTER 2025-07-27 15:45 | Outpatient (AMB) | payer BC, SELFPAY ==
[2025-07-27 16:24] VITALS: BP 118/72; PULSE 72; O2SAT 97; BMI 32.3
--- NOTE | 2025-07-27 16:24 | A.OFFPC_ITS ---
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: No Accompanied by: Self / Same As Patient Allergies No Known Allergies (No Known Allergies*) Allergy (Verified 07/27/25 17:10) Medication List - Last Reconciled 07/27/25 by Randolph Herring MD cholecalciferol (vitamin D3) 25 mcg PO DAILY ketorolac 10 mg PO Q8H PRN lisinopril 5 mg PO DAILY tirzepatide (Mounjaro) 7.5 mg (0.5 mL) subcut MO 4 weeks tramadol 50 - 100 mg (1 - 2 x 50 mg) PO TID PRN 30 days Tobacco use date assessed: 07/27/25 Dental Screening Dental Screen Date: 07/27/25 Did you have a dental visit in the last 12 months?: Yes Did you have a dental problem in the last 6 months where you did not have access to dental care?: No Was dental information given to patient?: Patient has dentist HPI 4 month f/u - see comments HPI Details aic in office today 5.6 PFSH Medical History Septic arthritis of shoulder Vitamin D deficiency Diabetes mellitus Lumbar degenerative disc disease Left knee pain Cyst of perianal area Degenerative joint disease of right knee Obesity (BMI 30-39.9) Benign essential hypertension Surgical History H/O colonoscopy (~11/08/22) History of meniscectomy of right knee (~07/20/20) History of right knee surgery H/O lateral meniscus repair of right knee H/O lateral meniscus repair of left knee H/O lumbar discectomy History of arthroscopy of both shoulders History of laparoscopic cholecystectomy Family History Maternal Grandfather Bone cancer Other Family history non-contributory Social History Household Members: Spouse and Children Housing: House Do you presently have visiting nurse or other home services: No Alcohol intake: current Alcohol intake frequency: does not drink Patient Tobacco Use Status: Former Tobacco user Years Smoked: 5 e-Cigarette/Vaping Use: Never Used Second Hand Smoke Exposure: Yes service: No Current occupational status: employed Current occupation: [employer] - [employer] Current occupational exposures/hazards: No Cognitive needs: No Hearing needs: No Vision needs: No Questionnaire PHQ-9 Over the last 2 weeks, how often have you been bothered by any of the following problems? 1. Little interest or pleasure in doing things: not at all 2. Feeling down, depressed, or hopeless: not at all 3. Trouble falling or staying asleep, or sleeping too much: not at all 4. Feeling tired or having little energy: not at all 5. Poor appetite or overeating: not at all 6. Feeling bad about yourself - or that you are a failure or have let yourself or your family down: not at all 7. Trouble concentrating on things, such as reading the newspaper or watching television: not at all 8. Moving or speaking so slowly that other people could have noticed. Or the opposite - being so fidgety or restless that you have been moving around a lot more than usual: not at all 9. Thoughts that you would be better off or of hurting yourself in some way: not at all Total score: 0 Source: Developed by Drs. Yasmani Hair, Tere Bundy, Yves Dietz and colleagues, with an educational leonora from [employer]. Thrive Questionnaire Date Thrive assessed: 07/27/25 I am a: Patient What is your living situation today?: I have a steady place to live Within the past 12 months, did the food you bought not last and you didn't have the money to get more?: Never true Within the past 12 months, did you worry whether your food would run out before you got money to buy more?: Never true Do you have trouble paying for medicines?: No Do you have trouble getting transportation to medical appointments?: No Do you have trouble paying your heating and electricity bill?: No Do you have trouble taking care of your child, family member or friend?: No Do you have trouble with day-to-day activities such as bathing, preparing meals, shopping, managing finances, etc.?: No Are you currently unemployed and looking for a job?: No Are you interested in more education?: No Please select the resources that you would like help with: None Currently or been in a relationship where the following occur: No concerns reported THRIVE Score: 0 AUDIT C Alcohol Use Questionnaire (AUDIT-C) 1. How often do you have a drink containing alcohol?: Monthly or less 2. How many drinks containing alcohol do you have on a typical day when you are drinking?: 1 or 2 3. How often do you have six or more drinks on one occasion?: Never Total Score: 1 KIANNA-7 AMB Questionnaire KIANNA-7 Date KIANNA - 7 assessed: 07/27/25 Feeling nervous, anxious, or on edge: 0 = Not at all Not being able to stop or control worryin = Not at all Worrying too much about different things: 0 = Not at all Trouble relaxin = Not at all Being so restless that it is hard to sit still: 0 = Not at all Becoming easily annoyed or irritable: 0 = Not at all Feeling afraid as if something awful might happen: 0 = Not at all Total KIANNA-7 score (0-4 normal; 5-9 mild; 10-14 moderate; 15-21 severe): 0 Source: Developed by Drs. Yasmani Hair, Tere Bundy, Yves Dietz and colleagues, with an educational leonora from [employer]. Physical exam (Primary Care) Vital Signs: Last Vital Signs Pulse 72 07/27/25 16:24 BP 118/72 07/27/25 16:24 Pulse Ox 97 07/27/25 16:24 Oxygen Delivery Method Room Air 07/27/25 16:24 BMI result Body Mass Index 32.3 Tobacco/Smoking Status: Tobacco use Status Tobacco use date assessed 07/27/25 07/27/25 16:31 Patient Tobacco Use Status Former Tobacco user 07/27/25 16:31 e-Cigarette/Vaping Use Never Used 07/27/25 16:31 PHQ-9: PHQ-9 Score PHQ-9: Total score 0 07/27/25 17:13 Thrive Assessment: Date of Thrive Assessment Date Thrive assessed 07/27/25 07/27/25 16:31 Currently or been in a relationship where the following occur: No concerns reported Results AMB Hemoglobin A1c AMB Hemoglobin A1c 5.6 % Last Edit by Annelise Myles CMA on 07/27/25 17 :26 Coding Assessment & Plan Assessment & Plan Orders: Orders Microalbumin, Random (w Creat) 4 Months E11.9 - Type 2 diabetes mellitus without complications Lipid Panel 4 Months E78.00 - Pure hypercholesterolemia, unspecified UA CC w/rflx Micro + Cult 4 Months R30.0 - Dysuria Vitamin D 25-OH Total 4 Months E55.9 - Vitamin D deficiency, unspecified Hemoglobin A1c 4 Months E11.9 - Type 2 diabetes mellitus without complications Complete Blood Count Auto Diff 4 Months D64.9 - Anemia, unspecified Comprehensive [place]. Panel Fast 4 Months E78.00 - Pure hypercholesterolemia, unspecified TSH reflex Free T4 4 Months E78.00 - Pure hypercholesterolemia, unspecified AMB Hemoglobin A1c Today Z13.9 - Encounter for screening, unspecified
--- OUTSIDE RECORDS SUMMARY | 2025-07-27 18:47 | XMS_ITS | Patient Health Record ---
Author Organization [facility] Address [address] [place] [address] Care Team Providers Care Hollow Ware Maker Name Role Phone Ken Herring MDneth Primary Care Provider Yasmani Golden Unavailable [phone] Reason For Referral No Information Medications Medication [...] Problem Screening for malignant neoplasm of colon ([id number]) Encounter for screening for malignant neoplasm of colon (Z12.11) Active confirmed Problem Preprocedural examination ([id number]) Preprocedural examination (Z01.818) Active confirmed Plan Of Treatment Future Test Test Name Order Date COLONOSCOPY 03/09/2020 Insurance Providers Payer Name Payer Address Payer Phone Subscriber Number Group Number Insured Name Patient Relationship to Insured Coverage Start Date Coverage End Date [facility] [employer] [address] [place] [address] [phone] [id number] XANDER WEBER Self - patient is the insured Medical (General) History Medical History History ICD Code Denies ID,DM,CVA,Lung disease,renal dise ase Chronic back pain Surgical History Surgery Date(Month/Year) Lower back Bilateral knees Bilateral shoulders [facility]
== END 2025-07-27 17:18 | disposition home or self-care (01) ==
LOC: HO.HMCH 15:45
PROVIDERS: Visit Provider Internal Medicine
DX: Z13.9 Encounter for screening, unspecified (principal)

== ENCOUNTER → 2025-07-27 15:45 | Outpatient (BNVA) | payer BC, SELFPAY | PROVIDERS: Visit Provider Internal Medicine | DX: I10 Essential (primary) hypertension (principal); M25.561 Pain in right knee; M25.562 Pain in left knee; E11.65 Type 2 diabetes mellitus with hyperglycemia; M51.369 Other intervertebral disc degeneration, lumbar region without mention of lumbar back pain or lower extremity pain; M17.31 Unilateral post-traumatic osteoarthritis, right knee; E55.9 Vitamin D deficiency, unspecified; E66.9 Obesity, unspecified; Z68.32 Body mass index [BMI] 32.0-32.9, adult | CPT/HCPCS: 83036; 96127 ==

== ENCOUNTER 2025-07-29 21:52 | Emergency (ER) | payer BC, SELFPAY ==
[2025-07-29 22:05] VITALS: BP 139/73; PULSE 100; RESP 20; TEMP 37.3; O2SAT 96; BMI 30.3
[2025-07-29 22:41] LABS: COVID-19 Test Negative (Negative); IDNOW Serial# 55D5AD1C
[2025-07-29 22:42] LABS: IDNOW Serial# 58CA691E; Influenza B2 Negative (Negative)
--- NOTE | 2025-07-29 23:12 | ED.GENADULT ---
HPI - General Adult General Chief complaint: General Medical Stated complaint: borth wrists and ankle pain, fever Time Seen by Provider: 07/29/25 22:28 Source: patient, RN notes reviewed and old records reviewed Mode of arrival: ambulatory Limitations: no limitations History of Present Illness ED Provider: Saba HPI narrative: 54-year-old male with past medical history significant for hypertension, diabetes mild majora, osteoarthritis presents for evaluation of joint pain. Patient reports that over last 2 days he developed pain in both of his wrists in his left ankle at the same time pain Denies any injuries. Reports subjective fevers at home but his temperature has only been as high as 99. He reports that he was recently admitted for a cellulitis of the right hand last month. He was also seen here right before on 07/12/2025. He was discharged with antibiotics, prednisone and ketorolac that also had significant improvement in his symptoms. He followed up with hand surgery who felt the patient had extensor carpal tunnel syndrome He was instructed to wear wrist braces and follow up as needed Today he reports that his pain is 10 in his head and he is unable to bend his hands/wrists Related Data Previous Rx's ?Medication ?Instructions ?Recorded cholecalciferol (vitamin D3) 25 25 mcg PO DAILY #90 tabs 01/03/25 mcg (1,000 unit) tablet lisinopril 5 mg tablet 5 mg PO DAILY #90 tabs 03/30/25 tirzepatide 7.5 mg/0.5 mL 7.5 mg (0.5 mL) subcut MO 4 weeks 07/11/25 subcutaneous pen injector #2 mL (Rey) tramadol 50 mg tablet 50 - 100 mg (1 - 2 x 50 mg) PO TID 07/13/25 PRN pain 30 days #180 tabs ketorolac 10 mg tablet 10 mg PO Q8H PRN pain #12 tabs 07/14/25 ketorolac 10 mg tablet 10 mg PO Q8H PRN pain #15 tabs 07/30/25 omeprazole 20 mg capsule,delayed 20 mg PO DAILY #30 caps 07/30/25 release prednisone 10 mg tablets in a dose 10 mg PO DIRECTED #63 ea 07/30/25 pack Allergies Allergy/AdvReac Type Severity Reaction Status Date / Time No Known Allergies (No Known Allergy Verified 07/29/25 22:09 Allergies*) Review of Systems Constitutional: Constitutional: Denies body ache(s), Reports chills, Reports fever(s) and Denies headache(s) Eyes: Eyes: Denies blurry vision ENT: Denies vertigo, Denies dizziness and Denies headache(s) Cardiovascular: Cardiovascular: Denies chest pain and Denies dyspnea on exertion Respiratory: Respiratory: Denies cough and Denies dyspnea on exertion Gastrointestinal: Gastrointestinal: Denies abdominal pain Musculoskeletal: Musculoskeletal: Reports arthralgias, Reports joint swelling, Reports limited range of motion, Denies loss of height and Reports stiffness Integumentary/Breasts: Skin/Breast: Denies rash Neurologic: Denies vertigo, Denies dizziness and Denies headache(s) Psychiatric: Psychiatric: Denies anxiety PMFSH Past Medical History Medical History Septic arthritis of shoulder Vitamin D deficiency Diabetes mellitus Lumbar degenerative disc disease Left knee pain Cyst of perianal area Degenerative joint disease of right knee Obesity (BMI 30-39.9) Benign essential hypertension Surgical History H/O colonoscopy (~11/08/22) History of meniscectomy of right knee (~07/20/20) History of right knee surgery H/O lateral meniscus repair of right knee H/O lateral meniscus repair of left knee H/O lumbar discectomy History of arthroscopy of both shoulders History of laparoscopic cholecystectomy Family History Family History Maternal Grandfather Bone cancer Other Family history non-contributory Social History Social History Household Members: Spouse and Children Housing: House Do you presently have visiting nurse or other home services: No Alcohol intake: current Alcohol intake frequency: does not drink Patient Tobacco Use Status: Former Tobacco user Years Smoked: 5 Smoked in Last 30 Days: No e-Cigarette/Vaping Use: Never Used Second Hand Smoke Exposure: Yes Use of substances other than those prescribed or required for medical reasons: No Advance Directives: No Advance Directives Information Provided: No service: No Current occupational status: employed Current occupation: [employer] - [employer] Current occupational exposures/hazards: No Cognitive needs: No Hearing needs: No Vision needs: No Physical Exam ED Vital Signs: Vital Signs - 24 hr 07/29/25 22:05 07/29/25 23:13 Temperature 99.1 F 98.6 F Pulse Rate 100 94 Respiratory Rate 20 16 Blood Pressure 139/73 129/74 Pulse Oximetry 96 96 Oxygen Delivery Method Room Air Room Air BMI result Body Mass Index 30.3 Const General: healthy appearing, comfortable, no acute distress, alert and awake Nutritional Appearance: well nourished Orientation/consciousness: patient oriented x3 HENMT Head: Yes normocephalic and Yes atraumatic Eyes Eyelids: Yes eyelids normal Conjunctivae: conjunctivae normal Sclerae: sclerae normal Corneas: corneas normal Pupils: Equal, round and reactive pupils present EOM: EOMs intact bilaterally Neck Neck: Yes full ROM Resp Effort & Inspection: normal respiratory effort, able to speak in complete sentences, no audible wheezes and not labored Auscultation: clear to auscultation bilaterally Cardio Rate: regular rate Rhythm: regular rhythm GI Inspection: No distended Palpation (GI): Soft to palpation, not firm, nontender, no guarding and not rigid Skin General skin exam: elasticity normal Neuro General: patient oriented x3 Cranial nerves: Yes CN's II-XII intact bilaterally, Yes Equal, round and reactive pupils present and Yes Bilaterally intact EOM present Cognition (Neuro): normal cognition Extrem Other: Patient has mild edema to bilateral wrists and left ankle. No erythema, no open wounds. No palpable abnormalities. The patient is able to flex and extend all digits of both hands slightly limited range of motion in the extreme flexion. Distal sensation and capillary refill intact Medications Administered Discontinued Medications Generic Name Dose Route Start Last Admin Trade Name Freq PRN Reason Stop Dose Admin Ketorolac Tromethamine 30 mg 07/29/25 23:27 07/29/25 23:41 Ketorolac Tromethamine 30 Mg/Ml Vial IVPUSH 07/29/25 23:28 30 mg ONCE ONE Administration Medical Decision Making Medical Decision Making [facility] Narrative: 64-year-old male presents for evaluation of continued bilateral joint pain. Today he has pain in his wrists and left ankle that all started in the same time 2 days ago. There was no inciting injury, he reports subjective fevers and chills but has not had any documented fevers. This has been going on for several years and appears to be worsening acutely over the last few weeks. I reviewed his labs from 06/17/2025. He had rheumatoid studies performed that I suspect her not back until after he was discharged. However his rheumatoid factor was greater than 15 with a positive KIRILL, and KIRILL titer of 1:80. This likely indicates the patient has an undiagnosed rheumatoid or autoimmune disease such as rheumatoid arthritis. I do not suspect the patient has an acute cellulitis. Given that he has 3 separate joints affected. He was recently tested for tick-borne diseases and all of which was negative. He has no fever. He does have a white count with an elevated inflammatory markers but again this could be due to an underlying autoimmune or rheumatoid disorder. We will treat the patient with steroids and refer him to Rheumatology. Blood cultures were ordered he has had an underlying infection Differential Diagnosis Differential Diagnoses: The differential diagnosis associated with the presentation includes Rheumatoid arthritis Autoimmune disease Systemic lupus Cellulitis less likely Gout Admission/Observation Consideration of admission/observation: Escalation of care including admission/observation considered Lab Data MDM Lab Attestation statement: I reviewed the patient's lab results. Mild leukocytosis in his and elevated inflammatory markers as discussed above. He has a mild anemia of unclear significance but this is actually improved when compared to his most recent labs and his most recent admission. 07/29/25 23:11 07/29/25 23:11 Labs: Lab Results 07/29/25 07/29/25 Range/Units 22:20 23:11 WBC 16.3 H (4.8-10.8) X10*3/uL RBC 4.64 (4.60-5.80) X10*6/uL Hgb 13.4 L (14.0-18.0) g/dl Hct 39.4 L (42.0-52.0) % MCV 84.9 (80.0-98.0) fL MCH 28.9 (27.0-33.0) pg MCHC 34.0 (31.0-36.0) g/dl RDW 13.1 (11.0-16.0) % Plt Count 322 (160-400) X10*3/uL MPV 8.9 L (9.4-12.4) fL Immature Gran % (Auto) 0.5 H (0.0-0.4) % Neut % (Auto) 67.4 (45-73) % Lymph % (Auto) 17.3 L (20-40) % [place] % (Auto) 7.1 (2-11) % Eos % (Auto) 6.9 H (0-4) % Baso % (Auto) 0.8 (0-2) % Lymph # (Auto) 2.8 (1.2-4.9) X10*3/uL [place] # (Auto) 1.2 (0.1-1.2) X10*3/uL Eos # (Auto) 1.1 H (0.0-0.4) X10*3/uL Baso # (Auto) 0.1 (0.0-0.2) X10*3/uL Abs Immat Gran (auto) 0.08 H (0.00-0.03) X10*3/uL Absolute Neuts (auto) 11.0 H (2.0-8.3) x10*3/uL Absolute Nucleated RBC 0.000 (0.0-0.012) X10*3/uL Nucleated RBC % (auto) 0.0 (0.0-0.2) /100WBC ESR 35 H (0-15) MM/HR Sodium 138 (135-145) mmol/L Potassium 4.0 (3.3-5.1) mmol/L Chloride 105 (96-108) mmol/L Carbon Dioxide 23 (22-29) mmol/L Anion Gap 14 (12-20) BUN 20 H (9-16) mg/dL Creatinine 1.11 (0.5-1.4) mg/dL Estim Creat Clear Calc 82.0 Estimated GFR > 60 Random Glucose 133 H (60-115) mg/dL Lactic Acid 1.2 (0.5-2.0) mmol/L Calcium 9.7 (8.4-10.2) mg/dL Total Bilirubin 0.4 (0.0-1.0) mg/dL AST 17 (5-37) U/L ALT 13 (0-40) U/L Alkaline Phosphatase 80 (39-117) U/L C-Reactive Protein 4.24 H (< or = 0.50) mg/dL Total Protein 7.5 (6.5-8.0) g/dL Albumin 4.2 (3.5-5.0) g/dL COVID-19 (RAJ) Negative (Negative) COVID-19 Clin Com See Note Influenza Type A (KANDY) Negative (Negative) Influenza Type B (KANDY) Negative (Negative) Influenza A & B Note See Note Discharge Plan Discharge Clinical Impression: Arthralgia Patient Disposition: Home, Self-Care Instructions: Arthralgia (ED) Additional Instructions: You had lab work done last month that likely resulted after you were discharged the indicates the you likely have a rheumatologic disorder such as rheumatoid arthritis. I do not suspect that you have an infection of multiple joints. You need to see a agency sales development associate, call the number provided to schedule follow up. In the meantime take prednisone as prescribed You may also use ketorolac as prescribed for up to 5 days I recommend taking omeprazole your protect her stomach from GERD while you are taking prednisone and NSAIDs Return for new or worsening symptoms Prescriptions: New ketorolac 10 mg tablet 10 mg PO Q8H PRN (Reason: pain) Qty: 15 0RF Rx Instructions: maximum total duration of 5 days from all oral, intranasal, or parenteral formulations prednisone 10 mg tablets,dose pack 10 mg PO DIRECTED Qty: 63 0RF Rx Instructions: 60mg x 3 days, 50mg x 3 days, 40mg x 3 days, 30mg x 3 days, 20mg x 3 days, 10mg x 3 days omeprazole 20 mg capsule,delayed release(DR/EC) 20 mg PO DAILY Qty: 30 0RF No Action cholecalciferol (vitamin D3) 25 mcg (1,000 unit) tablet 25 mcg PO DAILY Qty: 90 3RF lisinopril 5 mg tablet 5 mg PO DAILY Qty: 90 1RF Mounjaro 7.5 mg/0.5 mL pen injector 7.5 mg SUBCUT MO 28 Days Qty: 2 0RF tramadol 50 mg tablet 50 - 100 mg PO TID PRN (Reason: pain) 30 Days Qty: 180 0RF Rx Instructions: TAKE 1 TO 2 TABLET THREE TIMES DAILY NEEDED FOR INCREASED LOWER BACK PAIN ketorolac 10 mg tablet 10 mg PO Q8H PRN (Reason: pain) Qty: 12 0RF Rx Instructions: maximum total duration of 5 days from all oral, intranasal, or parenteral formulations Print Language: Faroese
[2025-07-29 23:13] VITALS: BP 129/74; PULSE 94; RESP 16; TEMP 37; O2SAT 96
[2025-07-29 23:19] LABS: MANUAL DIFF FLAG NO
[2025-07-29 23:20] LABS: Hematocrit 39.4 % (42.0-52.0); Hemoglobin 13.4 g/dl (14.0-18.0); Imm Gran Abs Auto 0.08 X10*3/uL (0.00-0.03); Imm Gran Pct Auto 0.5 % (0.0-0.4); Lymphocytes Absolute Auto 2.8 X10*3/uL (1.2-4.9); Mean Corpuscular HGB Conc 34.0 g/dl (31.0-36.0); Mean Corpuscular Hemoglobin 28.9 pg (27.0-33.0); Mean Corpuscular Volume 84.9 fL (80.0-98.0); NRBC Abs Auto 0.000 X10*3/uL (0.0-0.012); NRBC Pct Auto 0.0 /100WBC (0.0-0.2); Platelet Count 322 X10*3/uL (160-400); Red Blood Count 4.64 X10*6/uL (4.60-5.80); White Blood Count 16.3 X10*3/uL (4.8-10.8)
[2025-07-29 23:35] LABS: Alanine Aminotransferase 13 U/L (0-40); Albumin Level 4.2 g/dL (3.5-5.0); Alkaline Phosphatase 80 U/L (39-117); Anion Gap 14 (12-20); Aspartate Amino Transferase 17 U/L (5-37); Blood Urea Nitrogen 20 mg/dL (9-16); Calcium 9.7 mg/dL (8.4-10.2); Carbon Dioxide 23 mmol/L (22-29); Chloride 105 mmol/L (96-108); Creatinine Clr Calc Pharmacy 82.0; Estimated Glomerular Filt Rate > 60; Potassium 4.0 mmol/L (3.3-5.1); Sodium 138 mmol/L (135-145); Total Protein 7.5 g/dL (6.5-8.0)
[2025-07-30 00:10] LABS: Erythrocyte Sedimentation Rate 35 MM/HR (0-15)
[2025-07-30 00:27] VITALS: BP 117/71; PULSE 87; RESP 20; TEMP 37; O2SAT 96
[2025-07-30 01:54] VITALS: BP 118/76; PULSE 71; RESP 20; TEMP 36.9; O2SAT 97
== END 2025-07-30 01:56 | disposition home or self-care (01) ==
PROVIDERS: Physician Assistant; Emergency Provider Student in an Organized Health Care Education/Training Program; PCP Internal Medicine
DX: M25.572 Pain in left ankle and joints of left foot (principal); M25.571 Pain in right ankle and joints of right foot; M25.532 Pain in left wrist; M25.531 Pain in right wrist; R50.9 Fever, unspecified; I10 Essential (primary) hypertension; E11.9 Type 2 diabetes mellitus without complications
CPT/HCPCS: 36415; 80053; 83605; 85025; 85652; 86140; 87040; 87502; 87635; 96374; 96375; 99284; J1885; J2270

== ENCOUNTER 2025-08-21 18:39 | Emergency (ER) | payer BC, SELFPAY ==
[2025-08-21 18:57] VITALS: BP 147/74; PULSE 84; RESP 18; TEMP 36.8; O2SAT 97; BMI 32.3
--- NOTE | 2025-08-21 18:57 | ED_ITS ---
HPI - General Adult General Chief complaint: Extremity Problem Stated complaint: General Medical/autoimmune issue Time Seen by Provider: 08/21/25 20:16 Source: patient, RN notes reviewed and old records reviewed Mode of arrival: ambulatory History of Present Illness ED Provider: Didi Stallings PA-C HPI narrative: 54-year-old female with a past medical history of diabetes, obesity, HTN, septic arthritis, presenting to the ED complaining of atraumatic bilateral hand / wrist pain and swelling x today. Reports intermittent flares of symptoms. Is currently being worked up for unknown autoimmune disorder, states he has rheumatology appointment in January. Admits steroids have helped in the past. Denies numbness, weakness, fever Related Data Previous Rx's ?Medication ?Instructions ?Recorded cholecalciferol (vitamin D3) 25 25 mcg PO DAILY #90 ta bs 01/03/25 mcg (1,000 unit) tablet lisinopril 5 mg tablet 5 mg PO DAILY #90 tabs 03/30 ketorolac 10 mg tablet 10 mg PO Q8H PRN pain #12 ta bs 07/14/25 ketorolac 10 mg tablet 10 mg PO Q8H PRN pain #15 ta bs 07/30/25 omeprazole 20 mg capsule,delayed 20 mg PO DAILY #30 ca ps 07/30/25 release prednisone 10 mg tablets in a dose 10 mg PO DIRECTE D #63 ea 07/30/25 pack tirzepatide 7.5 mg/0.5 mL 7.5 mg (0.5 mL) subcut MO 4 weeks 08/02/25 subcutaneous pen injector #2 mL (Rey) tramadol 50 mg tablet 50 - 100 mg (1 - 2 x 50 mg) PO TID 08/08/25 PRN pain 30 days #180 tabs prednisone 20 mg tablet 40 mg (2 x 20 mg) PO DAILY 5 days 08/21/25 #10 tabs Allergies Allergy/AdvReac Type Severity Reaction Status Date / Time No Known Allergies (No Known Allergy Verified 08/21/25 18:58 Allergies*) Review of Systems 2 Review of Systems: Yes all other systems are reviewed and are negative Constitutional: Constitutional: Reports as per [facility] Past Medical History Attestation statement: The following information was validated with the patient. Source: old records reviewed Medical History Septic arthritis of shoulder Vitamin D deficiency Diabetes mellitus Lumbar degenerative disc disease Left knee pain Cyst of perianal area Degenerative joint disease of right knee Obesity (BMI 30-39.9) Benign essential hypertension Surgical History H/O colonoscopy (~11/08/22) History of meniscectomy of right knee (~07/20/20) History of right knee surgery H/O lateral meniscus repair of right knee H/O lateral meniscus repair of left knee H/O lumbar discectomy History of arthroscopy of both shoulders History of laparoscopic cholecystectomy Family History Family History Maternal Grandfather Bone cancer Other Family history non-contributory Social History Social History Household Members: Spouse and Children Housing: House Do you presently have visiting nurse or other home services: No Alcohol intake: current Alcohol intake frequency: does not drink Patient Tobacco Use Status: Former Tobacco user Years Smoked: 5 e-Cigarette/Vaping Use: Never Used Second Hand Smoke Exposure: Yes Advance Directives: No Advance Directives Information Provided: Yes service: No Current occupational status: employed Current occupation: [employer] - [employer] Current occupational exposures/hazards: No Cognitive needs: No Hearing needs: No Vision needs: No Physical Exam ED Vital Signs: Vital Signs - 24 hr 08/21/25 18:57 Temperature 98.3 F Pulse Rate 84 Respiratory Rate 18 Blood Pressure 147/74 H Pulse Oximetry 97 Oxygen Delivery Method Room Air BMI result Body Mass Index 32.3 Const General: cooperative, healthy appearing and no acute distress Orientation/consciousness: patient oriented x3 Limitations: no limitations HENMT Head: Yes normal to inspection and Yes atraumatic Ears: hearing grossly normal bilaterally General nose exam: Normal external nose present Face and sinus: Yes normal facial exam Eyes General: appearance normal, both eyes and all related structures EOM: EOMs intact bilaterally Neck Neck: Yes normal visual inspection and Yes no meningeal signs Resp Effort & Inspection: normal respiratory effort and no respiratory distress Cardio Rate: regular rate Skin Rashes: no rashes Wounds: no wounds Neuro General: patient oriented x3, tone normal and no meningeal signs Cranial nerves: Yes CN's II-XII intact bilaterally Gait exam (Neuro): Normal gait present Extrem Other: Right hand/wrist swelling noted with diffuse tenderness. Limited ROM secondary to pain. Neurovascularly intact. Left wrist with mild tenderness. Noninflamed. No skin erythema or warmth. No crepitus. Course Course Course Narrative: This is a Rapid Medical Exam performed in triage by Didi Stallings PA-C. Full HPI, ROS and PE to be performed by primary ED provider. 54-year-old female with a past medical history of diabetes, obesity, HTN, septic arthritis, presenting to the ED complaining of atraumatic bilateral hand / wrist pain and swelling worsening today & L ankle pain this AM/ resolved. states he has an undiagnosed autoimmune disorder and has follow up with Rheumatology in January PE: bilateral hand guarding. No appreciable erythema or warmth. Plan: Labs -2018-- leukocytosis of 15.1 > improved from prior. Inflammatory markers acute on chronically elevated - stressed importance of close follow up with rheumatology/PCP -Per [facility] patient picked up 180 tablets 50mg Tramadol on 08/08/2025 - is requesting something different for pain. States his daughter will pick him up in the emergency department. Agreeable to give a 1 time dose of P.o. morphine in the ED. Will not be prescribing additional opiates upon discharge. Results discussed with patient including worrisome signs and symptoms and strict return precautions, and when to return to the emergency department. They verbalized understanding and feel safe for discharge at this time. Medical Decision Making Medical Decision Making MDM Narrative: 54-year-old female with a past medical history of diabetes, obesity, HTN, septic arthritis, presenting to the ED complaining of atraumatic bilateral hand / wrist pain and swelling x today. Reports intermittent flares of symptoms. on exam vital signs stable, NAD, nontoxic appearing. physical exam as noted above. Concern for acute arthritic/rheumatic flare. No evidence of acute cellulitis. Low suspicion for septic joint / arthritis. Plan: Labs, pain control Please refer to course for remaining clinical decision making, interpretation of labs/imaging results, and discussions with consultants and/or family members. Differential Diagnosis Differential Diagnoses: The differential diagnosis associated with the presentation includes As above Lab Data [facility] Lab Attestation statement: I reviewed the patient's lab results. 08/21/25 19:10 08/21/25 19:10 Labs: Lab Results 08/21/25 Range/Units 19:10 WBC 15.1 H (4.8-10.8) X10*3/uL RBC 4.63 (4.60-5.80) X10*6/uL Hgb 13.4 L (14.0-18.0) g/dl Hct 39.6 L (42.0-52.0) % MCV 85.5 (80.0-98.0) fL MCH 28.9 (27.0-33.0) pg MCHC 33.8 (31.0-36.0) g/dl RDW 13.1 (11.0-16.0) % Plt Count 307 (160-400) X10*3/uL MPV 8.9 L (9.4-12.4) fL Immature Gran % (Auto) 0.3 (0.0-0.4) % Neut % (Auto) 65.2 (45-73) % Lymph % (Auto) 22.8 (20-40) % [place] % (Auto) 8.1 (2-11) % Eos % (Auto) 3.0 (0-4) % Baso % (Auto) 0.6 (0-2) % Lymph # (Auto) 3.5 (1.2-4.9) X10*3/uL [place] # (Auto) 1.2 (0.1-1.2) X10*3/uL Eos # (Auto) 0.5 H (0.0-0.4) X10*3/uL Baso # (Auto) 0.1 (0.0-0.2) X10*3/uL Abs Immat Gran (auto) 0.05 H (0.00-0.03) X10*3/uL Absolute Neuts (auto) 9.9 H (2.0-8.3) x10*3/uL Absolute Nucleated RBC 0.000 (0.0-0.012) X10*3/uL Nucleated RBC % (auto) 0.0 (0.0-0.2) /100WBC ESR 41 H (0-15) MM/HR Sodium 141 (135-145) mmol/L Potassium 3.8 (3.3-5.1) mmol/L Chloride 108 (96-108) mmol/L Carbon Dioxide 23 (22-29) mmol/L Anion Gap 14 (12-20) BUN 17 H (9-16) mg/dL Creatinine 1.04 (0.5-1.4) mg/dL Estim Creat Clear Calc 90.3 Estimated GFR > 60 Random Glucose 111 (60-115) mg/dL Calcium 9.8 (8.4-10.2) mg/dL C-Reactive Protein 2.99 H (< or = 0.50) mg/dL External Record Review External record reviewed: Inpatient record, Office record, Outpatient record, Prior outpatient labs, Prior outpatient radiology, Primary care record and Outside ED record Tests considered The following testing was considered but not selected: As above Prescription Management I considered prescription management with: Pain Medication Chronic Conditions Patient?s care impacted by: Other Social Determinants Patient?s care significantly limited by Social Determinants of Health including: Other Social Determinant of Health Discharge Plan Discharge Clinical Impression: Arthralgia Patient Disposition: Home, Self-Care Instructions: Arthralgia (ED) Additional Instructions: your blood work shows elevated inflammatory markers please continue taking currently prescribed tramadol for pain in addition take Tylenol/ Motrin at home Prednisone as a steroid which will help with inflammation/ your current flare If symptoms persist or worsen/pain becomes unbearable, area begins to look infected, is red or warm return to the emergency department Please call your primary care doctor as well as rheumatology for closer follow- up Prescriptions: New prednisone 20 mg tablet 40 mg PO DAILY 5 Days Qty: 10 0RF No Action cholecalciferol (vitamin D3) 25 mcg (1,000 unit) tablet 25 mcg PO DAILY Qty: 90 3RF lisinopril 5 mg tablet 5 mg PO DAILY Qty: 90 1RF Mounjaro 7.5 mg/0.5 mL pen injector 7.5 mg SUBCUT MO 28 Days Qty: 2 0RF tramadol 50 mg tablet 50 - 100 mg PO TID PRN (Reason: pain) 30 Days Qty: 180 0RF Rx Instructions: TAKE 1 TO 2 TABLET THREE TIMES DAILY NEEDED FOR INCREASED LOWER BACK PAIN ketorolac 10 mg tablet 10 mg PO Q8H PRN (Reason: pain) Qty: 15 0RF Rx Instructions: maximum total duration of 5 days from all oral, intranasal, or parenteral formulations prednisone 10 mg tablets,dose pack 10 mg PO DIRECTED Qty: 63 0RF Rx Instructions: 60mg x 3 days, 50mg x 3 days, 40mg x 3 days, 30mg x 3 days, 20mg x 3 days, 10mg x 3 days omeprazole 20 mg capsule,delayed release(DR/EC) 20 mg PO DAILY Qty: 30 0RF ketorolac 10 mg tablet 10 mg PO Q8H PRN (Reason: pain) Qty: 12 0RF Rx Instructions: maximum total duration of 5 days from all oral, intranasal, or parenteral formulations Referrals: [facility] [place] Rheumatology Service [Provider Group, Rheumatology] Randolph Herring MD [Primary Care Provider, Internal Medicine] - 1 week Print Language: French
[2025-08-21 19:15] LABS: MANUAL DIFF FLAG NO
--- OUTSIDE RECORDS SUMMARY | 2025-08-21 19:15 | XMS_ITS | Patient Health Record ---
Author Organization [facility] Address [address] [place] [address] Care Team Providers Care Intellectual Property Legal Assistant Name Role Phone Karlee Herring MDh Primary Care Provider Yasmani Golden Unavailable [phone] Reason For Referral No Information Medications Medication SIG (Take, Route, Frequency, Duration) Notes Start Date End Date Status traMADol HCl 50 MG Tablet 1 tablet as needed Orally 1 PO TID Active tiZANidine HCl Not-T aking/PRN Metaxalone 400 MG Tablet 1 tablet Orally PRN Active Naproxen 500 MG Tablet 1 tablet with hai d or milk Orally Once a day prn Active Social History Tobacco Use: Social History Observation Description Date Details (start date - stop date) Never Smoker NA - NA Social History Drugs/Alcohol: Social Info Question Answer Notes Alcohol Screen Did you have a drink containing alcohol in the past year? Yes How often did you have a drink containing alcohol in the past year? Never (0 point) How many drinks did you have on a typical day when you were drinking in the past year? 1 or 2 drinks (0 point) How often did you have 6 or more drinks on one occasion in the past year? 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 Section Notes: Nonsmoker; no sig alcohol Problems Problem Type SNOMED Code ICD Code Onset Dates Problem Status W/U Status Risk Notes Problem Screening for malignant neoplasm of colon (455956297) Encounter for screening for malignant neoplasm of colon (Z12.11) Active confirmed Problem Preprocedural examination (834002494239288) Preprocedural examination (Z01.818) Active confirmed Plan Of Treatment Future Test Test Name Order Date COLONOSCOPY 03/09/2020 Insurance Providers Payer Name Payer Address Payer Phone Subscriber Number Group Number Insured Name Patient Relationship to Insured Coverage Start Date Coverage End Date [facility] [address] [place] [address] [id number] XANDER WEBER Self - patient is the insured Medical (General) History Medical History History ICD Code Denies MD,DM,CVA,Lung disease,renal dise ase Chronic back pain Surgical History Surgery Date(Month/Year) Lower back Bilateral knees Bilateral shoulders CCY
[2025-08-21 19:16] LABS: Hematocrit 39.6 % (42.0-52.0); Hemoglobin 13.4 g/dl (14.0-18.0); Imm Gran Abs Auto 0.05 X10*3/uL (0.00-0.03); Imm Gran Pct Auto 0.3 % (0.0-0.4); Lymphocytes Absolute Auto 3.5 X10*3/uL (1.2-4.9); Mean Corpuscular HGB Conc 33.8 g/dl (31.0-36.0); Mean Corpuscular Hemoglobin 28.9 pg (27.0-33.0); Mean Corpuscular Volume 85.5 fL (80.0-98.0); NRBC Abs Auto 0.000 X10*3/uL (0.0-0.012); NRBC Pct Auto 0.0 /100WBC (0.0-0.2); Platelet Count 307 X10*3/uL (160-400); Red Blood Count 4.63 X10*6/uL (4.60-5.80); White Blood Count 15.1 X10*3/uL (4.8-10.8)
[2025-08-21 19:28] LABS: Anion Gap 14 (12-20); Blood Urea Nitrogen 17 mg/dL (9-16); Calcium 9.8 mg/dL (8.4-10.2); Carbon Dioxide 23 mmol/L (22-29); Chloride 108 mmol/L (96-108); Creatinine Clr Calc Pharmacy 90.3; Estimated Glomerular Filt Rate > 60; Potassium 3.8 mmol/L (3.3-5.1); Sodium 141 mmol/L (135-145)
[2025-08-21 19:59] LABS: Erythrocyte Sedimentation Rate 41 MM/HR (0-15)
[2025-08-21] MEDS: Morphine Sulfate Immed Release 15 MG TABLET PO (20:46)
[2025-08-21 20:50] VITALS: BP 147/74; PULSE 84; RESP 18; TEMP 36.8; O2SAT 97
== END 2025-08-21 20:52 | disposition home or self-care (01) ==
PROVIDERS: Physician Assistant; Emergency Provider Emergency Medicine Emergency Medical Services; PCP Internal Medicine
DX: M79.642 Pain in left hand (principal); M79.641 Pain in right hand; E11.9 Type 2 diabetes mellitus without complications; I10 Essential (primary) hypertension; Z87.891 Personal history of nicotine dependence; Z79.899 Other long term (current) drug therapy; R76.89 Other specified abnormal immunological findings in serum
CPT/HCPCS: 36415; 80048; 85025; 85652; 86140; 96372; 99283; 99284; J1885

== ENCOUNTER 2025-08-31 19:33 | Emergency (ER) | payer BC, SELFPAY ==
--- NOTE | 2025-08-31 19:35 | ED_ITS ---
HPI - General Adult General Chief complaint: General Medical Stated complaint: entire right side of body pain (auto immune diseas Time Seen by Provider: 08/31/25 21:47 Source: patient Mode of arrival: ambulatory Limitations: no limitations History of Present Illness ED Provider: Dr. Garenr HPI narrative: This is a 54-year-old male history of some unknown autoimmune disease presented hospital today for evaluation of right-sided joint pain. Patient is complaining pain in his shoulder elbow wrist and his knee. Patient stated that he has this has been going on for quite some time. He is following up with his primary care doctor for workup. Does have a appointment with the Rheumatology in January. The patient's tested positive for KIRILL and rheumatoid factors. Related Data Previous Rx's ?Medication ?Instructions ?Recorded cholecalciferol (vitamin D3) 25 25 mcg PO DAILY #90 ta bs 01/03/25 mcg (1,000 unit) tablet lisinopril 5 mg tablet 5 mg PO DAILY #90 tabs 03/30 ketorolac 10 mg tablet 10 mg PO Q8H PRN pain #12 ta bs 07/14/25 ketorolac 10 mg tablet 10 mg PO Q8H PRN pain #15 ta bs 07/30/25 omeprazole 20 mg capsule,delayed 20 mg PO DAILY #30 ca ps 07/30/25 release prednisone 10 mg tablets in a dose 10 mg PO DIRECTE D #63 ea 07/30/25 pack tramadol 50 mg tablet 50 - 100 mg (1 - 2 x 50 mg) PO TID 08/08/25 PRN pain 30 days #180 tabs prednisone 20 mg tablet 40 mg (2 x 20 mg) PO DAILY 5 days 08/21/25 #10 tabs tirzepatide 7.5 mg/0.5 mL 7.5 mg (0.5 mL) subcut MO 4 weeks 08/24/25 subcutaneous pen injector #2 mL (Mounjaro) acetaminophen 500 mg tablet 1,000 mg (2 x 500 mg) PO Q 8H 10 08/31/25 days #60 tabs naproxen 250 mg tablet 250 mg PO BID 10 days #20 ta bs 08/31/25 oxycodone 5 mg tablet 5 mg PO Q6H PRN pain 4 days #14 08/31/25 tabs prednisone 10 mg tablet 10 mg PO DIRECTED #30 tab s 08/31/25 Allergies Allergy/AdvReac Type Severity Reaction Status Date / Time No Known Allergies (No Known Allergy Verified 08/31/25 19:37 Allergies*) Review of Systems 2 Review of Systems: Pertinent review of systems as mentioned in HPI. All other system otherwise negative. [facility] Past Medical History [facility] Narrative: Medical history as mentioned in HPI Medical History Septic arthritis of shoulder Vitamin D deficiency Diabetes mellitus Lumbar degenerative disc disease Left knee pain Cyst of perianal area Degenerative joint disease of right knee Obesity (BMI 30-39.9) Benign essential hypertension Surgical History H/O colonoscopy (~11/08/22) History of meniscectomy of right knee (~07/20/20) History of right knee surgery H/O lateral meniscus repair of right knee H/O lateral meniscus repair of left knee H/O lumbar discectomy History of arthroscopy of both shoulders History of laparoscopic cholecystectomy Family History Family History Maternal Grandfather Bone cancer Other Family history non-contributory Social History Social History Household Members: Spouse and Children Housing: House Do you presently have visiting nurse or other home services: No Alcohol intake: current Alcohol intake frequency: does not drink Patient Tobacco Use Status: Former Tobacco user Years Smoked: 5 e-Cigarette/Vaping Use: Never Used Second Hand Smoke Exposure: Yes Advance Directives: No Advance Directives Information Provided: No service: No Current occupational status: employed Current occupation: [employer] - [employer] Current occupational exposures/hazards: No Cognitive needs: No Hearing needs: No Vision needs: No Physical Exam ED Exam Exam: General: Pleasant, no distress, interacting appropriately Head: Normacephalic, atraumatic ENT: oral mucosa moist, neck supple, no tracheal deviation Extremities: No sign of erythema on joints of the shoulder elbow or wrist. Patient does have swelling at the site still. Tenderness on range of motion. Neurological: Awake and alert, no facial droop noted Skin: Warm and dry Psychiatric: Appropriate mood and thoughts Vital Signs: Vital Signs - 24 hr 08/31/25 19:36 08/31/25 22:05 08/31/25 22:32 Temperature 98.4 F 97.8 F 97.8 F Pulse Rate 100 88 88 Respiratory Rate 16 20 20 Blood Pressure 149/94 H 152/83 H 152/83 H Pulse Oximetry 97 98 98 Oxygen Delivery Method Room Air Room Air Room Air BMI result Body Mass Index 31.3 Course Course Course Narrative: This is a rapid medical exam performed by Erica Haskins NP: Additional HPI, ROS, PE not included below will be deferred to primary provider. Patient is a 54y/o M with pmhx of diabetes, obesity, HTN, septic arthritis presenting with complaint of diffuse joint pain since this morning. States sxs feel similar to prior flares of his undiagnosed autoimmune disorder. Plan: labs Medications Administered Discontinued Medications Generic Name Dose Route Start Last Admin Trade Name Freq PRN Reason Stop Dose Admin Acetaminophen 975 mg 08/31/25 22:05 08/31/25 22:10 Acetaminophen 325 Mg Tablet PO 08/31/25 22:06 975 mg ONCE ONE Administration Naproxen 500 mg 08/31/25 22:05 08/31/25 22:10 Naproxen 500 Mg Tablet PO 08/31/25 22:06 500 mg ONCE ONE Administration Prednisone 60 mg 08/31/25 22:05 08/31/25 22:10 Prednisone 20 Mg Tablet PO 08/31/25 22:06 60 mg ONCE ONE Administration Medical Decision Making Medical Decision Making [facility] Narrative: 54-year-old male presented hospital today for right-sided arthralgia. Patient does have some signs of joint swelling. Did test positive for rheumatoid factor and KIRILL. I will plan to give patient a dose of prednisone here. Naproxen and Tylenol. We will plan to discharge patient with a course of prednisone, naproxen and Tylenol to take. Oxycodone will be prescribed for to take for pain as needed. 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 I do not think patient has septic arthritis. He has no signs of fever no sign of tachycardia. No signs of erythema in the joint. Encouraged him to call his insurance company to see which office we will be cover. Patient is agreeable to this plan all questions were addressed. Differential Diagnosis Differential Diagnoses: The differential diagnosis associated with the presentation includes Rheumatoid flare up, arthralgia, septic arthritis Lab Data [facility] Lab Attestation statement: I reviewed the patient's lab results. 08/31/25 20:23 08/31/25 20:23 Labs: Lab Results 08/31/25 Range/Units 20:23 WBC 15.8 H (4.8-10.8) X10*3/uL RBC 4.96 (4.60-5.80) X10*6/uL Hgb 14.3 (14.0-18.0) g/dl Hct 42.5 (42.0-52.0) % MCV 85.7 (80.0-98.0) fL MCH 28.8 (27.0-33.0) pg MCHC 33.6 (31.0-36.0) g/dl RDW 13.2 (11.0-16.0) % Plt Count 354 (160-400) X10*3/uL MPV 8.8 L (9.4-12.4) fL Immature Gran % (Auto) 0.4 (0.0-0.4) % Neut % (Auto) 69.7 (45-73) % Lymph % (Auto) 17.7 L (20-40) % Traverse % (Auto) 7.5 (2-11) % Eos % (Auto) 4.1 H (0-4) % Baso % (Auto) 0.6 (0-2) % Lymph # (Auto) 2.8 (1.2-4.9) X10*3/uL Traverse # (Auto) 1.2 (0.1-1.2) X10*3/uL Eos # (Auto) 0.6 H (0.0-0.4) X10*3/uL Baso # (Auto) 0.1 (0.0-0.2) X10*3/uL Abs Immat Gran (auto) 0.06 H (0.00-0.03) X10*3/uL Absolute Neuts (auto) 11.0 H (2.0-8.3) x10*3/uL Absolute Nucleated RBC 0.000 (0.0-0.012) X10*3/uL Nucleated RBC % (auto) 0.0 (0.0-0.2) /100WBC ESR 50 H (1-20) MM/HR Sodium 139 (135-145) mmol/L Potassium 3.9 (3.3-5.1) mmol/L Chloride 107 (96-108) mmol/L Carbon Dioxide 22 (22-29) mmol/L Anion Gap 14 (12-20) BUN 14 (9-16) mg/dL Creatinine 1.25 (0.5-1.4) mg/dL Estim Creat Clear Calc 71.7 Estimated GFR 60 Random Glucose 157 H (60-115) mg/dL Calcium 9.2 D (8.4-10.2) mg/dL Total Bilirubin 0.2 (0.0-1.0) mg/dL AST 24 (5-37) U/L ALT 16 (0-40) U/L Alkaline Phosphatase 76 (39-117) U/L C-Reactive Protein 3.52 H (< or = 0.50) mg/dL Total Protein 7.4 (6.5-8.0) g/dL Albumin 4.1 (3.5-5.0) g/dL Discharge Plan Discharge Clinical Impression: Arthralgia Qualifiers: Joint pain location: unspecified Qualified Code(s): M25.50 - Pain in unspecified joint Patient Disposition: Home, Self-Care Prescriptions: New prednisone 10 mg tablet 10 mg PO DIRECTED Qty: 30 0RF Rx Instructions: see taper instructions; 40 mg Daily x3 days, 30 mg daily x3 days, 20 mg daily x3 days, 10 mg daily x3 days naproxen 250 mg tablet 250 mg PO BID 10 Days Qty: 20 0RF acetaminophen 500 mg tablet 1,000 mg PO Q8H 10 Days Qty: 60 0RF oxycodone 5 mg tablet 5 mg PO Q6H PRN (Reason: pain) 4 Days Qty: 14 0RF Rx Instructions: Partial Fill upon patient request. No Action cholecalciferol (vitamin D3) 25 mcg (1,000 unit) tablet 25 mcg PO DAILY Qty: 90 3RF lisinopril 5 mg tablet 5 mg PO DAILY Qty: 90 1RF tramadol 50 mg tablet 50 - 100 mg PO TID PRN (Reason: pain) 30 Days Qty: 180 0RF Rx Instructions: TAKE 1 TO 2 TABLET THREE TIMES DAILY NEEDED FOR INCREASED LOWER BACK PAIN Mounjaro 7.5 mg/0.5 mL pen injector 7.5 mg SUBCUT MO 28 Days Qty: 2 0RF ketorolac 10 mg tablet 10 mg PO Q8H PRN (Reason: pain) Qty: 15 0RF Rx Instructions: maximum total duration of 5 days from all oral, intranasal, or parenteral formulations prednisone 10 mg tablets,dose pack 10 mg PO DIRECTED Qty: 63 0RF Rx Instructions: 60mg x 3 days, 50mg x 3 days, 40mg x 3 days, 30mg x 3 days, 20mg x 3 days, 10mg x 3 days omeprazole 20 mg capsule,delayed release(DR/EC) 20 mg PO DAILY Qty: 30 0RF prednisone 20 mg tablet 40 mg PO DAILY 5 Days Qty: 10 0RF ketorolac 10 mg tablet 10 mg PO Q8H PRN (Reason: pain) Qty: 12 0RF Rx Instructions: maximum total duration of 5 days from all oral, intranasal, or parenteral formulations Stand Alone Forms: Work/School Release Interventions: ED Discharge Assessment Last Done: 08/31/25 22:32 Discharge Date/Time: 08/31/25 22:32 Print Language: Russian
[2025-08-31 19:36] VITALS: BP 149/94; PULSE 100; RESP 16; TEMP 36.9; O2SAT 97; BMI 31.3
[2025-08-31 20:27] LABS: MANUAL DIFF FLAG NO
[2025-08-31 20:29] LABS: Hematocrit 42.5 % (42.0-52.0); Hemoglobin 14.3 g/dl (14.0-18.0); Imm Gran Abs Auto 0.06 X10*3/uL (0.00-0.03); Imm Gran Pct Auto 0.4 % (0.0-0.4); Lymphocytes Absolute Auto 2.8 X10*3/uL (1.2-4.9); Mean Corpuscular HGB Conc 33.6 g/dl (31.0-36.0); Mean Corpuscular Hemoglobin 28.8 pg (27.0-33.0); Mean Corpuscular Volume 85.7 fL (80.0-98.0); NRBC Abs Auto 0.000 X10*3/uL (0.0-0.012); NRBC Pct Auto 0.0 /100WBC (0.0-0.2); Platelet Count 354 X10*3/uL (160-400); Red Blood Count 4.96 X10*6/uL (4.60-5.80); White Blood Count 15.8 X10*3/uL (4.8-10.8)
[2025-08-31 20:43] LABS: Alanine Aminotransferase 16 U/L (0-40); Albumin Level 4.1 g/dL (3.5-5.0); Alkaline Phosphatase 76 U/L (39-117); Anion Gap 14 (12-20); Aspartate Amino Transferase 24 U/L (5-37); Blood Urea Nitrogen 14 mg/dL (9-16); Calcium 9.2 mg/dL (8.4-10.2); Carbon Dioxide 22 mmol/L (22-29); Chloride 107 mmol/L (96-108); Creatinine Clr Calc Pharmacy 71.7; Estimated Glomerular Filt Rate 60; Potassium 3.9 mmol/L (3.3-5.1); Sodium 139 mmol/L (135-145); Total Protein 7.4 g/dL (6.5-8.0)
--- OUTSIDE RECORDS SUMMARY | 2025-08-31 21:14 | XMS_ITS | Patient Health Record ---
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 Section Notes: Nonsmoker; no sig alcohol Problems Problem Type SNOMED Code ICD Code Onset Dates Problem Status W/U Status Risk Notes Problem Screening for malignant neoplasm of colon (634649807) Encounter for screening for malignant neoplasm of colon (Z12.11) Active confirmed Problem Preprocedural examination (034605109907221) Preprocedural examination (Z01.818) Active confirmed Plan Of Treatment Future Test Test Name Order Date COLONOSCOPY 03/09/2020 Insurance Providers Payer Name Payer Address Payer Phone Subscriber Number Group Number Insured Name Patient Relationship to Insured Coverage Start Date [facility]age End Date [facility] [address] [place] [address] [id number] XANDER WEBER Self - patient is the insured Medical (General) History Medical History History ICD Code Denies PR,DM,CVA,Lung disease,renal dise ase Chronic back pain Surgical History Surgery Date(Month/Year) Lower back Bilateral knees Bilateral shoulders CCY
[2025-08-31 22:05] VITALS: BP 152/83; PULSE 88; RESP 20; TEMP 36.6; O2SAT 98
[2025-08-31 22:32] VITALS: BP 152/83; PULSE 88; RESP 20; TEMP 36.6; O2SAT 98
== END 2025-08-31 22:32 | disposition home or self-care (01) ==
PROVIDERS: Registered Nurse Emergency; Emergency Provider Student in an Organized Health Care Education/Training Program; PCP Internal Medicine
DX: M25.50 Pain in unspecified joint (principal); I10 Essential (primary) hypertension; Z87.891 Personal history of nicotine dependence
CPT/HCPCS: 36415; 80053; 85025; 85652; 86140; 99283

== ENCOUNTER 2025-09-10 11:03 | Emergency (ER) | payer BC, SELFPAY ==
[2025-09-10 11:08] VITALS: BP 148/87; PULSE 90; RESP 18; TEMP 36.7; O2SAT 97; BMI 33.6
--- NOTE | 2025-09-10 11:09 | ED.GENADULT ---
HPI - General Adult General Chief complaint: Extremity Injury, Lower Stated complaint: right foot pain Time Seen by Provider: 09/10/25 11:15 Source: patient, RN notes reviewed and old records reviewed Mode of arrival: ambulatory Limitations: no limitations History of Present Illness ED Provider: Saba HPI narrative: 54-year-old male presents for evaluation of right foot pain. Denies any injury. He was diagnosed with a positive KIRILL but has a follow up with Rheumatology in January. He does not have a diagnosed autoimmune disorder at this time. He reports worsening pain over the last couple of days. He has pain with ambulation pain He reports a top of his right foot seems red and warm to him denies any fevers or chills. His pain is 04/24 Related Data Previous Rx's ?Medication ?Instructions ?Recorded cholecalciferol (vitamin D3) 25 25 mcg PO DAILY #90 tabs 01/03/25 mcg (1,000 unit) tablet lisinopril 5 mg tablet 5 mg PO DAILY #90 tabs 03/30/25 ketorolac 10 mg tablet 10 mg PO Q8H PRN pain #12 tabs 07/14/25 ketorolac 10 mg tablet 10 mg PO Q8H PRN pain #15 tabs 07/30/25 omeprazole 20 mg capsule,delayed 20 mg PO DAILY #30 caps 07/30/25 release prednisone 10 mg tablets in a dose 10 mg PO DIRECTED #63 ea 07/30/25 pack prednisone 20 mg tablet 40 mg (2 x 20 mg) PO DAILY 5 days 08/21/25 #10 tabs tirzepatide 7.5 mg/0.5 mL 7.5 mg (0.5 mL) subcut MO 4 weeks 08/24/25 subcutaneous pen injector #2 mL (Mounniraliro) acetaminophen 500 mg tablet 1,000 mg (2 x 500 mg) PO Q8H 10 08/31/25 days #60 tabs naproxen 250 mg tablet 250 mg PO BID 10 days #20 tabs 08/31/25 oxycodone 5 mg tablet 5 mg PO Q6H PRN pain 4 days #14 08/31/25 tabs prednisone 10 mg tablet 10 mg PO DIRECTED #30 tabs 08/31/25 tramadol 50 mg tablet 50 - 100 mg (1 - 2 x 50 mg) PO TID 09/02/25 PRN pain 30 days #180 tabs prednisone 20 mg tablet 40 mg (2 x 20 mg) PO DAILY #10 tabs 09/10/25 Allergies Allergy/AdvReac Type Severity Reaction Status Date / Time No Known Allergies (No Known Allergy Verified 09/10/25 11:10 Allergies*) Review of Systems Constitutional: Constitutional: Denies body ache(s), Denies chills, Denies fever(s) and Denies headache(s) ENT: Denies headache(s) Musculoskeletal: Musculoskeletal: Reports arthralgias, Reports joint swelling and Reports limited range of motion Integumentary/Breasts: Skin/Breast: Reports erythema and Denies wounds Neurologic: Denies headache(s) [facility] Past Medical History Medical History Septic arthritis of shoulder Vitamin D deficiency Diabetes mellitus Lumbar degenerative disc disease Left knee pain Cyst of perianal area Degenerative joint disease of right knee Obesity (BMI 30-39.9) Benign essential hypertension Surgical History H/O colonoscopy (~11/08/22) History of meniscectomy of right knee (~07/20/20) History of right knee surgery H/O lateral meniscus repair of right knee H/O lateral meniscus repair of left knee H/O lumbar discectomy History of arthroscopy of both shoulders History of laparoscopic cholecystectomy Family History Family History Maternal Grandfather Bone cancer Other Family history non-contributory Social History Social History Household Members: Spouse and Children Housing: House Do you presently have visiting nurse or other home services: No Alcohol intake: current Alcohol intake frequency: does not drink Patient Tobacco Use Status: Former Tobacco user Years Smoked: 5 e-Cigarette/Vaping Use: Never Used Second Hand Smoke Exposure: Yes Advance Directives: No Advance Directives Information Provided: Yes Do you have a plan to hurt others: No Plan service: No Current occupational status: employed 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 - [employer] Current occupational exposures/hazards: No Cognitive needs: No Hearing needs: No Vision needs: No Physical Exam ED Vital Signs: Vital Signs - 24 hr 09/10/25 11:08 09/10/25 11:53 Temperature 98.1 F 98.1 F Pulse Rate 90 90 Respiratory Rate 18 18 Blood Pressure 148/87 H 148/87 H Pulse Oximetry 97 97 Oxygen Delivery Method Room Air Room Air BMI result Body Mass Index 33.6 Const General: healthy appearing, comfortable, no acute distress, alert and awake Nutritional Appearance: well nourished Orientation/consciousness: patient oriented x3 HENMT Head: Yes normocephalic and Yes atraumatic Eyes Eyelids: Yes eyelids normal Conjunctivae: conjunctivae normal Sclerae: sclerae normal Corneas: corneas normal Pupils: Equal, round and reactive pupils present EOM: EOMs intact bilaterally Neck Neck: Yes full ROM Resp Effort & Inspection: normal respiratory effort, able to speak in complete sentences and not labored Skin General skin exam: elasticity normal Neuro General: patient oriented x3 Cranial nerves: Yes Equal, round and reactive pupils present and Yes Bilaterally intact EOM present Cognition (Neuro): normal cognition Extrem Other: the patient's right foot is largely unremarkable to visualization, no significant erythema, no wounds, no significant edema. He has tenderness to palpation of the dorsal surface of the right foot without deformity. Capillary refill 2+ and equal. Medical Decision Making Medical Decision Making MDM Narrative: 54-year-old male presents for evaluation of right foot pain. He has a positive KIRILL and is awaiting evaluation by rheumatology. There was no injury, his exam is reassuring, no evidence of infectious process. I do not see any indication for repeat labs, repeat imaging. Plan to treat with a short course of prednisone and he will follow up with his outpatient providers Differential Diagnosis Differential Diagnoses: The differential diagnosis associated with the presentation includes arthralgia Gout Contusion Arthritis Discharge Plan Discharge Clinical Impression: Arthralgia Patient Disposition: Home, Self-Care Instructions: Arthralgia (ED) Additional Instructions: You should called the merchandising manager at least once a week to see if you can get on the cancellation list take prednisone 40 mg daily for the next 5 days. You may continue your tramadol as prescribed. Follow up with your primary doctor, return for new or worsening symptoms Prescriptions: New prednisone 20 mg tablet 40 mg PO DAILY Qty: 10 0RF No Action cholecalciferol (vitamin D3) 25 mcg (1,000 unit) tablet 25 mcg PO DAILY Qty: 90 3RF lisinopril 5 mg tablet 5 mg PO DAILY Qty: 90 1RF Mounjaro 7.5 mg/0.5 mL pen injector 7.5 mg SUBCUT MO 28 Days Qty: 2 0RF tramadol 50 mg tablet 50 - 100 mg PO TID PRN (Reason: pain) 30 Days Qty: 180 0RF Rx Instructions: TAKE 1 TO 2 TABLET THREE TIMES DAILY NEEDED FOR INCREASED LOWER BACK PAIN ketorolac 10 mg tablet 10 mg PO Q8H PRN (Reason: pain) Qty: 15 0RF Rx Instructions: maximum total duration of 5 days from all oral, intranasal, or parenteral formulations prednisone 10 mg tablets,dose pack 10 mg PO DIRECTED Qty: 63 0RF Rx Instructions: 60mg x 3 days, 50mg x 3 days, 40mg x 3 days, 30mg x 3 days, 20mg x 3 days, 10mg x 3 days omeprazole 20 mg capsule,delayed release(DR/EC) 20 mg PO DAILY Qty: 30 0RF prednisone 20 mg tablet 40 mg PO DAILY 5 Days Qty: 10 0RF prednisone 10 mg tablet 10 mg PO DIRECTED Qty: 30 0RF Rx Instructions: see taper instructions; 40 mg Daily x3 days, 30 mg daily x3 days, 20 mg daily x3 days, 10 mg daily x3 days naproxen 250 mg tablet 250 mg PO BID 10 Days Qty: 20 0RF acetaminophen 500 mg tablet 1,000 mg PO Q8H 10 Days Qty: 60 0RF oxycodone 5 mg tablet 5 mg PO Q6H PRN (Reason: pain) 4 Days Qty: 14 0RF Rx Instructions: Partial Fill upon patient request. ketorolac 10 mg tablet 10 mg PO Q8H PRN (Reason: pain) Qty: 12 0RF Rx Instructions: maximum total duration of 5 days from all oral, intranasal, or parenteral formulations Interventions: ED Discharge Assessment Last Done: 09/10/25 11:53 Discharge Date/Time: 09/10/25 11:54 Print Language: [place]
--- OUTSIDE RECORDS SUMMARY | 2025-09-10 11:28 | XMS_ITS | Patient Health Record ---
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 Section Notes: Nonsmoker; no sig alcohol Problems Problem Type SNOMED Code ICD Code Onset Dates Problem Status W/U Status Risk Notes Problem Screening for malignant neoplasm of colon (425261683) Encounter for screening for malignant neoplasm of colon (Z12.11) Active confirmed Problem Preprocedural examination (434136484498865) Preprocedural examination (Z01.818) Active confirmed Plan Of Treatment Future Test Test Name Order Date COLONOSCOPY 03/09/2020 Insurance Providers Payer Name Payer Address Payer Phone Subscriber Number Group Number Insured Name Patient Relationship to Insured Coverage Start Date [facility]age End Date [facility] [address] [place] [address] [id number] XANDER WEBER Self - patient is the insured Medical (General) History Medical History History ICD Code Denies [place],DM,CVA,Lung disease,renal dise ase Chronic back pain Surgical History Surgery Date(Month/Year) Lower back Bilateral knees Bilateral shoulders CCY
[2025-09-10 11:53] VITALS: BP 148/87; PULSE 90; RESP 18; TEMP 36.7; O2SAT 97
== END 2025-09-10 11:54 | disposition home or self-care (01) ==
PROVIDERS: Emergency Provider Emergency Medicine; PCP Internal Medicine
DX: M79.671 Pain in right foot (principal)
CPT/HCPCS: 99282